=== PATIENT | female | born 1975 | race Caucasian/White ===

== ENCOUNTER 2016-10-27 15:08 | Emergency (ER) | payer MEDICARE, MEDICAID ==
[~2016-10-27 15:08] MED LIST: /AUGM875TA OR; /DULO30CA; /ESCI20TA OR; /LAMO10TA PO; ABIL2TAB OR; ACET65TA OR; ALLE25CA OR; AMBI10TA; AMBI10TA OR; AMBI10TA PO; AMBIEN PO; AMIT10TA PO; ATOM40CA PO; BACT800T PO; BUPRPOW2 OR; Cymbalta; DHEA PO; DOXE100C OR; DOXE100CA PO; DOXE150C OR; DOXE150C7 PO; EFFE150C PO; EFFE75CA75 PO; EFFEXOR XR PO; ESTR125TA; ESTR2TA PO; ESTR2TAB4 PO; FETZ1CAP2 PO; FETZ1CAP3 PO; GABA-283 PO; GABA300C3 PO; GABA600T PO; GABI4TAB OR; IBUP800T PO; LAMI1TAB7 PO; LAMI200T3 PO; LAMI25TA OR; LAMICTAL PO; LAMO10TA PO; LEVO25TABR; LEVO75TA2 OR; LEVO75TA34 PO; LYRI150C OR; MIRA3350 PO; NALT50TA4 PO; NEUR600T; NEUR600T OR; NEUR600T PO; NEUR800T OR; NEUR800T PO; NICO21DI4; NICO21PAT TD; NICO2LOZ8 MT; OMACOR PO; OMEP20CA3 PO; OMEP40CA2 PO; OXCA15HATB; PRAV10TA PO; PRAV40TA2 PO; PRESTIQUE OR; PRISTIQ PO; PROZ20CA OR; PROZ20CA11 PO; PROZ40CA OR; SENO8.6T5 OR; SERO200T; SERO200T OR; SERO400T; STRA80CA PO; SYNT50TA OR; SYNT75TA OR; SYNT75TA PO; TOPA100T PO; TOPA100T8 PO; TOPA200T6 PO; TOPI50TA; TOPI50TA OR; TRIL150T PO; TRIL1TAB PO; VENL225T PO; VENL25TA; VICO5TAB PO; VIST25CA PO; VITAMIN D50000 UNT OR; [UNRECOGNIZED DRUG - CODE] PO; [UNRECOGNIZED DRUG - OTHER] PO; cymbalta; effexor XR PO; eskalith cr
--- NOTE | 2016-10-27 17:26 | EDDOCDS ---
Physician Documentation [facility] Name: Caitlyn Christine Age: 41 yrs Sex: Female : 1975 Arrival Date: 10/27/2016 Time: 15:08 Bed [facility] Private MD: NO PRIMARY PHYSICIAN, . Disposition: 10/27 17:09 Critical Care: Critical care not applicable. pc Disposition: 10/27/16 17:10 Discharged to Home/Self Care. Impression: Major depressive disorder, recurrent. - Condition is Stable. - Discharge Instructions: Depression, Adult. - Prescriptions for Lamictal 100 mg Oral Tablet - take 2 tablet by ORAL route once daily; 14 tablet. Neurontin 300 mg Oral Capsule - take 2 capsule by ORAL route 3 times per day; 42 capsule. - Medication Reconciliation, Local Pharmacy Hours form. - Follow up: Referral list, As provided by PFS; When: Call to arrange an appointment; Reason: Continuance of care. - Problem is chronic. - Symptoms are unchanged. HPI: 16:19 This 41 yrs old Female presents to ER via Walkin/Carried/Asstd with pc complaints of Psych Problem. 16:19 She states she ran out of her meds, and has not set up her rehab as she was to have pc done after her last admission. She denies any SI or HI. She wants to talk to PFS re: meds. Historical: - Allergies: Compazine (jumpy); Reglan (jumpy); - Home Meds: 1. Ambien 10 mg Oral tab 1 tab nightly prn 2. Effexor 225mg Oral daily 3. gabapentin 600 mg Oral tab 3 times per day 4. Lamictal 200 mg Oral tab once daily 5. omeprazole 40 mg Oral cpDR 1 cap once daily 6. pravastatin 40 mg oral tab 1 tab once daily 7. Synthroid 75 mcg Oral tab 1 tab once daily 8. Topamax 100 mg Oral tab 2 times per day 9. Estradiol Unknown Oral once daily - PMHx: back pain; Depression; Hypothyroidism; MRSA; Seizures; Substance Abuse; - PSHx: Hysterectomy; - The history from nurses notes was reviewed: and I agree with what is documented. - Social history: Smoking status: Patient uses tobacco products, current every day smoker. No barriers to communication noted, The patient speaks fluent Slovak, Speaks appropriately for age. - Family history: Not pertinent. - : The pt / caregiver states he / she is not on anticoagulants. Home medication list is obtained from the patient. - Hospitalizations: : No recent hospitalization is reported. - Exposure Risk Screening:: None identified. - Immunization history:: All immunizations up-to-date. - Social history:: the patient smokes cigarettes the patient drinks alcohol, the patient uses illicit drugs, including marijuana, opiates. 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 The psychiatric and neurological components pc are also addressed in the HPI. Exam: 16:19 General Appearance: alert, no acute distress. pc 16:19 ENT: ear, nose and throat normal, pharynx normal. 16:19 Eyes: pupils equal, round and reactive to light, extraocular motions intact. 16:19 Neck: The exam reveals no acute abnormalities. ROM is normal and painless. No nuchal rigidity is noted.. 16:19 Respiratory: breathing is even and unlabored, breath sounds are normal. 16:19 Cardiovascular: regular pulse rate, regular heart rhythm, normal heart sounds, equal and full pulses bilaterally. 16:19 Abdomen: soft, non-tender, no organomegaly, normal bowel sounds. 16:19 Skin: skin color is normal, warm, dry. 16:19 Extremities: The extremities have a grossly normal appearance, are non-tender, without acute ROM abnormalities. 16:19 Neuro: alert, oriented to person, place and time, cranial nerves normal as tested, no motor deficits, no sensory deficits. 16:19 Psych: mood is normal. Vital Signs: 15:10 BP 134 / 77; Pulse 81; Resp 16; Temp 97.4(O); Pulse Ox 100% ; Weight 63.5 kg / 139.99 cmb lbs; Height 5 ft. 2 in. (157.48 cm); Pain 0/10; 17:22 BP 105 / 67; Pulse 71; Resp 20; Temp 97.7(T); Pulse Ox 97% on R/A; Pain 0/10; kcs 15:10 Body Mass Index 25.61 (63.50 kg, 157.48 cm) cmb MDM: 16:19 Differential diagnosis: depression, Substance Abuse. Plan: PFS eval. The patient has pc been medically cleared for psychiatric evaluation, admission and/or transfer. 17:09 [place] Safe [place] reporting: Reporting to the [place] Safe [place] was not completed because the pc patient did not display any suicidal or homicidal ideation and was not considered a risk to self or others. Data reviewed: old medical records, vital signs, nurses notes. Test interpretation: none. The patient has been re-examined and re-evaluated. The clinical presentation did not require any ED treatment or interventions. Other consultation: The ED welfare worker was notified and will evaluate the patient. 17:09 Disposition: The historical points, examination findings, and any diagnostic results pc supporting the provided diagnosis, were discussed with the patient or legal guardian. The need for outpatient follow up with the provider listed on their discharge instructions was discussed. They were encouraged to return to [facility], or the nearest ED, if symptoms worsen/persist, or for any other questions/concerns. Signatures: Mack Nieves MD MD pc Sleeman, Kacey, LIZ HILL [facility] Diana Taylor RN RN [facility] RODRIGO
--- NOTE | 2016-10-27 17:26 | EDDOCDS ---
Nurse's Notes [facility] Name: Caitlyn Christine Age: 41 yrs Sex: Female : 1975 Arrival Date: 10/27/2016 Time: 15:08 Bed [facility] Private MD: NO PRIMARY PHYSICIAN, . Diagnosis: Major depressive disorder, recurrent Presentation: 10/27 15:14 Presenting complaint: Patient states: was discharged a few weeks ago and was supposed srm to go to rehab. upon discharge from here went home instead of rehab and all of her paperwork was sent to there and not to PMD and she has run out of meds. im not suicidal and dont feel like i need admission but i will if i dont take my meds. ran out meds yesterday. Mental Health Triage Level: Level 1- Pt displays no suicidal or homicidal ideations and does not appear to be a danger to self or others. Mental Health Triage Level: Level 2: pt tearful in triage saying she needs to speak to psych doctor. Adult Sepsis Screening: The patient does not have new or worsening altered mentation. Patient's respiratory rate is less than 22. Systolic blood pressure is greater than 100. Patient has a qSOFA score of 0- Negative Sepsis Screen. Suicide/Homicide risk assessment- Patient denies SI and HI but presents with another emotional, behavioral or other mental health complaint. The patient reports that he/she has not been admitted to an inpatient mental health facility in the last 30 days. The patient reports that he/she has a recent or current history of substance abuse. 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 Transition of care: patient was not received from another setting of care. 15:14 Method Of Arrival: Walkin/Carried/Asstd srm 15:14 Acuity: EHSAN Level 3 srm Triage Assessment: 15:18 General: Appears in no apparent distress, distressed, Behavior is appropriate for age, srm cooperative, crying. Pain: Denies pain. HIV screening NA for this visit Offered previously. 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 Ambien 10 mg Oral tab 1 tab nightly prn 2. Effexor 225mg Oral daily 3. gabapentin 600 mg Oral tab 3 times per day 4. Lamictal 200 mg Oral tab once daily 5. omeprazole 40 mg Oral cpDR 1 cap once daily 6. pravastatin 40 mg oral tab 1 tab once daily 7. Synthroid 75 mcg Oral tab 1 tab once daily 8. Topamax 100 mg Oral tab 2 times per day 9. Estradiol Unknown Oral once daily - PMHx: back pain; Depression; Hypothyroidism; MRSA; Seizures; Substance Abuse; - PSHx: Hysterectomy; - The history from nurses notes was reviewed: and I agree with what is documented. - Social history: Smoking status: Patient uses tobacco products, current every day smoker. No barriers to communication noted, The patient speaks fluent Bahamian, Speaks appropriately for age. - Family history: Not pertinent. - : The pt / caregiver states he / she is not on anticoagulants. Home medication list is obtained from the patient. - Hospitalizations: : No recent hospitalization is reported. - Exposure Risk Screening:: None identified. - Immunization history:: All immunizations up-to-date. - Social history:: the patient smokes cigarettes the patient drinks alcohol, the patient uses illicit drugs, including marijuana, opiates. Screenin:10 Infection Control. cmb 16:16 Screening information is obtained from the patient. Fall risk: No risks identified. kcs Assistance ADL's: requires no assistance with activities of daily living. Abuse/DV Screen: The patient / caregiver reports he/she is: not in a situation that causes fear, pain or injury. Nutritional screening: No deficits noted. Advance Directives: Currently, there is no health care proxy. There is no living will. home support is adequate. Assessment: 16:16 General: Appears comfortable, well developed, well nourished, Behavior is cooperative, kcs pleasant. Neurological: Level of Consciousness is awake, alert. Respiratory: Airway is patent Respiratory effort is even, unlabored, Respiratory pattern is regular, symmetrical. Derm: Skin is intact, is healthy with good turgor, Skin is dry, Skin is normal. 16:16 General: Patient has been seen by MARIN Castro.. kcs 16:16 General: Patient given mo epi.. kcs 17:22 Reassessment: Ready for discharge. Has been resting.. General: Appears comfortable, kcs well developed, well nourished, well groomed, Behavior is cooperative, pleasant. Neurological: Level of Consciousness is awake, alert. Respiratory: Airway is patent Respiratory effort is even, unlabored, Respiratory pattern is regular, symmetrical. Derm: Skin is intact, is healthy with good turgor, Skin is dry, Skin is normal. 17:22 Pain: Denies pain. kcs Vital Signs: 15:10 BP 134 / 77; Pulse 81; Resp 16; Temp 97.4(O); Pulse Ox 100% ; Weight 63.5 kg; Height 5 cmb ft. 2 in. (157.48 cm); Pain 0/10; 17:22 BP 105 / 67; Pulse 71; Resp 20; Temp 97.7(T); Pulse Ox 97% on R/A; Pain 0/10; kcs 15:10 Body Mass Index 25.61 (63.50 kg, 157.48 cm) cmb Vitals: 15:10 Log In Time: October 27, 2016 at 15:08. cmb 15:12 RN notified that patient meets Red Flag criteria. cmb ED Course: 15:09 Patient visited by Laney Roland. cmb 15:09 Patient moved to [facility] cmb 15:10 NO PRIMARY PHYSICIAN, . is Private Physician. cmb 15:17 Triage Initiated srm 15:20 Patient moved to [facility] srm 15:23 Patient visited by Thomas Mccollum. dpm 15:39 Patient visited by Thomas Mccollum. dpm 15:56 Mack Nieves MD is Attending Physician. pc 15:56 Patient visited by Thomas Mccollum. dpm 16:12 Patient visited by Mack Nieves MD. pc 16:31 Patient visited by Thomas Mccollum. dpm 16:45 Patient visited by Thomas Mccollum. dpm 17:00 Patient visited by Thomas Mccollum. dpm 17:10 Referral list, As provided by PFS is Referral Physician. pc 17:22 The patient / caregiver is instructed regarding the plan of care and ED course. kcs 17:22 No IV's were initiated during this patient's visit. No procedures done that require kcs assistance. Order Results: There are currently no results for this order. Outcome: 17:10 Discharge ordered by Provider. pc 17:22 Discharge Assessment: Patient awake, alert and oriented x 3. No cognitive and/or kcs functional deficits noted. Patient verbalized understanding of disposition instructions. Patient awake and alert. patient administered narcotics - no. The following High Risk Discharge criteria are identified: Yes, patient has been evaluated by PSA and given cab pass upon disposition. Discharged to home ambulatory. Condition: stable. Discharge instructions given to patient, Instructed on discharge instructions, follow up and referral plans. medication usage, Demonstrated understanding of instructions, medications, Pt was receptive of discharge instructions/ teaching. No special radiology studies were completed. Property sent home with patient. 17:25 Patient left the ED. kcs Signatures: Mack Nieves MD MD pc Sleeman, Kacey RN RN Diana Brewer RN RN Thomas Carter dpm, [place] cmb Corrections: (The following items were deleted from the chart) 15:12 15:10 Resp 16bpm; Pain 0/10; cmb cmb MTDD
--- NOTE | 2016-10-29 18:25 | EDDOCDS ---
Physician Documentation [facility] Name: Caitlyn Christine Age: 41 yrs Sex: Female : 1975 Arrival Date: 10/27/2016 Time: 15:08 Bed [facility] Private MD: NO PRIMARY PHYSICIAN, . Disposition: 10/27 17:09 Critical Care: Critical care not applicable. pc Disposition: 10/27/16 17:10 Discharged to Home/Self Care. Impression: Major depressive disorder, recurrent. - Condition is Stable. - Discharge Instructions: Depression, Adult. - Prescriptions for Lamictal 100 mg Oral Tablet - take 2 tablet by ORAL route once daily; 14 tablet. Neurontin 300 mg Oral Capsule - take 2 capsule by ORAL route 3 times per day; 42 capsule. - Medication Reconciliation, Local Pharmacy Hours form. - Follow up: Referral list, As provided by PFS; When: Call to arrange an appointment; Reason: Continuance of care. - Problem is chronic. - Symptoms are unchanged. HPI: 16:19 This 41 yrs old Female presents to ER via Walkin/Carried/Asstd with pc complaints of Psych Problem. 16:19 She states she ran out of her meds, and has not set up her rehab as she was to have pc done after her last admission. She denies any SI or HI. She wants to talk to PFS re: meds. Historical: - Allergies: Compazine (jumpy); Reglan (jumpy); - Home Meds: 1. Ambien 10 mg Oral tab 1 tab nightly prn 2. Effexor 225mg Oral daily 3. gabapentin 600 mg Oral tab 3 times per day 4. Lamictal 200 mg Oral tab once daily 5. omeprazole 40 mg Oral cpDR 1 cap once daily 6. pravastatin 40 mg oral tab 1 tab once daily 7. Synthroid 75 mcg Oral tab 1 tab once daily 8. Topamax 100 mg Oral tab 2 times per day 9. Estradiol Unknown Oral once daily - PMHx: back pain; Depression; Hypothyroidism; MRSA; Seizures; Substance Abuse; - PSHx: Hysterectomy; - The history from nurses notes was reviewed: and I agree with what is documented. - Social history: Smoking status: Patient uses tobacco products, current every day smoker. No barriers to communication noted, The patient speaks fluent Kazakh, Speaks appropriately for age. - Family history: Not pertinent. - : The pt / caregiver states he / she is not on anticoagulants. Home medication list is obtained from the patient. - Hospitalizations: : No recent hospitalization is reported. - Exposure Risk Screening:: None identified. - Immunization history:: All immunizations up-to-date. - Social history:: the patient smokes cigarettes the patient drinks alcohol, the patient uses illicit drugs, including marijuana, opiates. 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 The psychiatric and neurological components pc are also addressed in the HPI. Exam: 16:19 General Appearance: alert, no acute distress. pc 16:19 ENT: ear, nose and throat normal, pharynx normal. 16:19 Eyes: pupils equal, round and reactive to light, extraocular motions intact. 16:19 Neck: The exam reveals no acute abnormalities. ROM is normal and painless. No nuchal rigidity is noted.. 16:19 Respiratory: breathing is even and unlabored, breath sounds are normal. 16:19 Cardiovascular: regular pulse rate, regular heart rhythm, normal heart sounds, equal and full pulses bilaterally. 16:19 Abdomen: soft, non-tender, no organomegaly, normal bowel sounds. 16:19 Skin: skin color is normal, warm, dry. 16:19 Extremities: The extremities have a grossly normal appearance, are non-tender, without acute ROM abnormalities. 16:19 Neuro: alert, oriented to person, place and time, cranial nerves normal as tested, no motor deficits, no sensory deficits. 16:19 Psych: mood is normal. Vital Signs: 15:10 BP 134 / 77; Pulse 81; Resp 16; Temp 97.4(O); Pulse Ox 100% ; Weight 63.5 kg / 139.99 cmb lbs; Height 5 ft. 2 in. (157.48 cm); Pain 0/10; 17:22 BP 105 / 67; Pulse 71; Resp 20; Temp 97.7(T); Pulse Ox 97% on R/A; Pain 0/10; kcs 15:10 Body Mass Index 25.61 (63.50 kg, 157.48 cm) cmb MDM: 16:19 Differential diagnosis: depression, Substance Abuse. Plan: PFS eval. The patient has pc been medically cleared for psychiatric evaluation, admission and/or transfer. 17:09 [place] Safe [place] reporting: Reporting to the [place] Safe [place] was not completed because the pc patient did not display any suicidal or homicidal ideation and was not considered a risk to self or others. Data reviewed: old medical records, vital signs, nurses notes. Test interpretation: none. The patient has been re-examined and re-evaluated. The clinical presentation did not require any ED treatment or interventions. Other consultation: The ED door worker was notified and will evaluate the patient. 17:09 Disposition: The historical points, examination findings, and any diagnostic results pc supporting the provided diagnosis, were discussed with the patient or legal guardian. The need for outpatient follow up with the provider listed on their discharge instructions was discussed. They were encouraged to return to [facility], or the nearest ED, if symptoms worsen/persist, or for any other questions/concerns. 20:25 [facility] [place] Agreement was scanned into [employer] and attached to record. [place] 20:25 Financial registration complete. gjb Signatures: Mack Nieves MD MD pc Sleeman, Kacey RN RN [facility] Diana Taylor RN RN Jia Oneil The chart was reviewed and I authenticate all verbal orders and agree with the evaluation and treatment provided.Attachments: 20:25 [facility] Payment Agreement gjb Chart Complete MTDD
--- NOTE | 2016-10-29 18:25 | EDDOCDS ---
Physician Documentation [facility] Name: Caitlyn Christine Age: 41 yrs Sex: Female : 1975 Arrival Date: 10/27/2016 Time: 15:08 Bed [facility] Private MD: NO PRIMARY PHYSICIAN, . Disposition: 10/27 17:09 Critical Care: Critical care not applicable. pc Disposition: 10/27/16 17:10 Discharged to Home/Self Care. Impression: Major depressive disorder, recurrent. - Condition is Stable. - Discharge Instructions: Depression, Adult. - Prescriptions for Lamictal 100 mg Oral Tablet - take 2 tablet by ORAL route once daily; 14 tablet. Neurontin 300 mg Oral Capsule - take 2 capsule by ORAL route 3 times per day; 42 capsule. - Medication Reconciliation, Local Pharmacy Hours form. - Follow up: Referral list, As provided by PFS; When: Call to arrange an appointment; Reason: Continuance of care. - Problem is chronic. - Symptoms are unchanged. HPI: 16:19 This 41 yrs old Female presents to ER via Walkin/Carried/Asstd with pc complaints of Psych Problem. 16:19 She states she ran out of her meds, and has not set up her rehab as she was to have pc done after her last admission. She denies any SI or HI. She wants to talk to PFS re: meds. Historical: - Allergies: Compazine (jumpy); Reglan (jumpy); - Home Meds: 1. Ambien 10 mg Oral tab 1 tab nightly prn 2. Effexor 225mg Oral daily 3. gabapentin 600 mg Oral tab 3 times per day 4. Lamictal 200 mg Oral tab once daily 5. omeprazole 40 mg Oral cpDR 1 cap once daily 6. pravastatin 40 mg oral tab 1 tab once daily 7. Synthroid 75 mcg Oral tab 1 tab once daily 8. Topamax 100 mg Oral tab 2 times per day 9. Estradiol Unknown Oral once daily - PMHx: back pain; Depression; Hypothyroidism; MRSA; Seizures; Substance Abuse; - PSHx: Hysterectomy; - The history from nurses notes was reviewed: and I agree with what is documented. - Social history: Smoking status: Patient uses tobacco products, current every day smoker. No barriers to communication noted, The patient speaks fluent Uzbek, Speaks appropriately for age. - Family history: Not pertinent. - : The pt / caregiver states he / she is not on anticoagulants. Home medication list is obtained from the patient. - Hospitalizations: : No recent hospitalization is reported. - Exposure Risk Screening:: None identified. - Immunization history:: All immunizations up-to-date. - Social history:: the patient smokes cigarettes the patient drinks alcohol, the patient uses illicit drugs, including marijuana, opiates. 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 The psychiatric and neurological components pc are also addressed in the HPI. Exam: 16:19 General Appearance: alert, no acute distress. pc 16:19 ENT: ear, nose and throat normal, pharynx normal. 16:19 Eyes: pupils equal, round and reactive to light, extraocular motions intact. 16:19 Neck: The exam reveals no acute abnormalities. ROM is normal and painless. No nuchal rigidity is noted.. 16:19 Respiratory: breathing is even and unlabored, breath sounds are normal. 16:19 Cardiovascular: regular pulse rate, regular heart rhythm, normal heart sounds, equal and full pulses bilaterally. 16:19 Abdomen: soft, non-tender, no organomegaly, normal bowel sounds. 16:19 Skin: skin color is normal, warm, dry. 16:19 Extremities: The extremities have a grossly normal appearance, are non-tender, without acute ROM abnormalities. 16:19 Neuro: alert, oriented to person, place and time, cranial nerves normal as tested, no motor deficits, no sensory deficits. 16:19 Psych: mood is normal. Vital Signs: 15:10 BP 134 / 77; Pulse 81; Resp 16; Temp 97.4(O); Pulse Ox 100% ; Weight 63.5 kg / 139.99 cmb lbs; Height 5 ft. 2 in. (157.48 cm); Pain 0/10; 17:22 BP 105 / 67; Pulse 71; Resp 20; Temp 97.7(T); Pulse Ox 97% on R/A; Pain 0/10; kcs 15:10 Body Mass Index 25.61 (63.50 kg, 157.48 cm) cmb MDM: 16:19 Differential diagnosis: depression, Substance Abuse. Plan: PFS eval. The patient has pc been medically cleared for psychiatric evaluation, admission and/or transfer. 17:09 [place] Safe [place] reporting: Reporting to the [place] Safe [place] was not completed because the pc patient did not display any suicidal or homicidal ideation and was not considered a risk to self or others. Data reviewed: old medical records, vital signs, nurses notes. Test interpretation: none. The patient has been re-examined and re-evaluated. The clinical presentation did not require any ED treatment or interventions. Other consultation: The ED chore worker was notified and will evaluate the patient. 17:09 Disposition: The historical points, examination findings, and any diagnostic results pc supporting the provided diagnosis, were discussed with the patient or legal guardian. The need for outpatient follow up with the provider listed on their discharge instructions was discussed. They were encouraged to return to [facility], or the nearest ED, if symptoms worsen/persist, or for any other questions/concerns. 20:25 [facility] [place] was scanned into [employer] and attached to record. [place] 20:25 Financial registration complete. gjb Signatures: Mack Nieves MD MD pc Sleeman, Kacey RN RN [facility] Diana Taylor RN RN Jia Oneil The chart was reviewed and I authenticate all verbal orders and agree with the evaluation and treatment provided.Attachments: 20:25 [facility] [place] gjb Chart Complete MTDD
--- NOTE | 2016-10-29 18:25 | EDDOCDS ---
Nurse's Notes [facility] Name: Caitlyn Christine Age: 41 yrs Sex: Female : 1975 Arrival Date: 10/27/2016 Time: 15:08 Bed [facility] Private MD: NO PRIMARY PHYSICIAN, . Diagnosis: Major depressive disorder, recurrent Presentation: 10/27 15:14 Presenting complaint: Patient states: was discharged a few weeks ago and was supposed srm to go to rehab. upon discharge from here went home instead of rehab and all of her paperwork was sent to there and not to PMD and she has run out of meds. im not suicidal and dont feel like i need admission but i will if i dont take my meds. ran out meds yesterday. Mental Health Triage Level: Level 1- Pt displays no suicidal or homicidal ideations and does not appear to be a danger to self or others. Mental Health Triage Level: Level 2: pt tearful in triage saying she needs to speak to psych doctor. Adult Sepsis Screening: The patient does not have new or worsening altered mentation. Patient's respiratory rate is less than 22. Systolic blood pressure is greater than 100. Patient has a qSOFA score of 0- Negative Sepsis Screen. Suicide/Homicide risk assessment- Patient denies SI and HI but presents with another emotional, behavioral or other mental health complaint. The patient reports that he/she has not been admitted to an inpatient mental health facility in the last 30 days. The patient reports that he/she has a recent or current history of substance abuse. Status: Patient is not a director of women's services or dependent. Transition of care: patient was not received from another setting of care. 15:14 Method Of Arrival: Walkin/Carried/Asstd srm 15:14 Acuity: EHSAN Level 3 srm Triage Assessment: 15:18 General: Appears in no apparent distress, distressed, Behavior is appropriate for age, srm cooperative, crying. Pain: Denies pain. HIV screening NA for this visit Offered previously. 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 Ambien 10 mg Oral tab 1 tab nightly prn 2. Effexor 225mg Oral daily 3. gabapentin 600 mg Oral tab 3 times per day 4. Lamictal 200 mg Oral tab once daily 5. omeprazole 40 mg Oral cpDR 1 cap once daily 6. pravastatin 40 mg oral tab 1 tab once daily 7. Synthroid 75 mcg Oral tab 1 tab once daily 8. Topamax 100 mg Oral tab 2 times per day 9. Estradiol Unknown Oral once daily - PMHx: back pain; Depression; Hypothyroidism; MRSA; Seizures; Substance Abuse; - PSHx: Hysterectomy; - The history from nurses notes was reviewed: and I agree with what is documented. - Social history: Smoking status: Patient uses tobacco products, current every day smoker. No barriers to communication noted, The patient speaks fluent Qatari, Speaks appropriately for age. - Family history: Not pertinent. - : The pt / caregiver states he / she is not on anticoagulants. Home medication list is obtained from the patient. - Hospitalizations: : No recent hospitalization is reported. - Exposure Risk Screening:: None identified. - Immunization history:: All immunizations up-to-date. - Social history:: the patient smokes cigarettes the patient drinks alcohol, the patient uses illicit drugs, including marijuana, opiates. Screenin:10 Infection Control. cmb 16:16 Screening information is obtained from the patient. Fall risk: No risks identified. kcs Assistance ADL's: requires no assistance with activities of daily living. Abuse/DV Screen: The patient / caregiver reports he/she is: not in a situation that causes fear, pain or injury. Nutritional screening: No deficits noted. Advance Directives: Currently, there is no health care proxy. There is no living will. home support is adequate. Assessment: 16:16 General: Appears comfortable, well developed, well nourished, Behavior is cooperative, kcs pleasant. Neurological: Level of Consciousness is awake, alert. Respiratory: Airway is patent Respiratory effort is even, unlabored, Respiratory pattern is regular, symmetrical. Derm: Skin is intact, is healthy with good turgor, Skin is dry, Skin is normal. 16:16 General: Patient has been seen by MARIN Castro.. kcs 16:16 General: Patient given mo epi.. kcs 17:22 Reassessment: Ready for discharge. Has been resting.. General: Appears comfortable, kcs well developed, well nourished, well groomed, Behavior is cooperative, pleasant. Neurological: Level of Consciousness is awake, alert. Respiratory: Airway is patent Respiratory effort is even, unlabored, Respiratory pattern is regular, symmetrical. Derm: Skin is intact, is healthy with good turgor, Skin is dry, Skin is normal. 17:22 Pain: Denies pain. kcs Vital Signs: 15:10 BP 134 / 77; Pulse 81; Resp 16; Temp 97.4(O); Pulse Ox 100% ; Weight 63.5 kg; Height 5 cmb ft. 2 in. (157.48 cm); Pain 0/10; 17:22 BP 105 / 67; Pulse 71; Resp 20; Temp 97.7(T); Pulse Ox 97% on R/A; Pain 0/10; kcs 15:10 Body Mass Index 25.61 (63.50 kg, 157.48 cm) cmb Vitals: 15:10 Log In Time: October 27, 2016 at 15:08. cmb 15:12 RN notified that patient meets Red Flag criteria. cmb ED Course: 15:09 Patient visited by Laney Roland. cmb 15:09 Patient moved to [facility] cmb 15:10 NO PRIMARY PHYSICIAN, . is Private Physician. cmb 15:17 Triage Initiated srm 15:20 Patient moved to [facility] srm 15:23 Patient visited by Thomas Mccollum. dpm 15:39 Patient visited by Thomas Mccollum. dpm 15:56 Mack Nieves MD is Attending Physician. pc 15:56 Patient visited by Thomas Mccollum. dpm 16:12 Patient visited by Mack Nieves MD. pc 16:31 Patient visited by Thomas Mccollum. dpm 16:45 Patient visited by Thomas Mccollum. dpm 17:00 Patient visited by Thomas Mccollum. dpm 17:10 Referral list, As provided by [facility] is Referral Physician. pc 17:22 The patient / caregiver is instructed regarding the plan of care and ED course. kcs 17:22 No IV's were initiated during this patient's visit. No procedures done that require kcs assistance. 20:25 [facility] Payment Agreement was scanned into [employer] and attached to record. gjb Order Results: There are currently no results for this order. Outcome: 17:10 Discharge ordered by Provider. pc 17:22 Discharge Assessment: Patient awake, alert and oriented x 3. No cognitive and/or kcs functional deficits noted. Patient verbalized understanding of disposition instructions. Patient awake and alert. patient administered narcotics - no. The following High Risk Discharge criteria are identified: Yes, patient has been evaluated by PSA and given cab pass upon disposition. Discharged to home ambulatory. Condition: stable. Discharge instructions given to patient, Instructed on discharge instructions, follow up and referral plans. medication usage, Demonstrated understanding of instructions, medications, Pt was receptive of discharge instructions/ teaching. No special radiology studies were completed. Property sent home with patient. 17:25 Patient left the ED. kcs Signatures: Mack Nieves MD MD pc Sleeman, Kacey, RN RN Diana Brewer RN RN srm Marolf, Dustin dpm Boshart, Chelsea cmb Beck, Gabriela gjb Corrections: (The following items were deleted from the chart) 15:12 15:10 Resp 16bpm; Pain 0/10; cmb cmb Chart Complete MTDD
== END 2016-10-27 17:25 | disposition home or self-care (01) ==
LOC: M ED 15:08
DX: F33.9 Major depressive disorder, recurrent, unspecified (principal); M54.9 Dorsalgia, unspecified; E03.9 Hypothyroidism, unspecified; A49.02 Methicillin resistant Staphylococcus aureus infection, unspecified site; R56.9 Unspecified convulsions; F19.10 Other psychoactive substance abuse, uncomplicated; F17.210 Nicotine dependence, cigarettes, uncomplicated; Z79.899 Other long term (current) drug therapy; Z88.8 Allergy status to other drugs, medicaments and biological substances

== ENCOUNTER 2016-11-02 04:36 | Inpatient (IN) | payer MEDICARE, MEDICAID ==
[~2016-11-02] VITALS: Ht 157.5 cm; Wt 61.2 kg
[2016-11-02 06:07] LABS: MEAN CORPUSCULAR HEMOGLOBIN 31.7 pg (27.0-33.0); MEAN CORPUSCULAR HGB CONC 34.2 g/dl (32.0-36.5); MEAN CORPUSCULAR VOLUME 92.8 fl (80.0-96.0); RED CELL DISTRIBUTION WIDTH 12.7 % (11.5-14.5); WHITE BLOOD COUNT 4.7 K/mm3 (4.0-10.0)
[2016-11-02] MEDS ORDERED: clonazePAM 0.5 MG TAB As Ordered ONE (06:24)
[2016-11-02 06:31] LABS: AMPHETAMINES LEVEL URINE POSITIVE (NEGATIVE); BENZODIAZEPINES URINE NEGATIVE (NEGATIVE); COCAINE METABOLITE URINE NEGATIVE (NEGATIVE); CONTROL LINE INT CTR LINE PRESENT; METHADONE URINE NEGATIVE (NEGATIVE); OPIATES URINE NEGATIVE (NEGATIVE); TRICYCLIC ANTIDEPRESS URINE NEGATIVE (NEGATIVE)
[2016-11-02 06:33] LABS: ALBUMIN 4.4 GM/DL (3.2-5.2); ALBUMIN/GLOBULIN RATIO 1.47 (1.00-1.93); ALKALINE PHOSPHATASE 69 U/L (45-117); ALT/SGPT 17 U/L (12-78); ANION GAP 10 MEQ/L (8-16); AST/SGOT 15 U/L (15-37); BILIRUBIN,DIRECT 0.2 MG/DL (0.0-0.2); BILIRUBIN,TOTAL 0.5 MG/DL (0.2-1.0); BLOOD UREA NITROGEN 12 MG/DL (7-18); CALCIUM LEVEL 9.2 MG/DL (8.5-10.1); CARBON DIOXIDE LEVEL 26 MEQ/L (21-32); CHLORIDE LEVEL 105 MEQ/L (98-107); CREATININE FOR GFR 0.92 MG/DL (0.55-1.02); GLOMERULAR FILTRATION RATE > 60.0 (>58); GLUCOSE, FASTING 63 MG/DL (70-105); POTASSIUM SERUM 3.6 MEQ/L (3.5-5.1); SODIUM LEVEL 141 MEQ/L (136-145); TOTAL PROTEIN 7.4 GM/DL (6.4-8.2)
[2016-11-02] MEDS: NICOTINE 21MG/24HR 1 EA TRANSDERMAL TD SCH (09:00)
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
--- NOTE | 2016-11-02 09:47 | EDDOCDS ---
Physician Documentation [facility] Name: Caitlyn Christine Age: 41 yrs Sex: Female : 1975 Arrival Date: 11/02/2016 Time: 04:36 Bed OBSERVATION Private MD: Disposition: 11/02/16 06:54 Hospitalization ordered by Demetris Rodriguez for Inpatient Admission. Preliminary diagnosis are Major depressive disorder, recurrent, Adverse effect of amphetamines - abuse of same. - Bed requested for Admit. - Status is Inpatient Admission. ead - Condition is Stable. - Problem is an ongoing problem. - Symptoms are unchanged. Historical: - Allergies: Compazine (jumpy); Reglan (jumpy); - Home Meds: 1. Ambien 10 mg Oral tab 1 tab nightly prn 2. Effexor 225mg Oral daily 3. Estradiol Oral once daily 4. gabapentin 600 mg Oral tab 3 times per day 5. Lamictal 200 mg Oral tab once daily 6. omeprazole 40 mg Oral cpDR 1 cap once daily 7. pravastatin 40 mg oral tab 1 tab once daily 8. Synthroid 75 mcg Oral tab 1 tab once daily 9. Topamax 100 mg Oral tab 2 times per day - PMHx: back pain; Depression; Hypothyroidism; MRSA; Seizures; Substance Abuse; - PSHx: Hysterectomy; Appendectomy; - Social history: Smoking status: Patient uses tobacco products, heavy tobacco smoker. No barriers to communication noted, The patient speaks fluent Lithuanian, Speaks appropriately for age. - Family history: Not pertinent. - : The pt / caregiver states he / she is not on anticoagulants. Home medication list is obtained from the patient. - Exposure Risk Screening:: None identified. Vital Signs: 11/02 04:52 BP 109 / 82; Pulse 105; Resp 18; Temp 96.0(O); Pulse Ox 96% on R/A; Weight 61.23 kg / rn1 134.99 lbs; Height 5 ft. 2 in. (157.48 cm); Pain 0/10; 09:43 BP 97 / 53; Pulse 67; Resp 16; Temp 96.1; Pulse Ox 98% on R/A; ead 04:52 Body Mass Index 24.69 (61.23 kg, 157.48 cm) rn1 MDM: 05:07 Financial registration complete. [facility] 05:13 [facility] Payment Agreement was scanned into Booster and attached to record. [facility] 05:22 Consult PFS/PSA/Supervisor Shuttle Veneering ordered. 11 05:22 Consult PFS/PSA/Supervisor Shuttle Veneering: Patient's case requires discussion with on-call [facility] Psychiatrist ordered. 05:22 PSA/PFS to call Nursing Signs Sales Representative, to enter patient data on [place] Safe [place] if patient cs11 involuntarily admitted or transferred for SI or HI ordered. 05:22 Confirm accurate psychiatric medication list and times of last dosage ordered. cs11 05:22 Detain Pt Until Medically/PFS Cleared ordered. cs11 05:23 Acetaminophen Level Ordered. EDMS 05:23 Basic Metabolic Profile Ordered. EDMS 05:23 Complete Blood Count Ordered. EDMS 05:23 Drug Eval Toxicology ED Only Ordered. EDMS 05:23 Ethyl Alcohol (ethanol) Ordered. EDMS 05:23 Liver Profile Ordered. EDMS 05:23 Salicylate Level Ordered. EDMS 05:23 Thyroid Stimulating Hormone Ordered. EDMS 06:12 REGULAR DIET PLASTIC NIETO+DIET ordered. EDMS 06:16 clonazePAM 0.5 mg PO once ordered. cs11 06:53 Acetaminophen Level Reviewed. cs11 06:53 Basic Metabolic Profile Reviewed. cs11 06:53 Drug Eval Toxicology ED Only Reviewed. cs11 06:53 Salicylate Level Reviewed. cs11 06:53 Thyroid Stimulating Hormone Reviewed. cs11 06:53 Complete Blood Count Reviewed. cs11 06:53 Ethyl Alcohol (ethanol) Reviewed. cs11 06:53 Liver Profile Reviewed. 11 06:54 Consult PFS/PSA/Supervisor Shuttle Veneering complete. 1 06:54 Consult PFS/PSA/Supervisor Shuttle Veneering: Patient's case requires discussion with on-call [facility] Psychiatrist complete. 06:54 PSA/PFS to call Nursing Signs Sales Representative, to enter patient data [place] if patient 1 involuntarily admitted or transferred for SI or HI complete. 06:55 BED REQUEST+ADM ordered. EDMS 08:22 Admit to [facility]: ordered. EDMS 09:03 [facility] Legal paperwork was scanned into Booster and attached to record. ca Administered Medications: 06:28 Drug: clonazePAM 0.5 mg [clonazepam 0.5 mg tablet (1 tabs)] Route: PO; mf4 Signatures: Dispatcher [employer] EDMS Gardenia Quiroz PSA PSA ca Daniela Del Toro, PSA PSA hm1 Iker Denis,PATIENT REGISTRATION CLERK PATIENT REGISTRATION CLERK mf4 Fan Meeks, DO cs11 Elizabeth Cody,RN RN Lisa Jones RN RN Radha Tate [facility] The chart was reviewed and I authenticate all verbal orders and agree with the evaluation and treatment provided.Attachments: 05:13 [facility] Payment Agreement [facility] MTDD
[2016-11-02 10:43] VITALS: BP 101/68
--- NOTE | 2016-11-02 12:21 | HPEPDOC ---
Medical History and Physical Date of Admission Nov 02, 2016 at 10:10 History and Physical PCP: None ATTENDING: Dr. Judd Arteaga HPI: 41yoF [facility] for unspecified depressive disorder, being medically examined today. She states she is unable to get out of bed for examination, she is too tired. She reports she has not slept for the past 3 days. She has no specific complaints or concerns. She just wants to sleep. She states she has not taken her medications for the past 2 days because she ran out of them. Denies any fevers, chills, weakness, fatigue, BECK, CP, SOB, cough, palpitations, abdominal pain, N/V/D or changes in bowel or bladder habits. PMHx: Depression/anxiety Self-mutilation History of suicide attempt Hypothyroidism Kidney stone Seizure, last 2012. Polysubstance use ADHD Chronic back pain History of MRSA GERD PSHX: Hysterectomy Appendectomy SOCHX: Resides in: [place] Marital Status: Kids: 3 Employment: Unemployed Tobacco use: One half pack per day ETOH: Denies Illicit Drugs: h/o Opiates, heroin, Suboxone. The patient states she was using methamphetamine IV for 2 days prior to admission and was injecting into her right arm. Was also using IV heroin. IV Drug Use: h/o Heroin/Meth. Tattoos done unprofessionally: Denies FAMHX: Mother: , suicide Father: Alive, diabetes Siblings: Alive, well Children: Alive, well Unexpected deaths due to medical reasons: Maternal aunt , overdose. ROS: As noted in HPI, otherwise 11pt ROS of systems reviewed and remarkable only for LMP-hysterectomy. PE: Physical examination is somewhat limited as the patient declines to get out of bed for exam. GEN: 41yoF, appears stated age. No acute distress. Alert and oriented x 3. Lethargic but awakens easily to voice. HEENT: Normocephalic, atraumatic. Moist mucous membranes. Trachea midline. CHEST: Regular rate and rhythm, +S1, +S2 LUNGS: Clear to auscultation bilaterally. No wheezes, rales, or rhonchi. Breathing appears symmetric and easy. No accessory muscle use. ABD: Round, soft, non-tender, non-distended. +Bowel sounds throughout. No rebound or guarding. No costovertebral angle tenderness. EXT: Pulses 2+ bilaterally dorsalis pedis and radial. No lower extremity edema appreciated. SKIN: [place], dry, warm. Capillary refill <2sec. No rashes. NEURO: Alert and oriented x 3. No focal deficits appreciated. EK09/29/16 sinus rhythm, nonspecific ST-T wave abnormality, 60 bpm. A&P: 41yoF admitted to [facility] for depressive disorder unspecified. 1. Psych. Plan per Psychiatry. EKG on file 2. Nicotine dependence. Patch available. 4. Follow up. No Primary Care Provider. Will attempt to establish PCP on discharge. 5. H/O Substance use, per psychiatry. 6. Hypothyroidism. Continue Synthroid 75 g daily. TSH is noted to be 3.760. Will recheck TSH and free T4 in a.m. Patient admits she has been out of her medication for at least the past 2 days. 7. Chronic Back pain. Continue Gabapentin 600mg TID. Tylenol if needed. 8. Seizure Disorder. Continue Topamax 100mg BID. Last seizure reportedly 2012. 9. Status post hysterectomy/menopausal symptoms. Remains on HRT, estradiol 2 mg by mouth daily. Arrange follow up with REAL ESTATE ADMINISTRATIVE ASSISTANT provider at discharge. Outpatient follow-up. 10. IVDU. Patient agrees to HIV/hepatitis screening. 11. Accompanied throughout exam by staff member, Brittany jo. Vital Signs Vital Signs Label Value Date Time Patient Temperature 97.2 degrees F 11/02/16 1043 Pulse 64 11/02/16 1043 Respiratory Rate 16 bpm 11/02/16 1043 Blood Pressure Assessment 101/68 (79) 11/02/16 1043 Laboratory Data Labs 24H Laboratory Tests 2 11/02/16 05:48: Acetaminophen Level < 2.0L, Aspartate Amino Transf (AST/SGOT) 15, Alanine Aminotransferase (ALT/SGPT) 17, Alkaline Phosphatase 69, Total Bilirubin 0.5, Direct Bilirubin 0.2, Albumin 4.4, Albumin/Globulin Ratio 1.47, Anion Gap 10, Calcium Level 9.2, Ethyl Alcohol Level < 0.003, Glomerular Filtration Rate > 60.0, Salicylates Level 3.1L, Thyroid Stimulating Hormone (TSH) 3.760H, Total Protein 7.4 11/02/16 05:51: Urine Amphetamine Level POSITIVEH, Urine Benzodiazepines Screen NEGATIVE, Urine Cannabinoids NEGATIVE, Urine Cocaine Metabolite NEGATIVE, Urine Opiates Screen NEGATIVE, Urine Barbiturates, Qualitative NEGATIVE, Urine Methadone Screen NEGATIVE, Urine Tricyclic Antidepressants NEGATIVE CBC/BMP Laboratory Tests 11/02/16 05:48 Red Blood Count 4.51, Mean Corpuscular Volume 92.8, Mean Corpuscular Hemoglobin 31.7, Mean Corpuscular Hemoglobin Concent 34.2, Red Cell Distribution Width 12.7 Home Medications Scheduled Estradiol (Estradiol) 2 Mg Tab 2 MG PO DAILY Gabapentin (Gabapentin) 300 Mg Cap 600 MG PO TID Lamotrigine (Lamictal) 200 Mg Tab 200 MG PO DAILY Levothyroxine Sodium (Levoxyl) 75 Mcg Tab 75 MCG PO DAILY Topiramate (Topamax) 100 Mg Tab 100 MG PO BID Venlafaxine Hydrochloride (Venlafaxine HCl ER) 225 Mg Tab 225 MG PO DAILY Scheduled PRN Hydroxyzine Pamoate (Vistaril) 25 Mg Cap 25 MG PO Q6H PRN PRN ANXIETY Allergies Coded Allergies: Molds & Smuts (Verified Allergy, Unknown, 01/11/13) Metoclopramide (Verified Adverse Reaction, Intermediate, AKATHISIA, 01/11/13 ) Prochlorperazine (Verified Adverse Reaction, Intermediate, AKATHISIA, ) AGITATION Morphine (Unverified Adverse Reaction, Unknown, h/a, 05/16/14) Quetiapine (Unverified Adverse Reaction, Unknown, 05/16/14) pt did not specify issue with medication Trazodone (Verified Adverse Reaction, Unknown, agitation, shakiness, ) Viky Robb Nov 02, 2016 12:21
[2016-11-02] MEDS ORDERED: MAALOX 30 ML SUSP *UDC PO PRN (13:00)
[2016-11-02] MEDS ORDERED: ACETAMINOPHEN TAB 650MG DOSE (2X325MG) PO PRN (13:00)
[2016-11-02] MEDS ORDERED: hydrOXYzine 25 MG TAB PO PRN (13:00)
[2016-11-02] MEDS ORDERED: MOM 30ML SUSPENSION UDC PO PRN (13:00)
[2016-11-02] MEDS: ESTRADIOL 1 MG TAB PO SCH (13:17)
[2016-11-02] MEDS: TOPIRAMATE (TopAMAX) 100 MG TAB PO SCH ×2 (13:17→21:57)
[2016-11-02] MEDS: lamoTRIgine 100MG TAB PO SCH (13:17)
[2016-11-02] MEDS: VENLAFAXINE **XR** 75MG CAPSULE PO SCH (13:17)
[2016-11-02] MEDS: LEVOTHYROXINE 0.075 MG TAB (75 MCG) PO SCH (13:17)
[2016-11-02] MEDS: GABAPENTIN 300 MG CAP PO SCH ×3 (16:00→21:57)
[2016-11-02 18:00] VITALS: BP 102/61
[2016-11-03] MEDS: LEVOTHYROXINE 0.075 MG TAB (75 MCG) PO SCH (06:14)
[2016-11-03 06:22] VITALS: BP 117/59
[2016-11-03 08:26] LABS: FREE T4 1.03 NG/DL (0.76-1.46)
[2016-11-03] MEDS ORDERED: lamoTRIgine 100MG TAB PO SCH (09:00)
[2016-11-03] MEDS: NICOTINE 21MG/24HR 1 EA TRANSDERMAL TD SCH (09:00)
[2016-11-03] MEDS: TOPIRAMATE (TopAMAX) 100 MG TAB PO SCH ×2 (10:01→22:00)
[2016-11-03] MEDS: GABAPENTIN 300 MG CAP PO SCH ×3 (10:01→22:00)
[2016-11-03] MEDS: ESTRADIOL 1 MG TAB PO SCH (10:01)
[2016-11-03] MEDS: lamoTRIgine 100MG TAB PO SCH (10:01)
[2016-11-03] MEDS: VENLAFAXINE **XR** 75MG CAPSULE PO SCH (10:01)
[2016-11-03 10:08] LABS: CONTROL LINE INT CTR LINE PRESENT; HIV SCRN NEGATIVE (NEGATIVE); HIV SCRN1 NEGATIVE (NEGATIVE)
[2016-11-03] MEDS ORDERED: traZODone 100 MG TAB PO PRN (11:30)
--- NOTE | 2016-11-03 12:34 | IPNPDOC ---
Assessment/Plan Date Seen The patient was seen on 11/03/16. Problems Problems: (1) Conjunctivitis Status: Acute Problem Text: * Polytrim eyedrops 6 times per day. * Handwashing reinforced * Reinforced with patient to avoid rubbing her eyes frequently. (2) Preseptal cellulitis of right eye Status: Acute Problem Text: * Doxycycline 100 mg by mouth twice a day * Monitor. (3) Hypothyroid Status: Chronic Problem Text: * Continue current supplement * Repeat TFTs are within normal limits. Plan / VTE VTE Prophylaxis Ordered?: No (ambulatory) Subjective Review of Systems CC/HPI The patient is a 41-year-old female admitted with a reason for visit of Unspecified Depressive Disorder. Events since last encounter Requested to evaluate the patient related to right eye pain and erythema. The patient states she began to notice right eye pain, erythema, irritation and itching. Has felt sore to touch. Feels warm and irritated. Constitutional: Denies: Chills, Fever, Malaise, Weakness Eyes: Reports: Conjunctivae inflammation (right side), Eyelid inflammation ( right eye), Pain (complaining of pain in the right eye.), Redness (right eye), Denies: Other, Vision change ENT: Denies: Dysphagia, Ear Pain, Head Aches Pulmonary: Denies: Cough, Dyspnea Cardiovascular: Denies: Chest Pain, Lt Headedness, Orthopnea, Palpitations, Paroxysmal Noc. Dyspnea Gastrointestinal: Denies: Abdominal Pain, Diarrhea, Nausea, Vomiting Objective Physical Examination General Exam: Positive: Alert Eye Exam: Positive: Conjunctiva & lids normal (there is right-sided conjunctival injection and erythema, crusting noted of the right eyelid and erythema noted of the right eyelid with erythema and edema noted. There is mild tenderness with palpation noted around the right eye. I do not see this extending below the lid. There is some extending up to the eyebrow. There is no pain with movement of the eye.), EOMI, PERRLA, Negative: Other Eye Symptoms, Ptosis, Sclera icteric ENT Exam: Positive: Atraumatic, Mucous membr. moist/pink, Pharynx Normal Neck Exam: Positive: Supple, Negative: JVD, thyromegaly Chest Exam: Positive: Clear to auscultation, Normal air movement Heart Exam: Positive: Normal S1, Normal S2, Rate Normal, Regular Rhythm, Negative: Murmurs, Rubs Skin Exam: Positive: Nl turgor and temperature Neuro Exam: Positive: Normal Gait Vital Signs/I&O Vital Signs Date Time Temp Pulse Resp B/P Pulse Ox O2 Delivery O2 Flow Rate FiO2 11/03/16 06:22 95.3 74 18 117/59 Laboratory Data Labs 24H Laboratory Tests 2 11/03/16 07:22: Free Thyroxine 1.03, HIV (1&2) Antibody NEGATIVE, HIV P24 Antigen NEGATIVE, Thyroid Stimulating Hormone (TSH) 0.662 Viky Robb Nov 03, 2016 12:34
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
[2016-11-03] MEDS: POLYTRIM OPTH DROPS 10ML OD SCH ×3 (14:11→22:01)
[2016-11-03] MEDS: DOXYCYCLINE HYCLATE 100 MG TAB PO SCH ×2 (14:11→22:00)
[2016-11-03 18:00] VITALS: BP 116/67
[2016-11-03] MEDS: traZODone 50 MG TAB PO SCH (21:00)
[2016-11-03] MEDS: diphenhydrAMINE 25 MG CAP PO PRN (22:01)
[2016-11-04] MEDS: LEVOTHYROXINE 0.075 MG TAB (75 MCG) PO SCH (05:55)
[2016-11-04] MEDS: POLYTRIM OPTH DROPS 10ML OD SCH ×6 (05:55→20:05)
[2016-11-04 06:27] VITALS: BP 88/50
[2016-11-04] MEDS: NICOTINE 21MG/24HR 1 EA TRANSDERMAL TD SCH (09:00)
[2016-11-04] MEDS: lamoTRIgine 100MG TAB PO SCH ×2 (09:31→20:05)
[2016-11-04] MEDS: DOXYCYCLINE HYCLATE 100 MG TAB PO SCH ×2 (09:32→20:04)
[2016-11-04] MEDS: GABAPENTIN 300 MG CAP PO SCH ×3 (09:32→20:05)
[2016-11-04] MEDS: ESTRADIOL 1 MG TAB PO SCH (09:32)
[2016-11-04] MEDS: VENLAFAXINE **XR** 75MG CAPSULE PO SCH (09:32)
[2016-11-04] MEDS: TOPIRAMATE (TopAMAX) 100 MG TAB PO SCH ×2 (09:32→20:05)
--- NOTE | 2016-11-04 10:46 | EDDOCDS ---
Physician Documentation [facility] Name: Caitlyn Christine Age: 41 yrs Sex: Female : 1975 Arrival Date: 11/02/2016 Time: 04:36 Bed OBSERVATION Private MD: Disposition: 11/02/16 06:54 Hospitalization ordered by Demetris Rodriguez for Inpatient Admission. Preliminary diagnosis are Major depressive disorder, recurrent, Adverse effect of amphetamines - abuse of same. - Bed requested for Admit. - Status is Inpatient Admission. ead - Condition is Stable. - Problem is an ongoing problem. - Symptoms are unchanged. Historical: - Allergies: Compazine (jumpy); Reglan (jumpy); - Home Meds: 1. Ambien 10 mg Oral tab 1 tab nightly prn 2. Effexor 225mg Oral daily 3. Estradiol Oral once daily 4. gabapentin 600 mg Oral tab 3 times per day 5. Lamictal 200 mg Oral tab once daily 6. omeprazole 40 mg Oral cpDR 1 cap once daily 7. pravastatin 40 mg oral tab 1 tab once daily 8. Synthroid 75 mcg Oral tab 1 tab once daily 9. Topamax 100 mg Oral tab 2 times per day - PMHx: back pain; Depression; Hypothyroidism; MRSA; Seizures; Substance Abuse; - PSHx: Hysterectomy; Appendectomy; - Social history: Smoking status: Patient uses tobacco products, heavy tobacco smoker. No barriers to communication noted, The patient speaks fluent Sinhala, Speaks appropriately for age. - Family history: Not pertinent. - : The pt / caregiver states he / she is not on anticoagulants. Home medication list is obtained from the patient. - Exposure Risk Screening:: None identified. Vital Signs: 11/02 04:52 BP 109 / 82; Pulse 105; Resp 18; Temp 96.0(O); Pulse Ox 96% on R/A; Weight 61.23 kg / rn1 134.99 lbs; Height 5 ft. 2 in. (157.48 cm); Pain 0/10; 09:43 BP 97 / 53; Pulse 67; Resp 16; Temp 96.1; Pulse Ox 98% on R/A; ead 04:52 Body Mass Index 24.69 (61.23 kg, 157.48 cm) rn1 MDM: 05:07 Financial registration complete. [facility] 05:13 [facility] Payment Agreement was scanned into [employer] and attached to record. [facility] 05:22 Consult PFS/PSA/Dialysis Equipment Technician ordered. cs11 05:22 Consult PFS/PSA/Dialysis Equipment Technician: Patient's case requires discussion with on-call [facility] Psychiatrist ordered. 05:22 PSA/PFS to call Nursing Oil Sprayer, to enter patient data on [place] Safe [place] if patient cs11 involuntarily admitted or transferred for SI or HI ordered. 05:22 Confirm accurate psychiatric medication list and times of last dosage ordered. cs11 05:22 Detain Pt Until Medically/PFS Cleared ordered. cs11 05:23 Acetaminophen Level Ordered. EDMS 05:23 Basic Metabolic Profile Ordered. EDMS 05:23 Complete Blood Count Ordered. EDMS 05:23 Drug Eval Toxicology ED Only Ordered. EDMS 05:23 Ethyl Alcohol (ethanol) Ordered. EDMS 05:23 Liver Profile Ordered. EDMS 05:23 Salicylate Level Ordered. EDMS 05:23 Thyroid Stimulating Hormone Ordered. EDMS 06:12 REGULAR DIET PLASTIC NIETO+DIET ordered. EDMS 06:16 clonazePAM 0.5 mg PO once ordered. cs11 06:53 Acetaminophen Level Reviewed. cs11 06:53 Basic Metabolic Profile Reviewed. cs11 06:53 Drug Eval Toxicology ED Only Reviewed. cs11 06:53 Salicylate Level Reviewed. cs11 06:53 Thyroid Stimulating Hormone Reviewed. cs11 06:53 Complete Blood Count Reviewed. cs11 06:53 Ethyl Alcohol (ethanol) Reviewed. cs11 06:53 Liver Profile Reviewed. cs11 06:54 Consult PFS/PSA/Dialysis Equipment Technician complete. 1 06:54 Consult PFS/PSA/Dialysis Equipment Technician: Patient's case requires discussion with on-call [facility] Psychiatrist complete. 06:54 PSA/PFS to call Nursing Oil Sprayer, to enter patient data [place] if patient 1 involuntarily admitted or transferred for SI or HI complete. 06:55 BED REQUEST+ADM ordered. EDMS 08:22 Admit to [facility]: ordered. EDMS 09:03 [facility] Legal paperwork was scanned into [employer] and attached to record. ca 14:22 T-Sheet-- Draft Copy was scanned into [employer] and attached to record. gb Administered Medications: 06:28 Drug: clonazePAM 0.5 mg [clonazepam 0.5 mg tablet (1 tabs)] Route: PO; mf4 Signatures: Dispatcher [employer] EDMS Gardenia Quiroz, PSA PSA ca John, Floridalma, Reg Reg gb Daniela Del Toro, PSA PSA hm1 Iker Denis,SCRIPT WRITER SCRIPT WRITER mf4 Fan Meeks, DO cs11 Elizabeth Cody,RN RN Lisa Jones RN RN Radha Tate [facility] The chart was reviewed and I authenticate all verbal orders and agree with the evaluation and treatment provided.Attachments: 05:13 [facility] Payment Agreement [facility] 14:22 T-Sheet-- Draft Copy gb Chart Complete MTDD
--- NOTE | 2016-11-04 10:47 | EDDOCDS ---
Physician Documentation Name: Caitlyn Christine Age: 41 yrs Sex: Female : 1975 Arrival Date: 11/02/2016 Time: 04:36 Bed OBSERVATION Private MD: Disposition: 11/02/16 06:54 Hospitalization ordered by Demetris Rodriguez for Inpatient Admission. Preliminary diagnosis are Major depressive disorder, recurrent, Adverse effect of amphetamines - abuse of same. - Bed requested for Admit. - Status is Inpatient Admission. ead - Condition is Stable. - Problem is an ongoing problem. - Symptoms are unchanged. Historical: - Allergies: Compazine (jumpy); Reglan (jumpy); - Home Meds: 1. Ambien 10 mg Oral tab 1 tab nightly prn 2. Effexor 225mg Oral daily 3. Estradiol Oral once daily 4. gabapentin 600 mg Oral tab 3 times per day 5. Lamictal 200 mg Oral tab once daily 6. omeprazole 40 mg Oral cpDR 1 cap once daily 7. pravastatin 40 mg oral tab 1 tab once daily 8. Synthroid 75 mcg Oral tab 1 tab once daily 9. Topamax 100 mg Oral tab 2 times per day - PMHx: back pain; Depression; Hypothyroidism; MRSA; Seizures; Substance Abuse; - PSHx: Hysterectomy; Appendectomy; - Social history: Smoking status: Patient uses tobacco products, heavy tobacco smoker. No barriers to communication noted, The patient speaks fluent French, Speaks appropriately for age. - Family history: Not pertinent. - : The pt / caregiver states he / she is not on anticoagulants. Home medication list is obtained from the patient. - Exposure Risk Screening:: None identified. Vital Signs: 11/02 04:52 BP 109 / 82; Pulse 105; Resp 18; Temp 96.0(O); Pulse Ox 96% on R/A; Weight 61.23 kg / rn1 134.99 lbs; Height 5 ft. 2 in. (157.48 cm); Pain 0/10; 09:43 BP 97 / 53; Pulse 67; Resp 16; Temp 96.1; Pulse Ox 98% on R/A; ead 04:52 Body Mass Index 24.69 (61.23 kg, 157.48 cm) rn1 MDM: 05:07 Financial registration complete. [facility] 05:13 [facility] Payment Agreement was scanned into [employer] and attached to record. [facility] 05:22 Consult PFS/PSA/Typing Bookkeeper ordered. cs11 05:22 Consult PFS/PSA/Typing Bookkeeper: Patient's case requires discussion with on-call [facility] Psychiatrist ordered. 05:22 PSA/PFS to call Nursing B2B Appointment Setter, to enter [place] data [place] if patient cs11 involuntarily admitted or transferred for SI or HI ordered. 05:22 Confirm accurate psychiatric medication list and times of last dosage ordered. cs11 05:22 Detain Pt Until Medically/PFS Cleared ordered. cs11 05:23 Acetaminophen Level Ordered. EDMS 05:23 Basic Metabolic Profile Ordered. EDMS 05:23 Complete Blood Count Ordered. EDMS 05:23 Drug Eval Toxicology ED Only Ordered. EDMS 05:23 Ethyl Alcohol (ethanol) Ordered. EDMS 05:23 Liver Profile Ordered. EDMS 05:23 Salicylate Level Ordered. EDMS 05:23 Thyroid Stimulating Hormone Ordered. EDMS 06:12 REGULAR DIET PLASTIC NIETO+DIET ordered. EDMS 06:16 clonazePAM 0.5 mg PO once ordered. cs11 06:53 Acetaminophen Level Reviewed. cs11 06:53 Basic Metabolic Profile Reviewed. cs11 06:53 Drug Eval Toxicology ED Only Reviewed. cs11 06:53 Salicylate Level Reviewed. cs11 06:53 Thyroid Stimulating Hormone Reviewed. cs11 06:53 Complete Blood Count Reviewed. cs11 06:53 Ethyl Alcohol (ethanol) Reviewed. cs11 06:53 Liver Profile Reviewed. cs11 06:54 Consult PFS/PSA/Typing Bookkeeper complete. 1 06:54 Consult PFS/PSA/Typing Bookkeeper: Patient's case requires discussion with on-call [facility] Psychiatrist complete. 06:54 PSA/PFS to call Nursing B2B Appointment Setter, to enter [place] data [place] if patient 1 involuntarily admitted or transferred for SI or HI complete. 06:55 BED REQUEST+ADM ordered. EDMS 08:22 Admit to [facility]: ordered. EDMS 09:03 [facility] Legal paperwork was scanned into [employer] and attached to record. ca 14:22 T-Sheet-- Draft Copy was scanned into [employer] and attached to record. gb Administered Medications: 06:28 Drug: clonazePAM 0.5 mg [clonazepam 0.5 mg tablet (1 tabs)] Route: PO; mf4 Signatures: Dispatcher [employer] EDMS Gardenia Quiroz, PSA PSA ca John, Floridalma, Reg Reg gb Daniela Del Toro, PSA PSA hm1 Iker Denis,AUDIO INSTALLER AUDIO INSTALLER mf4 Fan Meeks, DO cs11 Elizabeth Cody,RN RN Lisa Jones RN RN Radha Tate [facility] The chart was reviewed and I authenticate all verbal orders and agree with the evaluation and treatment provided.Attachments: 05:13 [facility] Payment Agreement [facility] 14:22 T-Sheet-- Draft Copy gb Chart Complete MTDD
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
--- NOTE | 2016-11-04 10:52 | IPNPDOC ---
Assessment/Plan Date Seen The patient was seen on 11/04/16. Problems Problems: (1) Conjunctivitis Status: Acute Problem Text: * Polytrim eyedrops 6 times per day. * Handwashing reinforced * Reinforced with patient to avoid rubbing her eyes frequently. * Continue same. (2) Preseptal cellulitis of right eye Status: Acute Problem Text: * Doxycycline 100 mg by mouth twice a day D2 * Symptoms improving -Monitor. (3) Hypothyroid Status: Chronic Problem Text: * Continue current supplement * Repeat TFTs are within normal limits. Plan / VTE VTE Prophylaxis Ordered?: No (ambulatory) Subjective Review of Systems CC/HPI The patient is a 41-year-old female admitted with a reason for visit of Unspecified Depressive Disorder. Events since last encounter Patient states irritation of the right eye is improved today. Decreased pain and decreased redness. Less drainage. Overall is feeling much better. No noted symptoms in the left eye. Objective Physical Examination General Exam: Positive: Alert Eye Exam: Positive: Conjunctiva & lids normal (there is less conjunctival injection noted today. Less erythema of the right lid, still some erythema noted. Less drainage noted. Tenderness with palpation has decreased.), EOMI, PERRLA, Negative: Other Eye Symptoms, Ptosis, Sclera icteric ENT Exam: Positive: Atraumatic, Mucous membr. moist/pink, Pharynx Normal Neck Exam: Positive: Supple, Negative: JVD, thyromegaly Chest Exam: Positive: Clear to auscultation, Normal air movement Heart Exam: Positive: Normal S1, Normal S2, Rate Normal, Regular Rhythm, Negative: Murmurs, Rubs Skin Exam: Positive: Nl turgor and temperature Neuro Exam: Positive: Normal Gait Vital Signs/I&O Vital Signs Date Time Temp Pulse Resp B/P Pulse Ox O2 Delivery O2 Flow Rate FiO2 11/04/16 06:27 95.2 61 16 88/50 Viky Robb Nov 04, 2016 10:52
[2016-11-04 18:11] VITALS: BP 90/52
[2016-11-04] MEDS: diphenhydrAMINE 25 MG CAP PO PRN (20:05)
[2016-11-04] MEDS: traZODone 50 MG TAB PO SCH (20:06)
[2016-11-05] MEDS: POLYTRIM OPTH DROPS 10ML OD SCH ×4 (06:00→14:07)
[2016-11-05 06:37] VITALS: BP 92/54
[2016-11-05] MEDS: LEVOTHYROXINE 0.075 MG TAB (75 MCG) PO SCH (06:54)
[2016-11-05] MEDS ORDERED: DOXY10CA PO (08:47)
[2016-11-05] MEDS ORDERED: NICO21PAT TD (08:47)
[2016-11-05] MEDS ORDERED: POLY2.5S OD (08:47)
[2016-11-05] MEDS: NICOTINE 21MG/24HR 1 EA TRANSDERMAL TD SCH (09:00)
[2016-11-05] MEDS ORDERED: TOPA100T8 PO (09:45)
[2016-11-05] MEDS ORDERED: LAMO10TA PO (09:45)
[2016-11-05] MEDS ORDERED: VENL75CA PO (09:45)
[2016-11-05] MEDS ORDERED: GABA300C3 PO (09:45)
[2016-11-05] MEDS: VENLAFAXINE **XR** 75MG CAPSULE PO SCH (10:01)
[2016-11-05] MEDS: TOPIRAMATE (TopAMAX) 100 MG TAB PO SCH (10:01)
[2016-11-05] MEDS: lamoTRIgine 100MG TAB PO SCH (10:01)
[2016-11-05] MEDS: GABAPENTIN 300 MG CAP PO SCH ×2 (10:01→15:32)
[2016-11-05] MEDS: DOXYCYCLINE HYCLATE 100 MG TAB PO SCH (10:02)
[2016-11-05] MEDS: ESTRADIOL 1 MG TAB PO SCH (10:02)
--- NOTE | 2016-11-05 16:10 | IPN ---
DATE: 11/04/2016 SUBJECTIVE: "I'm feeling a little better." OBJECTIVE: The patient continues depressed but her mood is improving. She is less anxious. She has low insight into how to treat her chemical dependency. She reports her suicidal ideation has significantly decreased. She does not want to go to an inpatient rehabilitation program and prefers to go to outpatient. Denies side effects from the medication. MENTAL STATUS EXAMINATION: The patient is dressed in [facility]. The patient is cooperative. Speech is slow and monotone. Mood is depressed and anxious but improved from admission. Affect is congruent with mood. No evidence of delusions or hallucinations. Memory is intact. The patient is fully oriented. Associates are intact. Thinking is logical. Thought content is appropriate. The patient reports suicidal ideation but not homicidal ideation. Insight and judgment is limited as far as her chemical dependency. ASSESSMENT: 1. Adjustment disorder with depressed mood. 2. Substance-induced mood disorder. 3. Polysubstance dependency. PLAN: 1. Continue with Effexor XR 150 mg by mouth every morning 2. Continue with Lamictal 100 mg by mouth twice a day. 3. Continue with Neurontin 600 mg by mouth three times a day. 4. Continue with Topamax 100 mg by mouth twice a day. 5. Continue medication management, individual and group therapy.
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
== END 2016-11-05 12:15 | disposition home or self-care (01) | DRG 882 ==
LOC: M ED 04:36 → M PSY 10:10
PROVIDERS: ADMIT Psychiatry & Neurology Psychiatry; ATTEND Psychiatry & Neurology Psychiatry
DX: F43.23 Adjustment disorder with mixed anxiety and depressed mood (principal); L03.213 Periorbital cellulitis; F19.94 Other psychoactive substance use, unspecified with psychoactive substance-induced mood disorder; F11.10 Opioid abuse, uncomplicated; E03.9 Hypothyroidism, unspecified; M54.5 Low back pain; F17.200 Nicotine dependence, unspecified, uncomplicated; Z79.899 Other long term (current) drug therapy; Z88.5 Allergy status to narcotic agent; Z88.8 Allergy status to other drugs, medicaments and biological substances; K21.9 Gastro-esophageal reflux disease without esophagitis; H10.9 Unspecified conjunctivitis

== ENCOUNTER 2016-11-08 04:49 | Emergency (ER) | payer MEDICARE, MEDICAID ==
[~2016-11-08 04:49] MED LIST changes: +DOXY10CA PO; +POLY2.5S OD; +VENL75CA PO
[2016-11-08] MEDS ORDERED: PROMETHAZINE INJ 25 MG/ML VIAL (J2550) As Ordered ONE (06:24)
[2016-11-08] MEDS ORDERED: diphenhydrAMINE INJ 50MG/ML VIAL (J1200) As Ordered ONE (06:24)
[2016-11-08 06:33] LABS: BASO # 0.1 K/mm3 (0.0-0.2); BASO % 1.6 % (0.0-1.0); EOS # 0.4 K/mm3 (0.0-0.50); EOS % 9.2 % (0.0-3.0); LARGE UNSTAINED CELL # 0.1 K/mm3 (0.0-0.4); LARGE UNSTAINED CELL % 1.6 % (0.0-4.0); LYMPH % 21.8 % (24.0-44.0); MEAN CORPUSCULAR HEMOGLOBIN 30.6 pg (27.0-33.0); MEAN CORPUSCULAR VOLUME 92.6 fl (80.0-96.0); MONO # 0.3 K/mm3 (0.0-0.8); MONO % 7.4 % (0.0-5.0); NEUTROPHILS # 2.6 K/mm3 (1.8-7.7); NEUTROPHILS % 58.5 % (36.0-66.0); PLATELET COUNT, AUTOMATED 305 k/mm3 (150-450); RED CELL DISTRIBUTION WIDTH 13.6 % (11.5-14.5); WHITE BLOOD COUNT 4.4 K/mm3 (4.0-10.0)
[2016-11-08 06:56] LABS: ANION GAP 8 MEQ/L (8-16); BLOOD UREA NITROGEN 12 MG/DL (7-18); CALCIUM LEVEL 9.7 MG/DL (8.5-10.1); CARBON DIOXIDE LEVEL 27 MEQ/L (21-32); CHLORIDE LEVEL 106 MEQ/L (98-107); CREATININE FOR GFR 0.86 MG/DL (0.55-1.02); GLOMERULAR FILTRATION RATE > 60.0 (>58); GLUCOSE, FASTING 98 MG/DL (70-105); POTASSIUM SERUM 4.2 MEQ/L (3.5-5.1); SODIUM LEVEL 141 MEQ/L (136-145)
--- NOTE | 2016-11-08 10:26 | EDDOCDS ---
Physician Documentation [facility] Name: Caitlyn Christine Age: 41 yrs Sex: Female : 1975 Arrival Date: 11/08/2016 Time: 04:49 Bed 14 Private MD: Disposition: 11/08/16 09:56 Discharged to Home/Self Care. Impression: Vomiting. - Condition is Stable. - Discharge Instructions: Nausea and Vomiting, [id number]. - Prescriptions for promethazine 25 mg Oral Tablet - take 1 tablet by ORAL route every 8 hours As needed; 5 tablet. - Medication Reconciliation, Local Pharmacy Hours form. - Follow up: [facility]; When: Call to arrange an appointment; Reason: Continuance of care. - Problem is new. - Symptoms have improved. Historical: - Allergies: Compazine (jumpy); Reglan (jumpy); - Home Meds: 1. Ambien 10 mg Oral tab 1 tab nightly prn (Last dose: 11/07/2016) 2. Effexor 225mg Oral daily (Last dose: 11/07/2016) 3. Estradiol Oral once daily (Last dose: 11/07/2016) 4. gabapentin 600 mg Oral tab 3 times per day 5. Lamictal 200 mg Oral tab once daily (Last dose: 11/07/2016) 6. omeprazole 40 mg Oral cpDR 1 cap once daily (Last dose: 11/07/2016) 7. pravastatin 40 mg oral tab 1 tab once daily (Last dose: 11/07/2016) 8. Synthroid 75 mcg Oral tab 1 tab once daily (Last dose: 11/07/2016) 9. Topamax 100 mg Oral tab 2 times per day (Last dose: 11/07/2016) 10. Zofran (as hydrochloride) 4 mg Oral tab 1 tabs every 8 hours (Last dose: 11/08/2016 04:19) - PMHx: back pain; Depression; Hypothyroidism; MRSA; Seizures; Substance Abuse; - PSHx: Hysterectomy; Appendectomy; - Social history: Smoking status: Patient uses tobacco products, light tobacco smoker. No barriers to communication noted, The patient speaks fluent Moldovan, Speaks appropriately for age. - Family history: Not pertinent. - : The pt / caregiver states he / she is not on anticoagulants. [facility] - Exposure Risk Screening:: None identified. MANAGER PE: 11/08 05:20 LMP N/A - Hysterectomy km Vital Signs: 05:20 BP 119 / 80 RA; Pulse 77; Resp 18; Temp 97.5(O); Pulse Ox 98% ; Weight 61.23 kg / kmg1 134.99 lbs (R); Height 5 ft. 2 in. (157.48 cm) (R); Pain 2/10; 10:14 BP 117 / 68; Pulse 84; Resp 18; Temp 97.3(O); Pulse Ox 98% on R/A; jml1 05:20 Body Mass Index 24.69 (61.23 kg, 157.48 cm) km MDM: 06:14 IV Saline Lock ordered. mm11 06:14 NS 0.9% 1000 ml IV at bolus once ordered. mm11 06:14 Promethazine 25 mg IVP once; dilute and administer 30-60 minutes ordered. mm11 06:14 diphenhydrAMINE 25 mg IVP once ordered. mm11 06:15 CBC with Diff Ordered. EDMS 06:15 BMP Ordered. EDMS 06:15 Lipase Ordered. EDMS 06:57 CBC with Diff Reviewed. mm11 06:57 Lipase Reviewed. mm11 06:57 BMP Reviewed. mm11 09:46 [facility] Payment Agreement was scanned into [employer] and attached to record. jp5 09:46 Financial registration complete. jp5 Administered Medications: 06:34 Drug: NS 0.9% 1000 ml [sodium chloride 0.9 % intravenous solution] Route: IV; Rate: tm5 bolus; Site: left antecubital; 08:04 Follow up: IV Status: Completed infusion; IV Intake: 1000ml jjr 06:34 Drug: Promethazine 25 mg [promethazine 25 mg/mL injection solution (1 mL)] {Note: given tm5 IVPB in 50cc NS over 30 minutes.} Route: IVP; Site: left antecubital; 06:34 Drug: diphenhydrAMINE 25 mg [diphenhydramine 50 mg/mL injection solution (0.5 mL)] tm5 Route: IVP; Site: left antecubital; Signatures: Dispatcher [employer] EDMS Cleo Orosco RN RN kmg1 Daniel Block DO DO mm11 Elizabeth Cody,RN RN Ross Higgins jp5 Mera Yan MD MD Paula Platt RN RN tm5 Laureen Oconnor RN The chart was reviewed and I authenticate all verbal orders and agree with the evaluation and treatment provided.Attachments: 09:46 [facility] Payment Agreement jp5 [employer]
--- NOTE | 2016-11-08 10:26 | EDDOCDS ---
Nurse's Notes [facility] Name: Caitlyn Christine Age: 41 yrs Sex: Female : 1975 Arrival Date: 11/08/2016 Time: 04:49 Bed 14 Private MD: Diagnosis: Vomiting Presentation: 11/08 05:16 Presenting complaint: Patient states: Vomiting since this time yesterday. Unable to kmg1 retain oral fluids or food. Suicide/Homicide risk assessment- the patient denies having any suicidal and/or homicidal ideations and does not present with any other emotional, behavioral or mental health complaints. Status: Patient is not a job service consultant or dependent. Transition of care: patient was not received from another setting of care. 05:16 Acuity: EHSAN Level 4 kmg1 05:16 Method Of Arrival: Walkin/Carried/Asstd kmg1 Triage Assessment: 05:20 General: Appears ill, Behavior is appropriate for age, cooperative, pleasant. Pain: kmg1 Location: right upper quadrant and left upper quadrant Pain currently is 2 out of 10 on a pain scale. Quality of pain is described as crampy. HIV screening NA for this visit Offered previously. GI: Reports cramping, nausea, vomiting. Derm: Skin is pale. RELIEF CAPTAIN: 05:20 LMP N/A - Hysterectomy kmg1 Historical: - Allergies: Compazine (jumpy); Reglan (jumpy); - Home Meds: 1. Ambien 10 mg Oral tab 1 tab nightly prn (Last dose: 11/07/2016) 2. Effexor 225mg Oral daily (Last dose: 11/07/2016) 3. Estradiol Oral once daily (Last dose: 11/07/2016) 4. gabapentin 600 mg Oral tab 3 times per day 5. Lamictal 200 mg Oral tab once daily (Last dose: 11/07/2016) 6. omeprazole 40 mg Oral cpDR 1 cap once daily (Last dose: 11/07/2016) 7. pravastatin 40 mg oral tab 1 tab once daily (Last dose: 11/07/2016) 8. Synthroid 75 mcg Oral tab 1 tab once daily (Last dose: 11/07/2016) 9. Topamax 100 mg Oral tab 2 times per day (Last dose: 11/07/2016) 10. Zofran (as hydrochloride) 4 mg Oral tab 1 tabs every 8 hours (Last dose: 11/08/2016 04:19) - PMHx: back pain; Depression; Hypothyroidism; MRSA; Seizures; Substance Abuse; - PSHx: Hysterectomy; Appendectomy; - Social history: Smoking status: Patient uses tobacco products, light tobacco smoker. No barriers to communication noted, The patient speaks fluent [place], Speaks appropriately for age. - Family history: Not pertinent. - : The pt / caregiver states he / she is not on anticoagulants. Home medication list is obtained from the patient, [employer] import data. - Exposure Risk Screening:: None identified. Screenin:34 Screening information is obtained from the patient. Fall risk: No risks identified. tm5 Assistance ADL's: requires no assistance with activities of daily living. Abuse/DV Screen: The patient / caregiver reports he/she is: not in a situation that causes fear, pain or injury. Nutritional screening: No deficits noted. Advance Directives: Currently, there is no health care proxy. home support is adequate. Assessment: 05:49 General: Appears in no apparent distress, Behavior is appropriate for age, cooperative. tm5 Pain: Location: right upper quadrant and left upper quadrant Pain currently is 2 out of 10 on a pain scale. Quality of pain is described as crampy. Neurological: Level of Consciousness is awake, alert, Oriented to person, place, time. GI: Abdomen is flat, non- distended Bowel sounds present X 4 quads. Abd is soft and non tender X 4 quads. Reports nausea, vomiting. : No deficits noted. Derm: Skin is pink, warm & dry. normal. 07:14 General: Appears in no apparent distress, Behavior is appropriate for age, drowsy. jjr Pain: Denies pain. Respiratory: No deficits noted. GI: Reports nausea improved from arrival. Derm: No deficits noted. 08:16 General: Appears to be sleeping. jjr 10:21 Adult Sepsis Screening: The patient does not have new or worsening altered mentation. ead Patient's respiratory rate is less than 22. Systolic blood pressure is greater than 100. Patient has a qSOFA score of 0- Negative Sepsis Screen. General: Appears in no apparent distress, comfortable, Behavior is appropriate for age, cooperative. Neurological: Level of Consciousness is awake, alert, obeys commands, Oriented to person, place, time. Respiratory: No deficits noted. GI: Denies nausea, vomiting, pain. Derm: Skin is pink, warm & dry. Vital Signs: 05:20 BP 119 / 80 RA; Pulse 77; Resp 18; Temp 97.5(O); Pulse Ox 98% ; Weight 61.23 kg (R); kmg1 Height 5 ft. 2 in. (157.48 cm) (R); Pain 2/10; 10:14 BP 117 / 68; Pulse 84; Resp 18; Temp 97.3(O); Pulse Ox 98% on R/A; jml1 05:20 Body Mass Index 24.69 (61.23 kg, 157.48 cm) [facility] [place]: 05:20 Log In Time: November 08, 2016 at 04:51. [facility] [place] Course: 04:50 Patient visited by Katelynn Álvarez Reg. hs2 04:50 Patient moved to Waiting hs2 05:17 [place] [facility] [place] Patient moved to 14 km 05:48 Patient visited by Paula Platt RN. tm5 05:49 Awaiting ED physician evaluation. tm5 05:49 The patient / caregiver is instructed regarding the plan of care and ED course. tm5 05:57 Daniel Block DO is Attending Physician. mm11 05:57 Patient visited by Daniel Block DO. mm11 06:13 Patient visited by Daniel Block DO. mm11 06:20 Inserted saline lock: 20 gauge in left antecubital area and blood collected. The tm5 patient tolerated the procedure well. Labs drawn. (by ED staff). 07:15 Patient visited by Laureen Oconnor RN. jjr 07:34 Attending Physician role handed off by Daniel Block DO fg 07:34 Mera Yan MD is Attending Physician. fg 08:16 Patient visited by Laureen Oconnor RN. jjr 09:03 Report received from Laureen Oconnor RN. ead 09:37 Elizabeth Cody,RN is Primary Nurse. ead 09:38 Patient visited by Elizabeth Cody,LIZ. ead 09:46 [facility] [place] was scanned into [employer] and attached to record. jp5 09:56 [facility] is Referral Physician. fg 10:15 Patient visited by Gene Kumar. jml1 10:21 Discontinued IV intact, bleeding controlled, pressure dressing applied, No ead redness/swelling at site. No procedures done that require assistance. Administered Medications: 06:34 Drug: NS 0.9% 1000 ml [sodium chloride 0.9 % intravenous solution] Route: IV; Rate: tm5 bolus; Site: left antecubital; 08:04 Follow up: IV Status: Completed infusion; IV Intake: 1000ml r 06:34 Drug: Promethazine 25 mg [promethazine 25 mg/mL injection solution (1 mL)] {Note: given tm5 IVPB in 50cc NS over 30 minutes.} Route: IVP; Site: left antecubital; 06:34 Drug: diphenhydrAMINE 25 mg [diphenhydramine 50 mg/mL injection solution (0.5 mL)] tm5 Route: IVP; Site: left antecubital; Intake: 08:04 IV: 1000.00ml; Total: 1000.00ml. jjr Order Results: Lab Order: CBC with Diff; SPEC'M 11/08/16 06:22 Test: WHITE BLOOD COUNT; Value: 4.4; Range: 4.0-10.0; Units: K/mm3; Status: F Test: RED BLOOD COUNT; Value: 4.90; Range: 4.00-5.40; Units: M/mm3; Status: F Test: HEMOGLOBIN; Value: 15.0; Range: 12.0-16.0; Units: g/dl; Status: F Test: HEMATOCRIT; Value: 45.4; Range: 36.0-47.0; Units: %; Status: F Test: MEAN CORPUSCULAR VOLUME; Value: 92.6; Range: 80.0-96.0; Units: fl; Status: F Test: MEAN CORPUSCULAR HEMOGLOBIN; Value: 30.6; Range: 27.0-33.0; Units: pg; Status: F Test: MEAN CORPUSCULAR HGB CONC; Value: 33.0; Range: 32.0-36.5; Units: g/dl; Status: F Test: RED CELL DISTRIBUTION WIDTH; Value: 13.6; Range: 11.5-14.5; Units: %; Status: F Test: PLATELET COUNT, AUTOMATED; Value: 305; Range: 150-450; Units: k/mm3; Status: F Test: NEUTROPHILS %; Value: 58.5; Range: 36.0-66.0; Units: %; Status: F Test: LYMPH %; Value: 21.8; Range: 24.0-44.0; Abnormal: Below low normal; Units: %; Status: F Test: MONO %; Value: 7.4; Range: 0.0-5.0; Abnormal: Above high normal; Units: %; Status: F Test: EOS %; Value: 9.2; Range: 0.0-3.0; Abnormal: Above high normal; Units: %; Status: F Test: BASO %; Value: 1.6; Range: 0.0-1.0; Abnormal: Above high normal; Units: %; Status: F Test: LARGE UNSTAINED CELL %; Value: 1.6; Range: 0.0-4.0; Units: %; Status: F Test: NEUTROPHILS #; Value: 2.6; Range: 1.8-7.7; Units: K/mm3; Status: F Test: LYMPH #; Value: 1.0; Range: 1.5-4.5; Abnormal: Below low normal; Units: K/mm3; Status: F Test: MONO #; Value: 0.3; Range: 0.0-0.8; Units: K/mm3; Status: F Test: EOS #; Value: 0.4; Range: 0.0-0.50; Units: K/mm3; Status: F Test: BASO #; Value: 0.1; Range: 0.0-0.2; Units: K/mm3; Status: F Test: LARGE UNSTAINED CELL #; Value: 0.1; Range: 0.0-0.4; Units: K/mm3; Status: F Lab Order: [facility]; SPEC'M 11/08/16 06:22 Test: GLUCOSE, FASTING; Value: 98; Range: 70-105; Units: MG/DL; Status: F Test: BLOOD UREA NITROGEN; Value: 12; Range: 7-18; Units: MG/DL; Status: F Test: CREATININE FOR GFR; Value: 0.86; Range: 0.55-1.02; Units: MG/DL; Status: F Test: GLOMERULAR FILTRATION RATE; Value: > 60.0; Range: >58; Status: F Test: SODIUM LEVEL; Value: 141; Range: 136-145; Units: MEQ/L; Status: F Test: POTASSIUM SERUM; Value: 4.2; Range: 3.5-5.1; Units: MEQ/L; Status: F Test: CHLORIDE LEVEL; Value: 106; Range: 98-107; Units: MEQ/L; Status: F Test: CARBON DIOXIDE LEVEL; Value: 27; Range: 21-32; Units: MEQ/L; Status: F Test: ANION GAP; Value: 8; Range: 8-16; Units: MEQ/L; Status: F Test: CALCIUM LEVEL; Value: 9.7; Range: 8.5-10.1; Units: MG/DL; Status: F Test Note: ; Units are mL/min/1.73 m2 Chronic Kidney Disease Staging per NKF: Stage I & II GFR >=60 Normal to Mildly Decreased Stage III GFR 30-59 Moderately Decreased Stage IV GFR 15-29 Severely Decreased Stage V GFR <15 Very Little GFR Left ESRD GFR <15 on INSOLE PRESSER Lab Order: Lipase; SPEC'M 11/08/16 06:22 Test: LIPASE; Value: 65; Range: 73-393; Abnormal: Below low normal; Units: U/L; Status: F Outcome: 09:56 Discharge ordered by Provider. fg 10:23 Discharge Assessment: Patient awake and alert. obeys commands, Oriented to person, ead place and time. patient administered narcotics - no. The following High Risk Discharge criteria are identified: None. Discharged to home ambulatory. Condition: improved. Discharge instructions given to patient, Instructed on discharge instructions, follow up and referral plans. medication usage, no driving heavy equipment, no drinking with medication, Demonstrated understanding of instructions, medications, Pt was receptive of discharge instructions/ teaching. Prescriptions given X 1. No special radiology studies were completed. Property sent home with patient. 10:25 Patient left the ED. ead Signatures: Cleo Orosco, RN RN kmg1 Daniel Block DO DO mm11 Laureen Oconnor RN RN jGene Young jml1 Elizabeth Cody RN RN Ross Higgins 5 Mera Yan MD MD fg Stanton, Hillary, Reg Reg hs2 Paula Platt,RN RN tm5 [employer]
--- NOTE | 2016-11-10 11:25 | EDDOCDS ---
Nurse's Notes [facility] Name: Caitlyn Christine Age: 41 yrs Sex: Female : 1975 Arrival Date: 11/08/2016 Time: 04:49 Bed 14 Private MD: Diagnosis: Vomiting Presentation: 11/08 05:16 Presenting complaint: Patient states: Vomiting since this time yesterday. Unable to kmg1 retain oral fluids or food. Suicide/Homicide risk assessment- the patient denies having any suicidal and/or homicidal ideations and does not present with any other emotional, behavioral or mental health complaints. 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 Transition of care: patient was not received from another setting of care. 05:16 Acuity: EHSAN Level 4 kmg1 05:16 Method Of Arrival: Walkin/Carried/Asstd kmg1 Triage Assessment: 05:20 General: Appears ill, Behavior is appropriate for age, cooperative, pleasant. Pain: kmg1 Location: right upper quadrant and left upper quadrant Pain currently is 2 out of 10 on a pain scale. Quality of pain is described as crampy. HIV screening NA for this visit Offered previously. GI: Reports cramping, nausea, vomiting. Derm: Skin is pale. 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 Ambien 10 mg Oral tab 1 tab nightly prn (Last dose: 11/07/2016) 2. Effexor 225mg Oral daily (Last dose: 11/07/2016) 3. Estradiol Oral once daily (Last dose: 11/07/2016) 4. gabapentin 600 mg Oral tab 3 times per day 5. Lamictal 200 mg Oral tab once daily (Last dose: 11/07/2016) 6. omeprazole 40 mg Oral cpDR 1 cap once daily (Last dose: 11/07/2016) 7. pravastatin 40 mg oral tab 1 tab once daily (Last dose: 11/07/2016) 8. Synthroid 75 mcg Oral tab 1 tab once daily (Last dose: 11/07/2016) 9. Topamax 100 mg Oral tab 2 times per day (Last dose: 11/07/2016) 10. Zofran (as hydrochloride) 4 mg Oral tab 1 tabs every 8 hours (Last dose: 11/08/2016 04:19) - PMHx: back pain; Depression; Hypothyroidism; MRSA; Seizures; Substance Abuse; - PSHx: Hysterectomy; Appendectomy; - Social history: Smoking status: Patient uses tobacco products, light tobacco smoker. No barriers to communication noted, The patient speaks fluent Slovenian, Speaks appropriately for age. - Family history: Not pertinent. - : The pt / caregiver states he / she is not on anticoagulants. Home medication list is obtained from the patient, [address] import data. - Exposure Risk Screening:: None identified. Screenin:34 Screening information is obtained from the patient. Fall risk: No risks identified. tm5 Assistance ADL's: requires no assistance with activities of daily living. Abuse/DV Screen: The patient / caregiver reports he/she is: not in a situation that causes fear, pain or injury. Nutritional screening: No deficits noted. Advance Directives: Currently, there is no health care proxy. home support is adequate. Assessment: 05:49 General: Appears in no apparent distress, Behavior is appropriate for age, cooperative. tm5 Pain: Location: right upper quadrant and left upper quadrant Pain currently is 2 out of 10 on a pain scale. Quality of pain is described as crampy. Neurological: Level of Consciousness is awake, alert, Oriented to person, place, time. GI: Abdomen is flat, non- distended Bowel sounds present X 4 quads. Abd is soft and non tender X 4 quads. Reports nausea, vomiting. : No deficits noted. Derm: Skin is pink, warm & dry. normal. 07:14 General: Appears in no apparent distress, Behavior is appropriate for age, drowsy. jjr Pain: Denies pain. Respiratory: No deficits noted. GI: Reports nausea improved from arrival. Derm: No deficits noted. 08:16 General: Appears to be sleeping. jjr 10:21 Adult Sepsis Screening: The patient does not have new or worsening altered mentation. ead Patient's respiratory rate is less than 22. Systolic blood pressure is greater than 100. Patient has a qSOFA score of 0- Negative Sepsis Screen. General: Appears in no apparent distress, comfortable, Behavior is appropriate for age, cooperative. Neurological: Level of Consciousness is awake, alert, obeys commands, Oriented to person, place, time. Respiratory: No deficits noted. GI: Denies nausea, vomiting, pain. Derm: Skin is pink, warm & dry. Vital Signs: 05:20 BP 119 / 80 RA; Pulse 77; Resp 18; Temp 97.5(O); Pulse Ox 98% ; Weight 61.23 kg (R); kmg1 Height 5 ft. 2 in. (157.48 cm) (R); Pain 2/10; 10:14 BP 117 / 68; Pulse 84; Resp 18; Temp 97.3(O); Pulse Ox 98% on R/A; jml1 05:20 Body Mass Index 24.69 (61.23 kg, 157.48 cm) [facility] [place] Vitals: 05:20 Log In Time: November 08, 2016 at 04:51. [facility] ED Course: 04:50 Patient visited by Katelynn Álvarez Reg. hs2 04:50 Patient moved to Waiting hs2 05:17 Triage Initiated [facility] 05:24 Patient moved to 14 km 05:48 Patient visited by Paula Platt RN. tm5 05:49 Awaiting ED physician evaluation. tm5 05:49 The patient / caregiver is instructed regarding the plan of care and ED course. tm5 05:57 Daniel Block DO is Attending Physician. mm11 05:57 Patient visited by Daniel Block DO. mm11 06:13 Patient visited by Daniel Block DO. mm11 06:20 Inserted saline lock: 20 gauge in left antecubital area and blood collected. The tm5 patient tolerated the procedure well. Labs drawn. (by ED staff). 07:15 Patient visited by Laureen Oconnor RN. jjr 07:34 Attending Physician role handed off by Daniel Block DO fg 07:34 Mera Yan MD is Attending Physician. fg 08:16 Patient visited by Laureen Oconnor RN. jjr 09:03 Report received from Laureen Oconnor RN. ead 09:37 Elizabeth Cody,RN is Primary Nurse. ead 09:38 Patient visited by Elizabeth Cody,LIZ. ead 09:46 [facility] Payment Agreement was scanned into [employer] and attached to record. jp5 09:56 [facility] is Referral Physician. fg 10:15 Patient visited by Gene Kumar. jml1 10:21 Discontinued IV intact, bleeding controlled, pressure dressing applied, No ead redness/swelling at site. No procedures done that require assistance. 21:30 T-Sheet-- Draft Copy was scanned into [employer] and attached to record. klr Administered Medications: 06:34 Drug: NS 0.9% 1000 ml [sodium chloride 0.9 % intravenous solution] Route: IV; Rate: tm5 bolus; Site: left antecubital; 08:04 Follow up: IV Status: Completed infusion; IV Intake: 1000ml jjr 06:34 Drug: Promethazine 25 mg [promethazine 25 mg/mL injection solution (1 mL)] {Note: given tm5 IVPB in 50cc NS over 30 minutes.} Route: IVP; Site: left antecubital; 06:34 Drug: diphenhydrAMINE 25 mg [diphenhydramine 50 mg/mL injection solution (0.5 mL)] tm5 Route: IVP; Site: left antecubital; Intake: 08:04 IV: 1000.00ml; Total: 1000.00ml. jjr Order Results: Lab Order: CBC with Diff; SPEC'M 11/08/16 06:22 Test: WHITE BLOOD COUNT; Value: 4.4; Range: 4.0-10.0; Units: K/mm3; Status: F Test: RED BLOOD COUNT; Value: 4.90; Range: 4.00-5.40; Units: M/mm3; Status: F Test: HEMOGLOBIN; Value: 15.0; Range: 12.0-16.0; Units: g/dl; Status: F Test: HEMATOCRIT; Value: 45.4; Range: 36.0-47.0; Units: %; Status: F Test: MEAN CORPUSCULAR VOLUME; Value: 92.6; Range: 80.0-96.0; Units: fl; Status: F Test: MEAN CORPUSCULAR HEMOGLOBIN; Value: 30.6; Range: 27.0-33.0; Units: pg; Status: F Test: MEAN CORPUSCULAR HGB CONC; Value: 33.0; Range: 32.0-36.5; Units: g/dl; Status: F Test: RED CELL DISTRIBUTION WIDTH; Value: 13.6; Range: 11.5-14.5; Units: %; Status: F Test: PLATELET COUNT, AUTOMATED; Value: 305; Range: 150-450; Units: k/mm3; Status: F Test: NEUTROPHILS %; Value: 58.5; Range: 36.0-66.0; Units: %; Status: F Test: LYMPH %; Value: 21.8; Range: 24.0-44.0; Abnormal: Below low normal; Units: %; Status: F Test: MONO %; Value: 7.4; Range: 0.0-5.0; Abnormal: Above high normal; Units: %; Status: F Test: EOS %; Value: 9.2; Range: 0.0-3.0; Abnormal: Above high normal; Units: %; Status: F Test: BASO %; Value: 1.6; Range: 0.0-1.0; Abnormal: Above high normal; Units: %; Status: F Test: LARGE UNSTAINED CELL %; Value: 1.6; Range: 0.0-4.0; Units: %; Status: F Test: NEUTROPHILS #; Value: 2.6; Range: 1.8-7.7; Units: K/mm3; Status: F Test: LYMPH #; Value: 1.0; Range: 1.5-4.5; Abnormal: Below low normal; Units: K/mm3; Status: F Test: MONO #; Value: 0.3; Range: 0.0-0.8; Units: K/mm3; Status: F Test: EOS #; Value: 0.4; Range: 0.0-0.50; Units: K/mm3; Status: F Test: BASO #; Value: 0.1; Range: 0.0-0.2; Units: K/mm3; Status: F Test: LARGE UNSTAINED CELL #; Value: 0.1; Range: 0.0-0.4; Units: K/mm3; Status: F Lab Order: [facility]; SPEC'M 11/08/16 06:22 Test: GLUCOSE, FASTING; Value: 98; Range: 70-105; Units: MG/DL; Status: F Test: BLOOD UREA NITROGEN; Value: 12; Range: 7-18; Units: MG/DL; Status: F Test: CREATININE FOR GFR; Value: 0.86; Range: 0.55-1.02; Units: MG/DL; Status: F Test: GLOMERULAR FILTRATION RATE; Value: > 60.0; Range: >58; Status: F Test: SODIUM LEVEL; Value: 141; Range: 136-145; Units: MEQ/L; Status: F Test: POTASSIUM SERUM; Value: 4.2; Range: 3.5-5.1; Units: MEQ/L; Status: F Test: CHLORIDE LEVEL; Value: 106; Range: 98-107; Units: MEQ/L; Status: F Test: CARBON DIOXIDE LEVEL; Value: 27; Range: 21-32; Units: MEQ/L; Status: F Test: ANION GAP; Value: 8; Range: 8-16; Units: MEQ/L; Status: F Test: CALCIUM LEVEL; Value: 9.7; Range: 8.5-10.1; Units: MG/DL; Status: F Test Note: ; Units are mL/min/1.73 m2 Chronic Kidney Disease Staging per NKF: Stage I & II GFR >=60 Normal to Mildly Decreased Stage III GFR 30-59 Moderately Decreased Stage IV GFR 15-29 Severely Decreased Stage V GFR <15 Very Little GFR Left ESRD GFR <15 on AIRCRAFT [employer]CH[employer] Lab Order: Lipase; SPEC'M 11/08/16 06:22 Test: LIPASE; Value: 65; Range: 73-393; Abnormal: Below low normal; Units: U/L; Status: F Outcome: 09:56 Discharge ordered by Provider. fg 10:23 Discharge Assessment: Patient awake and alert. obeys commands, Oriented to person, ead place and time. patient administered narcotics - no. The following High Risk Discharge criteria are identified: None. Discharged to home ambulatory. Condition: improved. Discharge instructions given to patient, Instructed on discharge instructions, follow up and referral plans. medication usage, no driving heavy equipment, no drinking with medication, Demonstrated understanding of instructions, medications, Pt was receptive of discharge instructions/ teaching. Prescriptions given X 1. No special radiology studies were completed. Property sent home with patient. 10:25 Patient left the ED. ead Signatures: Cleo Orosco RN RN kmg1 Daniel Block DO DO mm11 Laureen Oconnor RN RN jGene Young jml1 Elizabeth Cody RN RN vald Ross Andres jp5 Mera Yan MD MD Katelynn Álvarez, Reg Reg 2 Tammi, Paula Montez RN RN tm5 Chart Complete MTDD
--- NOTE | 2016-11-10 11:25 | EDDOCDS ---
Physician Documentation [facility] Name: Caitlyn Christine Age: 41 yrs Sex: Female : 1975 Arrival Date: 11/08/2016 Time: 04:49 Bed 14 Private MD: Disposition: 11/08/16 09:56 Discharged to Home/Self Care. Impression: Vomiting. - Condition is Stable. - Discharge Instructions: Nausea and Vomiting, [id number]. - Prescriptions for promethazine 25 mg Oral Tablet - take 1 tablet by ORAL route every 8 hours As needed; 5 tablet. - Medication Reconciliation, Local Pharmacy Hours form. - [facility]; When: Call to arrange an appointment; Reason: Continuance of care. - Problem is new. - Symptoms have improved. Historical: - Allergies: Compazine (jumpy); Reglan (jumpy); - Home Meds: 1. Ambien 10 mg Oral tab 1 tab nightly prn (Last dose: 11/07/2016) 2. Effexor 225mg Oral daily (Last dose: 11/07/2016) 3. Estradiol Oral once daily (Last dose: 11/07/2016) 4. gabapentin 600 mg Oral tab 3 times per day 5. Lamictal 200 mg Oral tab once daily (Last dose: 11/07/2016) 6. omeprazole 40 mg Oral cpDR 1 cap once daily (Last dose: 11/07/2016) 7. pravastatin 40 mg oral tab 1 tab once daily (Last dose: 11/07/2016) 8. Synthroid 75 mcg Oral tab 1 tab once daily (Last dose: 11/07/2016) 9. Topamax 100 mg Oral tab 2 times per day (Last dose: 11/07/2016) 10. Zofran (as hydrochloride) 4 mg Oral tab 1 tabs every 8 hours (Last dose: 11/08/2016 04:19) - PMHx: back pain; Depression; Hypothyroidism; MRSA; Seizures; Substance Abuse; - PSHx: Hysterectomy; Appendectomy; - Social history: Smoking status: Patient uses tobacco products, light tobacco smoker. No barriers to communication noted, The patient speaks fluent Panamanian, Speaks appropriately for age. - Family history: Not pertinent. - : The pt / caregiver states he / she is not on anticoagulants. Home medication list is obtained from the patient, [employer] import data. - Exposure Risk Screening:: None identified. 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 2 in. (157.48 cm) (R); Pain 2/10; 10:14 BP 117 / 68; Pulse 84; Resp 18; Temp 97.3(O); Pulse Ox 98% on R/A; jml1 05:20 Body Mass Index 24.69 (61.23 kg, 157.48 cm) kmg1 MDM: 06:14 IV Saline Lock ordered. mm11 06:14 NS 0.9% 1000 ml IV at bolus once ordered. mm11 06:14 Promethazine 25 mg IVP once; dilute and administer 30-60 minutes ordered. mm11 06:14 diphenhydrAMINE 25 mg IVP once ordered. mm11 06:15 CBC with Diff Ordered. EDMS 06:15 BMP Ordered. EDMS 06:15 Lipase Ordered. EDMS 06:57 CBC with Diff Reviewed. mm11 06:57 Lipase Reviewed. mm11 06:57 BMP Reviewed. mm11 09:46 [facility] Payment Agreement was scanned into [employer] and attached to record. jp5 09:46 Financial registration complete. 5 21:30 T-Sheet-- Draft Copy was scanned into [employer] and attached to record. klr Administered Medications: 06:34 Drug: NS 0.9% 1000 ml [sodium chloride 0.9 % intravenous solution] Route: IV; Rate: tm5 bolus; Site: left antecubital; 08:04 Follow up: IV Status: Completed infusion; IV Intake: 1000ml jjr 06:34 Drug: Promethazine 25 mg [promethazine 25 mg/mL injection solution (1 mL)] {Note: given tm5 IVPB in 50cc NS over 30 minutes.} Route: IVP; Site: left antecubital; 06:34 Drug: diphenhydrAMINE 25 mg [diphenhydramine 50 mg/mL injection solution (0.5 mL)] tm5 Route: IVP; Site: left antecubital; Signatures: Dispatcher [employer] Cleo Ashton, RN RN kmg1 Danile Block, DO mm11 Elizabeth Cody,RN RN Ross Higgins jp5 Mera Yan MD MD fg Redder, Kathie klr Matice, TonyaRN RN tm5 Laureen Oconnor RN jjr The chart was reviewed and I authenticate all verbal orders and agree with the evaluation and treatment provided.Attachments: 09:46 [facility] Payment Agreement jp5 21:30 T-Sheet-- Draft Copy klr Chart Complete MTDD
--- NOTE | 2016-11-10 11:25 | EDDOCDS ---
Physician Documentation [facility] Name: Caitlyn Christine Age: 41 yrs Sex: Female : 1975 Arrival Date: 11/08/2016 Time: 04:49 Bed 14 Private MD: Disposition: 11/08/16 09:56 Discharged to Home/Self Care. Impression: Vomiting. - Condition is Stable. - Discharge Instructions: Nausea and Vomiting, [id number]. - Prescriptions for promethazine 25 mg Oral Tablet - take 1 tablet by ORAL route every 8 hours As needed; 5 tablet. - Medication Reconciliation, Local Pharmacy Hours form. - Follow up: [facility]; When: Call to arrange an appointment; Reason: Continuance of care. - Problem is new. - Symptoms have improved. Historical: - Allergies: Compazine (jumpy); Reglan (jumpy); - Home Meds: 1. Ambien 10 mg Oral tab 1 tab nightly prn (Last dose: 11/07/2016) 2. Effexor 225mg Oral daily (Last dose: 11/07/2016) 3. Estradiol Oral once daily (Last dose: 11/07/2016) 4. gabapentin 600 mg Oral tab 3 times per day 5. Lamictal 200 mg Oral tab once daily (Last dose: 11/07/2016) 6. omeprazole 40 mg Oral cpDR 1 cap once daily (Last dose: 11/07/2016) 7. pravastatin 40 mg oral tab 1 tab once daily (Last dose: 11/07/2016) 8. Synthroid 75 mcg Oral tab 1 tab once daily (Last dose: 11/07/2016) 9. Topamax 100 mg Oral tab 2 times per day (Last dose: 11/07/2016) 10. Zofran (as hydrochloride) 4 mg Oral tab 1 tabs every 8 hours (Last dose: 11/08/2016 04:19) - PMHx: back pain; Depression; Hypothyroidism; MRSA; Seizures; Substance Abuse; - PSHx: Hysterectomy; Appendectomy; - Social history: Smoking status: Patient uses tobacco products, light tobacco smoker. No barriers to communication noted, The patient speaks fluent Surinamese, Speaks appropriately for age. - Family history: Not pertinent. - : The pt / caregiver states he / she is not on anticoagulants. Home medication list is obtained from the patient, [employer] import data. - Exposure Risk Screening:: None identified. 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 2 in. (157.48 cm) (R); Pain 2/10; 10:14 BP 117 / 68; Pulse 84; Resp 18; Temp 97.3(O); Pulse Ox 98% on R/A; jml1 05:20 Body Mass Index 24.69 (61.23 kg, 157.48 cm) kmg1 MDM: 06:14 IV Saline Lock ordered. mm11 06:14 NS 0.9% 1000 ml IV at bolus once ordered. mm11 06:14 Promethazine 25 mg IVP once; dilute and administer 30-60 minutes ordered. mm11 06:14 diphenhydrAMINE 25 mg IVP once ordered. mm11 06:15 CBC with Diff Ordered. EDMS 06:15 BMP Ordered. EDMS 06:15 Lipase Ordered. EDMS 06:57 CBC with Diff Reviewed. mm11 06:57 Lipase Reviewed. mm11 06:57 BMP Reviewed. mm11 09:46 [facility] Payment Agreement was scanned into [employer] and attached to record. jp5 09:46 Financial registration complete. 5 21:30 T-Sheet-- Draft Copy was scanned into [employer] and attached to record. klr Administered Medications: 06:34 Drug: NS 0.9% 1000 ml [sodium chloride 0.9 % intravenous solution] Route: IV; Rate: tm5 bolus; Site: left antecubital; 08:04 Follow up: IV Status: Completed infusion; IV Intake: 1000ml jjr 06:34 Drug: Promethazine 25 mg [promethazine 25 mg/mL injection solution (1 mL)] {Note: given tm5 IVPB in 50cc NS over 30 minutes.} Route: IVP; Site: left antecubital; 06:34 Drug: diphenhydrAMINE 25 mg [diphenhydramine 50 mg/mL injection solution (0.5 mL)] tm5 Route: IVP; Site: left antecubital; Signatures: Dispatcher [employer] Cleo Ashton, RN RN kmg1 Daniel Block, DO mm11 Elizabeth Cody,RN RN Ross Higgins jp5 Mera Yan MD MD fg Redder, Kathie klr Matice, TonyaRN RN tm5 Laureen Oconnor RN jjr The chart was reviewed and I authenticate all verbal orders and agree with the evaluation and treatment provided.Attachments: 09:46 [facility] Payment Agreement jp5 21:30 T-Sheet-- Draft Copy klr Chart Complete MTDD
== END 2016-11-08 10:25 | disposition home or self-care (01) ==
LOC: M ED 04:49
DX: R11.10 Vomiting, unspecified (principal); M54.9 Dorsalgia, unspecified; F32.9 Major depressive disorder, single episode, unspecified; E03.9 Hypothyroidism, unspecified; R56.9 Unspecified convulsions; Z86.14 Personal history of Methicillin resistant Staphylococcus aureus infection; Z79.899 Other long term (current) drug therapy; Z88.8 Allergy status to other drugs, medicaments and biological substances; F17.210 Nicotine dependence, cigarettes, uncomplicated
CPT/HCPCS: 36415; 80048; 83690; 85025; 96361; 96374; 96375; 99284; J1200

== ENCOUNTER 2016-12-23 14:30 | Emergency (ER) | payer MEDICARE, MEDICAID ==
[~2016-12-23] VITALS: Ht 160 cm; Wt 56.7 kg
[2016-12-23] MEDS: PROMETHAZINE INJ 25 MG/ML VIAL (J2550) IM ONE (15:00)
[2016-12-23] MEDS ORDERED: GABA600T PO (15:00)
[2016-12-23] MEDS ORDERED: PHEN1SUP6 PR (15:02)
[2016-12-23] MEDS: KETOROLAC 30 MG/ML VIAL (J1885) IM ONE (16:08)
[2016-12-23 16:17] VITALS: BP 98/57
[2016-12-23] MEDS: cloNIDine HCL 0.3 MG/24 HR PATCH TOP SCH (16:17)
[2016-12-23 17:01] VITALS: BP 103/64
[2016-12-23] MEDS ORDERED: KETO10TAB PO (17:06)
== END 2016-12-23 17:38 | disposition home or self-care (01) ==
LOC: M ED 16:01
DX: Z76.0 Encounter for issue of repeat prescription (principal)
CPT/HCPCS: 96372; 99282; J1885

== ENCOUNTER 2017-02-07 09:27 | Emergency (ER) | payer MEDICARE, MEDICAID ==
[~2017-02-07] VITALS: Ht 157.5 cm; Wt 59.0 kg
[~2017-02-07 09:27] MED LIST changes: +GABA-282 PO; -GABA300C3 PO; +KETO10TAB PO; +PHEN1SUP6 PR
[2017-02-07 09:28] VITALS: BP 107/61
[2017-02-07] MEDS ORDERED: cloNIDine 0.1 MG TAB PO ONE (10:30)
== END 2017-02-07 11:04 | disposition left against medical advice (07) ==
LOC: M ED 09:56
DX: F19.10 Other psychoactive substance abuse, uncomplicated (principal); F17.210 Nicotine dependence, cigarettes, uncomplicated; Z79.899 Other long term (current) drug therapy; Z88.8 Allergy status to other drugs, medicaments and biological substances; R56.9 Unspecified convulsions; E78.00 Pure hypercholesterolemia, unspecified; Z87.442 Personal history of urinary calculi; F41.9 Anxiety disorder, unspecified; F32.9 Major depressive disorder, single episode, unspecified

== ENCOUNTER → 2017-02-10 | Outpatient (CLI) | payer MEDICARE, MEDICAID ==
[2017-02-10 15:09] LABS: BASO # 0.1 K/mm3 (0.0-0.2); BASO % 2.2 % (0.0-1.0); EOS # 0.2 K/mm3 (0.0-0.50); EOS % 5.4 % (0.0-3.0); LARGE UNSTAINED CELL # 0.1 K/mm3 (0.0-0.4); LARGE UNSTAINED CELL % 2.3 % (0.0-4.0); LYMPH # 1.8 K/mm3 (1.5-4.5); LYMPH % 47.4 % (24.0-44.0); MEAN CORPUSCULAR HEMOGLOBIN 29.8 pg (27.0-33.0); MEAN CORPUSCULAR HGB CONC 32.2 g/dl (32.0-36.5); MEAN CORPUSCULAR VOLUME 92.4 fl (80.0-96.0); MONO # 0.2 K/mm3 (0.0-0.8); MONO % 5.6 % (0.0-5.0); NEUTROPHILS # 1.4 K/mm3 (1.8-7.7); NEUTROPHILS % 37.2 % (36.0-66.0); PLATELET COUNT, AUTOMATED 291 k/mm3 (150-450); RED CELL DISTRIBUTION WIDTH 13.2 % (11.5-14.5); WHITE BLOOD COUNT 3.7 K/mm3 (4.0-10.0)
[2017-02-10 15:09] LABS: CONTROL LINE UCG INT CTR LINE PRESENT
[2017-02-10 15:42] LABS: ALBUMIN 3.9 GM/DL (3.2-5.2); ALKALINE PHOSPHATASE 67 U/L (45-117); ALT/SGPT 19 U/L (12-78); ANION GAP 4 MEQ/L (8-16); AST/SGOT 12 U/L (15-37); BILIRUBIN,TOTAL 0.2 MG/DL (0.2-1.0); BLOOD UREA NITROGEN 14 MG/DL (7-18); CALCIUM LEVEL 9.1 MG/DL (8.5-10.1); CARBON DIOXIDE LEVEL 32 MEQ/L (21-32); CHLORIDE LEVEL 106 MEQ/L (98-107); CREATININE FOR GFR 0.98 MG/DL (0.55-1.02); GLOMERULAR FILTRATION RATE > 60.0 (>58); GLUCOSE, FASTING 80 MG/DL (70-105); POTASSIUM SERUM 3.8 MEQ/L (3.5-5.1); SODIUM LEVEL 142 MEQ/L (136-145); TOTAL PROTEIN 6.5 GM/DL (6.4-8.2)
--- NOTE | 2017-02-11 18:38 | ECGEPIP ---
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
== END ==
LOC: M LAB 14:29
PROVIDERS: ATTEND Family Medicine
DX: F11.20 Opioid dependence, uncomplicated (principal); Z79.899 Other long term (current) drug therapy

== ENCOUNTER 2018-05-09 11:55 | Inpatient (IN) | payer MEDICARE, MEDICAID ==
[2018-05-09] MEDS: NICOTINE 14 MG/24 HR TRANSDERMAL TD (09:00)
[2018-05-09 13:31] LABS: HEMATOCRIT 42.2 % (36.0-47.0); MEAN CORPUSCULAR HEMOGLOBIN 31.4 pg (27.0-33.0); MEAN CORPUSCULAR HGB CONC 33.2 g/dl (32.0-36.5); MEAN CORPUSCULAR VOLUME 94.6 fl (80.0-96.0); PLATELET COUNT, AUTOMATED 285 10^3/uL (150-450); RED BLOOD COUNT 4.46 10^6/uL (4.00-5.40); RED CELL DISTRIBUTION WIDTH 13.4 % (11.5-14.5); WHITE BLOOD COUNT 3.8 10^3/uL (4.0-10.0)
[2018-05-09 13:36] LABS: CONTROL LINE HCG INT CTR LINE PRESENT; HCG, SERUM QUALITATIVE NEGATIVE (NEGATIVE)
[2018-05-09 13:54] LABS: ALBUMIN 3.6 GM/DL (3.2-5.2); ALBUMIN/GLOBULIN RATIO 1.16 (1.00-1.93); ALKALINE PHOSPHATASE 92 U/L (45-117); ALT/SGPT 23 U/L (12-78); ANION GAP 6 MEQ/L (8-16); AST/SGOT 18 U/L (7-37); BILIRUBIN,DIRECT < 0.1 MG/DL (0.0-0.2); BILIRUBIN,TOTAL 0.2 MG/DL (0.2-1.0); BLOOD UREA NITROGEN 10 MG/DL (7-18); CALCIUM LEVEL 9.1 MG/DL (8.5-10.1); CARBON DIOXIDE LEVEL 29 MEQ/L (21-32); CHLORIDE LEVEL 107 MEQ/L (98-107); CREATININE FOR GFR 0.99 MG/DL (0.55-1.30); ETHYL ALCOHOL (ETHANOL) < 0.003 % (0.000-0.010); GLOMERULAR FILTRATION RATE > 60.0 (>58); GLUCOSE, FASTING 89 MG/DL (70-100); POTASSIUM SERUM 4.3 MEQ/L (3.5-5.1); SALICYLATE LEVEL 4.6 MG/DL (5.0-30.0); SODIUM LEVEL 142 MEQ/L (136-145); THYROID STIMULATING HORMONE 0.508 uIU/ML (0.358-3.740); TOTAL PROTEIN 6.7 GM/DL (6.4-8.2)
[2018-05-09 13:55] LABS: ACETAMINOPHEN LEVEL < 2.0 UG/ML (10.0-30.0)
[2018-05-09 14:11] LABS: AMPHETAMINES LEVEL URINE NEGATIVE (NEGATIVE); BARBITURATES URINE NEGATIVE (NEGATIVE); BENZODIAZEPINES URINE NEGATIVE (NEGATIVE); CANNABINOIDS URINE POSITIVE (NEGATIVE); COCAINE METABOLITE URINE NEGATIVE (NEGATIVE); METHADONE URINE NEGATIVE (NEGATIVE); OPIATES URINE NEGATIVE (NEGATIVE); PHENCYCLIDINE URINE NEGATIVE (NEGATIVE)
[2018-05-09] MEDS ORDERED: MOM 30ML SUSPENSION UDC PO (16:30)
[2018-05-09] MEDS ORDERED: MAALOX 30 ML SUSP *UDC PO (16:30)
[2018-05-09] MEDS: lamoTRIgine 100MG TAB PO (20:06)
[2018-05-09] MEDS: GABAPENTIN 400 MG CAP PO (20:06)
[2018-05-09] MEDS: BUPRENORPHINE/NALOXONE 8-2MG SUBLINGUAL TABLET(SUBOXONE) SL (20:07)
[2018-05-09] MEDS: TOPIRAMATE (TopAMAX) 100 MG TAB PO (20:07)
[2018-05-09] MEDS: VENLAFAXINE **XR** 75MG CAPSULE PO (20:08)
[2018-05-09] MEDS: ESTRADIOL 1 MG TAB PO (21:13)
[2018-05-10] MEDS: LEVOTHYROXINE 75MCG TABLET (0.075MG) PO (06:05)
[2018-05-10] MEDS: TOPIRAMATE (TopAMAX) 100 MG TAB PO (08:39)
[2018-05-10] MEDS: ESTRADIOL 1 MG TAB PO (08:39)
[2018-05-10] MEDS: GABAPENTIN 400 MG CAP PO ×3 (08:39→20:31)
[2018-05-10] MEDS: VENLAFAXINE **XR** 75MG CAPSULE PO (08:39)
[2018-05-10] MEDS: BUPRENORPHINE/NALOXONE 8-2MG SUBLINGUAL TABLET(SUBOXONE) SL ×2 (08:39→15:33)
[2018-05-10] MEDS: lamoTRIgine 100MG TAB PO (08:39)
[2018-05-10] MEDS: NICOTINE 14 MG/24 HR TRANSDERMAL TD ×2 (08:40→09:31)
[2018-05-10] MEDS: ACETAMINOPHEN TAB 650MG DOSE (2X325MG) PO ×2 (09:32→20:32)
[2018-05-10 10:23] LABS: CALCIUM OXALATE CRYSTALS RFX SMALL; KETONE, URINE AUTO RFX NEGATIVE (NEGATIVE); LEUKOCYTE ESTERASE UR AUTO RFX NEGATIVE (NEGATIVE); MUCUS, URINE RFX SMALL (NEGATIVE); NITRITE, URINE AUTO RFX NEGATIVE (NEGATIVE); RBC, URINE AUTO RFX 1 /HPF (0-3); SQUAM EPITHELIAL CELL UR AURFX 2 /HPF (0-6); WBC, URINE AUTO RFX 1 /HPF (0-3)
[2018-05-10 11:01] LABS: HEMATOCRIT 43.6 % (36.0-47.0); HEMOGLOBIN 14.1 g/dl (12.0-15.5); MEAN CORPUSCULAR HEMOGLOBIN 30.8 pg (27.0-33.0); MEAN CORPUSCULAR HGB CONC 32.3 g/dl (32.0-36.5); MEAN CORPUSCULAR VOLUME 95.2 fl (80.0-96.0); PLATELET COUNT, AUTOMATED 300 10^3/uL (150-450); RED BLOOD COUNT 4.58 10^6/uL (4.00-5.40); RED CELL DISTRIBUTION WIDTH 13.4 % (11.5-14.5); WHITE BLOOD COUNT 3.5 10^3/uL (4.0-10.0)
[2018-05-10 11:25] LABS: ALBUMIN 3.7 GM/DL (3.2-5.2); ALBUMIN/GLOBULIN RATIO 1.16 (1.00-1.93); ALKALINE PHOSPHATASE 97 U/L (45-117); ALT/SGPT 23 U/L (12-78); ANION GAP 7 MEQ/L (8-16); AST/SGOT 14 U/L (7-37); BILIRUBIN,TOTAL 0.3 MG/DL (0.2-1.0); BLOOD UREA NITROGEN 14 MG/DL (7-18); CARBON DIOXIDE LEVEL 28 MEQ/L (21-32); CHLORIDE LEVEL 108 MEQ/L (98-107); GLOMERULAR FILTRATION RATE > 60.0 (>58); GLUCOSE, FASTING 90 MG/DL (70-100); POTASSIUM SERUM 3.8 MEQ/L (3.5-5.1); SODIUM LEVEL 143 MEQ/L (136-145); TOTAL PROTEIN 6.9 GM/DL (6.4-8.2)
[2018-05-10] MEDS: NICOTINE POLACRILEX 2 MG GUM PO ×2 (17:36→20:31)
[2018-05-11] MEDS: LEVOTHYROXINE 75MCG TABLET (0.075MG) PO (06:05)
[2018-05-11] MEDS: TOPIRAMATE (TopAMAX) 25 MG TAB PO (08:06)
[2018-05-11] MEDS: IBUPROFEN 400 MG TAB PO ×3 (08:07→22:00)
[2018-05-11] MEDS: GABAPENTIN 400 MG CAP PO ×3 (08:07→20:13)
[2018-05-11] MEDS: BUPRENORPHINE/NALOXONE 8-2MG SUBLINGUAL TABLET(SUBOXONE) SL ×2 (08:08→15:12)
[2018-05-11] MEDS: ESTRADIOL 1 MG TAB PO (08:08)
[2018-05-11] MEDS: lamoTRIgine 100MG TAB PO (08:08)
[2018-05-11] MEDS: VENLAFAXINE **XR** 75MG CAPSULE PO (08:08)
[2018-05-11 09:52] LABS: HEPATITIS B SURFACE ANTIGEN NEGATIVE (NEGATIVE)
[2018-05-11 10:19] LABS: HEPATITIS B CORE ANTIBODY IGM NEGATIVE (NEGATIVE)
[2018-05-11 10:20] LABS: HIV 1&2 SCREEN CENTAUR NEGATIVE (NEGATIVE)
[2018-05-11 10:21] LABS: HEPATITIS A ANTIBODY IGM NEGATIVE (NEGATIVE)
[2018-05-11 10:44] LABS: HEPATITIS C VIRUS ABY INDEX > 11.0 INDEX (<0.8)
[2018-05-11] MEDS: NICOTINE POLACRILEX 2 MG GUM PO ×3 (11:33→20:13)
[2018-05-11 12:09] LABS: CHLAMYDIA DNA AMPLIFICATION NEGATIVE (NEGATIVE); GC DNA AMPLIFICATION NEGATIVE (NEGATIVE)
[2018-05-11] MEDS: lamoTRIgine 25 MG TAB PO (20:13)
[2018-05-11] MEDS: ACETAMINOPHEN TAB 650MG DOSE (2X325MG) PO (20:13)
[2018-05-12] MEDS: LEVOTHYROXINE 75MCG TABLET (0.075MG) PO (06:15)
[2018-05-12] MEDS: IBUPROFEN 400 MG TAB PO ×3 (06:16→22:00)
[2018-05-12] MEDS: GABAPENTIN 400 MG CAP PO ×3 (08:17→20:12)
[2018-05-12] MEDS: TOPIRAMATE (TopAMAX) 25 MG TAB PO (08:17)
[2018-05-12] MEDS: VENLAFAXINE **XR** 75MG CAPSULE PO (08:17)
[2018-05-12] MEDS: lamoTRIgine 100MG TAB PO (08:18)
[2018-05-12] MEDS: ESTRADIOL 1 MG TAB PO (08:19)
[2018-05-12] MEDS: BUPRENORPHINE/NALOXONE 8-2MG SUBLINGUAL TABLET(SUBOXONE) SL ×2 (08:20→15:09)
[2018-05-12] MEDS: NICOTINE POLACRILEX 2 MG GUM PO ×2 (15:29→18:35)
[2018-05-12] MEDS: PROPRANOLOL 10 MG TAB PO (20:11)
[2018-05-12] MEDS: lamoTRIgine 25 MG TAB PO (20:12)
[2018-05-13] MEDS: IBUPROFEN 400 MG TAB PO (06:04)
[2018-05-13] MEDS: LEVOTHYROXINE 75MCG TABLET (0.075MG) PO (06:04)
[2018-05-13] MEDS: BUPRENORPHINE/NALOXONE 8-2MG SUBLINGUAL TABLET(SUBOXONE) SL (08:09)
[2018-05-13] MEDS: VENLAFAXINE **XR** 75MG CAPSULE PO (08:09)
[2018-05-13] MEDS: TOPIRAMATE (TopAMAX) 25 MG TAB PO (08:10)
[2018-05-13] MEDS: GABAPENTIN 400 MG CAP PO (08:10)
[2018-05-13] MEDS: lamoTRIgine 100MG TAB PO (08:10)
[2018-05-13] MEDS: ESTRADIOL 1 MG TAB PO (08:10)
[2018-05-13] MEDS: NICOTINE POLACRILEX 2 MG GUM PO (09:57)
[2018-05-16 14:12] LABS: HCV RNA NAA QUALITATIVE Positive (Negative)
== END 2018-05-13 11:50 | disposition home or self-care (01) | DRG 885 ==
LOC: M PSY 05-11 12:34 → M ED 11:55 → M ED INP 16:20 → M PSY 17:45
DX: F33.1 Major depressive disorder, recurrent, moderate (principal); F60.3 Borderline personality disorder; F50.81 Binge eating disorder; K21.9 Gastro-esophageal reflux disease without esophagitis; M54.9 Dorsalgia, unspecified; G40.909 Epilepsy, unspecified, not intractable, without status epilepticus; F17.210 Nicotine dependence, cigarettes, uncomplicated; E03.9 Hypothyroidism, unspecified; J30.89 Other allergic rhinitis; Z79.899 Other long term (current) drug therapy; Z88.8 Allergy status to other drugs, medicaments and biological substances; Z91.5 Personal history of self-harm; Z87.442 Personal history of urinary calculi; Z90.710 Acquired absence of both cervix and uterus; Z86.14 Personal history of Methicillin resistant Staphylococcus aureus infection

== ENCOUNTER 2018-06-06 21:45 | Emergency (ER) | payer MEDICARE | END 2018-06-06 23:45 | disposition home or self-care (01) | LOC: M ED 21:45 | DX: Z60.9 Problem related to social environment, unspecified (principal); F19.10 Other psychoactive substance abuse, uncomplicated; F32.9 Major depressive disorder, single episode, unspecified; F41.9 Anxiety disorder, unspecified; Z72.0 Tobacco use; Z79.899 Other long term (current) drug therapy; Z88.5 Allergy status to narcotic agent; Z88.8 Allergy status to other drugs, medicaments and biological substances; J30.89 Other allergic rhinitis | CPT/HCPCS: 99284 ==

== ENCOUNTER 2018-06-22 13:33 | Inpatient (IN) | payer MEDICARE ==
[2018-06-22 14:30] LABS: HEMATOCRIT 43.2 % (36.0-47.0); HEMOGLOBIN 14.2 g/dl (12.0-15.5); MEAN CORPUSCULAR HEMOGLOBIN 30.8 pg (27.0-33.0); MEAN CORPUSCULAR HGB CONC 32.9 g/dl (32.0-36.5); MEAN CORPUSCULAR VOLUME 93.7 fl (80.0-96.0); PLATELET COUNT, AUTOMATED 279 10^3/uL (150-450); RED BLOOD COUNT 4.61 10^6/uL (4.00-5.40); RED CELL DISTRIBUTION WIDTH 12.6 % (11.5-14.5); WHITE BLOOD COUNT 3.5 10^3/uL (4.0-10.0)
[2018-06-22 14:50] LABS: CONTROL LINE HCG INT CTR LINE PRESENT; HCG, SERUM QUALITATIVE NEGATIVE (NEGATIVE)
[2018-06-22 14:57] LABS: AMPHETAMINES LEVEL URINE NEGATIVE (NEGATIVE); BARBITURATES URINE NEGATIVE (NEGATIVE); BENZODIAZEPINES URINE NEGATIVE (NEGATIVE); CANNABINOIDS URINE NEGATIVE (NEGATIVE); COCAINE METABOLITE URINE NEGATIVE (NEGATIVE); METHADONE URINE NEGATIVE (NEGATIVE); OPIATES URINE NEGATIVE (NEGATIVE); PHENCYCLIDINE URINE NEGATIVE (NEGATIVE)
[2018-06-22 15:40] LABS: ACETAMINOPHEN LEVEL < 2.0 UG/ML (10.0-30.0); ALBUMIN/GLOBULIN RATIO 1.25 (1.00-1.93); ALKALINE PHOSPHATASE 95 U/L (45-117); ALT/SGPT 20 U/L (12-78); ANION GAP 6 MEQ/L (8-16); AST/SGOT 15 U/L (7-37); BILIRUBIN,DIRECT < 0.1 MG/DL (0.0-0.2); BILIRUBIN,TOTAL 0.2 MG/DL (0.2-1.0); BLOOD UREA NITROGEN 10 MG/DL (7-18); CALCIUM LEVEL 9.3 MG/DL (8.5-10.1); CARBON DIOXIDE LEVEL 26 MEQ/L (21-32); CHLORIDE LEVEL 109 MEQ/L (98-107); CREATININE FOR GFR 0.84 MG/DL (0.55-1.30); GLOMERULAR FILTRATION RATE > 60.0 (>58); GLUCOSE, FASTING 90 MG/DL (70-100); POTASSIUM SERUM 4.1 MEQ/L (3.5-5.1); SALICYLATE LEVEL 3.8 MG/DL (5.0-30.0); SODIUM LEVEL 141 MEQ/L (136-145); THYROID STIMULATING HORMONE 0.679 uIU/ML (0.358-3.740); TOTAL PROTEIN 7.2 GM/DL (6.4-8.2)
[2018-06-22] MEDS ORDERED: MOM 30ML SUSPENSION UDC PO (17:30)
[2018-06-22] MEDS ORDERED: MAALOX 30 ML SUSP *UDC PO (17:30)
[2018-06-22] MEDS ORDERED: traZODone 50 MG TAB PO (17:30)
[2018-06-22] MEDS: GABAPENTIN 400 MG CAP PO (21:58)
[2018-06-23] MEDS: LEVOTHYROXINE 75MCG TABLET (0.075MG) PO (06:13)
[2018-06-23] MEDS: TOPIRAMATE (TopAMAX) 100 MG TAB PO (08:49)
[2018-06-23] MEDS: lamoTRIgine 100MG TAB PO (08:49)
[2018-06-23] MEDS: GABAPENTIN 400 MG CAP PO ×3 (08:49→20:06)
[2018-06-23] MEDS: ESTRADIOL 1 MG TAB PO (08:49)
[2018-06-23] MEDS: VENLAFAXINE **XR** 75MG CAPSULE PO (08:50)
[2018-06-23] MEDS: NICOTINE POLACRILEX 2 MG GUM PO (08:50)
[2018-06-23] MEDS: BUPRENORPHINE/NALOXONE 8-2MG SUBLINGUAL TABLET(SUBOXONE) SL ×2 (08:50→14:47)
[2018-06-23] MEDS: NICOTINE 21MG/24HR 1 EA TRANSDERMAL TD (08:52)
[2018-06-23] MEDS: ACETAMINOPHEN TAB 650MG DOSE (2X325MG) PO (09:58)
[2018-06-23] MEDS: INFLUENZA QUADRIVALENT PF VACCINE 0.5ML SYRINGE (90686) IM (14:53)
[2018-06-23] MEDS: lamoTRIgine 25 MG TAB PO (20:06)
[2018-06-23] MEDS: oxyBUTYnin *DITROPAN XL* 5 MG TABCR PO (20:06)
[2018-06-24] MEDS: LEVOTHYROXINE 75MCG TABLET (0.075MG) PO (06:06)
[2018-06-24] MEDS: ACETAMINOPHEN TAB 650MG DOSE (2X325MG) PO (07:26)
[2018-06-24] MEDS: TOPIRAMATE (TopAMAX) 100 MG TAB PO (08:01)
[2018-06-24] MEDS: BUPRENORPHINE/NALOXONE 8-2MG SUBLINGUAL TABLET(SUBOXONE) SL ×2 (08:02→14:16)
[2018-06-24] MEDS: GABAPENTIN 400 MG CAP PO ×4 (08:03→20:25)
[2018-06-24] MEDS: VENLAFAXINE **XR** 75MG CAPSULE PO (08:03)
[2018-06-24] MEDS: NICOTINE POLACRILEX 2 MG GUM PO ×2 (08:03→10:28)
[2018-06-24] MEDS: ESTRADIOL 1 MG TAB PO (08:03)
[2018-06-24] MEDS: lamoTRIgine 100MG TAB PO (08:03)
[2018-06-24] MEDS: NICOTINE 21MG/24HR 1 EA TRANSDERMAL TD (08:05)
[2018-06-24 13:17] LABS: HEPATITIS C VIRUS ABY INDEX > 11.0 INDEX (<0.8)
[2018-06-24 13:17] LABS: HEPATITIS B CORE ANTIBODY IGM NEGATIVE (NEGATIVE); HEPATITIS B SURFACE ANTIGEN NEGATIVE (NEGATIVE)
[2018-06-24] MEDS: lamoTRIgine 25 MG TAB PO (20:25)
[2018-06-24] MEDS: oxyBUTYnin *DITROPAN XL* 5 MG TABCR PO (20:25)
[2018-06-25] MEDS: LEVOTHYROXINE 75MCG TABLET (0.075MG) PO (06:17)
[2018-06-25] MEDS: GABAPENTIN 400 MG CAP PO ×4 (08:03→20:03)
[2018-06-25] MEDS: ESTRADIOL 1 MG TAB PO (08:03)
[2018-06-25] MEDS: BUPRENORPHINE/NALOXONE 8-2MG SUBLINGUAL TABLET(SUBOXONE) SL ×2 (08:03→14:12)
[2018-06-25] MEDS: VENLAFAXINE **XR** 75MG CAPSULE PO (08:03)
[2018-06-25] MEDS: TOPIRAMATE (TopAMAX) 100 MG TAB PO (08:03)
[2018-06-25] MEDS: lamoTRIgine 100MG TAB PO (08:03)
[2018-06-25] MEDS: NICOTINE 21MG/24HR 1 EA TRANSDERMAL TD (08:03)
[2018-06-25] MEDS: NICOTINE POLACRILEX 2 MG GUM PO ×2 (10:14→20:03)
[2018-06-25] MEDS: lamoTRIgine 25 MG TAB PO (20:03)
[2018-06-25] MEDS: oxyBUTYnin *DITROPAN XL* 5 MG TABCR PO (20:03)
[2018-06-25] MEDS: PROPRANOLOL 10 MG TAB PO (20:20)
[2018-06-26] MEDS: LEVOTHYROXINE 75MCG TABLET (0.075MG) PO (06:03)
[2018-06-26] MEDS: BUPRENORPHINE/NALOXONE 8-2MG SUBLINGUAL TABLET(SUBOXONE) SL ×2 (08:13→14:24)
[2018-06-26] MEDS: ESTRADIOL 1 MG TAB PO (08:13)
[2018-06-26] MEDS: VENLAFAXINE **XR** 75MG CAPSULE PO (08:13)
[2018-06-26] MEDS: TOPIRAMATE (TopAMAX) 100 MG TAB PO (08:13)
[2018-06-26] MEDS: lamoTRIgine 100MG TAB PO (08:13)
[2018-06-26] MEDS: GABAPENTIN 400 MG CAP PO ×4 (08:13→20:26)
[2018-06-26] MEDS: NICOTINE 21MG/24HR 1 EA TRANSDERMAL TD (08:14)
[2018-06-26] MEDS: NICOTINE POLACRILEX 2 MG GUM PO (12:22)
[2018-06-26] MEDS: ACETAMINOPHEN TAB 650MG DOSE (2X325MG) PO (14:24)
[2018-06-26] MEDS: oxyBUTYnin *DITROPAN XL* 5 MG TABCR PO (20:26)
[2018-06-26] MEDS: lamoTRIgine 25 MG TAB PO (20:26)
[2018-06-27] MEDS: LEVOTHYROXINE 75MCG TABLET (0.075MG) PO (06:04)
[2018-06-27] MEDS: VENLAFAXINE **XR** 75MG CAPSULE PO (08:13)
[2018-06-27] MEDS: ESTRADIOL 1 MG TAB PO (08:14)
[2018-06-27] MEDS: GABAPENTIN 400 MG CAP PO ×4 (08:14→21:24)
[2018-06-27] MEDS: TOPIRAMATE (TopAMAX) 100 MG TAB PO (08:14)
[2018-06-27] MEDS: NICOTINE POLACRILEX 2 MG GUM PO (08:15)
[2018-06-27] MEDS: BUPRENORPHINE/NALOXONE 8-2MG SUBLINGUAL TABLET(SUBOXONE) SL ×2 (08:15→15:42)
[2018-06-27] MEDS: lamoTRIgine 100MG TAB PO (08:15)
[2018-06-27] MEDS: NICOTINE 21MG/24HR 1 EA TRANSDERMAL TD (08:20)
[2018-06-27] MEDS ORDERED: oxyBUTYnin *DITROPAN XL* 5 MG TABCR PO (10:30)
[2018-06-27] MEDS: lamoTRIgine 25 MG TAB PO (21:24)
[2018-06-27] MEDS: PROPRANOLOL 10 MG TAB PO (21:25)
[2018-06-28] MEDS: LEVOTHYROXINE 75MCG TABLET (0.075MG) PO (06:04)
[2018-06-28] MEDS: NICOTINE 21MG/24HR 1 EA TRANSDERMAL TD (08:04)
[2018-06-28 08:06] LABS: HCV RNA NAA QUALITATIVE Positive (Negative)
[2018-06-28] MEDS: TOPIRAMATE (TopAMAX) 100 MG TAB PO (08:06)
[2018-06-28] MEDS: ESTRADIOL 1 MG TAB PO (08:06)
[2018-06-28] MEDS: lamoTRIgine 100MG TAB PO (08:06)
[2018-06-28] MEDS: GABAPENTIN 400 MG CAP PO (08:06)
[2018-06-28] MEDS: BUPRENORPHINE/NALOXONE 8-2MG SUBLINGUAL TABLET(SUBOXONE) SL (08:07)
[2018-06-28] MEDS: VENLAFAXINE **XR** 75MG CAPSULE PO (08:07)
[2018-06-28 14:15] LABS: ETHYL ALCOHOL (ETHANOL) < 0.003 % (0.000-0.010)
[2018-06-29 00:06] LABS: ALPHA 2-MACROGLOBULIN 241 mg/dL (110-276); ALT 17 IU/L (0-40); APOLIPOPROTEIN A-1 205 mg/dL (116-209); FIBROSIS SCORE 0.11 (0.00-0.21); GGT 26 IU/L (0-60); HAPTOGLOBIN 61 mg/dL (34-200); HEPATITIS B CORE ANTIBODY IGG Negative (Negative); HEPATITIS B SURF AB QUANT <3.1 mIU/mL (Immunity>9.9); HEPATITIS C QUANTITATION 1690 IU/mL (.); HEPATITIS C VIRUS GENOTYPE 3 (.); NECROINFLAM SCORE 0.05 (0.00-0.17); NECROINFLAMM GRADE A0-No activity (.); TOTAL BILIRUBIN 0.3 mg/dL (0.0-1.2)
== END 2018-06-28 10:15 | disposition home or self-care (01) | DRG 885 ==
LOC: M ED 13:33 → M ED INP 17:17 → M PSY 18:50
DX: F33.9 Major depressive disorder, recurrent, unspecified (principal); F11.10 Opioid abuse, uncomplicated; E03.9 Hypothyroidism, unspecified; K21.9 Gastro-esophageal reflux disease without esophagitis; M54.9 Dorsalgia, unspecified; F17.210 Nicotine dependence, cigarettes, uncomplicated; G40.909 Epilepsy, unspecified, not intractable, without status epilepticus; B19.20 Unspecified viral hepatitis C without hepatic coma; Z79.899 Other long term (current) drug therapy; Z88.8 Allergy status to other drugs, medicaments and biological substances; Z90.710 Acquired absence of both cervix and uterus; Z86.14 Personal history of Methicillin resistant Staphylococcus aureus infection; Z91.5 Personal history of self-harm

== ENCOUNTER 2018-08-01 13:28 | Inpatient (IN) | payer MEDICARE, MEDICAID ==
[2018-08-01 14:35] LABS: HEMATOCRIT 42.4 % (36.0-47.0); MEAN CORPUSCULAR HEMOGLOBIN 30.3 pg (27.0-33.0); MEAN CORPUSCULAR VOLUME 91.8 fl (80.0-96.0); PLATELET COUNT, AUTOMATED 331 10^3/uL (150-450); RED BLOOD COUNT 4.62 10^6/uL (4.00-5.40); RED CELL DISTRIBUTION WIDTH 13.1 % (11.5-14.5); WHITE BLOOD COUNT 3.7 10^3/uL (4.0-10.0)
[2018-08-01 14:51] LABS: AMPHETAMINES LEVEL URINE NEGATIVE (NEGATIVE); BARBITURATES URINE NEGATIVE (NEGATIVE); BENZODIAZEPINES URINE NEGATIVE (NEGATIVE); CANNABINOIDS URINE NEGATIVE (NEGATIVE); COCAINE METABOLITE URINE NEGATIVE (NEGATIVE); METHADONE URINE NEGATIVE (NEGATIVE); OPIATES URINE NEGATIVE (NEGATIVE); PHENCYCLIDINE URINE NEGATIVE (NEGATIVE)
[2018-08-01 15:03] LABS: CONTROL LINE HCG INT CTR LINE PRESENT; HCG, SERUM QUALITATIVE NEGATIVE (NEGATIVE)
[2018-08-01 15:04] LABS: ALBUMIN 3.9 GM/DL (3.2-5.2); ALBUMIN/GLOBULIN RATIO 1.18 (1.00-1.93); ALKALINE PHOSPHATASE 111 U/L (45-117); ALT/SGPT 20 U/L (12-78); ANION GAP 6 MEQ/L (8-16); AST/SGOT 16 U/L (7-37); BILIRUBIN,DIRECT < 0.1 MG/DL (0.0-0.2); BILIRUBIN,TOTAL 0.2 MG/DL (0.2-1.0); BLOOD UREA NITROGEN 9 MG/DL (7-18); CALCIUM LEVEL 9.2 MG/DL (8.5-10.1); CARBON DIOXIDE LEVEL 27 MEQ/L (21-32); CHLORIDE LEVEL 111 MEQ/L (98-107); CREATININE FOR GFR 0.92 MG/DL (0.55-1.30); GLOMERULAR FILTRATION RATE > 60.0 (>58); GLUCOSE, FASTING 63 MG/DL (70-100); POTASSIUM SERUM 4.1 MEQ/L (3.5-5.1); SODIUM LEVEL 144 MEQ/L (136-145); TOTAL PROTEIN 7.2 GM/DL (6.4-8.2)
[2018-08-01 15:14] LABS: ACETAMINOPHEN LEVEL < 2.0 UG/ML (10.0-30.0); SALICYLATE LEVEL 3.6 MG/DL (5.0-30.0); THYROID STIMULATING HORMONE 0.318 uIU/ML (0.358-3.740)
[2018-08-01 15:14] LABS: ETHYL ALCOHOL (ETHANOL) < 0.003 % (0.000-0.010)
[2018-08-01] MEDS: GABAPENTIN 400 MG CAP PO ×2 (19:35→23:03)
[2018-08-01] MEDS ORDERED: MOM 30ML SUSPENSION UDC PO (19:45)
[2018-08-01] MEDS ORDERED: MAALOX 30 ML SUSP *UDC PO (19:45)
[2018-08-01] MEDS ORDERED: traZODone 50 MG TAB PO (19:45)
[2018-08-01] MEDS ORDERED: oxyBUTYnin 5 MG TAB PO (20:00)
[2018-08-01] MEDS ORDERED: OMEPRAZOLE 20 MG CAP PO (20:00)
[2018-08-01] MEDS: BUPRENORPHINE/NALOXONE 8-2MG SUBLINGUAL TABLET(SUBOXONE) SL (23:21)
[2018-08-02] MEDS: LEVOTHYROXINE 75MCG TABLET (0.075MG) PO (06:19)
[2018-08-02] MEDS: ESTRADIOL 1 MG TAB PO (08:54)
[2018-08-02] MEDS: TOPIRAMATE (TopAMAX) 100 MG TAB PO (08:54)
[2018-08-02] MEDS: GABAPENTIN 400 MG CAP PO ×4 (08:55→20:01)
[2018-08-02] MEDS: VENLAFAXINE **XR** 75MG CAPSULE PO (08:55)
[2018-08-02] MEDS: BUPRENORPHINE/NALOXONE 8-2MG SUBLINGUAL TABLET(SUBOXONE) SL ×2 (08:55→14:48)
[2018-08-02] MEDS ORDERED: lamoTRIgine 25 MG TAB PO (09:00)
[2018-08-02] MEDS ORDERED: lamoTRIgine 100MG TAB PO (09:00)
[2018-08-02 11:08] LABS: AMORPHOUS SEDIMENT RFX SMALL (NEGATIVE); KETONE, URINE AUTO RFX NEGATIVE (NEGATIVE); LEUKOCYTE ESTERASE UR AUTO RFX NEGATIVE (NEGATIVE); MUCUS, URINE RFX SMALL (NEGATIVE); NITRITE, URINE AUTO RFX NEGATIVE (NEGATIVE); RBC, URINE AUTO RFX 0 /HPF (0-3); SPECIFIC GRAVITY UR AUTO RFX 1.021 (1.002-1.035); SQUAM EPITHELIAL CELL UR AURFX 1 /HPF (0-6); WBC, URINE AUTO RFX 0 /HPF (0-3)
[2018-08-02] MEDS: lamoTRIgine 100MG TAB PO (12:14)
[2018-08-02] MEDS: lamoTRIgine 25 MG TAB PO (12:15)
[2018-08-02] MEDS: guaiFENesin SYRUP 200 MG/10 ML UDC PO (14:48)
[2018-08-02] MEDS: RAMELTEON 8 MG TAB (ROZEREM) PO (20:01)
[2018-08-02] MEDS: ACETAMINOPHEN TAB 650MG DOSE (2X325MG) PO (20:02)
[2018-08-02] MEDS ORDERED: zolPIDEM TARTRATE 10MG TAB PO (21:00)
[2018-08-03] MEDS: LEVOTHYROXINE 75MCG TABLET (0.075MG) PO (06:08)
[2018-08-03 07:08] LABS: HEMATOCRIT 43.8 % (36.0-47.0); MEAN CORPUSCULAR HEMOGLOBIN 29.9 pg (27.0-33.0); MEAN CORPUSCULAR VOLUME 93.6 fl (80.0-96.0); PLATELET COUNT, AUTOMATED 317 10^3/uL (150-450); RED BLOOD COUNT 4.68 10^6/uL (4.00-5.40); WHITE BLOOD COUNT 3.7 10^3/uL (4.0-10.0)
[2018-08-03 07:36] LABS: FREE THYROXINE INDEX 2.9 % (1.3-4.8); T UPTAKE 27 % (30-39); THYROID STIMULATING HORMONE 0.511 uIU/ML (0.358-3.740); THYROXINE (T4) 10.9 UG/DL (4.5-12.0)
[2018-08-03] MEDS: lamoTRIgine 25 MG TAB PO (08:02)
[2018-08-03] MEDS: TOPIRAMATE (TopAMAX) 100 MG TAB PO (08:04)
[2018-08-03] MEDS: ACETAMINOPHEN TAB 650MG DOSE (2X325MG) PO ×2 (08:04→20:10)
[2018-08-03] MEDS: GABAPENTIN 400 MG CAP PO ×4 (08:04→20:09)
[2018-08-03] MEDS: VENLAFAXINE **XR** 75MG CAPSULE PO (08:04)
[2018-08-03] MEDS: ESTRADIOL 1 MG TAB PO (08:04)
[2018-08-03] MEDS: lamoTRIgine 100MG TAB PO (08:04)
[2018-08-03] MEDS: BUPRENORPHINE/NALOXONE 8-2MG SUBLINGUAL TABLET(SUBOXONE) SL ×2 (08:04→15:00)
[2018-08-03] MEDS: zolPIDEM TARTRATE 10MG TAB PO (20:09)
[2018-08-03] MEDS: guaiFENesin SYRUP 200 MG/10 ML UDC PO (20:09)
[2018-08-03] MEDS: PROPRANOLOL 10 MG TAB PO (20:10)
[2018-08-04] MEDS: LEVOTHYROXINE 75MCG TABLET (0.075MG) PO (06:10)
[2018-08-04] MEDS: TOPIRAMATE (TopAMAX) 100 MG TAB PO (09:03)
[2018-08-04] MEDS: lamoTRIgine 100MG TAB PO (09:03)
[2018-08-04] MEDS: BUPRENORPHINE/NALOXONE 8-2MG SUBLINGUAL TABLET(SUBOXONE) SL ×2 (09:03→15:05)
[2018-08-04] MEDS: VENLAFAXINE **XR** 75MG CAPSULE PO (09:03)
[2018-08-04] MEDS: ESTRADIOL 1 MG TAB PO (09:03)
[2018-08-04] MEDS: lamoTRIgine 25 MG TAB PO (09:03)
[2018-08-04] MEDS: GABAPENTIN 400 MG CAP PO ×4 (09:03→20:07)
[2018-08-04] MEDS: ACETAMINOPHEN TAB 650MG DOSE (2X325MG) PO ×2 (13:40→20:07)
[2018-08-04] MEDS: guaiFENesin SYRUP 200 MG/10 ML UDC PO (20:06)
[2018-08-04] MEDS: RAMELTEON 8 MG TAB (ROZEREM) PO (20:09)
[2018-08-04] MEDS: PROPRANOLOL 10 MG TAB PO (20:09)
[2018-08-04] MEDS: diphenhydrAMINE 50 MG CAP PO (20:47)
[2018-08-05] MEDS: LEVOTHYROXINE 75MCG TABLET (0.075MG) PO (06:18)
[2018-08-05] MEDS: VENLAFAXINE **XR** 75MG CAPSULE PO (08:49)
[2018-08-05] MEDS: BUPRENORPHINE/NALOXONE 8-2MG SUBLINGUAL TABLET(SUBOXONE) SL ×2 (08:49→15:41)
[2018-08-05] MEDS: GABAPENTIN 400 MG CAP PO ×4 (08:49→20:09)
[2018-08-05] MEDS: TOPIRAMATE (TopAMAX) 100 MG TAB PO (08:49)
[2018-08-05] MEDS: lamoTRIgine 100MG TAB PO (08:49)
[2018-08-05] MEDS: lamoTRIgine 25 MG TAB PO (08:49)
[2018-08-05] MEDS: ESTRADIOL 1 MG TAB PO (08:50)
[2018-08-05] MEDS: guaiFENesin SYRUP 200 MG/10 ML UDC PO (15:15)
[2018-08-05] MEDS: zolPIDEM TARTRATE 5 MG TAB PO (20:08)
[2018-08-05] MEDS: RAMELTEON 8 MG TAB (ROZEREM) PO (20:09)
[2018-08-06] MEDS: LEVOTHYROXINE 75MCG TABLET (0.075MG) PO (06:17)
[2018-08-06] MEDS: VENLAFAXINE **XR** 75MG CAPSULE PO (08:24)
[2018-08-06] MEDS: lamoTRIgine 25 MG TAB PO (08:24)
[2018-08-06] MEDS: guaiFENesin SYRUP 200 MG/10 ML UDC PO (08:24)
[2018-08-06] MEDS: ESTRADIOL 1 MG TAB PO (08:24)
[2018-08-06] MEDS: GABAPENTIN 400 MG CAP PO ×4 (08:24→20:37)
[2018-08-06] MEDS: TOPIRAMATE (TopAMAX) 100 MG TAB PO (08:24)
[2018-08-06] MEDS: lamoTRIgine 100MG TAB PO (08:24)
[2018-08-06] MEDS: BUPRENORPHINE/NALOXONE 8-2MG SUBLINGUAL TABLET(SUBOXONE) SL ×2 (08:24→14:50)
[2018-08-06] MEDS: RAMELTEON 8 MG TAB (ROZEREM) PO (20:37)
[2018-08-07] MEDS: LEVOTHYROXINE 75MCG TABLET (0.075MG) PO (06:03)
[2018-08-07] MEDS: lamoTRIgine 25 MG TAB PO (08:46)
[2018-08-07] MEDS: ESTRADIOL 1 MG TAB PO (08:47)
[2018-08-07] MEDS: VENLAFAXINE **XR** 75MG CAPSULE PO (08:47)
[2018-08-07] MEDS: BUPRENORPHINE/NALOXONE 8-2MG SUBLINGUAL TABLET(SUBOXONE) SL ×2 (08:47→15:24)
[2018-08-07] MEDS: lamoTRIgine 100MG TAB PO (08:47)
[2018-08-07] MEDS: GABAPENTIN 400 MG CAP PO ×4 (08:47→20:53)
[2018-08-07] MEDS: TOPIRAMATE (TopAMAX) 100 MG TAB PO (08:47)
[2018-08-07] MEDS: RAMELTEON 8 MG TAB (ROZEREM) PO (20:52)
[2018-08-07] MEDS: guaiFENesin SYRUP 200 MG/10 ML UDC PO (20:53)
[2018-08-08] MEDS: LEVOTHYROXINE 75MCG TABLET (0.075MG) PO (06:03)
[2018-08-08] MEDS: lamoTRIgine 25 MG TAB PO (08:08)
[2018-08-08] MEDS: GABAPENTIN 400 MG CAP PO (08:08)
[2018-08-08] MEDS: ESTRADIOL 1 MG TAB PO (08:09)
[2018-08-08] MEDS: VENLAFAXINE **XR** 75MG CAPSULE PO (08:09)
[2018-08-08] MEDS: TOPIRAMATE (TopAMAX) 100 MG TAB PO (08:09)
[2018-08-08] MEDS: lamoTRIgine 100MG TAB PO (08:09)
[2018-08-08] MEDS: BUPRENORPHINE/NALOXONE 8-2MG SUBLINGUAL TABLET(SUBOXONE) SL (08:26)
== END 2018-08-08 10:19 | disposition home or self-care (01) | DRG 881 ==
LOC: M PSY 08-03 14:13 → M ED 13:28 → M ED INP 19:43 → M PSY 21:19
DX: F32.9 Major depressive disorder, single episode, unspecified (principal); R45.851 Suicidal ideations; F60.3 Borderline personality disorder; F11.11 Opioid abuse, in remission; F15.11 Other stimulant abuse, in remission; Z88.8 Allergy status to other drugs, medicaments and biological substances; Z91.5 Personal history of self-harm; E03.9 Hypothyroidism, unspecified; Z87.442 Personal history of urinary calculi; M54.9 Dorsalgia, unspecified; K21.9 Gastro-esophageal reflux disease without esophagitis; Z90.710 Acquired absence of both cervix and uterus; F17.210 Nicotine dependence, cigarettes, uncomplicated; Z86.14 Personal history of Methicillin resistant Staphylococcus aureus infection; G40.909 Epilepsy, unspecified, not intractable, without status epilepticus; B19.20 Unspecified viral hepatitis C without hepatic coma; Z79.891 Long term (current) use of opiate analgesic; Z79.899 Other long term (current) drug therapy

== ENCOUNTER 2018-08-24 12:29 | Emergency (ER) | payer MEDICARE, MEDICAID ==
[2018-08-24 14:26] LABS: HEMATOCRIT 40.7 % (36.0-47.0); HEMOGLOBIN 13.3 g/dl (12.0-15.5); MEAN CORPUSCULAR HEMOGLOBIN 30.3 pg (27.0-33.0); MEAN CORPUSCULAR HGB CONC 32.7 g/dl (32.0-36.5); MEAN CORPUSCULAR VOLUME 92.7 fl (80.0-96.0); PLATELET COUNT, AUTOMATED 300 10^3/uL (150-450); RED BLOOD COUNT 4.39 10^6/uL (4.00-5.40); RED CELL DISTRIBUTION WIDTH 13.1 % (11.5-14.5); WHITE BLOOD COUNT 4.4 10^3/uL (4.0-10.0)
[2018-08-24 14:36] LABS: AMPHETAMINES LEVEL URINE NEGATIVE (NEGATIVE); BARBITURATES URINE NEGATIVE (NEGATIVE); BENZODIAZEPINES URINE NEGATIVE (NEGATIVE); CANNABINOIDS URINE NEGATIVE (NEGATIVE); COCAINE METABOLITE URINE NEGATIVE (NEGATIVE); METHADONE URINE NEGATIVE (NEGATIVE); OPIATES URINE NEGATIVE (NEGATIVE); PHENCYCLIDINE URINE NEGATIVE (NEGATIVE)
[2018-08-24 14:46] LABS: ACETAMINOPHEN LEVEL < 2.0 UG/ML (10.0-30.0); ALBUMIN 3.8 GM/DL (3.2-5.2); ALBUMIN/GLOBULIN RATIO 1.36 (1.00-1.93); ALKALINE PHOSPHATASE 105 U/L (45-117); ALT/SGPT 33 U/L (12-78); ANION GAP 5 MEQ/L (8-16); AST/SGOT 24 U/L (7-37); BILIRUBIN,DIRECT < 0.1 MG/DL (0.0-0.2); BILIRUBIN,TOTAL 0.2 MG/DL (0.2-1.0); BLOOD UREA NITROGEN 11 MG/DL (7-18); CALCIUM LEVEL 9.3 MG/DL (8.5-10.1); CARBON DIOXIDE LEVEL 30 MEQ/L (21-32); CHLORIDE LEVEL 107 MEQ/L (98-107); CREATININE FOR GFR 1.07 MG/DL (0.55-1.30); ETHYL ALCOHOL (ETHANOL) 0.003 % (0.000-0.010); GLOMERULAR FILTRATION RATE 59.9 (>58); GLUCOSE, FASTING 101 MG/DL (70-100); POTASSIUM SERUM 4.3 MEQ/L (3.5-5.1); SALICYLATE LEVEL 2.6 MG/DL (5.0-30.0); SODIUM LEVEL 142 MEQ/L (136-145); TOTAL PROTEIN 6.6 GM/DL (6.4-8.2)
[2018-08-24 15:00] LABS: CONTROL LINE HCG INT CTR LINE PRESENT; HCG, SERUM QUALITATIVE NEGATIVE (NEGATIVE)
[2018-08-24] MEDS ORDERED: BUPRENORPHINE/NALOXONE 8-2MG SUBLINGUAL TABLET(SUBOXONE) SL (22:30)
[2018-08-24] MEDS: GABAPENTIN 400 MG CAP PO ×2 (22:30→23:30)
[2018-08-24] MEDS: BUPRENORPHINE/NALOXONE 8-2MG SUBLINGUAL TABLET(SUBOXONE) SL (22:36)
[2018-08-25] MEDS: LEVOTHYROXINE 75MCG TABLET (0.075MG) PO (06:00)
[2018-08-25] MEDS: VENLAFAXINE **XR** 75MG CAPSULE PO (09:00)
[2018-08-25] MEDS: OMEPRAZOLE 20 MG CAP PO (09:00)
[2018-08-25] MEDS: lamoTRIgine 100MG TAB PO (09:00)
[2018-08-25] MEDS ORDERED: lamoTRIgine 100MG TAB PO (09:00)
[2018-08-25] MEDS: GABAPENTIN 400 MG CAP PO ×3 (09:00→17:00)
[2018-08-25] MEDS: TOPIRAMATE (TopAMAX) 100 MG TAB PO (09:00)
[2018-08-25] MEDS: BUPRENORPHINE/NALOXONE 8-2MG SUBLINGUAL TABLET(SUBOXONE) SL ×2 (10:30→16:00)
[2018-08-25] MEDS: ESTRADIOL 1 MG TAB PO (10:57)
[2018-08-25] MEDS: oxyBUTYnin *DITROPAN XL* 5 MG TABCR PO (10:57)
[2018-08-25] MEDS ORDERED: ACETAMINOPHEN 325 MG TAB As Ordered (12:11)
[2018-08-25] MEDS: ACETAMINOPHEN 325 MG TAB PO (12:20)
[2018-08-26] MEDS ORDERED: LEVOTHYROXINE 75MCG TABLET (0.075MG) PO (06:00)
== END 2018-08-25 18:05 ==
LOC: M ED 08-25 18:05
DX: R45.851 Suicidal ideations (principal); Z91.5 Personal history of self-harm; Z86.59 Personal history of other mental and behavioral disorders; Z91.048 Other nonmedicinal substance allergy status; Z88.8 Allergy status to other drugs, medicaments and biological substances; Z79.890 Hormone replacement therapy; Z79.899 Other long term (current) drug therapy
CPT/HCPCS: 93005

== ENCOUNTER 2018-10-29 14:50 | Emergency (ER) | payer MEDICARE, MEDICAID ==
[~2018-10-29] VITALS: Ht 157.5 cm; Wt 77.3 kg
[~2018-10-29 14:50] MED LIST changes: +ABIL1TAB11 PO; +DITR5TAB PO; +DOXE150C PO; -DOXE150C7 PO; +DOXY100T2 PO; -DOXY10CA PO; -EFFE150C PO; +EFFE150C2 PO; +EFFE75CA2 PO; -EFFE75CA75 PO; +ESTR1TAB PO; -ESTR2TA PO; +ESTR2TAB2 PO; -GABA-282 PO; -GABA-283 PO; +GABA-843 PO; +GABA-845 PO; -GABA600T PO; +GABA600T4 PO; +GABA800T4 PO; +GUAI100S27 PO; +GUAISYP9 PO; +IBUP80TA PO; +LAMI1TAB9 PO; -LAMI200T3 PO; +LAMI25TA PO; +LAMO100T PO; +LAMO200T2 PO; +LAMO25TA4 PO; +LIDO5TD TD; +OXYB5TAB PO; -PRAV10TA PO; +PRAV10TA4 PO; +PROP10TA56 PO; +PROP10TAB PO; +ROZE8TAB16 PO; +SUBO8MIS SL; +TOPA100T12 PO; -TOPA100T8 PO; +TOPA1TAB PO; -TOPA200T6 PO; +TOPA200T7 PO; +TOPI100T9 PO; +VENL100T PO; +VENL25TA2 PO; -VENL75CA PO; +VENL75CA2 PO; +VENL75CA47 PO
[2018-10-29] MEDS ORDERED: MULTIVITAMIN -ADULT INJECTION 10 ML, THIAMINE INJection 100 MG, FOLIC ACID 1 MG in NS 1... IV ONE (15:15)
[2018-10-29] MEDS ORDERED: LORazepam 2 MG TAB PO PRN (15:15)
[2018-10-29] MEDS ORDERED: LAMO10TA PO (15:21)
[2018-10-29 15:33] LABS: HEMATOCRIT 42.6 % (36.0-47.0); MEAN CORPUSCULAR HEMOGLOBIN 30.9 pg (27.0-33.0); MEAN CORPUSCULAR HGB CONC 32.9 g/dl (32.0-36.5); PLATELET COUNT, AUTOMATED 310 10^3/uL (150-450); RED BLOOD COUNT 4.53 10^6/uL (4.00-5.40); WHITE BLOOD COUNT 4.2 10^3/uL (4.0-10.0)
[2018-10-29 15:45] LABS: HCG, SERUM QUALITATIVE NEGATIVE (NEGATIVE)
[2018-10-29 15:51] LABS: AMPHETAMINES LEVEL URINE NEGATIVE (NEGATIVE); BARBITURATES URINE NEGATIVE (NEGATIVE); BENZODIAZEPINES URINE NEGATIVE (NEGATIVE); CANNABINOIDS URINE NEGATIVE (NEGATIVE); COCAINE METABOLITE URINE NEGATIVE (NEGATIVE); METHADONE URINE NEGATIVE (NEGATIVE); OPIATES URINE NEGATIVE (NEGATIVE); PHENCYCLIDINE URINE NEGATIVE (NEGATIVE)
[2018-10-29] MEDS ORDERED: GABA-845 PO (15:58)
[2018-10-29] MEDS ORDERED: ZOLP10TA2 PO (15:58)
[2018-10-29] MEDS ORDERED: ABIL1TAB11 PO (15:58)
[2018-10-29] MEDS ORDERED: VENL75CA47 PO (15:58)
[2018-10-29] MEDS ORDERED: IBUP1TAB7 PO (16:01)
[2018-10-29 16:04] LABS: ALT/SGPT 29 U/L (12-78); BILIRUBIN,TOTAL 0.2 MG/DL (0.2-1.0); BLOOD UREA NITROGEN 9 MG/DL (7-18); CALCIUM LEVEL 8.9 MG/DL (8.5-10.1); CARBON DIOXIDE LEVEL 26 MEQ/L (21-32); CHLORIDE LEVEL 105 MEQ/L (98-107); CREATININE FOR GFR 1.16 MG/DL (0.55-1.30); GLOMERULAR FILTRATION RATE 54.5 (>58); GLUCOSE, FASTING 125 MG/DL (70-100); POTASSIUM SERUM 4.1 MEQ/L (3.5-5.1); SODIUM LEVEL 139 MEQ/L (136-145)
[2018-10-29 16:05] LABS: ACETAMINOPHEN LEVEL < 2.0 UG/ML (10.0-30.0); ALBUMIN 3.9 GM/DL (3.2-5.2); BILIRUBIN,DIRECT < 0.1 MG/DL (0.0-0.2); ETHYL ALCOHOL (ETHANOL) < 0.003 % (0.000-0.010); SALICYLATE LEVEL < 1.7 MG/DL (5.0-30.0); TOTAL PROTEIN 7.1 GM/DL (6.4-8.2)
[2018-10-29] MEDS ORDERED: LAMO200T2 PO (16:16)
[2018-10-29] MEDS ORDERED: PILL CRUSHER/CUTTER 1 EACH XX PRN (18:45)
[2018-10-29] MEDS ORDERED: BUPRENORPHINE/NALOXONE 8-2MG SUBLINGUAL TABLET(SUBOXONE) SL ONE (18:45)
[2018-10-29] MEDS ORDERED: GABAPENTIN 400 MG CAP PO ONE (20:00)
[2018-10-29] MEDS ORDERED: zolPIDEM TARTRATE 5 MG TAB PO ONE (22:00)
[2018-10-30] MEDS ORDERED: LEVOTHYROXINE 75MCG TABLET (0.075MG) PO ONE (06:00)
[2018-10-30] MEDS ORDERED: GABAPENTIN 400 MG CAP PO ONE ×4 (08:45→20:15)
[2018-10-30] MEDS ORDERED: lamoTRIgine 100MG TAB PO ONE (08:45)
[2018-10-30] MEDS ORDERED: IBUPROFEN 800 MG TAB PO ONE (08:45)
[2018-10-30] MEDS ORDERED: VENLAFAXINE **XR** 75MG CAPSULE PO ONE (08:45)
[2018-10-30] MEDS ORDERED: BUPRENORPHINE/NALOXONE 8-2MG SUBLINGUAL TABLET(SUBOXONE) SL ONE ×2 (09:00→16:00)
[2018-10-30] MEDS ORDERED: ESTRADIOL 1 MG TAB PO ONE (09:00)
[2018-10-30] MEDS ORDERED: ARIPiprazole 2 MG TAB PO ONE (20:15)
[2018-10-30] MEDS ORDERED: zolPIDEM TARTRATE 5 MG TAB PO ONE (20:15)
[2018-10-30 20:21] VITALS: BP 127/73
== END 2018-10-30 20:27 ==
LOC: M ED 14:50
DX: R45.851 Suicidal ideations (principal); F32.9 Major depressive disorder, single episode, unspecified; Z63.9 Problem related to primary support group, unspecified; R56.9 Unspecified convulsions; E78.00 Pure hypercholesterolemia, unspecified; K21.9 Gastro-esophageal reflux disease without esophagitis; Z87.442 Personal history of urinary calculi; F17.200 Nicotine dependence, unspecified, uncomplicated; Z81.8 Family history of other mental and behavioral disorders; Z88.8 Allergy status to other drugs, medicaments and biological substances; Z79.899 Other long term (current) drug therapy; Z79.890 Hormone replacement therapy
CPT/HCPCS: 36415; 80048; 80076; 80307; 84443; 84703; 85027; 99285; G0480

== ENCOUNTER 2018-11-19 14:07 | Emergency (ER) | payer MEDICARE, MEDICAID ==
[~2018-11-19] VITALS: Ht 157.5 cm; Wt 81.8 kg
[~2018-11-19 14:07] MED LIST changes: +IBUP1TAB7 PO; +ZOLP10TA2 PO
[2018-11-19 15:40] LABS: BASO % 0.5 % (0.0-1.0); EOS # 0.3 10^3/uL (0.0-0.50); EOS % 6.3 % (0.0-3.0); HEMATOCRIT 39.8 % (36.0-47.0); HEMOGLOBIN 12.7 g/dl (12.0-15.5); LYMPH # 1.3 10^3/uL (1.5-4.5); LYMPH % 30.7 % (24.0-44.0); MEAN CORPUSCULAR HEMOGLOBIN 29.7 pg (27.0-33.0); MEAN CORPUSCULAR HGB CONC 31.9 g/dl (32.0-36.5); MONO # 0.3 10^3/uL (0.0-0.8); NEUTROPHILS # 2.4 10^3/uL (1.8-7.7); NEUTROPHILS % 55.3 % (36.0-66.0); PLATELET COUNT, AUTOMATED 284 10^3/uL (150-450); RED BLOOD COUNT 4.28 10^6/uL (4.00-5.40); WHITE BLOOD COUNT 4.3 10^3/uL (4.0-10.0)
[2018-11-19 16:04] LABS: HCG, SERUM QUALITATIVE NEGATIVE (NEGATIVE)
[2018-11-19 16:07] LABS: AMPHETAMINES LEVEL URINE POSITIVE (NEGATIVE); BARBITURATES URINE NEGATIVE (NEGATIVE); BENZODIAZEPINES URINE NEGATIVE (NEGATIVE); CANNABINOIDS URINE NEGATIVE (NEGATIVE); COCAINE METABOLITE URINE POSITIVE (NEGATIVE); METHADONE URINE NEGATIVE (NEGATIVE); OPIATES URINE NEGATIVE (NEGATIVE); PHENCYCLIDINE URINE NEGATIVE (NEGATIVE)
[2018-11-19 16:13] LABS: ACETAMINOPHEN LEVEL < 2.0 UG/ML (10.0-30.0); ALBUMIN 3.9 GM/DL (3.2-5.2); ALT/SGPT 26 U/L (12-78); BILIRUBIN,DIRECT < 0.1 MG/DL (0.0-0.2); BILIRUBIN,TOTAL 0.2 MG/DL (0.2-1.0); BLOOD UREA NITROGEN 14 MG/DL (7-18); CALCIUM LEVEL 8.5 MG/DL (8.5-10.1); CARBON DIOXIDE LEVEL 29 MEQ/L (21-32); CHLORIDE LEVEL 106 MEQ/L (98-107); CREATININE FOR GFR 0.87 MG/DL (0.55-1.30); ETHYL ALCOHOL (ETHANOL) < 0.003 % (0.000-0.010); GLOMERULAR FILTRATION RATE > 60.0 (>58); GLUCOSE, FASTING 113 MG/DL (70-100); POTASSIUM SERUM 4.2 MEQ/L (3.5-5.1); SALICYLATE LEVEL < 1.7 MG/DL (5.0-30.0); SODIUM LEVEL 141 MEQ/L (136-145); THYROID STIMULATING HORMONE 0.839 uIU/ML (0.358-3.740); TOTAL PROTEIN 6.6 GM/DL (6.4-8.2)
[2018-11-19] MEDS ORDERED: NS 1,000 ML IV ONE (16:15)
--- NOTE | 2018-11-19 19:38 | ECGEPIP ---
Stationary ECG Study [facility] Test Date: 2018-11-19 Pat Name: SALLY STEPHENS Department: Room: - Gender: F Editor Sound: dami : 1975 Requested By: Gwen Osullivan Order Number: [id number] Reading MD: Gwen Osullivan Measurements Intervals [place] Rate: 66 P: 39 TN: 157 QRS: 67 QRSD: 99 T: 29 QT: 411 QTc: 432 Interpretive Statements SINUS RHYTHM NONSPECIFIC ST T WAVE CHANGES CW 09/14/[address] T WAVE CHANGES Electronically Signed On 11-19-2018 19:37:53 EST by Gwen Osullivan
[2018-11-20 06:32] LABS: CK-MB VALUE MASS < 1.0 NG/ML (<3.6); CPK CREATINE PHOSPHOKINASE 134 U/L (26-192); MB/CK RELATIVE INDEX 0.75 (< OR =4); TROPONIN I < 0.02 NG/ML (< 0.10)
[2018-11-20] MEDS ORDERED: BUPRENORPHINE/NALOXONE 8-2MG SUBLINGUAL TABLET(SUBOXONE) SL ONE (09:15)
[2018-11-20] MEDS ORDERED: LEVOTHYROXINE 75MCG TABLET (0.075MG) PO ONE (09:15)
[2018-11-20] MEDS ORDERED: GABAPENTIN 400 MG CAP PO ONE ×3 (09:15→15:45)
[2018-11-20] MEDS ORDERED: lamoTRIgine 100MG TAB PO ONE (09:15)
[2018-11-20 16:52] VITALS: BP 133/74
[2018-11-21] MEDS ORDERED: BUPRENORPHINE/NALOXONE 8-2MG SUBLINGUAL TABLET(SUBOXONE) SL SCH (09:00)
== END 2018-11-20 16:55 | disposition short-term general hospital (02) ==
LOC: M ED 14:07
DX: T43.212A Poisoning by selective serotonin and norepinephrine reuptake inhibitors, intentional self-harm, initial encounter (principal); T43.592A Poisoning by other antipsychotics and neuroleptics, intentional self-harm, initial encounter; T39.1X2A Poisoning by 4-Aminophenol derivatives, intentional self-harm, initial encounter; F32.9 Major depressive disorder, single episode, unspecified; R11.2 Nausea with vomiting, unspecified; B19.20 Unspecified viral hepatitis C without hepatic coma; F99 Mental disorder, not otherwise specified; Z88.8 Allergy status to other drugs, medicaments and biological substances; Z77.098 Contact with and (suspected) exposure to other hazardous, chiefly nonmedicinal, chemicals; Z79.899 Other long term (current) drug therapy; Z79.890 Hormone replacement therapy
CPT/HCPCS: 80048; 80076; 80307; 82550; 82553; 84443; 84484; 84703; 85025; 93005; 93041; 99285; G0480

== ENCOUNTER 2018-12-17 11:41 | Inpatient (IN) | payer MEDICARE, OTHER ==
[~2018-12-17] VITALS: Ht 157.5 cm; Wt 85.3 kg
[~2018-12-17 11:41] MED LIST changes: +NICOTINE 21MG/24HR 1 EA TRANSDERMAL TD SCH
[2018-12-17] MEDS ORDERED: LAMO100T PO (11:53)
[2018-12-17] MEDS ORDERED: D-AMPHETAMINE (11:53)
[2018-12-17 12:26] LABS: HEMATOCRIT 41.9 % (36.0-47.0); HEMOGLOBIN 13.6 g/dl (12.0-15.5); MEAN CORPUSCULAR HEMOGLOBIN 29.9 pg (27.0-33.0); MEAN CORPUSCULAR HGB CONC 32.5 g/dl (32.0-36.5); MEAN CORPUSCULAR VOLUME 92.1 fl (80.0-96.0); PLATELET COUNT, AUTOMATED 312 10^3/uL (150-450); RED BLOOD COUNT 4.55 10^6/uL (4.00-5.40); WHITE BLOOD COUNT 4.2 10^3/uL (4.0-10.0)
[2018-12-17 12:47] LABS: AMPHETAMINES LEVEL URINE NEGATIVE (NEGATIVE); BARBITURATES URINE NEGATIVE (NEGATIVE); BENZODIAZEPINES URINE NEGATIVE (NEGATIVE); CANNABINOIDS URINE POSITIVE (NEGATIVE); COCAINE METABOLITE URINE POSITIVE (NEGATIVE); METHADONE URINE NEGATIVE (NEGATIVE); OPIATES URINE NEGATIVE (NEGATIVE); PHENCYCLIDINE URINE NEGATIVE (NEGATIVE)
[2018-12-17] MEDS ORDERED: hydrOXYzine 25 MG TAB PO ONE (13:45)
[2018-12-17 13:48] LABS: ACETAMINOPHEN LEVEL < 2.0 UG/ML (10.0-30.0); ALBUMIN 3.8 GM/DL (3.2-5.2); ALT/SGPT 41 U/L (12-78); BILIRUBIN,DIRECT < 0.1 MG/DL (0.0-0.2); BILIRUBIN,TOTAL 0.2 MG/DL (0.2-1.0); BLOOD UREA NITROGEN 10 MG/DL (7-18); CALCIUM LEVEL 8.7 MG/DL (8.5-10.1); CARBON DIOXIDE LEVEL 29 MEQ/L (21-32); CHLORIDE LEVEL 105 MEQ/L (98-107); ETHYL ALCOHOL (ETHANOL) < 0.003 % (0.000-0.010); GLOMERULAR FILTRATION RATE > 60.0 (>58); GLUCOSE, FASTING 89 MG/DL (70-100); POTASSIUM SERUM 4.3 MEQ/L (3.5-5.1); SALICYLATE LEVEL < 1.7 MG/DL (5.0-30.0); SODIUM LEVEL 141 MEQ/L (136-145); TOTAL PROTEIN 7.1 GM/DL (6.4-8.2)
[2018-12-17 13:49] LABS: HCG, SERUM QUALITATIVE NEGATIVE (NEGATIVE)
[2018-12-17] MEDS ORDERED: AMPH1TAB2 PO (14:41)
[2018-12-17] MEDS ORDERED: LEVO75TA4 PO (14:41)
[2018-12-17] MEDS ORDERED: NEUR300C PO (14:41)
[2018-12-17] MEDS ORDERED: ESTR1TAB PO (14:41)
[2018-12-17] MEDS ORDERED: MAALOX 30 ML SUSP *UDC PO PRN (15:00)
[2018-12-17] MEDS ORDERED: zolPIDEM TARTRATE 10MG TAB PO PRN (15:00)
[2018-12-17] MEDS ORDERED: MOM 30ML SUSPENSION UDC PO PRN (15:00)
[2018-12-17] MEDS: BUPRENORPHINE/NALOXONE 8-2MG SUBLINGUAL TABLET(SUBOXONE) SL SCH (16:07)
[2018-12-17 17:15] VITALS: BP 111/71
[2018-12-17] MEDS: GABAPENTIN 300 MG CAP PO SCH ×2 (18:00→21:50)
[2018-12-17] MEDS: IBUPROFEN 800 MG TAB PO PRN (21:51)
[2018-12-17] MEDS: zolPIDEM TARTRATE 5 MG TAB PO PRN (21:51)
[2018-12-18 06:11] VITALS: BP 100/52
[2018-12-18] MEDS: LEVOTHYROXINE 75MCG TABLET (0.075MG) PO SCH (06:12)
[2018-12-18] MEDS: BUPRENORPHINE/NALOXONE 8-2MG SUBLINGUAL TABLET(SUBOXONE) SL SCH ×2 (06:12→14:43)
[2018-12-18] MEDS: VENLAFAXINE **XR** 75MG CAPSULE PO SCH (09:09)
[2018-12-18] MEDS: GABAPENTIN 300 MG CAP PO SCH ×4 (09:09→20:36)
[2018-12-18] MEDS: lamoTRIgine 100MG TAB PO SCH (09:10)
[2018-12-18] MEDS: ESTRADIOL 1 MG TAB PO SCH (09:10)
[2018-12-18 11:16] VITALS: BP_SYST 113; BP_SYST 136; BP_DIAS 67
[2018-12-18] MEDS: IBUPROFEN 800 MG TAB PO PRN (15:31)
[2018-12-18 18:00] VITALS: BP 124/64
[2018-12-18] MEDS: zolPIDEM TARTRATE 5 MG TAB PO PRN (20:36)
[2018-12-18 21:00] VITALS: BP 122/68
[2018-12-18] MEDS ORDERED: diphenhydrAMINE 50 MG CAP PO PRN (21:30)
[2018-12-18] MEDS: CEPHALEXIN 500 MG CAP PO SCH (21:32)
[2018-12-19] MEDS: BUPRENORPHINE/NALOXONE 8-2MG SUBLINGUAL TABLET(SUBOXONE) SL SCH ×2 (06:00→15:05)
[2018-12-19] MEDS: LEVOTHYROXINE 75MCG TABLET (0.075MG) PO SCH (06:00)
[2018-12-19 06:22] VITALS: BP 96/50
--- NOTE | 2018-12-19 08:46 | HPE ---
DATE OF ADMISSION: 12/17/2018 HISTORY OF PRESENT ILLNESS (HPI): Please refer to the psychiatric history and evaluation for further details on this admission. This examination and history is intended for medical issues, which may need treatment, followup or consultation on this 43-year-old female. ALLERGIES: REGLAN, PROCHLORPERAZINE, SEROQUEL, TRAZODONE. ENVIRONMENTAL ALLERGIES: Molds and smut. PRIMARY CARE PROVIDER: She sees Dr. Woods for Suboxone. SOCIAL HISTORY: She is . She quit smoking 2 months ago. She is using vape. Ethyl alcohol (EtOH): None. Recreational drug use: She has a history of intravenous (IV), opiates, heroin, meth, amphetamine. Recently using occasional cocaine and marijuana. PAST MEDICAL HISTORY: 1. Depression. 2. Anxiety. 3. Self-harm. 4. Borderline personality disorder. 5. History of suicide attempt. 6. Overdose (OD). 7. Hypothyroidism. 8. Kidney stones. 9. History of seizures, last one 2012. 10. History of polysubstance abuse, currently Suboxone as per Dr. Woods. 11. ADHD. 12. Chronic back pain. 13. History of methicillin-resistant Staphylococcus aureus (MRSA). 14. History of gastroesophageal reflux disease (GERD). 15. History of bulimia and anorexia. LABORATORY STUDIES: CBC was normal. Electrolytes were normal. BUN was 10. Creatinine was 0.80. Urine was positive for cocaine, positive for cannabinoids. HOME MEDICATIONS: - Adderall 50 mg by mouth twice a day - Abilify 5 mg by mouth twice a day - Suboxone 8-2 mg <<5:10>> strips sublingual twice a day - estradiol 1 mg by mouth daily - gabapentin 600 mg by mouth four times a day - ibuprofen 800 every 6 hours as needed for pain - Lamictal 100 mg by mouth daily - levothyroxine 75 mcg by mouth daily - venlafaxine 75 mg by mouth daily 10 systems review was done. It was unremarkable other than chronic back pain and a rash pustular on her jawline on the right. She said she had something similar several months ago, but this is worse, it itches and is tender. PHYSICAL EXAMINATION: 43-year-old, obese female, in no acute distress. Height 62 inches. Weight of (bad audio) kg. Body mass index (BMI) . Blood pressure 124/64. Pulse 83. Respirations 16. Temperature 98.2. Patient is alert and oriented times three. Pupils equal and react to light. Extraocular movements (EOMS) intact. Cornea and sclerae clear. Conjunctiva was normal. No facial asymmetry. Pharynx, tongue and gums pink and moist. Tongue is midline. Three small pustular type sores on right lower chin, two on left upper cheek. No drainage. Neck is supple, without lymphadenopathy. No thyromegaly. No goiter. Carotids 2+ without bruit. Chest: Clear to auscultation, without wheeze or retraction. Heart is regular. Abdomen: Benign. Bowel sounds positive. Genitourinary ()/rectal not done. Extremities: Show equal strength, full range of motion. No cyanosis, clubbing or edema. Peripheral pulse equal and palpable bilaterally. Skin is warm and dry except for on face where she has three pustular type rash or lesions and two on her left cheek area. IMPRESSION/PLAN: Psychiatric: Plan per psychiatry. EKG on file; sinus rhythm. Nicotine patch available. Follow with primary care provider at discharge. History of substance abuse: Management per psychiatry. Patient remains on Suboxone. Hypothyroidism: Continue levothyroxine. Chronic back pain. ADDENDUM: Pustular type rash or sores, right lower chin, left upper chin. Benadryl 50 mg by mouth every 8 hours as needed for itch. Keflex 500 mg one by mouth three times a day for 10 days. Followup in one week or sooner if needed.
[2018-12-19] MEDS: lamoTRIgine 100MG TAB PO SCH (08:50)
[2018-12-19] MEDS: VENLAFAXINE **XR** 75MG CAPSULE PO SCH (08:50)
[2018-12-19] MEDS: ESTRADIOL 1 MG TAB PO SCH (08:50)
[2018-12-19] MEDS: CEPHALEXIN 500 MG CAP PO SCH ×3 (08:50→20:01)
[2018-12-19] MEDS: GABAPENTIN 300 MG CAP PO SCH ×4 (08:50→20:01)
[2018-12-19] MEDS: IBUPROFEN 800 MG TAB PO PRN (09:41)
[2018-12-19] MEDS: NICOTINE POLACRILEX 2 MG GUM PO PRN (09:41)
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
[2018-12-19 18:00] VITALS: BP 126/72
[2018-12-19] MEDS: zolPIDEM TARTRATE 5 MG TAB PO PRN (20:01)
[2018-12-20] MEDS: BUPRENORPHINE/NALOXONE 8-2MG SUBLINGUAL TABLET(SUBOXONE) SL SCH ×2 (06:18→15:10)
[2018-12-20] MEDS: LEVOTHYROXINE 75MCG TABLET (0.075MG) PO SCH (06:18)
[2018-12-20 06:45] VITALS: BP 105/56
[2018-12-20] MEDS: VENLAFAXINE **XR** 75MG CAPSULE PO SCH (08:34)
[2018-12-20] MEDS: CEPHALEXIN 500 MG CAP PO SCH ×3 (08:34→19:59)
[2018-12-20] MEDS: GABAPENTIN 300 MG CAP PO SCH ×2 (08:34→12:52)
[2018-12-20] MEDS: lamoTRIgine 100MG TAB PO SCH (08:34)
[2018-12-20] MEDS: ESTRADIOL 1 MG TAB PO SCH (08:34)
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
[2018-12-20] MEDS: GABAPENTIN 400 MG CAP PO SCH ×2 (17:55→20:00)
[2018-12-20 18:00] VITALS: BP 119/81
[2018-12-20] MEDS: NICOTINE POLACRILEX 2 MG GUM PO PRN (18:46)
[2018-12-20] MEDS: IBUPROFEN 800 MG TAB PO PRN (19:58)
[2018-12-20] MEDS: zolPIDEM TARTRATE 5 MG TAB PO PRN (20:00)
[2018-12-21] MEDS: BUPRENORPHINE/NALOXONE 8-2MG SUBLINGUAL TABLET(SUBOXONE) SL SCH (06:10)
[2018-12-21] MEDS: LEVOTHYROXINE 75MCG TABLET (0.075MG) PO SCH (06:10)
[2018-12-21 06:39] VITALS: BP 112/58
[2018-12-21] MEDS: lamoTRIgine 100MG TAB PO SCH (08:14)
[2018-12-21] MEDS: GABAPENTIN 400 MG CAP PO SCH (08:14)
[2018-12-21] MEDS: CEPHALEXIN 500 MG CAP PO SCH (08:14)
[2018-12-21] MEDS: VENLAFAXINE **XR** 75MG CAPSULE PO SCH (08:14)
[2018-12-21] MEDS: ESTRADIOL 1 MG TAB PO SCH (08:14)
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
[2018-12-21] MEDS ORDERED: ARIP5TA PO (08:47)
[2018-12-21] MEDS ORDERED: VENL75CA47 PO (08:47)
[2018-12-21] MEDS ORDERED: LAMO10TA PO (08:47)
[2018-12-21] MEDS ORDERED: GABA800T4 PO (12:06)
== END 2018-12-21 11:00 | disposition home or self-care (01) | DRG 885 ==
LOC: M ED 11:41 → M ED INP 15:00 → M PSY 17:05
PROVIDERS: ADMIT Psychiatry & Neurology Psychiatry; ATTEND Psychiatry & Neurology Psychiatry
DX: F33.2 Major depressive disorder, recurrent severe without psychotic features (principal); R45.851 Suicidal ideations; F12.90 Cannabis use, unspecified, uncomplicated; F14.90 Cocaine use, unspecified, uncomplicated; F60.3 Borderline personality disorder; Z79.899 Other long term (current) drug therapy; Z88.8 Allergy status to other drugs, medicaments and biological substances; E03.9 Hypothyroidism, unspecified; M54.5 Low back pain; F41.9 Anxiety disorder, unspecified; K21.9 Gastro-esophageal reflux disease without esophagitis; Z87.891 Personal history of nicotine dependence

== ENCOUNTER 2019-01-31 11:27 | Inpatient (IN) | payer MEDICARE, OTHER ==
[~2019-01-31] VITALS: Ht 157.5 cm; Wt 81.4 kg
[2019-01-31] MEDS: NICOTINE 21MG/24HR 1 EA TRANSDERMAL TD SCH (09:00)
[~2019-01-31 11:27] MED LIST changes: -/DULO30CA; -/ESCI20TA OR; -/LAMO10TA PO; +AMPH1TAB2 PO; +ARIP1TAB6 PO; +CYMB1CAP5; +D-AMPHETAMINE; +GUAI100L6 PO; -GUAI100S27 PO; +LAMO100T80 PO; -LAMO10TA PO; +LEVO75TA4 PO; +LEXA1TAB2 OR; +NEUR300C PO; -NICOTINE 21MG/24HR 1 EA TRANSDERMAL TD SCH; -OXCA15HATB; +OXCA1TAB; +PROP10TA55 PO; -PROP10TAB PO; +VENL1TAB35; -VENL225T PO; +VENL225T5 PO; -VENL25TA
[2019-01-31 12:22] LABS: HEMATOCRIT 43.3 % (36.0-47.0); MEAN CORPUSCULAR HEMOGLOBIN 29.2 pg (27.0-33.0); MEAN CORPUSCULAR HGB CONC 32.3 g/dl (32.0-36.5); MEAN CORPUSCULAR VOLUME 90.2 fl (80.0-96.0); PLATELET COUNT, AUTOMATED 266 10^3/uL (150-450); WHITE BLOOD COUNT 2.9 10^3/uL (4.0-10.0)
[2019-01-31 12:37] LABS: AMPHETAMINES LEVEL URINE POSITIVE (NEGATIVE); BARBITURATES URINE NEGATIVE (NEGATIVE); BENZODIAZEPINES URINE NEGATIVE (NEGATIVE); CANNABINOIDS URINE POSITIVE (NEGATIVE); COCAINE METABOLITE URINE POSITIVE (NEGATIVE); METHADONE URINE NEGATIVE (NEGATIVE); OPIATES URINE NEGATIVE (NEGATIVE); PHENCYCLIDINE URINE NEGATIVE (NEGATIVE)
[2019-01-31 12:56] LABS: ALBUMIN 3.8 GM/DL (3.2-5.2); ALT/SGPT 59 U/L (12-78); BILIRUBIN,DIRECT < 0.1 MG/DL (0.0-0.2); BILIRUBIN,TOTAL 0.4 MG/DL (0.2-1.0); BLOOD UREA NITROGEN 8 MG/DL (7-18); CALCIUM LEVEL 9.3 MG/DL (8.5-10.1); CARBON DIOXIDE LEVEL 28 MEQ/L (21-32); CHLORIDE LEVEL 106 MEQ/L (98-107); CREATININE FOR GFR 0.95 MG/DL (0.55-1.30); ETHYL ALCOHOL (ETHANOL) 0.003 % (0.000-0.010); GLOMERULAR FILTRATION RATE > 60.0 (>58); GLUCOSE, FASTING 92 MG/DL (70-100); POTASSIUM SERUM 4.3 MEQ/L (3.5-5.1); SALICYLATE LEVEL 2.1 MG/DL (5.0-30.0); SODIUM LEVEL 141 MEQ/L (136-145); THYROID STIMULATING HORMONE 0.382 uIU/ML (0.358-3.740); TOTAL PROTEIN 7.3 GM/DL (6.4-8.2)
[2019-01-31 12:57] LABS: ACETAMINOPHEN LEVEL < 2.0 UG/ML (10.0-30.0)
[2019-01-31] MEDS ORDERED: ARIP1TAB10 PO (13:13)
[2019-01-31] MEDS ORDERED: GABA600T4 PO (13:13)
[2019-01-31] MEDS ORDERED: VENL75CA2 PO (13:13)
[2019-01-31] MEDS ORDERED: VITA1TAB61 PO (13:14)
[2019-01-31] MEDS ORDERED: CVS1CAP2 PO (13:14)
[2019-01-31] MEDS ORDERED: MOM 30ML SUSPENSION UDC PO PRN (15:30)
[2019-01-31] MEDS ORDERED: MAALOX 30 ML SUSP *UDC PO PRN (15:30)
[2019-01-31] MEDS ORDERED: VENLAFAXINE **XR** 75MG CAPSULE PO ONE (15:30)
[2019-01-31 18:29] VITALS: BP 101/46
[2019-01-31] MEDS: BUPRENORPHINE/NALOXONE 8-2MG SUBLINGUAL TABLET(SUBOXONE) SL SCH (18:51)
[2019-01-31] MEDS: GABAPENTIN 300 MG CAP PO SCH ×2 (18:51→20:07)
[2019-01-31] MEDS: ESTRADIOL 1 MG TAB PO SCH (18:51)
[2019-01-31] MEDS: zolPIDEM TARTRATE 5 MG TAB PO PRN (20:08)
[2019-02-01] MEDS: BUPRENORPHINE/NALOXONE 8-2MG SUBLINGUAL TABLET(SUBOXONE) SL SCH ×2 (05:58→15:19)
[2019-02-01] MEDS: GABAPENTIN 300 MG CAP PO SCH ×4 (05:58→20:41)
[2019-02-01] MEDS: LEVOTHYROXINE 75MCG TABLET (0.075MG) PO SCH (05:58)
[2019-02-01 06:38] VITALS: BP 90/52
[2019-02-01] MEDS: NICOTINE 21MG/24HR 1 EA TRANSDERMAL TD SCH (09:00)
[2019-02-01] MEDS: VENLAFAXINE **XR** 75MG CAPSULE PO SCH (09:58)
[2019-02-01] MEDS: ESTRADIOL 1 MG TAB PO SCH (09:58)
--- NOTE | 2019-02-01 11:13 | MHHPEPDOC ---
General Date Of Admission: Jan 31, 2019 Legal Status: 9.39 Chief Complaint "I'm feeling suicidal." History of Present Illness HISTORY OF THE PRESENT ILLNESS: Patient is a 43 -year-old , female, with a history of depression, substance abuse, borderline personality d/o, frequent admissions [facility] in past with last 12/21/18 who presented to ED endorsing passive SI stating "I want to go to sleep and not wake up" due to feeling overwhelmed and stress secondary current living situation of living with her father who she has a difficult relationship with (known by myself as very supportive of pt always helping her when she's in need). Pt stated in ED she relapsed on IV meth and smoked cocaine and cannabis dur to feeling stressed and depressed 2 days age. Per ED, has been noncompliant with outpatient [facility] appts and missed most recent psychiatrist and therapist appts there. Pt was admitted in December due to similar complain and reason. She denied intent or plan for suicide in ED. Denied HI, hallucinations, delusions. Psychiatric Review of Systems Depression (2 or more weeks): depressed mood, feelings of excess/guilt (guilt), feelings of worthlesness, difficulty concentrating, suicidal thoughts Harini (4 or more days of): denies Psychosis: denies Anxiety: situational anxiety, stressor related anxiety Anxiety/ 6 months or more of: restlessness, keyed up, easily fatigued, irritability, personality cluster A,BC (b) Past Psychiatric History Past Diagnoses: Major depressive disorder, paranoid personality disorder, opiate use disorder, stimulant use disorder, borderline personality disorder and bipolar disorder Hospitalizations: Numerous, most recent admission in was December SA/SIB: Reports one intentional overdose at age 16, and an episode of cutting in 2013 ( she was ot trying to kill herself but because it brought her some relief) Outpatient Tx: Sees Dr. Woods for suboxone. She sees Toan Scott at [facility] for other psychiatric medications but she doesn't know who is going to be her therapist. Current Psychiatric Meds: Suboxone 8/2 mg twice a day. Gabapentin 800 mg by mouth 4 times a day Lamotrigine 250 mg by mouth daily Propranolol 10 mg by mouth 3 times a day when necessary anxiety. Topiramate 100 mg by mouth daily. Effexor XR 225 mg by mouth daily Past Medical History Medical Problems Hypothyroidism Hep C. Head Injury: No Seizures: Yes (history of, desn't require medication, none for years) Hospitalizations: Yes Surgeries: Yes (hysterectomy) Family Medical/Psychiatric HX Psychiatric Disorders: Yes (Mother with bipolar disorder and completed suicide, maternal aunt with depression and completed suicide. ) Addiction: No Suicide Attemps/Completions: Yes (mother, aunt) Addiction History nicotine, cocaine (utox positive), amphetamines (utox positive), opioids (history of abuse on suboxone now), methamphetamines (utox positive, used IV meth), heroin (history of IV abuse on suboxone now), other (utox positve cannabis. Patient reports being too numerous inpatient and outpatient substance use treatment programs.) Social History Early Relations/development:. She grew up in [place], raised by biological parents, denies history of abuse. Education: GED, had completed 3 semesters of college, but she dropped out after her mother committed suicide. Occupational: Currently unemployed with disability. Legal:. Denies upcoming legal appointments. Marital: , adult daughter and son in [place] Sexual Orientation: Heterosexual Uatsdin/Spirituality: None Supports: Her sisters Housing: lives with her father who is supportive to her Abuse/trauma: Denied Mental Status Examination General Appearance: unkempt, disheveled, appears stated age, hospital scubs/clothing Build: overweight Demeanor: withdrawn Eye Contact: fair Activity: slowed Behavior: cooperative, withdrawn Speech: clear, reg/rate,rhythm,volume Mood: depressed, anxious Mood overwhelmed Affect: constricted, flat, congruent, anxious Thought Process: logical/linear, depressed, slow Thought Content (Delusions): none reported, denies SI, HI, AVH Thought Content (Other): none reported, appropriate Thought Content (Aggressive): none reported Perception (Hallucinations): none reported Perception (Other): none reported Cognition (Impairment of): none reported Cognition(Intelligence Est.): average Oriented: Awake, Alert, Oriented times three Insight: fair Judgment: Fair Psychosis: Denies Diagnoses Major depressive disorder. Borderline personality disorder. Stimulant/cannabis use disorder Opioid use disorder, in sustained remission. A-FIB/CHADSVASC A-FIB History Current/History of A-Fib/PAF?: No Current Oral Anticoagulant The: No Treatment Treatment ordered: NONE Reason Anticoagulant not given: Not indicated/[id number] Assessment Pt seen and states she here b/c she relapsed on meth, cocaine, and cannabis due to feeling overwhelmed after seeing her ex-boyfriend and "hanging around the wrong people." States it's also stressful for her living with her father and wanting to move to [place] where her kids are but is scared of making the change. States she thinks she needs to get into either inpatient or outpatient substance abuse treatment as is having difficulty maintaining sobriety (admitted last month after relapse). States otherwise her meds are helpful and agreeable to restarting. Endorse guilt and depression mostly regarding relapse. Denies SI/HI, hallucinations, delusions. Initial Treatment Plan 1. Patient was admitted on a 9.39 status. 2. Complete history was obtained. 3. With patients permission, family will be contacted and database will be expanded. 4. Patients medication regimen will be reviewed and changed accordingly. 5. Patient will be provided with protected environment. 6. Patient will be treated with individual, group, and milieu therapies. 7. Patient will receive supportive psych-education. 8. Discharge planning will commence immediately. 9. Outpatient follow-up treatment will be strongly recommended. 10. The initial treatment plan will focus initially on: * Depression. * Risk for suicide. * Substance abuse. 11. restart outpatient meds ESTIMATED LENGTH OF STAY: 5-7 DAYS. TIME SPENT COUNSELING AND COORDINATING INITIAL CARE: minutes. Vital Signs Vital Signs Date Time Temp Pulse Resp B/P (MAP) Pulse Ox O2 Delivery O2 Flow Rate FiO2 02/01/19 06:38 97.2 53 16 90/52 (65) 01/31/19 18:29 95 01/31/19 17:02 Room Air Laboratory Data 24H Labs Laboratory Tests 2 01/31/19 12:05: Nucleated Red Blood Cells % (auto) 0.0, Anion Gap 7L, Glomerular Filtration Rate > 60.0, Calcium Level 9.3, Aspartate Amino Transf (AST/SGOT) 44H, Alanine Aminotransferase (ALT/SGPT) 59, Alkaline Phosphatase 92, Total Bilirubin 0.4, Direct Bilirubin < 0.1, Total Protein 7.3, Albumin 3.8, Albumin/Globulin Ratio 1.09, Thyroid Stimulating Hormone (TSH) 0.382, Salicylates Level 2.1L, Urine Amphetamines Screen POSITIVEH, Urine Benzodiazepines Screen NEGATIVE, Urine Opiates Screen NEGATIVE, Urine Methadone Screen NEGATIVE, Acetaminophen Level < 2.0L, Urine Barbiturates Screen NEGATIVE, Urine Phencyclidine Screen NEGATIVE, Urine Cocaine Metabolite Screen POSITIVEH, Urine Cannabinoids Screen POSITIVEH, Ethyl Alcohol Level 0.003 CBC/BMP Laboratory Tests 01/31/19 12:05 Red Blood Count 4.80, Mean Corpuscular Volume 90.2, Mean Corpuscular Hemoglobin 29.2, Mean Corpuscular Hemoglobin Concent 32.3, Red Cell Distribution Width 13.0 Medications Scheduled Aripiprazole (Aripiprazole) 15 Mg Tablet, 7.5 MG PO BID, (Reported) Buprenorphine HCl/Naloxone HCl (Suboxone 8 mg-2 mg Sl Film) 1 Mis Mis, 1 STRIP SL BID, (Reported) TAKES AT 0600/1500 Dextroamphetamine/Amphetamine (Dextroamp-Amphetamin 15 mg Tab) 1 Tab Tab, 15 MG PO BID, (Reported) TAKES AT 0600/1200 Estradiol (Estradiol) 1 Mg Tab, 1 MG PO DAILY, (Reported) Gabapentin (Gabapentin) 600 Mg Tablet, 600 MG PO QID, (Reported) TAKES AT 0600/1200/1700/2100 Lactobacillus Combo No.10 (Probiotic) 1 Each Capsule, 1 CAP PO DAILY, (Reported) Levothyroxine Sodium (Levothyroxine Sodium) 75 Mcg Tab, 75 MCG PO DAILY, (Reported) Venlafaxine HCl (Venlafaxine HCl ER) 75 Mg Cap.er.24h, 225 MG PO DAILY, (Repor gino) Vitamin C/Biotin (Hair, Skin and Nails Gummies) 1 Each Tab.chew, 1 EACH PO DAILY, (Reported) Scheduled PRN Ibuprofen (Ibuprofen) 800 Mg Tab, 800 MG PO Q6H PRN for PAIN, (Reported) Zolpidem Tartrate (Zolpidem Tartrate) 10 Mg Tab, 10 MG PO QHS PRN for INSOMNIA, (Reported) Allergies Coded Allergies: mold (Verified Allergy, Unknown, 01/31/19) metoclopramide (Verified Adverse Reaction, Unknown, AKATHISIA, 01/31/19) prochlorperazine (Verified Adverse Reaction, Unknown, AKATHISIA, 01/31/19) quetiapine (Verified Adverse Reaction, Unknown, 01/31/19) trazodone (Verified Adverse Reaction, Unknown, AGITATION, SHAKINESS, 01/31/19) SHASHI GUPTA DO Feb 01, 2019 11:13 am
[2019-02-01] MEDS ORDERED: ACETAMINOPHEN TAB 650MG DOSE (2X325MG) PO PRN (12:30)
[2019-02-01] MEDS ORDERED: PANTOPRAZOLE 20 MG TAB PO PRN (12:30)
--- NOTE | 2019-02-01 14:36 | HPE ---
DATE OF ADMISSION: 01/31/2019 DATE OF EVALUATION: 02/01/2019 HISTORY OF PRESENT ILLNESS: This patient is a 43-year-old female with a medical history significant for polysubstance abuse with overdose, history of hypothyroidism, kidney stone, heroin withdrawal seizure, chronic back pain, methicillin-resistant Staphylococcus aureus (MRSA) infection, who was admitted in the inpatient mental health unit ([facility]) for suicidal thoughts. The patient is seen and examined in the [facility] for a medical evaluation. At the moment, the patient complains about intermittent back pain flare. At the moment of encounter, the patient does not have any complaint of the pain. Denied any other significant medical complaints. ALLERGIES: REGLAN, PROCHLORPERAZINE, SEROQUEL, TRAZODONE. PAST MEDICAL HISTORY: 1. Anxiety/depression. 2. Borderline personality disorder. 3. History of suicide attempt and self-harming behavior. 4. Polysubstance abuse. 5. Attention deficit hyperactivity disorder (ADHD). 6. Hypothyroidism. 7. History of kidney stone. 8. History of heroin withdrawal seizure. The last one in 2012. 9. Chronic back pain. 10. MRSA infection of the finger. 11. Gastroesophageal reflux disease. 12. History of bulimia and anorexia. PAST SURGICAL HISTORY: 1. Hysterectomy. 2. Appendectomy. SOCIAL HISTORY: The patient smokes 1/2 pack daily for more than 10 years. Now she is using a vape machine. The patient denied alcohol use. The patient has a history of using intravenous (IV) medication, opiate, heroin, methamphetamine, cocaine, and marijuana. REVIEW OF SYSTEMS: General: Denied any fever or chills. HEENT: Denied any vision changes or auditory changes. CARDIOVASCULAR: Denied any chest pain or palpitations. RESPIRATORY: Denied any shortness of breath, cough, or sputum production. GASTROINTESTINAL (GI): No nausea. No vomiting. No abdominal pain. MUSCULOSKELETAL: Intermittent lower back pain. No active discomfort at this moment. NEUROLOGICAL: Denied any numbness or tingling. OBJECTIVE: VITAL SIGNS: Temperature 98.7, pulse 77, respiration 12, blood pressure is . GENERAL: No acute distress. The patient alert and awake. CARDIOVASCULAR: Positive S1, S2. Regular rate. LUNGS: Clear to auscultation bilaterally. ABDOMEN: Soft. Nontender. Nondistended. Bowel sounds present. EXTREMITIES: Multiple self-cutting scars, mainly on the left upper extremity, all healed. No redness or swelling. No lower extremity edema. LABORATORY DATA: WBC is 2.9, hemoglobin is 14, hematocrit 43.3, platelet count is 266. Sodium 141, potassium 4.3, chloride is 106, carbon dioxide 28, BUN 8, creatinine 0.95, GFR greater than 60, fasting glucose 92, calcium 9.3, total bilirubin 0.4, direct bilirubin less than 0.1, AST 44, ALT 59, alkaline phosphatase 92, total protein 7.3, albumin 3.8, TSH is 0.382. Urine toxicology shows positive for amphetamine, cocaine, and marijuana. ASSESSMENT AND PLAN: 1. Psychiatric condition. The patient has a history of anxiety, depression, history of suicide attempt and self-harming behavior. The patient has a borderline disorder and ADHD. The patient is admitted to [facility]. Referred the psychiatric condition per psychiatrist. 2. History of polysubstance abuse. Urine toxicology is positive for methamphetamine, cocaine, and marijuana. 3. Hypothyroidism. The patient is on Synthroid. Thyroid-stimulating hormone (TSH) within normal range. Continue current dosage. 4. History of heroin withdrawal seizure. The last occurred in 2012. Continue to monitor. 5. History of a kidney stone. No active complaint at this moment. 6. Chronic back pain. The patient is on gabapentin and as needed Tylenol. 7. History of methicillin-resistant Staphylococcus aureus infection of finger. Previously, the patient had a wound from trauma. On examination, the patient does not have an obvious sign of soft tissue infection. Continue to monitor. 8. Gastroesophageal reflux disease. Continue to monitor. The patient will be on as needed Protonix. At home, the patient is not taking any medication for the gastroesophageal reflux disease (GERD). 9. Deep venous thrombosis (DVT) prophylaxis. Encouraged ambulation.
[2019-02-01 18:00] VITALS: BP 113/71
[2019-02-01] MEDS: zolPIDEM TARTRATE 5 MG TAB PO PRN (20:42)
[2019-02-01] MEDS: IBUPROFEN 600 MG TAB PO PRN (20:42)
[2019-02-02] MEDS: GABAPENTIN 300 MG CAP PO SCH ×4 (06:16→20:04)
[2019-02-02] MEDS: LEVOTHYROXINE 75MCG TABLET (0.075MG) PO SCH (06:16)
[2019-02-02] MEDS: BUPRENORPHINE/NALOXONE 8-2MG SUBLINGUAL TABLET(SUBOXONE) SL SCH ×2 (06:16→14:46)
[2019-02-02 07:11] VITALS: BP 104/58
[2019-02-02] MEDS: NICOTINE 21MG/24HR 1 EA TRANSDERMAL TD SCH (09:00)
[2019-02-02] MEDS: VENLAFAXINE **XR** 75MG CAPSULE PO SCH (09:30)
[2019-02-02] MEDS: ESTRADIOL 1 MG TAB PO SCH (09:31)
--- NOTE | 2019-02-02 10:48 | MHIPNPDOC ---
[facility] [place] Progress Note Progress Note DATE OF SERVICE: 02/02/19 HISTORY: Pt seen and states she here b/c she relapsed on meth, cocaine, and cannabis due to feeling overwhelmed after seeing her ex-boyfriend and "hanging around the wrong people." States it's also stressful for her living with her father and wanting to move to [place] where her kids are but is scared of making the change. States she thinks she needs to get into either inpatient or outpatient substance abuse treatment as is having difficulty maintaining sobriety (admitted last month after relapse). States otherwise her meds are helpful and agreeable to restarting. Endorse guilt and depression mostly regarding relapse. Denies SI/HI, hallucinations, delusions. VITAL SIGNS: See below. NEW TEST RESULTS:See below. CURRENT MEDICATIONS: See below. MENTAL STATUS EXAMINATION: General Appearance: unkempt, disheveled, appears stated age, hospital scrubs/clothing Build: overweight Demeanor: withdrawn Eye Contact: fair Activity: slowed Behavior: cooperative, withdrawn Speech: clear, reg/rate,rhythm,volume Mood: depressed, anxious Mood overwhelmed Affect: constricted, flat, congruent, anxious Thought Process: logical/linear, depressed, slow Thought Content (Delusions): none reported, denies SI, HI, AVH Thought Content (Other): none reported, appropriate Thought Content (Aggressive): none reported Perception (Hallucinations): none reported Perception (Other): none reported Cognition (Impairment of): none reported Cognition(Intelligence Est.): average Oriented: Awake, Alert, Oriented times three Insight: fair Judgment: Fair Psychosis: Denies DIAGNOSES: Major depressive disorder. Borderline personality disorder. Stimulant/cannabis use disorder Opioid use disorder, in sustained remission. ASSESSMENT:Pt seen and states she feels "down" not wanting to be around anyone and doesn't really know why. Brought up fact she recently used cocaine and may have depleted dopamine so there for cells must remake it which takes time so co uld be causing depression (studies have shown this s/p cocaine up). States she has a lot of decisions she needs to make but doesn't want to make them and is indecisive about them that also makes her mood depressed and anxious. States otherwise her meds are helpful and she's tolerating them well. Denies SI/HI, hallucinations, delusions. MANAGEMENT PLAN: continue current meds. Suboxone 8/2 mg twice a day. Gabapentin 800 mg by mouth 4 times a day Lamotrigine 250 mg by mouth daily Propranolol 10 mg by mouth 3 times a day prn anxiety. Topiramate 100 mg by mouth daily. Effexor XR 225 mg by mouth daily TIME SPENT: minutes. Vital Signs Vital Signs Date Time Temp Pulse Resp B/P (MAP) Pulse Ox O2 Delivery O2 Flow Rate FiO2 02/02/19 07:11 97.3 57 14 104/58 (73) 01/31/19 18:29 95 01/31/19 17:02 Room Air Current Medications Current Medications Acetaminophen (Tylenol Tab) 650 mg Q6HP PRN PO PAIN / FEVER Last administered on 02/01/19 15:19; Start 02/01/19 at 12:30; Stop 02/01/19 at 15:23; Status DC Al Hydrox/Mg Hydrox/Simethicone (Mylanta) 30 ml Q4HP PRN PO HEARTBURN/INDIGESTION; Start 01/31/19 at 15:30 Aripiprazole (AbiLIFY) 7.5 mg BID PO Last administered on 02/02/19 09:30; Start 01/31/19 at 21:00 Buprenorphine/ Naloxone (Suboxone 8/2mg) 1 tab BID@0600,1500 SL Last administered on 02/02/19at 06:16; Start 01/31/19 at 15:00 Estradiol (Estrace) 1 mg DAILY PO Last administered on 02/02/19 09:31; Start 01/31/19 at 09:00 Gabapentin (Neurontin) 600 mg 0600,1200,1700,2100 PO Last administered on 02/02/19at 06:16; Start 01/31/19 at 17:00 Home Med (Med Rec Complete!) ASDIRECTED XX ; Start 01/31/19 at 13:15; Stop 01/31/19 at 13:40; Status DC Ibuprofen (Advil) 600 mg Q8HP PRN PO PAIN Last administered on 02/01/19at 20:42; Start 02/01/19 at 15:30 Levothyroxine Sodium (Synthroid) 75 mcg DAILY@06 PO Last administered on 02/02/19 06:16; Start 02/01/19 at 06:00 Magnesium Hydroxide (Milk Of Magnesia) 30 ml DAILYPRN PRN PO CONSTIPATION; Start 01/31/19 at 15:30 Nicotine (Nicoderm Cq 21mg) 1 patch DAILY TD ; Start 01/31/19 at 09:00 Pantoprazole Sodium (Protonix) 20 mg DAILY PRN PO HEARTBURN/INDIGESTION; Start 02/01/19 at 12:30 Venlafaxine HCl (Effexor Xr) 225 mg DAILY PO Last administered on 02/02/19at 09:30; Start 02/01/19 at 09:00 Zolpidem Tartrate (Ambien) 10 mg QHSP PRN PO INSOMNIA Last administered on 02/01/19at 20:42; Start 01/31/19 at 15:30 Allergies Coded Allergies: mold (Verified Allergy, Unknown, 01/31/19) metoclopramide (Verified Adverse Reaction, Unknown, AKATHISIA, 01/31/19) prochlorperazine (Verified Adverse Reaction, Unknown, AKATHISIA, 01/31/19) quetiapine (Verified Adverse Reaction, Unknown, 01/31/19) trazodone (Verified Adverse Reaction, Unknown, AGITATION, SHAKINESS, 01/31/19) A-FIB/CHADSVASC A-FIB History Current/History of A-Fib/PAF?: No Current Oral Anticoagulant The: No Treatment Treatment ordered: NONE Reason Anticoagulant not given: Not indicated/[id number] SHASHI GUPTA DO Feb 02, 2019 10:48
[2019-02-02 18:04] VITALS: BP 115/70
[2019-02-02] MEDS: zolPIDEM TARTRATE 5 MG TAB PO PRN (20:04)
[2019-02-03] MEDS: LEVOTHYROXINE 75MCG TABLET (0.075MG) PO SCH (06:12)
[2019-02-03] MEDS: BUPRENORPHINE/NALOXONE 8-2MG SUBLINGUAL TABLET(SUBOXONE) SL SCH ×2 (06:12→15:07)
[2019-02-03] MEDS: GABAPENTIN 300 MG CAP PO SCH ×4 (06:15→20:02)
[2019-02-03 06:22] VITALS: BP 105/58
[2019-02-03] MEDS: NICOTINE 21MG/24HR 1 EA TRANSDERMAL TD SCH (08:46)
[2019-02-03] MEDS: ESTRADIOL 1 MG TAB PO SCH (08:49)
[2019-02-03] MEDS: VENLAFAXINE **XR** 75MG CAPSULE PO SCH (08:49)
[2019-02-03] MEDS: IBUPROFEN 600 MG TAB PO PRN (08:49)
--- NOTE | 2019-02-03 10:25 | MHIPNPDOC ---
[facility] Progress Note Progress Note DATE OF SERVICE: 02/03/19 HISTORY: Pt seen and states she here b/c she relapsed on meth, cocaine, and cannabis due to feeling overwhelmed after seeing her ex-boyfriend and "hanging around the wrong people." States it's also stressful for her living with her father and wanting to move to [place] where her kids are but is scared of making the change. States she thinks she needs to get into either inpatient or outpatient substance abuse treatment as is having difficulty maintaining sobriety (admitted last month after relapse). States otherwise her meds are helpful and agreeable to restarting. Endorse guilt and depression mostly regarding relapse. Denies SI/HI, hallucinations, delusions. VITAL SIGNS: See below. NEW TEST RESULTS:See below. CURRENT MEDICATIONS: See below. MENTAL STATUS EXAMINATION: General Appearance: unkempt, disheveled, appears stated age, own clothing Build: overweight Demeanor: withdrawn Eye Contact: fair Activity: slowed Behavior: cooperative, withdrawn Speech: clear, reg/rate,rhythm,volume Mood: depressed, anxious Mood "dark" Affect: constricted, flat, congruent, anxious Thought Process: logical/linear, depressed, slow Thought Content (Delusions): none reported, denies SI, HI, AVH Thought Content (Other): none reported, appropriate Thought Content (Aggressive): none reported Perception (Hallucinations): none reported Perception (Other): none reported Cognition (Impairment of): none reported Cognition(Intelligence Est.): average Oriented: Awake, Alert, Oriented times three Insight: fair Judgment: Fair Psychosis: Denies DIAGNOSES: Major depressive disorder. Borderline personality disorder. Stimulant/cannabis use disorder Opioid use disorder, in sustained remission. ASSESSMENT:Pt seen and states she feels still feels "dark" but is trying not to isolate by going to groups and being present in the milieu. Encouraged to do so over the weekend too. Per d/c digital media planner, her court date was rescheduled which she is pleased about. Still considering inpatient or outpatient rehab and if inpatient states she'll only agree to go to [facility] rehab. States otherwise her meds are helpful and she's tolerating them well. Denies SI/HI, hallucinations, delusions. MANAGEMENT PLAN: continue current meds. Suboxone 8/2 mg twice a day. Gabapentin 800 mg by mouth 4 times a day Lamotrigine 250 mg by mouth daily Propranolol 10 mg by mouth 3 times a day prn anxiety. Topiramate 100 mg by mouth daily. Effexor XR 225 mg by mouth daily TIME SPENT: minutes. Vital Signs Vital Signs Date Time Temp Pulse Resp B/P (MAP) Pulse Ox O2 Delivery O2 Flow Rate FiO2 02/03/19 06:22 97.8 62 16 105/58 (74) 01/31/19 18:29 95 01/31/19 17:02 Room Air Laboratory Data 24H Labs Laboratory Tests 2 02/02/19 20:20: Urine Color YELLOW, Urine Appearance CLEAR, Urine pH 5.0, Urine Specific Gleason 1.024, Urine Protein NEGATIVE, Urine Glucose (UA) NEGATIVE, Urine Ketones NEGATIVE, Urine Blood NEGATIVE, Urine Nitrite NEGATIVE, Urine Bilirubin NEGATIVE, Urine Urobilinogen 2.0H, Urine Leukocyte Esterase NEGATIVE, Urine WBC (Auto) 2, Urine RBC (Auto) 1, Urine Hyaline Casts (Auto) 0, Urine Bacteria (Auto) NEGATIVE, Urine Squamous Epithelial Cells 1, Urine Calcium Oxalate Cryst (Auto) SMALL, Urine Sperm (Auto) Current Medications Current Medications Acetaminophen (Tylenol Tab) 650 mg Q6HP PRN PO PAIN / FEVER Last administered on 02/01/19at 15:19; Start 02/01/19 at 12:30; Stop 02/01/19 at 15:23; Status DC Al Hydrox/Mg Hydrox/Simethicone (Mylanta) 30 ml Q4HP PRN PO HEARTBURN/INDIGESTION; Start 01/31/19 at 15:30 Aripiprazole (AbiLIFY) 7.5 mg BID PO Last administered on 02/03/19at 08:49; Start 01/31/19 at 21:00 Buprenorphine/ Naloxone (Suboxone 8/2mg) 1 tab BID@0600,1500 SL Last administered on 02/03/19at 06:12; Start 01/31/19 at 15:00 Estradiol (Estrace) 1 mg DAILY PO Last administered on 02/03/19at 08:49; Start 01/31/19 at 09:00 Gabapentin (Neurontin) 600 mg 0600,1200,1700,2100 PO Last administered on 02/03/19at 06:15; Start 01/31/19 at 17:00 Home Med (Med Rec Complete!) ASDIRECTED XX ; Start 01/31/19 at 13:15; Stop 01/31/19 at 13:40; Status DC Ibuprofen (Advil) 600 mg Q8HP PRN PO PAIN Last administered on 02/03/19at 08:49; Start 02/01/19 at 15:30 Levothyroxine Sodium (Synthroid) 75 mcg DAILY@06 PO Last administered on 02/03/19at 06:12; Start 02/01/19 at 06:00 Magnesium Hydroxide (Milk Of Magnesia) 30 ml DAILYPRN PRN PO CONSTIPATION; Start 01/31/19 at 15:30 Nicotine (Nicoderm Cq 21mg) 1 patch DAILY TD ; Start 01/31/19 at 09:00 Pantoprazole Sodium (Protonix) 20 mg DAILY PRN PO HEARTBURN/INDIGESTION; Start 02/01/19 at 12:30 Venlafaxine HCl (Effexor Xr) 225 mg DAILY PO Last administered on 02/03/19at 08:49; Start 02/01/19 at 09:00 Zolpidem Tartrate (Ambien) 10 mg QHSP PRN PO INSOMNIA Last administered on 02/02/19at 20:04; Start 01/31/19 at 15:30 Allergies Coded Allergies: mold (Verified Allergy, Unknown, 01/31/19) metoclopramide (Verified Adverse Reaction, Unknown, AKATHISIA, 01/31/19) prochlorperazine (Verified Adverse Reaction, Unknown, AKATHISIA, 01/31/19) quetiapine (Verified Adverse Reaction, Unknown, 01/31/19) trazodone (Verified Adverse Reaction, Unknown, AGITATION, SHAKINESS, 01/31/19) A-FIB/CHADSVASC A-FIB History Current/History of A-Fib/PAF?: No Treatment Treatment ordered: NONE Reason Anticoagulant not given: Not indicated/[id number] SHASHI GUPTA DO Feb 03, 2019 10:25
[2019-02-03 18:10] VITALS: BP 117/66
[2019-02-03] MEDS: zolPIDEM TARTRATE 5 MG TAB PO PRN (20:04)
[2019-02-04] MEDS: LEVOTHYROXINE 75MCG TABLET (0.075MG) PO SCH (06:03)
[2019-02-04] MEDS: BUPRENORPHINE/NALOXONE 8-2MG SUBLINGUAL TABLET(SUBOXONE) SL SCH ×2 (06:03→15:09)
[2019-02-04] MEDS: GABAPENTIN 300 MG CAP PO SCH ×4 (06:03→20:05)
[2019-02-04 06:31] VITALS: BP 100/56
[2019-02-04] MEDS: NICOTINE 21MG/24HR 1 EA TRANSDERMAL TD SCH (08:47)
[2019-02-04] MEDS: VENLAFAXINE **XR** 75MG CAPSULE PO SCH (08:50)
[2019-02-04] MEDS: ESTRADIOL 1 MG TAB PO SCH (08:50)
[2019-02-04] MEDS: IBUPROFEN 600 MG TAB PO PRN ×2 (08:50→20:08)
[2019-02-04] MEDS: PILL CRUSHER/CUTTER 1 EACH XX PRN (08:52)
[2019-02-04 18:12] VITALS: BP 104/66
[2019-02-04] MEDS: zolPIDEM TARTRATE 5 MG TAB PO PRN (20:05)
[2019-02-05] MEDS: GABAPENTIN 300 MG CAP PO SCH ×4 (06:07→20:11)
[2019-02-05] MEDS: LEVOTHYROXINE 75MCG TABLET (0.075MG) PO SCH (06:07)
[2019-02-05] MEDS: BUPRENORPHINE/NALOXONE 8-2MG SUBLINGUAL TABLET(SUBOXONE) SL SCH ×2 (06:07→15:44)
[2019-02-05 06:53] VITALS: BP 90/54
[2019-02-05] MEDS: VENLAFAXINE **XR** 75MG CAPSULE PO SCH (08:39)
[2019-02-05] MEDS: IBUPROFEN 600 MG TAB PO PRN (08:39)
[2019-02-05] MEDS: ESTRADIOL 1 MG TAB PO SCH (08:39)
[2019-02-05] MEDS: PILL CRUSHER/CUTTER 1 EACH XX PRN ×2 (08:40→20:12)
[2019-02-05] MEDS: NICOTINE 21MG/24HR 1 EA TRANSDERMAL TD SCH (08:40)
[2019-02-05 18:29] VITALS: BP 106/61
[2019-02-05] MEDS: zolPIDEM TARTRATE 5 MG TAB PO PRN (20:11)
[2019-02-06] MEDS: GABAPENTIN 300 MG CAP PO SCH ×4 (06:16→20:17)
[2019-02-06] MEDS: LEVOTHYROXINE 75MCG TABLET (0.075MG) PO SCH (06:16)
[2019-02-06] MEDS: BUPRENORPHINE/NALOXONE 8-2MG SUBLINGUAL TABLET(SUBOXONE) SL SCH ×2 (06:16→15:01)
[2019-02-06 06:45] VITALS: BP 111/64
[2019-02-06] MEDS: NICOTINE 21MG/24HR 1 EA TRANSDERMAL TD SCH (09:00)
[2019-02-06] MEDS: PILL CRUSHER/CUTTER 1 EACH XX PRN (09:30)
[2019-02-06] MEDS: VENLAFAXINE **XR** 75MG CAPSULE PO SCH (09:31)
[2019-02-06] MEDS: ESTRADIOL 1 MG TAB PO SCH (09:31)
--- NOTE | 2019-02-06 09:38 | MHIPNPDOC ---
[facility] Progress Note Progress Note DATE OF SERVICE: 02/06/19 HISTORY: Pt seen and states she here b/c she relapsed on meth, cocaine, and cannabis due to feeling overwhelmed after seeing her ex-boyfriend and "hanging around the wrong people." States it's also stressful for her living with her father and wanting to move to [place] where her kids are but is scared of making the change. States she thinks she needs to get into either inpatient or outpatient substance abuse treatment as is having difficulty maintaining sobriety (admitted last month after relapse). States otherwise her meds are helpful and agreeable to restarting. Endorse guilt and depression mostly regarding relapse. Denies SI/HI, hallucinations, delusions. VITAL SIGNS: See below. NEW TEST RESULTS:See below. CURRENT MEDICATIONS: See below. MENTAL STATUS EXAMINATION: General Appearance: unkempt, disheveled, appears stated age, own clothing Build: overweight Demeanor: withdrawn Eye Contact: fair Activity: slowed Behavior: cooperative, withdrawn Speech: clear, reg/rate,rhythm,volume Mood: depressed, anxious Mood "alright" Affect: constricted, flat, congruent, anxious Thought Process: logical/linear, depressed, slow Thought Content (Delusions): none reported, denies SI, HI, AVH Thought Content (Other): none reported, appropriate Thought Content (Aggressive): none reported Perception (Hallucinations): none reported Perception (Other): none reported Cognition (Impairment of): none reported Cognition(Intelligence Est.): average Oriented: Awake, Alert, Oriented times three Insight: fair Judgment: Fair Psychosis: Denies DIAGNOSES: Major depressive disorder. Borderline personality disorder. Stimulant/cannabis use disorder Opioid use disorder, in sustained remission. ASSESSMENT:Pt seen and states she feels still feels "alright" today and is going to groups and being present in the milieu. Per d/c sandra, has rehab bed at [facility] if accepted on 02/09/19. States she'll only go though if she can remain on suboxone. States she's going to need somethings from home that her father can bring her but doesn't really want him to as he'd have to go thru her things for her clothing and would find needles in them. Recommended to be open and honest with her father as he's very supportive of her and to tell him needles are in belongings so he doesn't accidently prick himself. States she'll think about it once she's accepted. States otherwise her meds are helpful and she's tolerating them well. Denies SI/HI, hallucinations, delusions. Feels safe here. MANAGEMENT PLAN: continue current meds. Suboxone 8/2 mg twice a day. Gabapentin 800 mg by mouth 4 times a day Lamotrigine 250 mg by mouth daily Propranolol 10 mg by mouth 3 times a day prn anxiety. Topiramate 100 mg by mouth daily. Effexor XR 225 mg by mouth daily TIME SPENT: 30 minutes. Vital Signs Vital Signs Date Time Temp Pulse Resp B/P (MAP) Pulse Ox O2 Delivery O2 Flow Rate FiO2 02/06/19 06:45 97.6 64 16 111/64 (80) 01/31/19 18:29 95 01/31/19 17:02 Room Air Current Medications Current Medications Acetaminophen (Tylenol Tab) 650 mg Q6HP PRN PO PAIN / FEVER Last administered on 02/01/19at 15:19; Start 02/01/19 at 12:30; Stop 02/01/19 at 15:23; Status DC Al Hydrox/Mg Hydrox/Simethicone (Mylanta) 30 ml Q4HP PRN PO HEARTBURN/INDIGESTION; Start 01/31/19 at 15:30 Aripiprazole (AbiLIFY) 7.5 mg BID PO Last administered on 02/05/19at 20:11; Start 01/31/19 at 21:00 Buprenorphine/ Naloxone (Suboxone 8/2mg) 1 tab BID@0600,1500 SL Last administered on 02/06/19at 06:16; Start 01/31/19 at 15:00 Estradiol (Estrace) 1 mg DAILY PO Last administered on 02/05/19at 08:39; Start 01/31/19 at 09:00 Gabapentin (Neurontin) 600 mg 0600,1200,1700,2100 PO Last administered on 02/06/19at 06:16; Start 01/31/19 at 17:00 Home Med (Med Rec Complete!) ASDIRECTED XX ; Start 01/31/19 at 13:15; Stop 01/31/19 at 13:40; Status DC Ibuprofen (Advil) 600 mg Q6HP PRN PO PAIN Last administered on 02/05/19 08:39; Start 02/04/19 at 15:30 Ibuprofen (Advil) 600 mg Q8HP PRN PO PAIN Last administered on 02/04/19 08:50; Start 02/01/19 at 15:30; Stop 02/04/19 at 15:23; Status DC Levothyroxine Sodium (Synthroid) 75 mcg DAILY@06 PO Last administered on 02/06/19at 06:16; Start 02/01/19 at 06:00 Magnesium Hydroxide (Milk Of Magnesia) 30 ml DAILYPRN PRN PO CONSTIPATION; Start 01/31/19 at 15:30 Nicotine (Nicoderm Cq 21mg) 1 patch DAILY TD ; Start 01/31/19 at 09:00 Pantoprazole Sodium (Protonix) 20 mg DAILY PRN PO HEARTBURN/INDIGESTION; Start 02/01/19 at 12:30 Venlafaxine HCl (Effexor Xr) 225 mg DAILY PO Last administered on 02/05/19 08:39; Start 02/01/19 at 09:00 Zolpidem Tartrate (Ambien) 10 mg QHSP PRN PO INSOMNIA Last administered on 02/05/19at 20:11; Start 01/31/19 at 15:30 Allergies Coded Allergies: mold (Verified Allergy, Unknown, 01/31/19) metoclopramide (Verified Adverse Reaction, Unknown, AKATHISIA, 01/31/19) prochlorperazine (Verified Adverse Reaction, Unknown, AKATHISIA, 01/31/19) quetiapine (Verified Adverse Reaction, Unknown, 01/31/19) trazodone (Verified Adverse Reaction, Unknown, AGITATION, SHAKINESS, 01/31/19) A-FIB/CHADSVASC A-FIB History Current/History of A-Fib/PAF?: No Current Oral Anticoagulant The: No Treatment Treatment ordered: NONE Reason Anticoagulant not given: Not indicated/[id number] SHASHI GUPTA DO Feb 06, 2019 09:38
[2019-02-06] MEDS: IBUPROFEN 600 MG TAB PO PRN (11:27)
[2019-02-06 18:00] VITALS: BP 116/67
[2019-02-06] MEDS: zolPIDEM TARTRATE 5 MG TAB PO PRN (20:17)
[2019-02-07] MEDS: BUPRENORPHINE/NALOXONE 8-2MG SUBLINGUAL TABLET(SUBOXONE) SL SCH ×2 (06:17→15:18)
[2019-02-07] MEDS: GABAPENTIN 300 MG CAP PO SCH (06:17)
[2019-02-07] MEDS: LEVOTHYROXINE 75MCG TABLET (0.075MG) PO SCH (06:17)
[2019-02-07 07:04] VITALS: BP 102/54
[2019-02-07] MEDS: ESTRADIOL 1 MG TAB PO SCH (09:32)
[2019-02-07] MEDS: NICOTINE 21MG/24HR 1 EA TRANSDERMAL TD SCH (09:33)
[2019-02-07] MEDS: VENLAFAXINE **XR** 75MG CAPSULE PO SCH (09:33)
--- NOTE | 2019-02-07 10:54 | MHIPNPDOC ---
[facility] Progress Note Progress Note DATE OF SERVICE: 02/07/19 HISTORY: Pt seen and states she here b/c she relapsed on meth, cocaine, and cannabis due to feeling overwhelmed after seeing her ex-boyfriend and "hanging around the wrong people." States it's also stressful for her living with her father and wanting to move to [place] where her kids are but is scared of making the change. States she thinks she needs to get into either inpatient or outpatient substance abuse treatment as is having difficulty maintaining sobriety (admitted last month after relapse). States otherwise her meds are helpful and agreeable to restarting. Endorse guilt and depression mostly regarding relapse. Denies SI/HI, hallucinations, delusions. VITAL SIGNS: See below. NEW TEST RESULTS:See below. CURRENT MEDICATIONS: See below. MENTAL STATUS EXAMINATION: General Appearance: unkempt, disheveled, appears stated age, own clothing Build: overweight Demeanor: withdrawn Eye Contact: fair Activity: slowed Behavior: cooperative, withdrawn Speech: clear, reg/rate,rhythm,volume Mood: less depressed, anxious Mood "alright" Affect: less constricted, congruent, anxious Thought Process: logical/linear, less depressed, hopeful for the future and looking forward to going to rehab Thought Content (Delusions): none reported, denies SI, HI, AVH Thought Content (Other): none reported, appropriate Thought Content (Aggressive): none reported Perception (Hallucinations): none reported Perception (Other): none reported Cognition (Impairment of): none reported Cognition(Intelligence Est.): average Oriented: Awake, Alert, Oriented times three Insight: fair Judgment: Fair Psychosis: Denies DIAGNOSES: Major depressive disorder. Borderline personality disorder. Stimulant/cannabis use disorder Opioid use disorder, in sustained remission. ASSESSMENT:Pt seen with d/c special events planner to discuss rehab bed possible dates and states she hopes to have bed 02/08 or 02/09 and can have father bring her things in for transfer to rehab. States her mood is alright. Is going to groups and being present in the milieu. States her meds are helpful and she's tolerating them well. Denies SI/HI, hallucinations, delusions. Feels safe here. MANAGEMENT PLAN: continue current meds. Hopeful to have rehab bed at [facility] 5/1 or 5/2 Suboxone 8/2 mg twice a day. Gabapentin 800 mg by mouth 4 times a day Lamotrigine 250 mg by mouth daily Propranolol 10 mg by mouth 3 times a day prn anxiety. Topiramate 100 mg by mouth daily. Effexor XR 225 mg by mouth daily TIME SPENT: 30 minutes. Vital Signs Vital Signs Date Time Temp Pulse Resp B/P (MAP) Pulse Ox O2 Delivery O2 Flow Rate FiO2 02/07/19 07:04 97.5 56 14 102/54 (70) Current Medications Current Medications Acetaminophen (Tylenol Tab) 650 mg Q6HP PRN PO PAIN / FEVER Last administered on 02/01/19at 15:19; Start 02/01/19 at 12:30; Stop 02/01/19 at 15:23; Status DC Al Hydrox/Mg Hydrox/Simethicone (Mylanta) 30 ml Q4HP PRN PO HEARTBURN/INDIGESTION; Start 01/31/19 at 15:30 Aripiprazole (AbiLIFY) 7.5 mg BID PO Last administered on 02/06/19at 20:16; Start 01/31/19 at 21:00 Buprenorphine/ Naloxone (Suboxone 8/2mg) 1 tab BID@0600,1500 SL Last administered on 02/07/19at 06:17; Start 01/31/19 at 15:00 Estradiol (Estrace) 1 mg DAILY PO Last administered on 02/07/19at 09:32; Start 01/31/19 at 09:00 Gabapentin (Neurontin) 600 mg 0600,1200,1700,2100 PO Last administered on 02/07/19at 06:17; Start 01/31/19 at 17:00; Stop 02/07/19 at 10:22; Status DC Gabapentin (Neurontin) 800 mg 0600,1200,1700,2100 PO ; Start 02/07/19 at 12:00 Home Med (Med Rec Complete!) ASDIRECTED XX ; Start 01/31/19 at 13:15; Stop 01/31/19 at 13:40; Status DC Ibuprofen (Advil) 600 mg Q6HP PRN PO PAIN Last administered on 02/06/19at 11:27; Start 02/04/19 at 15:30 Ibuprofen (Advil) 600 mg Q8HP PRN PO PAIN Last administered on 02/04/19at 08:50; Start 02/01/19 at 15:30; Stop 02/04/19 at 15:23; Status DC Levothyroxine Sodium (Synthroid) 75 mcg DAILY@06 PO Last administered on 02/07/19at 06:17; Start 02/01/19 at 06:00 Magnesium Hydroxide (Milk Of Magnesia) 30 ml DAILYPRN PRN PO CONSTIPATION; Start 01/31/19 at 15:30 Miscellaneous (Unresolved Clarification Entry) SEE LABEL COMMENTS DAILY XX ; Start 02/06/19 at 09:00; Stop 02/07/19 at 10:23; Status DC Nicotine (Nicoderm Cq 21mg) 1 patch DAILY TD Last administered on 02/07/19 09:33; Start 01/31/19 at 09:00 Pantoprazole Sodium (Protonix) 20 mg DAILY PRN PO HEARTBURN/INDIGESTION; Start 02/01/19 at 12:30 Venlafaxine HCl (Effexor Xr) 225 mg DAILY PO Last administered on 02/07/19at 09:33; Start 02/01/19 at 09:00 Zolpidem Tartrate (Ambien) 10 mg QHSP PRN PO INSOMNIA Last administered on 02/06/19 20:17; Start 01/31/19 at 15:30 Allergies Coded Allergies: mold (Verified Allergy, Unknown, 01/31/19) metoclopramide (Verified Adverse Reaction, Unknown, AKATHISIA, 01/31/19) prochlorperazine (Verified Adverse Reaction, Unknown, AKATHISIA, 01/31/19) quetiapine (Verified Adverse Reaction, Unknown, 01/31/19) trazodone (Verified Adverse Reaction, Unknown, AGITATION, SHAKINESS, 01/31/19) A-FIB/CHADSVASC A-FIB History Current/History of A-Fib/PAF?: No Current Oral Anticoagulant The: No Treatment Treatment ordered: NONE Reason Anticoagulant not given: Not indicated/[id number] SHASHI GUPTA DO Feb 07, 2019 10:54
--- NOTE | 2019-02-07 11:02 | MHIPN ---
DATE: 02/04/2019 The patient states "I'm feeling a little bit of hope." She is still depressed. Her mood is 7/10, with the closer to 10 as the most depressed. She did not sleep well. She said there was a lot of door slamming last night. She is denying suicidal ideations, however. MENTAL STATUS EXAMINATION: She is alert and oriented times three, pleasant and cooperative, verbally spontaneous. Psychomotor activity is decreased. There is no formal thought disorder noted. Mood is depressed. Affect full range and appropriate. She is not psychotic. She is denying suicidal or homicidal ideations. Concentration is fair. Memory intact. Insight and judgment is fair. DIAGNOSES: 1. Major depressive disorder. 2. Borderline personality disorder. 3. Stimulant/cannabis use disorder. 4. Opioid use disorder, in sustained remission. TREATMENT PLAN: At this point, we will continue the patient on her current treatment. We will continue to monitor the patient for further elevation and stabilization of her mood and continued resolution of suicidal ideation.
[2019-02-07] MEDS: GABAPENTIN 400 MG CAP PO SCH ×3 (11:54→20:39)
[2019-02-07] MEDS: PILL CRUSHER/CUTTER 1 EACH XX PRN ×2 (11:54→20:37)
[2019-02-07 18:00] VITALS: BP 115/74
[2019-02-07] MEDS: zolPIDEM TARTRATE 5 MG TAB PO PRN (20:39)
[2019-02-08] MEDS: LEVOTHYROXINE 75MCG TABLET (0.075MG) PO SCH (06:30)
[2019-02-08] MEDS: GABAPENTIN 400 MG CAP PO SCH ×4 (06:30→20:00)
[2019-02-08] MEDS: BUPRENORPHINE/NALOXONE 8-2MG SUBLINGUAL TABLET(SUBOXONE) SL SCH ×2 (06:30→15:42)
[2019-02-08 06:31] VITALS: BP 95/51
[2019-02-08] MEDS: ESTRADIOL 1 MG TAB PO SCH (08:54)
[2019-02-08] MEDS: VENLAFAXINE **XR** 75MG CAPSULE PO SCH (08:54)
[2019-02-08] MEDS: PILL CRUSHER/CUTTER 1 EACH XX PRN (08:54)
[2019-02-08] MEDS: NICOTINE 21MG/24HR 1 EA TRANSDERMAL TD SCH (08:55)
--- NOTE | 2019-02-08 11:13 | MHIPNPDOC ---
[facility] Progress Note Progress Note DATE OF SERVICE: 02/08/19 HISTORY: Pt seen and states she here b/c she relapsed on meth, cocaine, and cannabis due to feeling overwhelmed after seeing her ex-boyfriend and "hanging around the wrong people." States it's also stressful for her living with her father and wanting to move to [place] where her kids are but is scared of making the change. States she thinks she needs to get into either inpatient or outpatient substance abuse treatment as is having difficulty maintaining sobriety (admitted last month after relapse). States otherwise her meds are helpful and agreeable to restarting. Endorse guilt and depression mostly regarding relapse. Denies SI/HI, hallucinations, delusions. VITAL SIGNS: See below. NEW TEST RESULTS:See below. CURRENT MEDICATIONS: See below. MENTAL STATUS EXAMINATION: General Appearance: clean, appears stated age, own clothing Build: overweight Demeanor: pleasant and cooperative Eye Contact: fair Activity: average Behavior: cooperative Speech: clear, reg/rate,rhythm,volume Mood: less depressed, anxious Mood "ok" Affect: less constricted, congruent, anxious Thought Process: logical/linear, less depressed, hopeful for the future and looking forward to going to rehab Thought Content (Delusions): none reported, denies SI, HI, AVH Thought Content (Other): none reported, appropriate Thought Content (Aggressive): none reported Perception (Hallucinations): none reported Perception (Other): none reported Cognition (Impairment of): none reported Cognition(Intelligence Est.): average Oriented: Awake, Alert, Oriented times three Insight: fair Judgment: Fair Psychosis: Denies DIAGNOSES: Major depressive disorder. Borderline personality disorder. Stimulant/cannabis use disorder Opioid use disorder, in sustained remission. ASSESSMENT:Pt seen hopeful to have rehab bed 02/09. States she had her sister bring her belongings to the hospital as preparation for rehab. States she is looking forward to going and wants to go. States her mood is "ok". Is going to groups and being present in the milieu. States her meds are helpful and she's tolerating them well. Discussed DBT and grounding with pt for borderline PD and gave her info on how it works which she appreciated and plans to use. States she found learning grounding was very helpful (demonstrated how it works for the pt in office). Denies SI/HI, hallucinations, delusions. Feels safe here. MANAGEMENT PLAN: continue current meds. Hopeful to have rehab bed at [facility] 5/ Suboxone 8/2 mg twice a day. Gabapentin 800 mg by mouth 4 times a day Lamotrigine 250 mg by mouth daily Propranolol 10 mg by mouth 3 times a day prn anxiety. Topiramate 100 mg by mouth daily. Effexor XR 225 mg by mouth daily TIME SPENT: 30 minutes. Vital Signs Vital Signs Date Time Temp Pulse Resp B/P (MAP) Pulse Ox O2 Delivery O2 Flow Rate FiO2 02/08/19 06:31 97.5 61 14 95/51 (66) Current Medications Current Medications Acetaminophen (Tylenol Tab) 650 mg Q6HP PRN PO PAIN / FEVER Last administered on 02/01/19at 15:19; Start 02/01/19 at 12:30; Stop 02/01/19 at 15:23; Status DC Al Hydrox/Mg Hydrox/Simethicone (Mylanta) 30 ml Q4HP PRN PO HEARTBURN/INDIGESTION; Start 01/31/19 at 15:30 Aripiprazole (AbiLIFY) 7.5 mg BID PO Last administered on 02/08/19at 08:54; Start 01/31/19 at 21:00 Buprenorphine/ Naloxone (Suboxone 8/2mg) 1 tab BID@0600,1500 SL Last administered on 02/08/19at 06:30; Start 01/31/19 at 15:00 Estradiol (Estrace) 1 mg DAILY PO Last administered on 02/08/19at 08:54; Start 01/31/19 at 09:00 Gabapentin (Neurontin) 600 mg 0600,1200,1700,2100 PO Last administered on 02/07/19at 06:17; Start 01/31/19 at 17:00; Stop 02/07/19 at 10:22; Status DC Gabapentin (Neurontin) 800 mg 0600,1200,1700,2100 PO Last administered on 02/08/19at 06:30; Start 02/07/19 at 12:00 Home Med (Med Rec Complete!) ASDIRECTED XX ; Start 01/31/19 at 13:15; Stop 01/31/19 at 13:40; Status DC Ibuprofen (Advil) 600 mg Q6HP PRN PO PAIN Last administered on 02/06/19at 11:27; Start 02/04/19 at 15:30 Ibuprofen (Advil) 600 mg Q8HP PRN PO PAIN Last administered on 02/04/19at 08:50; Start 02/01/19 at 15:30; Stop 02/04/19 at 15:23; Status DC Levothyroxine Sodium (Synthroid) 75 mcg DAILY@06 PO Last administered on 02/08/19at 06:30; Start 02/01/19 at 06:00 Magnesium Hydroxide (Milk Of Magnesia) 30 ml DAILYPRN PRN PO CONSTIPATION; Start 01/31/19 at 15:30 Miscellaneous (Unresolved Clarification Entry) SEE LABEL COMMENTS DAILY XX ; Start 02/06/19 at 09:00; Stop 02/07/19 at 10:23; Status DC Nicotine (Nicoderm Cq 21mg) 1 patch DAILY TD Last administered on 02/08/19at 08:55; Start 01/31/19 at 09:00 Pantoprazole Sodium (Protonix) 20 mg DAILY PRN PO HEARTBURN/INDIGESTION; Start 02/01/19 at 12:30 Venlafaxine HCl (Effexor Xr) 225 mg DAILY PO Last administered on 02/08/19 08:54; Start 02/01/19 at 09:00 Zolpidem Tartrate (Ambien) 10 mg QHSP PRN PO INSOMNIA Last administered on 02/07/19at 20:39; Start 01/31/19 at 15:30 Allergies Coded Allergies: mold (Verified Allergy, Unknown, 01/31/19) metoclopramide (Verified Adverse Reaction, Unknown, AKATHISIA, 01/31/19) prochlorperazine (Verified Adverse Reaction, Unknown, AKATHISIA, 01/31/19) quetiapine (Verified Adverse Reaction, Unknown, 01/31/19) trazodone (Verified Adverse Reaction, Unknown, AGITATION, SHAKINESS, 01/31/19) A-FIB/CHADSVASC A-FIB History Current/History of A-Fib/PAF?: No Current Oral Anticoagulant The: No Treatment Treatment ordered: NONE Reason Anticoagulant not given: Not indicated/[id number] SHASHI GUPTA DO February 08, 2019 11:13 am
[2019-02-08 18:00] VITALS: BP 110/70
[2019-02-08] MEDS: zolPIDEM TARTRATE 5 MG TAB PO PRN (20:00)
[2019-02-09] MEDS: GABAPENTIN 400 MG CAP PO SCH ×2 (06:34→11:56)
[2019-02-09] MEDS: BUPRENORPHINE/NALOXONE 8-2MG SUBLINGUAL TABLET(SUBOXONE) SL SCH (06:34)
[2019-02-09] MEDS: LEVOTHYROXINE 75MCG TABLET (0.075MG) PO SCH (06:34)
[2019-02-09 07:15] VITALS: BP 95/54
[2019-02-09] MEDS: VENLAFAXINE **XR** 75MG CAPSULE PO SCH (09:46)
[2019-02-09] MEDS: NICOTINE 21MG/24HR 1 EA TRANSDERMAL TD SCH (09:46)
[2019-02-09] MEDS: ESTRADIOL 1 MG TAB PO SCH (09:46)
[2019-02-09] MEDS ORDERED: VENL75CA2 PO (10:52)
[2019-02-09] MEDS ORDERED: ARIP1TAB10 PO (10:52)
[2019-02-09] MEDS ORDERED: GABA800T4 PO (10:52)
--- NOTE | 2019-02-09 10:56 | MHDSPDOC ---
[facility] Discharge Summary Discharge Summary DATE OF ADMISSION: Jan 31, 2019 at 3:24 pm DATE OF DISCHARGE: February 09, 2019 DISCHARGE DIAGNOSES: Major depressive disorder. Borderline personality disorder. Stimulant/cannabis use disorder Opioid use disorder, in sustained remission. REASON FOR ADMISSION: Patient is a 43 -year-old , female, with a history of depression, substance abuse, borderline personality d/o, frequent admissions [facility] in past with last 12/21/18 who presented to ED endorsing passive SI stating "I want to go to sleep and not wake up" due to feeling overwhelmed and stress secondary current living situation of living with her father who she has a difficult relationship with (known by myself as very supportive of pt always helping her when she's in need). Pt stated in ED she relapsed on IV meth and smoked cocaine and cannabis dur to feeling stressed and depressed 2 days age. Per ED, has been noncompliant with outpatient [facility] appts and missed most recent psychiatrist and therapist appts there. Pt was admitted in December due to similar complain and reason. She denied intent or plan for suicide in ED. Denied HI, hallucinations, delusions. CONSULTANTS INVOLVED: none TREATMENT AND PROGRESS ON THE UNIT : Pt was admitted to [facility], seen for psychiatric assessment and restarted on outpatient abilify 7.5mg bid, Suboxone 8-2mg bid, her Effexor xr 225mg daily, and Gabapentin 800 mg QID. She was provided ambien 10mg qhs prn insomnia. Pt found her medications beneficial and tolerated them well. She attended groups daily during her stay. Her symptoms improved with treatment. On day of discharge she denied depression, anxiety, insomnia, SI/HI, hallucinations, delusions. She was discharged home after family with her father meeting with follow-up at Dr Woods as she awaits rehab at [facility] next week. She felt safe for discharge. DISCHARGE ASSESSMENT: Pt seen today and states she feels good and is looking forward to going home today and then going to [facility] rehab Wednesday when bed available. States she wants to go. Is going to groups and being present in the milieu. States her meds are helpful and she's tolerating them well. Denies depression, anxiety, insomnia, SI/HI, hallucinations, delusions. Feels safe to be discharged home with her father MENTAL STATUS EXAMINATION ON DISCHARGE: General Appearance: clean, appears stated age, own clothing Build: overweight Demeanor: pleasant and cooperative Eye Contact: good Activity: average Behavior: cooperative Speech: clear, reg/rate,rhythm,volume Mood: full, euthymic Mood "good" Affect: full, euthymic Thought Process: logical/linear, hopeful for the future and looking forward to going to rehab Thought Content (Delusions): none reported, denies SI, HI, AVH Thought Content (Other): none reported, appropriate Thought Content (Aggressive): none reported Perception (Hallucinations): none reported Perception (Other): none reported Cognition (Impairment of): none reported Cognition(Intelligence Est.): average Oriented: Awake, Alert, Oriented times three Insight: good Judgment: good Psychosis: Denies MEDICATIONS ON DISCHARGE: abilify 7.5mg bid Suboxone 8/2 mg twice a day. rx from Dr. Woods Gabapentin 800 mg by mouth 4 times a day Effexor XR 225 mg by mouth daily ambien 10mg qhs prn insomnia. rx from Dr. Woods Adderall 15mg bid. rx from Dr. Woods PLAN/FOLLOWUP ARRANGEMENTS: D/c home with her father with follow-up at Dr. Woods as she awaits rehab at [facility] bed available Wednesday02/13/19. The amount of time spent in the coordination of care for this patient was approximately 30 minutes. Vital Signs/I&Os Vital Signs Date Time Temp Pulse Resp B/P (MAP) Pulse Ox O2 Delivery O2 Flow Rate FiO2 02/09/19 07:15 97.6 61 14 95/54 (68) Medications Scheduled Aripiprazole (Aripiprazole) 15 Mg Tablet, 7.5 MG PO BID, (Reported) Buprenorphine HCl/Naloxone HCl (Suboxone 8 mg-2 mg Sl Film) 1 Mis Mis, 1 STRIP SL BID, (Reported) TAKES AT 0600/1500 Dextroamphetamine/Amphetamine (Dextroamp-Amphetamin 15 mg Tab) 1 Tab Tab, 15 MG PO BID, (Reported) TAKES AT 0600/1200 Estradiol (Estradiol) 1 Mg Tab, 1 MG PO DAILY, (Reported) Gabapentin (Gabapentin) 600 Mg Tablet, 600 MG PO QID, (Reported) TAKES AT 0600/1200/1700/2100 Lactobacillus Combo No.10 (Probiotic) 1 Each Capsule, 1 CAP PO DAILY, (Reported) Levothyroxine Sodium (Levothyroxine Sodium) 75 Mcg Tab, 75 MCG PO DAILY, (Reported) Venlafaxine HCl (Venlafaxine HCl ER) 75 Mg Cap.er.24h, 225 MG PO DAILY, (Reported) Vitamin C/Biotin (Hair, Skin and Nails Gummies) 1 Each Tab.chew, 1 EACH PO DAILY, (Reported) Scheduled PRN Ibuprofen (Ibuprofen) 800 Mg Tab, 800 MG PO Q6H PRN for PAIN, (Reported) Zolpidem Tartrate (Zolpidem Tartrate) 10 Mg Tab, 10 MG PO QHS PRN for INSOMNIA, (Reported) Allergies Coded Allergies: mold (Verified Allergy, Unknown, 01/31/19) metoclopramide (Verified Adverse Reaction, Unknown, AKATHISIA, 01/31/19) prochlorperazine (Verified Adverse Reaction, Unknown, AKATHISIA, 01/31/19) quetiapine (Verified Adverse Reaction, Unknown, 01/31/19) trazodone (Verified Adverse Reaction, Unknown, AGITATION, SHAKINESS, 01/31/19) SHASHI GUPTA DO February 09, 2019 9:15 am
== END 2019-02-09 12:10 | disposition home or self-care (01) | DRG 754 ==
LOC: M ED 11:27 → M ED INP 15:24 → M PSY 17:51
PROVIDERS: ADMIT Psychiatry & Neurology Psychiatry; ATTEND Psychiatry & Neurology Psychiatry
DX: F32.9 Major depressive disorder, single episode, unspecified (principal); Z91.19 Patient's noncompliance with other medical treatment and regimen; R45.851 Suicidal ideations; F12.90 Cannabis use, unspecified, uncomplicated; F15.90 Other stimulant use, unspecified, uncomplicated; F60.3 Borderline personality disorder; Z79.899 Other long term (current) drug therapy; Z88.8 Allergy status to other drugs, medicaments and biological substances; E03.9 Hypothyroidism, unspecified; B18.2 Chronic viral hepatitis C

== ENCOUNTER 2019-03-05 20:54 | Inpatient (IN) | payer MEDICARE, MEDICAID ==
[~2019-03-05] VITALS: Ht 157.5 cm; Wt 77.8 kg
[~2019-03-05 20:54] MED LIST changes: +ARIP1TAB10 PO; +CVS1CAP2 PO; +VITA1TAB61 PO
[2019-03-05] MEDS ORDERED: lamoTRIgine 100MG TAB PO SCH (21:00)
[2019-03-05 21:15] LABS: BASO % 0.3 % (0.0-1.0); EOS # 0.2 10^3/uL (0.0-0.50); EOS % 2.6 % (0.0-3.0); HEMATOCRIT 45.1 % (36.0-47.0); HEMOGLOBIN 14.8 g/dl (12.0-15.5); LYMPH # 1.3 10^3/uL (1.5-4.5); LYMPH % 21.3 % (24.0-44.0); MEAN CORPUSCULAR HEMOGLOBIN 30.5 pg (27.0-33.0); MEAN CORPUSCULAR HGB CONC 32.8 g/dl (32.0-36.5); MEAN CORPUSCULAR VOLUME 92.8 fl (80.0-96.0); MONO # 0.4 10^3/uL (0.0-0.8); MONO % 6.9 % (0.0-5.0); NEUTROPHILS # 4.2 10^3/uL (1.8-7.7); NEUTROPHILS % 68.7 % (36.0-66.0); PLATELET COUNT, AUTOMATED 338 10^3/uL (150-450); RED BLOOD COUNT 4.86 10^6/uL (4.00-5.40); WHITE BLOOD COUNT 6.1 10^3/uL (4.0-10.0)
[2019-03-05 21:48] LABS: ACETAMINOPHEN LEVEL < 2.0 UG/ML (10.0-30.0); ALBUMIN 4.2 GM/DL (3.2-5.2); ALT/SGPT 37 U/L (12-78); BILIRUBIN,DIRECT 0.1 MG/DL (0.0-0.2); BILIRUBIN,TOTAL 0.3 MG/DL (0.2-1.0); BLOOD UREA NITROGEN 7 MG/DL (7-18); CALCIUM LEVEL 9.4 MG/DL (8.5-10.1); CARBON DIOXIDE LEVEL 24 MEQ/L (21-32); CHLORIDE LEVEL 104 MEQ/L (98-107); CPK CREATINE PHOSPHOKINASE 163 U/L (26-192); CREATININE FOR GFR 1.24 MG/DL (0.55-1.30); ETHYL ALCOHOL (ETHANOL) < 0.003 % (0.000-0.010); GLOMERULAR FILTRATION RATE 50.3 (>58); GLUCOSE, FASTING 155 MG/DL (70-100); POTASSIUM SERUM 3.4 MEQ/L (3.5-5.1); SODIUM LEVEL 140 MEQ/L (136-145); TOTAL PROTEIN 7.7 GM/DL (6.4-8.2)
[2019-03-05] MEDS ORDERED: LORazepam 2 MG/ML VIAL (J2060) As Ordered ONE (21:52)
[2019-03-05] MEDS ORDERED: LORazepam 2 MG/ML VIAL (J2060) IV STA (22:00)
[2019-03-05 22:26] LABS: ABG HCO3 17.5 MEQ/L (22.0-26.0); ABG O2 SATURATION 98.5 % (95.0-99.0); ABG PARTIAL PRESSURE CO2 35.9 mmHg (35.0-45.0); ABG PARTIAL PRESSURE O2 129.3 mmHg (75.0-100.0); ABG STANDARD HCO3 18.1 MEQ/L (22.0-26.0); ABG TOTAL CO2 18.6 MEQ/L (22.0-29.0); ABG pH (ARTERIAL) 7.305 UNITS (7.350-7.450)
[2019-03-05] MEDS ORDERED: NS 1,000 ML IV ONE (22:30)
[2019-03-05] MEDS ORDERED: PROP10TA56 PO (22:56)
[2019-03-05] MEDS ORDERED: LAMO200T2 PO (22:56)
[2019-03-05] MEDS ORDERED: GABA800T4 PO (22:56)
[2019-03-05] MEDS ORDERED: VENL75CA47 PO (22:56)
[2019-03-05] MEDS ORDERED: ARIP1TAB10 PO (22:56)
[2019-03-05] MEDS ORDERED: LAMO100T80 PO (23:01)
[2019-03-05 23:22] LABS: MAGNESIUM LEVEL 2.2 MG/DL (1.8-2.4)
[2019-03-05 23:48] LABS: AMPHETAMINES LEVEL URINE POSITIVE (NEGATIVE); BARBITURATES URINE NEGATIVE (NEGATIVE); BENZODIAZEPINES URINE NEGATIVE (NEGATIVE); CANNABINOIDS URINE POSITIVE (NEGATIVE); COCAINE METABOLITE URINE POSITIVE (NEGATIVE); METHADONE URINE NEGATIVE (NEGATIVE); OPIATES URINE NEGATIVE (NEGATIVE); PHENCYCLIDINE URINE NEGATIVE (NEGATIVE)
[2019-03-06] VITALS (7 sets, daily range): BP systolic 102–112; BP diastolic 57–64
[2019-03-06] MEDS ORDERED: LORazepam 2 MG/ML VIAL (J2060) IV PRN (00:30)
--- NOTE | 2019-03-06 01:12 | REPVR ---
EXAM: CT Head Without Contrast EXAM DATE/TIME: 03/06/2019 12:38 AM CLINICAL HISTORY: 44 years old, female; Signs and symptoms; Other: Seizure TECHNIQUE: Imaging protocol: Axial computed tomography images of the head without contrast. Radiation optimization: All CT scans at this facility use at least one of these dose optimization techniques: automated exposure control; mA and/or kV adjustment per patient size (includes targeted exams where dose is matched to clinical indication); or iterative reconstruction. COMPARISON: CT Head without contrast 01/07/2014 12:48 AM FINDINGS: Brain: No CT evidence of acute intracranial hemorrhage or acute territorial infarction. No significant mass effect or midline shift. Basal cisterns patent. Ventricles: Normal in size and configuration. Bones/joints: Nondisplaced fracture of the right occipital calvarium. Sinuses: Near complete opacification of the right frontal sinus. Partial opacification of the left frontal sinus. Mild right anterior ethmoid mucosal thickening. Mastoid air cells: Grossly unremarkable. Soft tissues: Right posterior parieto-occipital scalp hematoma. IMPRESSION: 1. Nondisplaced fracture of the right occipital calvarium. No acute intracranial hemorrhage. 2. Additional findings, as above. Electronically signed by: Maurice Del Rosario On 03/06/2019 01:11:30 AM
[2019-03-06] MEDS ORDERED: KCL 40MEQ in NS 1000ML 1,000 ML IV SCH (01:15)
[2019-03-06] MEDS ORDERED: SODIUM CHLORIDE 0.9% 1000ML IV ONE (01:15)
--- NOTE | 2019-03-06 03:19 | HPEPDOC ---
General Date of Admission March 06, 2019 at 00:18 Date of Service: March 06, 2019 Chief Complaint The patient is a 44-year-old female admitted with a reason for visit of Drug Overdose,Seizure. Source: RN/MD, RN notes reviewed Exam Limitations: Clinical conditions Severity: Moderate History of Present Illness 44 year old female with PMH of seizure disorder, extensive psychiatric history, suicidal attempt in the past, ADHD, polysubstance abuse, on Suboxone presented to the ED for being found nonresponsive at home and felt to have drug overdose. While in the ED she had a witnessed generalized tonic clonic seizure. Following the Seizure she was awake but confused. On my she knew her name and place but was confused about the date. She complained of some headache on the right side. Her headache is mild and constant , dull aching in character without any radiation. She does not have any associated nausea or vomiting or photophobia. She could not remember anything from today. She does not remember if she overdosed on any meds. She thinks she may have had a seizure at home. She believes she was at home with her father. After some prompting she remembered that was coming and inferred that it must be Wednesday. She said she did cocaine and marihuana on Wednesday. However her history is not reliable as she has lots of gaps in her memory and it still confused. I tried calling her father Mr Abisai Watson on the number in EMR a et a message for him to get more history. CT head shwed right parietooccipital hematoma with nondisplaced fracture of the right occipital calvarium without intracranial hemorrhage. As we do not have neurosurgery here I am trying to transfer her to a [facility] with neurosurgical services. Home Medications Scheduled Buprenorphine HCl/Naloxone HCl (Suboxone 8 mg-2 mg Sl Film) 1 Mis Mis, 1 STRIP SL BID, (Reported) TAKES AT 0600/1500 Gabapentin (Gabapentin) 800 Mg Tablet, 800 MG PO QID, (Reported) Lamotrigine (Lamotrigine) 100 Mg Tablet, 100 MG PO DAILY, (Reported) Levothyroxine Sodium (Levothyroxine Sodium) 75 Mcg Tab, 75 MCG PO DAILY, (Reported) Allergies Coded Allergies: mold (Verified Allergy, Unknown, 01/31/19) metoclopramide (Verified Adverse Reaction, Unknown, AKATHISIA, 01/31/19) prochlorperazine (Verified Adverse Reaction, Unknown, AKATHISIA, 01/31/19) quetiapine (Verified Adverse Reaction, Unknown, 01/31/19) trazodone (Verified Adverse Reaction, Unknown, AGITATION, SHAKINESS, 01/31/19) Past Medical History Medical History 1. Anxiety/depression. 2. Borderline personality disorder. 3. History of suicide attempt and self-harming behavior. 4. Polysubstance abuse. 5. Attention deficit hyperactivity disorder (ADHD). 6. Hypothyroidism. 7. History of kidney stone. 8. History of heroin withdrawal seizure. The last one in 2012. 9. Chronic back pain. 10. MRSA infection of the finger. 11. Gastroesophageal reflux disease. 12. History of bulimia and anorexia. Surgical History Hysterectomy , Appendectomy Family History Mother: , suicide Father: Alive, diabetes Siblings: Alive, well Children: Alive, well Unexpected deaths due to medical reasons: Maternal aunt , overdose. Social History * Smoker: other (vape) Alcohol: Denies Drugs: cocaine, marijuana, other (History of IV opiates/heroin/methamphetamine. Suboxone as per Dr. Woods. ) A-FIB/CHADSVASC A-FIB History Current/History of A-Fib/PAF?: No Review of Systems Constitutional: Denies: Chills, Fever, Night Sweats Eyes: Denies: Pain, Vision change ENT: Reports: Head Aches Skin: Denies: Rash, Lesions, Breakdown Pulmonary: Denies: Dyspnea, Cough Cardiovascular: Denies: Chest Pain, Palpitations, Orthopnea, Paroxysmal Noc. Dyspnea, Lt Headedness Gastrointestinal: Denies: Nausea, Vomiting, Abdominal Pain, Diarrhea Hematologic: Denies: Bruising, Bleeding Excessively Neurological: Reports: Confusion, Seizures Psych: Reports: Anxiety, Depression Physical Examination General Exam: Positive: Alert, Cooperative, No Acute Distress, Other (There is a right parietal scalp hematoma.) Eye Exam: Positive: PERRLA (3 mm reacting to light , bilateral equal), Conjunctiva & lids normal ENT Exam: Positive: Mucous membr. moist/pink, Tongue Midline, Nares Patent Neck Exam: Positive: Supple; Negative: JVD, thyromegaly Chest Exam: Positive: Clear to auscultation, Normal air movement Heart Exam: Positive: Rate Normal, Regular Rhythm, Normal S1, Normal S2; Negative: Murmurs, Rubs Telemetry: Positive: No significant arrhythmia Abdomen Exam: Positive: Normal bowel sounds, Soft; Negative: Tenderness, Hepatospenomegaly Extremity Exam: Positive: Normal pulses; Negative: Clubbing, Cyanosis, Edema Skin Exam: Positive: Nl turgor and temperature; Negative: Breakdown, Lesion Neuro Exam: Positive: Normal Speech, Strength at 5/5 X4 ext, Normal Tone, Reflexes 2+ Psych Exam: Positive: Anxiety, Other (oriented x 2) Vital Signs Vital Signs Date Time Temp Pulse Resp B/P (MAP) Pulse Ox O2 Delivery O2 Flow Rate FiO2 03/06/19 01:17 98.6 78 12 112/64 (80) 97 03/05/19 21:07 Room Air Laboratory Data Labs 24H Laboratory Tests 2 03/05/19 21:09: Immature Granulocyte % (Auto) 0.2, White Blood Count 6.1, Red Blood Count 4.86, Hemoglobin 14.8, Hematocrit 45.1, Mean Corpuscular Volume 92.8, Mean Corpuscular Hemoglobin 30.5, Mean Corpuscular Hemoglobin Concent 32.8, Red Cell Distribution Width 13.8, Platelet Count 338, Neutrophils (%) (Auto) 68.7H, Lymphocytes (%) (Auto) 21.3L, Monocytes (%) (Auto) 6.9H, Eosinophils (%) (Auto) 2.6, Basophils (%) (Auto) 0.3, Neutrophils # (Auto) 4.2, Lymphocytes # (Auto) 1.3L, Monocytes # (Auto) 0.4, Eosinophils # (Auto) 0.2, Basophils # (Auto) 0.0, Nucleated Red Blood Cells % (auto) 0.0, Anion Gap 12, Glomerular Filtration Rate 50.3L, Lactic Acid Level 5.2*H, Calcium Level 9.4, Magnesium Level 2.2, Aspartate Amino Transf (AST/SGOT) 21, Alanine Aminotransferase (ALT/SGPT) 37, Alkaline Phosphatase 96, Total Bilirubin 0.3, Direct Bilirubin 0.1, Total Creatine Kinase 163, Total Protein 7.7, Albumin 4.2, Albumin/Globulin Ratio 1.20, Thyroid Stimulating Hormone (TSH) 3.600, Salicylates Level 2.0L, Acetaminophen Level < 2.0L, Ethyl Alcohol Level < 0.003 5/26/19 22:17: Blood Gas Bicarbonate Standard 18.1L, Arterial Blood pH 7.305L, Arterial Blood Partial Pressure CO2 35.9, Arterial Blood Partial Pressure O2 129.3H, Arterial Blood Total CO2 18.6L, Arterial Blood HCO3 17.5L, Arterial Blood Base Excess - 8.0L, Arterial Blood Oxygen Saturation 98.5 03/05/19 22:58: Urine Amphetamines Screen POSITIVEH, Urine Benzodiazepines Screen NEGATIVE, Urine Opiates Screen NEGATIVE, Urine Methadone Screen NEGATIVE, Urine Barbiturates Screen NEGATIVE, Urine Phencyclidine Screen NEGATIVE, Urine Cocaine Metabolite Screen POSITIVEH, Urine Cannabinoids Screen POSITIVEH 03/05/19 23:43: 03/06/19 01:50: Lactic Acid Level 1.0 CBC/BMP Laboratory Tests 03/05/19 21:09 Red Blood Count 4.86, Mean Corpuscular Volume 92.8, Mean Corpuscular Hemoglobin 30.5, Mean Corpuscular Hemoglobin Concent 32.8, Red Cell Distribution Width 13.8, Neutrophils (%) (Auto) 68.7 H, Lymphocytes (%) (Auto) 21.3 L, Monocytes (%) (Auto) 6.9 H, Eosinophils (%) (Auto) 2.6, Basophils (%) (Auto) 0.3, Neutrophils # (Auto) 4.2, Lymphocytes # (Auto) 1.3 L, Monocytes # (Auto) 0.4, Eosinophils # (Auto) 0.2, Basophils # (Auto) 0.0 Assessment/Plan 44 year old female with PMH of seizure disorder, extensive psychiatric history, suicidal attempt in the past, ADHD, polysubstance abuse, on Suboxone presented to the ED for being found nonresponsive at home and felt to have drug overdose. While in the ED she had a witnessed generalized tonic clonic seizure. Following the Seizure she was awake but confused. On my she knew her name and place but was confused about the date. She complained of some headache on the right side. Her headache is mild and constant , dull aching in character without any radiation. She does not have any associated nausea or vomiting or photophobia. She could not remember anything from today. She does not remember if she overdosed on any meds. She thinks she may have had a seizure at home. She believes she was at home with her father. After some prompting she remembered that was coming and inferred that it must be Wednesday. She said she did cocaine and marihuana on Wednesday. However her history is not reliable as she has lots of gaps in her memory and it still confused. I tried calling her father Mr Abisai Watson on the number in EMR a et a message for him to get more history. CT head shwed right parietooccipital hematoma with nondisplaced fracture of the right occipital calvarium without intracranial hemorrhage. As we do not have neurosurgery here I am trying to transfer her to a [facility] with neurosurgical services. Toxic metabolic encephalopathy possibly a combination of drugs and post ictal state. continue sitter, frequent reorientation Seizure she may have had a seizure at home also as her presentation lactate was elevated. spoke with neurology, will continue her home lamictal and give ativan prn, continue gabapentin. seizure precautions Lacticacidosis probably from seizure no fever or elevated WBC no signs of infection continue IVF Hypokalemia replaced. Possible drug overdose recreational drugs vs prescription drugs her utox is positive for cocaine and marijuana and amphetamine, She takes Adderall. 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 She did get narcan by EMS with no response. has history of suicidal attempts in the past with several Mental health admissions Head trauma it is possible she had a seizure fell and had trauma or she may have overdosed and fell and had the trauma followed by seizure. The asha is not clear and patient is confused and unable to hive much history. Right occipital bone nondisplaced fracture with overlying scalp hematoma patient has been accepted by [facility] neurosurgeon Dr Cavanaugh and will be transfer red. H/o IV heroin use will continue suboxane Hypothyroid continue synthroid Psychiatric issues/ ADHD will hold venlafaxine , Adderall, inderal and aripiprazole Plan / VTE VTE Prophylaxis Ordered?: Yes ТАТЬЯНА NUNES MD March 06, 2019 03:08
[2019-03-06] MEDS ORDERED: KETOROLAC 30 MG/ML VIAL (J1885) IV ONE (04:15)
--- NOTE | 2019-03-06 04:56 | IPNPDOC ---
Text Note Date of Service The patient was seen on 03/06/19. NOTE CT scan done just after admission showed right parieto- occipital scalp hematoma and right occipital bone nondisplaced fracture. As this is a head trauma patient and we do not have neurosurgery service here so the pateint was transferred to [facility] under neurosurgeon dr Lombardi. [facility] did not have any bed. VS,Fishbone, I+O VS, Fishbone, I+O Laboratory Tests 03/05/19 21:09 Red Blood Count 4.86, Mean Corpuscular Volume 92.8, Mean Corpuscular Hemoglobin 30.5, Mean Corpuscular Hemoglobin Concent 32.8, Red Cell Distribution Width 13.8, Neutrophils (%) (Auto) 68.7 H, Lymphocytes (%) (Auto) 21.3 L, Monocytes (%) (Auto) 6.9 H, Eosinophils (%) (Auto) 2.6, Basophils (%) (Auto) 0.3, Neutrophils # (Auto) 4.2, Lymphocytes # (Auto) 1.3 L, Monocytes # (Auto) 0.4, Eosinophils # (Auto) 0.2, Basophils # (Auto) 0.0 Vital Signs Date Time Temp Pulse Resp B/P (MAP) Pulse Ox O2 Delivery O2 Flow Rate FiO2 03/06/19 04:00 97.6 71 12 106/61 (76) 95 03/05/19 21:07 Room Air I&O- Last 24 Hours up to 6 AM 03/06/19 06:00 Intake Total 1250 ml Balance 1250 ml ТАТЬЯНА NUNES MD March 06, 2019 04:56
[2019-03-06] MEDS ORDERED: BUPRENORPHINE/NALOXONE 8-2MG SUBLINGUAL TABLET(SUBOXONE) SL SCH (06:00)
[2019-03-06] MEDS ORDERED: LEVOTHYROXINE 75MCG TABLET (0.075MG) PO SCH (09:00)
[2019-03-06] MEDS ORDERED: ENOXAPARIN 40 MG/0.4 ML SYRINGE (J1650) SC SCH (09:00)
[2019-03-06] MEDS ORDERED: GABAPENTIN 400 MG CAP PO SCH (09:00)
--- NOTE | 2019-03-06 20:54 | ECGEPIP ---
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
--- NOTE | 2019-03-06 20:56 | ECGEPIP ---
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
[2019-03-10 00:07] LABS: LAMOTRIGINE (LAMICTAL) None Detected ug/mL (2.0-20.0); LEVETIRACETAM (KEPPRA) None Detected ug/mL (10.0-40.0)
--- NOTE | 2019-03-16 13:18 | DS.PDOC ---
Discharge Summary General Date of Admission March 06, 2019 at 00:18 Date of Discharge 03/06/19 Discharge Summary PROCEDURES PERFORMED DURING STAY: [None]. DISCHARGE DIAGNOSES: Head trauma and nondisplaced skull fracture Toxic metabolic encephalopathy Seizure Lacticacidosis Possible drug overdose recreational vs prescription drug. Unsure if intentional or accidental Suboxone dependence with h/o IV heroin abuse Hypothyroid ADHD Depression and h/o suicidal attempt in the past Polysubstance abuse anorexia and bulimia GERD Borderline personality disorder. COMPLICATIONS/CHIEF COMPLAINT: Drug Overdose,Seizure. HISTORY OF PRESENT ILLNESS: See History and physical HOSPITAL COURSE: 44 year old female with PMH of seizure disorder, extensive psychiatric history, suicidal attempt in the past, ADHD, polysubstance abuse, on Suboxone presented to the ED for being found nonresponsive at home and felt to have drug overdose. While in the ED she had a witnessed generalized tonic clonic seizure. Following the Seizure she was awake but confused. On my she knew her name and place but was confused about the date. She complained of some headache on the right side. Her headache is mild and constant , dull aching in character without any radiation. She does not have any associated nausea or vomiting or photophobia. She could not remember anything from today. She does not remember if she overdosed on any meds. She thinks she may have had a seizure at home. She believes she was at home with her father. After some prompting she remembered that was coming and inferred that it must be Wednesday. She said she did cocaine and marihuana on Wednesday. However her history is not reliable as she has lots of gaps in her memory and it still confused. I tried calling her father Mr Abisai Watson on the number in EMR and left a message for him to get more history. CT head showed right parietooccipital hematoma with nondisplaced fracture of the right occipital calvarium without intracranial hemorrhage. As we do not have neurosurgery patient is being transferred to [facility] for neurosurgical services. Head trauma it is possible she had a seizure fell and had trauma or she may have overdosed and fell and had the trauma followed by seizure. The story is not clear and patient is confused and unable to give much history. Right occipital bone nondisplaced fracture with overlying scalp hematoma patient has been accepted by [facility] neurosurgeon Dr Cavanaugh and will be transferred. Toxic metabolic encephalopathy possibly a combination of drugs and post ictal state. continue sitter, frequent reorientation Seizure she may have had a seizure at home also as her presentation lactate was elevated. spoke with neurology, will continue her home lamictal and give ativan prn, continue gabapentin. seizure precautions Lacticacidosis probably from seizure no fever or elevated WBC no signs of infection continue IVF Hypokalemia replaced. Possible drug overdose recreational drugs vs prescription drugs her utox is positive for cocaine and marijuana and amphetamine, She takes Adderall. 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 She did get narcan by EMS with no response. has history of suicidal attempts in the past with several Mental health admissions H/o IV heroin use will continue Suboxone Hypothyroid continue synthroid Psychiatric issues/ ADHD will hold venlafaxine , Adderall, inderal and aripiprazole DISCHARGE MEDICATIONS: Please see below. ALLERGIES: Please see below. PHYSICAL EXAMINATION ON DISCHARGE: VITAL SIGNS: Please see below. General Exam: Positive: Alert, Cooperative, No Acute Distress, Other (There is a right parietal scalp hematoma.) Eye Exam: Positive: PERRLA (3 mm reacting to light , bilateral equal), Conjunctiva & lids normal ENT Exam: Positive: Mucous membr. moist/pink, Tongue Midline, Nares Patent Neck Exam: Positive: Supple; Negative: JVD, thyromegaly Chest Exam: Positive: Clear to auscultation, Normal air movement Heart Exam: Positive: Rate Normal, Regular Rhythm, Normal S1, Normal S2; Negative: Murmurs, Rubs Telemetry: Positive: No significant arrhythmia Abdomen Exam: Positive: Normal bowel sounds, Soft; Negative: Tenderness, Hepatospenomegaly Extremity Exam: Positive: Normal pulses; Negative: Clubbing, Cyanosis, Edema Skin Exam: Positive: Nl turgor and temperature; Negative: Breakdown, Lesion Neuro Exam: Positive: Normal Speech, Strength at 5/5 X4 ext, Normal Tone, Reflexes 2+ Psych Exam: Positive: Anxiety, Other (oriented x 2) LABORATORY DATA: Please see below. ACTIVITY: [As tolerated]. DIET: NPO DISPOSITION: 02 Xfer To Acute Hosp. DISCHARGE CONDITION: [Stable]. TIME SPENT ON DISCHARGE: 45 minutes. Discharge Medications Scheduled Buprenorphine HCl/Naloxone HCl (Suboxone 8 mg-2 mg Sl Film) 1 Mis Mis, 1 STRIP SL BID, (Reported) TAKES AT 0600/1500 Gabapentin (Gabapentin) 800 Mg Tablet, 800 MG PO QID, (Reported) Lamotrigine (Lamotrigine) 100 Mg Tablet, 100 MG PO DAILY, (Reported) Levothyroxine Sodium (Levothyroxine Sodium) 75 Mcg Tab, 75 MCG PO DAILY, (Reported) Allergies Coded Allergies: mold (Verified Allergy, Unknown, 01/31/19) metoclopramide (Verified Adverse Reaction, Unknown, AKATHISIA, 01/31/19) prochlorperazine (Verified Adverse Reaction, Unknown, AKATHISIA, 01/31/19) quetiapine (Verified Adverse Reaction, Unknown, 01/31/19) trazodone (Verified Adverse Reaction, Unknown, AGITATION, SHAKINESS, 01/31/19) ТАТЬЯНА NUNES MD Mar 16, 2019 13:18
== END 2019-03-06 06:25 | disposition short-term general hospital (02) | DRG 917 ==
LOC: M ED 20:54 → M ED INP 03-06 00:18 → M ICU 03-06 01:10
PROVIDERS: ADMIT Internal Medicine Nephrology; ATTEND Internal Medicine Nephrology
DX: T50.904A Poisoning by unspecified drugs, medicaments and biological substances, undetermined, initial encounter (principal); G92 Toxic encephalopathy; E87.2 Acidosis; S02.119A Unspecified fracture of occiput, initial encounter for closed fracture; F50.02 Anorexia nervosa, binge eating/purging type; G40.409 Other generalized epilepsy and epileptic syndromes, not intractable, without status epilepticus; E03.9 Hypothyroidism, unspecified; F60.3 Borderline personality disorder; F90.9 Attention-deficit hyperactivity disorder, unspecified type; K21.9 Gastro-esophageal reflux disease without esophagitis; Z79.899 Other long term (current) drug therapy; Z88.8 Allergy status to other drugs, medicaments and biological substances; M54.5 Low back pain

== ENCOUNTER 2019-03-19 11:40 | Inpatient (IN) | payer OTHER, MEDICAID ==
[~2019-03-19] VITALS: Ht 157.5 cm; Wt 81.1 kg
[2019-03-19] MEDS ORDERED: ESTR1TAB PO (12:45)
[2019-03-19] MEDS ORDERED: AMPH1TAB2 PO (12:45)
[2019-03-19] MEDS ORDERED: ABIL1TAB12 PO (12:45)
[2019-03-19] MEDS ORDERED: VENL-115 PO (12:45)
[2019-03-19 13:12] LABS: HEMOGLOBIN 15.3 g/dl (12.0-15.5); MEAN CORPUSCULAR HEMOGLOBIN 30.2 pg (27.0-33.0); MEAN CORPUSCULAR HGB CONC 32.6 g/dl (32.0-36.5); MEAN CORPUSCULAR VOLUME 92.9 fl (80.0-96.0); PLATELET COUNT, AUTOMATED 287 10^3/uL (150-450); RED BLOOD COUNT 5.06 10^6/uL (4.00-5.40)
[2019-03-19 13:39] LABS: AMPHETAMINES LEVEL URINE NEGATIVE (NEGATIVE); BARBITURATES URINE NEGATIVE (NEGATIVE); BENZODIAZEPINES URINE NEGATIVE (NEGATIVE); CANNABINOIDS URINE NEGATIVE (NEGATIVE); COCAINE METABOLITE URINE POSITIVE (NEGATIVE); METHADONE URINE NEGATIVE (NEGATIVE); OPIATES URINE NEGATIVE (NEGATIVE); PHENCYCLIDINE URINE NEGATIVE (NEGATIVE)
[2019-03-19 13:50] LABS: ACETAMINOPHEN LEVEL < 2.0 UG/ML (10.0-30.0); ALBUMIN 3.8 GM/DL (3.2-5.2); ALT/SGPT 62 U/L (12-78); BILIRUBIN,DIRECT 0.2 MG/DL (0.0-0.2); BILIRUBIN,TOTAL 0.4 MG/DL (0.2-1.0); BLOOD UREA NITROGEN 11 MG/DL (7-18); CALCIUM LEVEL 9.1 MG/DL (8.5-10.1); CARBON DIOXIDE LEVEL 32 MEQ/L (21-32); CHLORIDE LEVEL 104 MEQ/L (98-107); CREATININE FOR GFR 0.82 MG/DL (0.55-1.30); ETHYL ALCOHOL (ETHANOL) < 0.003 % (0.000-0.010); GLOMERULAR FILTRATION RATE > 60.0 (>58); GLUCOSE, FASTING 89 MG/DL (70-100); HCG, SERUM QUANTITATIVE 3 MIU/ML; POTASSIUM SERUM 4.2 MEQ/L (3.5-5.1); SALICYLATE LEVEL 1.8 MG/DL (5.0-30.0); SODIUM LEVEL 143 MEQ/L (136-145); TOTAL PROTEIN 7.7 GM/DL (6.4-8.2)
[2019-03-19] MEDS ORDERED: PANT20TA2 PO (15:14)
[2019-03-19] MEDS ORDERED: ARIP1TAB10 PO (15:15)
[2019-03-19] MEDS ORDERED: MAALOX 30 ML SUSP *UDC PO PRN (16:15)
[2019-03-19] MEDS ORDERED: MOM 30ML SUSPENSION UDC PO PRN (16:15)
[2019-03-19] MEDS ORDERED: traZODone 50 MG TAB PO PRN (16:15)
[2019-03-19] MEDS: BUPRENORPHINE/NALOXONE 8-2MG SUBLINGUAL TABLET(SUBOXONE) SL SCH (16:49)
[2019-03-19] MEDS ORDERED: OLANZapine ORAL DISINTEGRATING TAB 5MG PO ONE (17:00)
[2019-03-19] MEDS: GABAPENTIN 400 MG CAP PO SCH ×2 (17:13→21:53)
[2019-03-19 17:24] VITALS: BP 138/83
[2019-03-20 06:38] VITALS: BP 95/50
[2019-03-20] MEDS: LEVOTHYROXINE 75MCG TABLET (0.075MG) PO SCH (06:40)
[2019-03-20] MEDS: BUPRENORPHINE/NALOXONE 8-2MG SUBLINGUAL TABLET(SUBOXONE) SL SCH ×2 (06:40→14:38)
[2019-03-20] MEDS ORDERED: ADDERALL 5 MG TAB PO SCH (08:00)
[2019-03-20] MEDS: PANTOPRAZOLE 20 MG TAB PO SCH (09:36)
[2019-03-20] MEDS: GABAPENTIN 400 MG CAP PO SCH ×4 (09:36→20:00)
[2019-03-20] MEDS: ESTRADIOL 1 MG TAB PO SCH (09:36)
--- NOTE | 2019-03-20 12:07 | MHHPEPDOC ---
General Date Of Admission: Mar 19, 2019 Legal Status: 9.39 Chief Complaint "I don't want to be here anymore" History of Present Illness HISTORY OF THE PRESENT ILLNESS: Patient is a 43 -year-old , female, with a history of depression, substance abuse, borderline personality d/o, frequ ent admissions [facility] in past with last 01/31/19 who presented to ED endorsing passive SI stating "not wanting to be here any more" stating she and others feel she needs to be in the hospital per the ED. Pt also endorsed daily crack cocaine use, as much as she could afford, utox positiive. Stated she was "kind of suicidal" in ED endorsing vague SI with no plan/intent. Per hospital records pt had a tonic clonic seizure witnessed with hematoma after and brought to ED then sent to [facility] for neurologic services. Pt was d/c to rehab when last here but only stayed a week due to insurance not paying for longer. Per ED, pt seen by Dr. Higgins that felt she did not need to be admitted due to complaint yet pt intent on being admitted, becoming agitated and crying stating "I just want to be upstairs ([facility]). Pt was admitted in January due to similar complain and reason. She denied intent or plan for suicide in ED. Denied HI, hallucinations, delusions. Psychiatric Review of Systems Depression (2 or more weeks): depressed mood, feelings of worthlesness, suicidal thoughts Harini (4 or more days of): denies Psychosis: denies PTSD: history of trauma, intrusive memories, avoidance of triggers, mood fluctuations Anxiety: situational anxiety, stressor related anxiety Anxiety/ 6 months or more of: restlessness, keyed up, difficulty concentrating, irritability, personality cluster A,BC (b) Past Psychiatric History Past Diagnoses: Major depressive disorder, paranoid personality disorder, opiate use disorder, stimulant use disorder, borderline personality disorder and bipolar disorder Hospitalizations: Numerous, most recent admission in was December SA/SIB: Reports one intentional overdose at age 16, and an episode of cutting in 2013 ( she was ot trying to kill herself but because it brought her some relief) Outpatient Tx: Sees Dr. Woods for suboxone. She sees Toan Scott at [facility] for other psychiatric medications but she doesn't know who is going to be her therapist. Suboxone 8/2 mg twice a day. Gabapentin 800 mg by mouth 4 times a day Lamotrigine 250 mg by mouth daily Propranolol 10 mg by mouth 3 times a day when necessary anxiety. Topiramate 100 mg by mouth daily. Effexor XR 225 mg by mouth daily Past Medical History Medical Problems Hypothyroidism Hep C. Head Injury: Yes (hematoma s/p seizure 03/06) Seizures: Yes (Yes (03/06/19, tonic clonic seizure witness, cause unknown, possibly cocaine use)) Hospitalizations: Yes Surgeries: Yes (hysterectomy) Family Medical/Psychiatric HX Medical Problems noncontributory Psychiatric Disorders: Yes (Mother with bipolar disorder and completed suicide, maternal aunt with depression and completed suicide.) Addiction: No Suicide Attemps/Completions: Yes (mother, aunt) Addiction History nicotine, alcohol, cocaine (utox positive), opioids (history of abuse on suboxone now), methamphetamines (hisitory of IV use), heroin (history of IV use), other (history cannabis. Patient reports being too numerous inpatient and outpatient substance use treatment programs.) Social History Early Relations/development:. She grew up in [place], raised by biological parents, denies history of abuse. Education: GED, had completed 3 semesters of college, but she dropped out after her mother committed suicide. Occupational: Currently unemployed with disability. Legal:. Denies upcoming legal appointments. Marital: , adult daughter and son in [place] Sexual Orientation: Heterosexual Gnosticism/Spirituality: None Supports: Her sisters Housing: lives with her father who is supportive to her Abuse/trauma: Denied Mental Status Examination General Appearance: unkempt, disheveled, appears stated age, hospital scubs/clothing Build: overweight Demeanor: withdrawn Eye Contact: fair Activity: slowed Behavior: cooperative, withdrawn Speech: clear, spontaneous, reg/rate,rhythm,volume Mood: depressed Mood "I feel like a piece of shit" Affect: constricted, flat, congruent Thought Process: logical/linear, depressed, slow Thought Content (Delusions): none reported, denies SI, HI, AVH Thought Content (Other): none reported, appropriate Thought Content (Aggressive): none reported Perception (Hallucinations): none reported Perception (Other): none reported Cognition (Impairment of): none reported Cognition(Intelligence Est.): average Oriented: Awake, Alert, Oriented times three Insight: poor Judgment: Poor Psychosis: Denies Diagnoses Major depressive disorder. Borderline personality disorder. Stimulant use disorder Opioid use disorder, in sustained remission. A-FIB/CHADSVASC A-FIB History Current/History of A-Fib/PAF?: No Current PO Anticoag Therapy: No Treatment Treatment ordered: NONE Reason Anticoagulant not given: Not indicated/[id number] Assessment Pt seen and states she's really depressed and never wanted to as much as she does now. States she confused about her life and doesn't know what to do. States she's "a peace of shit." Has been using cocaine prior admission. Endorses SI by locking her car in the garage to kill self by Ani like her mother did. States meds are beneficial and uncertain if changes need to be made. Amrit es anxiety. Upset with Dr. Higgins who thought she may not need to be admitted when she states "of course I need to here." Denies SI/HI here and feels safe here. Initial Treatment Plan 1. Patient was admitted on a status. 2. Complete history was obtained. 3. With patients permission, family will be contacted and database will be expanded. 4. Patients medication regimen will be reviewed and changed accordingly. 5. Patient will be provided with protected environment. 6. Patient will be treated with individual, group, and milieu therapies. 7. Patient will receive supportive psych-education. 8. Discharge planning will commence immediately. 9. Outpatient follow-up treatment will be strongly recommended. 10. The initial treatment plan will focus initially on: * Depression. * Risk for suicide. * Substance abuse. 11. restart outpatient meds. No adderall ESTIMATED LENGTH OF STAY: 3-5 DAYS. TIME SPENT COUNSELING AND COORDINATING INITIAL CARE: 60 minutes. Vital Signs Vital Signs Date Time Temp Pulse Resp B/P (MAP) Pulse Ox O2 Delivery O2 Flow Rate FiO2 03/20/19 06:38 98.4 59 14 95/50 (65) 03/19/19 16:50 97 03/19/19 11:41 Room Air Laboratory Data 24H Labs Laboratory Tests 2 03/19/19 12:47: Nucleated Red Blood Cells % (auto) 0.0, Anion Gap 7L, Glomerular Filtration Rate > 60.0, Calcium Level 9.1, Aspartate Amino Transf (AST/SGOT) 29, Alanine Aminotransferase (ALT/SGPT) 62, Alkaline Phosphatase 99, Total Bilirubin 0.4, Direct Bilirubin 0.2, Total Protein 7.7, Albumin 3.8, Albumin/Globulin Ratio 0.97L, Thyroid Stimulating Hormone (TSH) 1.690, Human Chorionic Gonadotropin, Quant 3, Salicylates Level 1.8L, Urine Amphetamines Screen NEGATIVE, Urine Benzodiazepines Screen NEGATIVE, Urine Opiates Screen NEGATIVE, Urine Methadone Screen NEGATIVE, Acetaminophen Level < 2.0L, Urine Barbiturates Screen NEGATIVE, Urine Phencyclidine Screen NEGATIVE, Urine Cocaine Metabolite Screen POSITIVEH, Urine Cannabinoids Screen NEGATIVE, Ethyl Alcohol Level < 0.003 CBC/BMP Laboratory Tests 03/19/19 12:47 Red Blood Count 5.06, Mean Corpuscular Volume 92.9, Mean Corpuscular Hemoglobin 30.2, Mean Corpuscular Hemoglobin Concent 32.6, Red Cell Distribution Width 13.6 Medications Scheduled Aripiprazole (Aripiprazole) Unknown Strength Tablet, 1 DOSE PO DAILY, (Reported) Buprenorphine HCl/Naloxone HCl (Suboxone 8 mg-2 mg Sl Film) 1 Mis Mis, 1 STRIP SL BID, (Reported) TAKES AT 0600/1500 Dextroamphetamine/Amphetamine (Dextroamp-Amphetamin 15 mg Tab) 15 Mg Tablet, 15 MG PO BID, (Reported) Estradiol (Estradiol) 1 Mg Tablet, 1 MG PO DAILY, (Reported) Gabapentin (Gabapentin) 800 Mg Tablet, 800 MG PO QID, (Reported) Levothyroxine Sodium (Levothyroxine Sodium) 75 Mcg Tab, 75 MCG PO DAILY, (Reported) Pantoprazole Sodium (Pantoprazole Sodium) 20 Mg Tablet.dr, 20 MG PO DAILY, (Reported) Venlafaxine HCl (Venlafaxine HCl ER) 75 Mg Tab.er.24, 225 MG PO DAILY, (Reported) Allergies Coded Allergies: mold (Verified Allergy, Unknown, 01/31/19) metoclopramide (Verified Adverse Reaction, Unknown, AKATHISIA, 01/31/19) prochlorperazine (Verified Adverse Reaction, Unknown, AKATHISIA, 01/31/19) quetiapine (Verified Adverse Reaction, Unknown, AGITATED, 03/19/19) trazodone (Verified Adverse Reaction, Unknown, AGITATION, SHAKINESS, 01/31/19) SHASHI GUPTA 10, 2019 09:40
[2019-03-20] MEDS ORDERED: VENLAFAXINE **XR** 75MG CAPSULE PO ONE (13:00)
[2019-03-20] MEDS ORDERED: ARIPiprazole 10 MG TAB PO ONE (13:00)
--- NOTE | 2019-03-20 16:33 | HPEPDOC ---
General Date of Admission Mar 19, 2019 at 16:07 Date of Service: Mar 20, 2019 Chief Complaint The patient is a 44-year-old female admitted with a reason for visit of Mood Disorder. Source: Patient, Old records Exam Limitations: No limitations Associated Symptoms: Headaches, Dizziness History of Present Illness 44 year old female with long history of psychiatric issues, polysubstance abuse cocaine, marijuana, recent Head trauma and non displaced skull fracture on 03/05/19 was transferred to [facility] for this on 03/07/19, generalized tonic clonic Seizure, ? drug overdose recreational vs prescription drug, Suboxone dependence with h/o IV heroin abuse, Hypothyroid, ADHD, Depression and h/o suicidal attempt in the past, anorexia and bulimia, GERD, Borderline personality disorder came to the ED saying having problems , feeling very depressed and saying that she needs to be in the hospital. She was admitted to [facility] for depression. I am seeing the patient for Medical history and physical. Today she is complaining of persistent dizziness with change of posture, and from turning from side to side in bed. She has has a persistent headache throbbing kind at the site of the head injury on the right parieto temporal region, Denies any nausea or vomiting. Denied any visual disturbance. She was at [facility] for 3 days and says no procedure was done. Home Medications Scheduled Aripiprazole (Aripiprazole) Unknown Strength Tablet, 1 DOSE PO DAILY, (Reported) Buprenorphine HCl/Naloxone HCl (Suboxone 8 mg-2 mg Sl Film) 1 Mis Mis, 1 STRIP SL BID, (Reported) TAKES AT 0600/1500 Dextroamphetamine/Amphetamine (Dextroamp-Amphetamin 15 mg Tab) 15 Mg Tablet, 15 MG PO BID, (Reported) Estradiol (Estradiol) 1 Mg Tablet, 1 MG PO DAILY, (Reported) Gabapentin (Gabapentin) 800 Mg Tablet, 800 MG PO QID, (Reported) Levothyroxine Sodium (Levothyroxine Sodium) 75 Mcg Tab, 75 MCG PO DAILY, (Reported) Pantoprazole Sodium (Pantoprazole Sodium) 20 Mg Tablet.dr, 20 MG PO DAILY, (Reported) Venlafaxine HCl (Venlafaxine HCl ER) 75 Mg Tab.er.24, 225 MG PO DAILY, (Repo rted) Allergies Coded Allergies: mold (Verified Allergy, Unknown, 01/31/19) metoclopramide (Verified Adverse Reaction, Unknown, AKATHISIA, 01/31/19) prochlorperazine (Verified Adverse Reaction, Unknown, AKATHISIA, 01/31/19) quetiapine (Verified Adverse Reaction, Unknown, AGITATED, 03/19/19) trazodone (Verified Adverse Reaction, Unknown, AGITATION, SHAKINESS, 01/31/19) Past Medical History Medical History Head trauma and nondisplaced skull fracture on 03/05/19 Seizure Recent drug overdose recreational vs prescription drug. Unsure if intentional or accidental Suboxone dependence with h/o IV heroin abuse Hypothyroid ADHD Depression and h/o suicidal attempt in the past Polysubstance abuse anorexia and bulimia GERD Borderline personality disorder. Surgical History Hysterectomy , Appendectomy Family History Mother: , suicide Father: Alive, diabetes Siblings: Alive, well Children: Alive, well Unexpected deaths due to medical reasons: Maternal aunt , overdose. Social History * Smoker: current smoker Alcohol: other (vape) Drugs: cocaine, marijuana, other ((History of IV opiates/heroin/methamphetamine. Suboxone as per Dr. Woods. )) Psychosocial History: Att. deficit disorder, Poli SI and HI, Depression, Mood disorder NOS, Personality disorder NOS A-FIB/CHADSVASC A-FIB History Current/History of A-Fib/PAF?: No Review of Systems Constitutional: Reports: Fatigue; Denies: Chills, Fever, Night Sweats Eyes: Denies: Pain, Vision change ENT: Reports: Head Aches Skin: Denies: Rash, Lesions, Breakdown Pulmonary: Denies: Dyspnea, Cough Cardiovascular: Reports: Lt Headedness; Denies: Chest Pain, Palpitations, Orthopnea, Paroxysmal Noc. Dyspnea Gastrointestinal: Denies: Nausea, Vomiting, Abdominal Pain, Diarrhea Genitourinary: Denies: Dysuria, Frequency, Incontinence, Retention Hematologic: Denies: Bruising, Bleeding Excessively Psych: Reports: Depression Physical Examination General Exam: Positive: Alert, Cooperative, No Acute Distress Eye Exam: Positive: PERRLA, Conjunctiva & lids normal, EOMI; Negative: Sclera icteric ENT Exam: Positive: Atraumatic, Mucous membr. moist/pink, Pharynx Normal Neck Exam: Positive: Supple; Negative: JVD, thyromegaly Chest Exam: Positive: Clear to auscultation, Normal air movement Heart Exam: Positive: Rate Normal, Regular Rhythm, Normal S1, Normal S2; Negative: Murmurs, Rubs Abdomen Exam: Positive: Normal bowel sounds, Soft; Negative: Tenderness, Hepatospenomegaly Extremity Exam: Positive: Normal pulses; Negative: Clubbing, Cyanosis, Edema Skin Exam: Positive: Nl turgor and temperature; Negative: Breakdown, Lesion Neuro Exam: Positive: Normal Speech, Strength at 5/5 X4 ext, Normal Tone Vital Signs Vital Signs Date Time Temp Pulse Resp B/P (MAP) Pulse Ox O2 Delivery O2 Flow Rate FiO2 03/20/19 06:38 98.4 59 14 95/50 (65) 03/19/19 16:50 97 03/19/19 11:41 Room Air Laboratory Data Labs 24H Laboratory Tests 2 03/19/19 12:47: Nucleated Red Blood Cells % (auto) 0.0, Anion Gap 7L, Glomerular Filtration Rate > 60.0, Calcium Level 9.1, Aspartate Amino Transf (AST/SGOT) 29, Alanine Aminotransferase (ALT/SGPT) 62, Alkaline Phosphatase 99, Total Bilirubin 0.4, Direct Bilirubin 0.2, Total Protein 7.7, Albumin 3.8, Albumin/Globulin Ratio 0.97L, Thyroid Stimulating Hormone (TSH) 1.690, Human Chorionic Gonadotropin, Quant 3, Salicylates Level 1.8L, Urine Amphetamines Screen NEGATIVE, Urine Benzodiazepines Screen NEGATIVE, Urine Opiates Screen NEGATIVE, Urine Methadone Screen NEGATIVE, Acetaminophen Level < 2.0L, Urine Barbiturates Screen NEGATIVE, Urine Phencyclidine Screen NEGATIVE, Urine Cocaine Metabolite Screen POSITIVEH, Urine Cannabinoids Screen NEGATIVE, Ethyl Alcohol Level < 0.003 CBC/BMP Laboratory Tests 03/19/19 12:47 Red Blood Count 5.06, Mean Corpuscular Volume 92.9, Mean Corpuscular Hemoglobin 30.2, Mean Corpuscular Hemoglobin Concent 32.6, Red Cell Distribution Width 13.6 Assessment/Plan 44 year old female with long history of psychiatric issues, polysubstance abuse cocaine, marijuana, recent Head trauma and non displaced skull fracture on 03/05/19 was transferred to [facility] for this on 03/07/19, generalized tonic clonic Seizure, ? drug overdose recreational vs prescription drug, Suboxone dependence with h/o IV heroin abuse, Hypothyroid, ADHD, Depression and h/o suicidal attempt in the past, anorexia and bulimia, GERD, Borderline personality disorder came to the ED saying having problems , feeling very depressed and saying that she needs to be in the hospital. She was admitted to [facility] for depression. I am seeing the patient for Medical history and physical. Today she is complaining of persistent dizziness with change of posture, and from turning from side to side in bed. She has has a persistent headache throbbing kind at the site of the head injury on the right parieto temporal region, Denies any nausea or vomiting. Denied any visual disturbance. She was at [facility] for 3 days and says no procedure was done. Psychiatric issues/ ADHD as per psychiatrist Post concussion syndrome Headache and dizziness Head trauma on 03/06/19 it is possible she had a seizure fell and had trauma or she may have overdosed and fell and had the trauma followed by seizure. The story is not clear patient does not remember that day and does not want to ask her father about what happened that day. Right occipital bone non displaced fracture was transferred to [facility] urosurgery from here and was managed and discharged from there in 3 days. tylenol prn for headache OK to continue Subaxone if becomes too sleepy or confused will need to be reduced or dced Seizure most recent episode on 03/06/19 witnessed in our ED. continue gabapentin Polysubstance abuse disorder Cocaine, marijuana H/o IV heroin use in the past will continue suboxane Hypothyroid continue synthroid Plan / VTE VTE Prophylaxis Ordered?: No VTE Exclusion Mechanical Proph: Low Risk for VTE ТАТЬЯНА NUNES MD Mar 20, 2019 10:33
[2019-03-20 18:00] VITALS: BP 98/50
[2019-03-20] MEDS: zolPIDEM TARTRATE 5 MG TAB PO SCH (20:00)
[2019-03-21] MEDS: LEVOTHYROXINE 75MCG TABLET (0.075MG) PO SCH (06:13)
[2019-03-21] MEDS: BUPRENORPHINE/NALOXONE 8-2MG SUBLINGUAL TABLET(SUBOXONE) SL SCH ×2 (06:13→14:39)
[2019-03-21 06:40] VITALS: BP 107/65
[2019-03-21] MEDS: ACETAMINOPHEN TAB 650MG DOSE (2X325MG) PO PRN (06:43)
[2019-03-21] MEDS: GABAPENTIN 400 MG CAP PO SCH ×4 (09:08→20:05)
[2019-03-21] MEDS: VENLAFAXINE **XR** 75MG CAPSULE PO SCH (09:08)
[2019-03-21] MEDS: ESTRADIOL 1 MG TAB PO SCH (09:08)
[2019-03-21] MEDS: PANTOPRAZOLE 20 MG TAB PO SCH (09:08)
[2019-03-21] MEDS: ARIPiprazole 10 MG TAB PO SCH (09:08)
--- NOTE | 2019-03-21 09:19 | MHIPNPDOC ---
[facility] Progress Note Progress Note DATE OF SERVICE: 03/21/19 HISTORY: Patient is a 43 -year-old , female, with a history of depression, substance abuse, borderline personality d/o, frequent admissions [facility] in past with last 01/31/19 who presented to ED endorsing passive SI stating "not wanting to be here any more" stating she and others feel she needs to be in the hospital per the ED. Pt also endorsed daily crack cocaine use, as much as she could afford, utox positiive. Stated she was "kind of suicidal" in ED endorsing vague SI with no plan/intent. Per hospital records pt had a tonic clonic seizure witnessed with hematoma after and brought to ED then sent to [facility] for neurologic services. Pt was d/c to rehab when last here but only stayed a week due to insurance not paying for longer. Per ED, pt seen by Dr. Higgins that felt she did not need to be admitted due to complaint yet pt intent on being admitted, becoming agitated and crying stating "I just want to be upstairs ([facility]). Pt was admitted in January due to similar complain and reason. She denied intent or plan for suicide in ED. Denied HI, hallucinations, delusions. VITAL SIGNS: See below. NEW TEST RESULTS: See below. CURRENT MEDICATIONS: See below. MENTAL STATUS EXAMINATION: General Appearance: unkempt, disheveled, appears stated age, hospital scrubs/clothing Build: overweight Demeanor: withdrawn Eye Contact: fair Activity: slowed Behavior: cooperative, withdrawn Speech: clear, spontaneous, reg/rate,rhythm,volume Mood: depressed Mood "the same" Affect: constricted, flat, congruent Thought Process: logical/linear, depressed, slow Thought Content (Delusions): none reported, denies SI, HI, AVH Thought Content (Other): none reported, appropriate Thought Content (Aggressive): none reported Perception (Hallucinations): none reported Perception (Other): none reported Cognition (Impairment of): none reported Cognition(Intelligence Est.): average Oriented: Awake, Alert, Oriented times three Insight: poor Judgment: Poor Psychosis: Denies DIAGNOSES: Major depressive disorder. Borderline personality disorder. Stimulant use disorder Opioid use disorder, in sustained remission. ASSESSMENT:Pt seen and states she's still feels depressed with anhedonia. States she feels her meds are beneficial and she's tolerating them well. Last time pt here she was on abilify bid so may change sound mood not improve with daily dosing in the future. Isolating in her room and not attending groups. Looks disheveled and un-showered still. Highly encourage to go to group, take a shower, not isolate to improve her depression. Denies anxiety, SI/HI, hallucinations, delusions. Feels safe here. MANAGEMENT PLAN: Medications abilify 10mg bid Suboxone 8/2 mg SL daily Gabapentin 800 mg by mouth 4 times a day Effexor XR 225 mg by mouth daily ambien 10mg qhs prn insomnia. TIME SPENT: 30 minutes. Vital Signs Vital Signs Date Time Temp Pulse Resp B/P (MAP) Pulse Ox O2 Delivery O2 Flow Rate FiO2 03/21/19 06:40 97.1 59 12 107/65 (79) 03/19/19 16:50 97 03/19/19 11:41 Room Air Current Medications Current Medications Acetaminophen (Tylenol Tab) 650 mg Q6HP PRN PO HEADACHE or DISCOMFORT Last administered on 03/21/19at 06:43; Start 03/19/19 at 16:15 Al Hydrox/Mg Hydrox/Simethicone (Mylanta) 30 ml Q4HP PRN PO HEARTBURN/INDIGESTION; Start 03/19/19 at 16:15 Amphetamine/ Dextroamphetamine (Adderall) 15 mg BID@0800,1500 PO ; Start 03/20/19 at 08:00; Stop 03/20/19 at 12:06; Status DC Aripiprazole (AbiLIFY) 10 mg DAILY PO ; Start 03/21/19 at 09:00 Buprenorphine/ Naloxone (Suboxone 8/2mg) 1 tab BID@0600,1500 SL Last administered on 03/21/19at 06:13; Start 03/19/19 at 15:00 Estradiol (Estrace) 1 mg DAILY PO Last administered on 03/20/19at 09:36; Start 03/20/19 at 09:00 Gabapentin (Neurontin) 800 mg QID PO Last administered on 03/20/19at 20:00; Start 03/19/19 at 17:00 Home Med (Med Rec Complete!) ASDIRECTED XX ; Start 03/19/19 at 15:30; Stop 03/19/19 at 15:30; Status DC Levothyroxine Sodium (Synthroid) 75 mcg DAILY@0600 PO Last administered on 03/21/19at 06:13; Start 03/20/19 at 06:00 Magnesium Hydroxide (Milk Of Magnesia) 30 ml DAILYPRN PRN PO CONSTIPATION; Start 03/19/19 at 16:15 Pantoprazole Sodium (Protonix) 20 mg DAILY PO Last administered on 03/20/19at 09:36; Start 03/20/19 at 09:00 Trazodone HCl (Desyrel) 50 mg QHSP PRN PO INSOMNIA; Start 03/19/19 at 16:15; Status UNV Venlafaxine HCl (Effexor Xr) 225 mg DAILY PO ; Start 03/21/19 at 09:00 Zolpidem Tartrate (Ambien) 10 mg QHS PO Last administered on 03/20/19at 20:00; Start 03/20/19 at 21:00 Allergies Coded Allergies: mold (Verified Allergy, Unknown, 01/31/19) metoclopramide (Verified Adverse Reaction, Unknown, AKATHISIA, 01/31/19) prochlorperazine (Verified Adverse Reaction, Unknown, AKATHISIA, 01/31/19) quetiapine (Verified Adverse Reaction, Unknown, AGITATED, 03/19/19) trazodone (Verified Adverse Reaction, Unknown, AGITATION, SHAKINESS, 01/31/19) SHASHI GUPTA DO Mar 21, 2019 9:18 am
[2019-03-21] MEDS ORDERED: MECLIZINE 25 MG TABLET PO ONE (14:00)
--- NOTE | 2019-03-21 14:05 | IPNPDOC ---
Date Seen The patient was seen on 03/21/19. Progress Note Subjective: Pt c/p right occipital headache 5/10 pain scale without blurred vision, or double vision. better with pain meds. also c/o vertigo "the room is spinning around, " but walks unassisted without difficulty. no c/o rhinorrhea, cough, congestion, and denies any recent falls. Objective: Physical Examination Vitals: pls see below General Exam: Positive: Alert, Cooperative, No Acute Distress Eye Exam: Positive: PERRLA, Conjunctiva & lids normal, EOMI; Negative: Sclera icteric. mild horizontal nystagmus. ENT Exam: Positive: Atraumatic, Mucous membr. moist/pink, Pharynx Normal Neck Exam: Positive: Supple; Negative: JVD, thyromegaly Chest Exam: Positive: Clear to auscultation, Normal air movement Heart Exam: Positive: Rate Normal, Regular Rhythm, Normal S1, Normal S2; Negative: Murmurs, Rubs Abdomen Exam: Positive: Normal bowel sounds, Soft; Negative: Tenderness, Hepatospenomegaly Extremity Exam: Positive: Normal pulses; Negative: Clubbing, Cyanosis, Edema Skin Exam: Positive: Nl turgor and temperature; Negative: Breakdown, Lesion Neuro Exam: Positive: Normal Speech, Strength at 5/5 X4 ext, Normal Tone Laboratory Data, Imaging Studies, Microbiology: pls see below Assessment/Plan 44 year old female with PMH of seizure disorder, extensive psychiatric history, suicidal attempt in the past, ADHD, polysubstance abuse, on Suboxone presented to the ED for being found nonresponsive at home and felt to have drug overdose. While in the ED she had a witnessed generalized tonic clonic seizure. Following the Seizure she was awake but confused. On my she knew her name and place but was confused about the date. She complained of some headache on the right side. Her headache is mild and constant , dull aching in character without any radiation. She does not have any associated nausea or vomiting or photophobia. She could not remember anything from today. She does not remember if she overdosed on any meds. She thinks she may have had a seizure at home. She believes she was at home with her father. After some prompting she remembered that was coming and inferred that it must be Wednesday. She said she did cocaine and marihuana on Wednesday. However her history is not reliable as she has lots of gaps in her memory and it still confused. I tried calling her father Mr Abisai Watson on the number in EMR a et a message for him to get more history. CT head shwed right parietooccipital hematoma with nondisplaced fracture of the right occipital calvarium without intracranial hemorrhage. As we do not have neurosurgery here I am trying to transfer her to a [facility] with neurosurgical services. She was admitted to [facility] for depression. I am seeing the patient for Medical history and physical. Today she is complaining of persistent dizziness with change of posture, and from turning from side to side in bed. She has has a persistent headache throbbing kind at the site of the head injury on the right parieto temporal region, Denies any nausea or vomiting. Denied any visual disturbance. She was at [place] for 3 days and says no procedure was done. Vertigo OT eval and treat PRN meclizine check orthostatics Psychiatric issues/ ADHD as per psychiatrist Post concussion syndrome Headache and dizziness Head trauma on 03/06/19 it is possible she had a seizure fell and had trauma or she may have overdosed and fell and had the trauma followed by seizure. The story is not clear patient does not remember that day and does not want to ask her father about what happened that day. Right occipital bone non displaced fracture was transferred to [place] neurosurgery from here and was managed and discharged from there in 3 days. tylenol prn for headache OK to continue Subaxone if becomes too sleepy or confused will need to be reduced or dced Seizure most recent episode on 03/06/19 witnessed in our ED. continue gabapentin Polysubstance abuse disorder Cocaine, marijuana H/o IV heroin use in the past will continue suboxane Hypothyroid continue synthroid Plan / VTE VTE Prophylaxis Ordered?: No VTE Exclusion Mechanical Proph: Low Risk for VTE VS, I&O, 24H, Fishbone Vital Signs/I&O Vital Signs Date Time Temp Pulse Resp B/P (MAP) Pulse Ox O2 Delivery O2 Flow Rate FiO2 03/21/19 06:40 97.1 59 12 107/65 (79) 03/19/19 16:50 97 03/19/19 11:41 Room Air IRMA ANN MD Mar 21, 2019 13:46
[2019-03-21 14:37] VITALS: BP 118/68
[2019-03-21 14:40] VITALS: BP 112/62
[2019-03-21 14:44] VITALS: BP 100/58
[2019-03-21 18:00] VITALS: BP 107/58
[2019-03-21] MEDS: zolPIDEM TARTRATE 5 MG TAB PO SCH (20:05)
[2019-03-22] MEDS: LEVOTHYROXINE 75MCG TABLET (0.075MG) PO SCH (05:50)
[2019-03-22] MEDS: BUPRENORPHINE/NALOXONE 8-2MG SUBLINGUAL TABLET(SUBOXONE) SL SCH ×2 (05:50→15:01)
[2019-03-22 06:47] VITALS: BP 126/78
[2019-03-22 06:48] VITALS: BP_SYST 124; BP_SYST 126; BP_SYST 129; BP_DIAS 70; BP_DIAS 78; BP_DIAS 81
[2019-03-22] MEDS: VENLAFAXINE **XR** 75MG CAPSULE PO SCH (08:39)
[2019-03-22] MEDS: GABAPENTIN 400 MG CAP PO SCH ×4 (08:39→20:03)
[2019-03-22] MEDS: ARIPiprazole 10 MG TAB PO SCH (08:39)
[2019-03-22] MEDS: PANTOPRAZOLE 20 MG TAB PO SCH (08:39)
[2019-03-22] MEDS: ESTRADIOL 1 MG TAB PO SCH (08:39)
[2019-03-22] MEDS: MECLIZINE 25 MG TABLET PO PRN (09:28)
--- NOTE | 2019-03-22 09:29 | MHIPNPDOC ---
[facility] Progress Note Progress Note DATE OF SERVICE: 03/22/19 HISTORY: Patient is a 43 -year-old , female, with a history of depression, substance abuse, borderline personality d/o, frequent admissions [facility] in past with last 01/31/19 who presented to ED endorsing passive SI stating "not wanting to be here any more" stating she and others feel she needs to be in the hospital per the ED. Pt also endorsed daily crack cocaine use, as much as she could afford, utox positiive. Stated she was "kind of suicidal" in ED endorsing vague SI with no plan/intent. Per hospital records pt had a tonic clonic seizure witnessed with hematoma after and brought to ED then sent to [facility] for neurologic services. Pt was d/c to rehab when last here but only stayed a week due to insurance not paying for longer. Per ED, pt seen by Dr. Higgins that felt she did not need to be admitted due to complaint yet pt intent on being admitted, becoming agitated and crying stating "I just want to be upstairs ([facility]). Pt was admitted in January due to similar complain and reason. She denied intent or plan for suicide in ED. Denied HI, hallucinations, delusions. VITAL SIGNS: See below. NEW TEST RESULTS: See below. CURRENT MEDICATIONS: See below. MENTAL STATUS EXAMINATION: General Appearance: unkempt, disheveled, appears stated age, hospital scrubs/clothing Build: overweight Demeanor: withdrawn Eye Contact: fair Activity: slowed Behavior: cooperative, withdrawn Speech: clear, spontaneous, reg/rate,rhythm,volume Mood: depressed Mood "the same" Affect: constricted, flat, congruent Thought Process: logical/linear, depressed, slow Thought Content (Delusions): none reported, denies SI, HI, AVH Thought Content (Other): none reported, appropriate Thought Content (Aggressive): none reported Perception (Hallucinations): none reported Perception (Other): none reported Cognition (Impairment of): none reported Cognition(Intelligence Est.): average Oriented: Awake, Alert, Oriented times three Insight: poor Judgment: Poor Psychosis: Denies DIAGNOSES: Major depressive disorder. Borderline personality disorder. Stimulant use disorder Opioid use disorder, in sustained remission. ASSESSMENT:Pt seen and states she's still feels depressed with anhedonia although did get out of bed to read the paper in the day room this am. Is awaiting taking a shower for the first time since admitted and states she plans to attended groups today. States she feels her meds are beneficial and she's tolerating them well. Agreeable to adding abilify 5mg qhs for mood augmentation (last time was here was on 15mg total daily that was beneficial). Isolating in her room and not attending groups per staff. Looks disheveled and un-showered still. Highly encourage to go to group, take a shower, not isolate to improve her depression. Denies anxiety, SI/HI, hallucinations, delusions. Feels safe here. Per staff pt having dizziness upon standing possibly related to recent head injury. Will get bid orthostatics and decrease suboxone to 4/1mg bid to aid. MANAGEMENT PLAN: Medications abilify 10mg qam and 5mg qhs Suboxone 4/1 mg SL daily Gabapentin 800 mg by mouth 4 times a day Effexor XR 225 mg by mouth daily ambien 10mg qhs prn insomnia. TIME SPENT: 30 minutes. Vital Signs Vital Signs Date Time Temp Pulse Resp B/P (MAP) Pulse Ox O2 Delivery O2 Flow Rate FiO2 03/22/19 06:48 64 126/78 (94) 65 124/70 (88) 77 129/81 (97) 03/22/19 06:47 98.5 14 03/19/19 16:50 97 03/19/19 11:41 Room Air Current Medications Current Medications Acetaminophen (Tylenol Tab) 650 mg Q6HP PRN PO HEADACHE or DISCOMFORT Last administered on 03/21/19at 06:43; Start 03/19/19 at 16:15 Al Hydrox/Mg Hydrox/Simethicone (Mylanta) 30 ml Q4HP PRN PO HEARTBURN/INDIGESTION; Start 03/19/19 at 16:15 Amphetamine/ Dextroamphetamine (Adderall) 15 mg BID@0800,1500 PO ; Start 03/20/19 at 08:00; Stop 03/20/19 at 12:06; Status DC Aripiprazole (AbiLIFY) 10 mg DAILY PO Last administered on 03/22/19at 08:39; Start 03/21/19 at 09:00 Buprenorphine/ Naloxone (Suboxone 8/2mg) 1 tab BID@0600,1500 SL Last administered on 03/22/19 05:50; Start 03/19/19 at 15:00 Estradiol (Estrace) 1 mg DAILY PO Last administered on 03/22/19 08:39; Start 03/20/19 at 09:00 Gabapentin (Neurontin) 800 mg QID PO Last administered on 03/22/19 08:39; Start 03/19/19 at 17:00 Home Med (Med Rec Complete!) ASDIRECTED XX ; Start 03/19/19 at 15:30; Stop 03/19/19 at 15:30; Status DC Levothyroxine Sodium (Synthroid) 75 mcg DAILY@0600 PO Last administered on 03/22/19 05:50; Start 03/20/19 at 06:00 Magnesium Hydroxide (Milk Of Magnesia) 30 ml DAILYPRN PRN PO CONSTIPATION; Start 03/19/19 at 16:15 Meclizine HCl (Antivert) 25 mg Q4HP PRN PO DIZZINESS; Start 03/21/19 at 14:00 Pantoprazole Sodium (Protonix) 20 mg DAILY PO Last administered on 03/22/19at 08:39; Start 03/20/19 at 09:00 Trazodone HCl (Desyrel) 50 mg QHSP PRN PO INSOMNIA; Start 03/19/19 at 16:15; S tatus UNV Venlafaxine HCl (Effexor Xr) 225 mg DAILY PO Last administered on 03/22/19at 08:39; Start 03/21/19 at 09:00 Zolpidem Tartrate (Ambien) 10 mg QHS PO Last administered on 03/21/19at 20:05; Start 03/20/19 at 21:00 Allergies Coded Allergies: mold (Verified Allergy, Unknown, 01/31/19) metoclopramide (Verified Adverse Reaction, Unknown, AKATHISIA, 01/31/19) prochlorperazine (Verified Adverse Reaction, Unknown, AKATHISIA, 01/31/19) quetiapine (Verified Adverse Reaction, Unknown, AGITATED, 03/19/19) trazodone (Verified Adverse Reaction, Unknown, AGITATION, SHAKINESS, 01/31/19) SHASHI GUPTA DO Mar 22, 2019 9:29 am
--- NOTE | 2019-03-22 11:12 | IPNPDOC ---
Date Seen The patient was seen on 03/22/19. Progress Note Subjective: No c/o headache, but still having dizziness described as "room spinning" when she turns her head. No c/o blurred vision, diplopia, gait ataxia, upper or lower extremity paresthesias or weakness. Pt was found to be orthostatic yesterday and encouraged to take 2liters or more of liquids which RN has documented. PT consulted for vertigo. Pt concerned about her suboxone dose being reduced. Pt is much more awake and alert, and should be on her home dose of suboxone. Pt also concerned about not taking keppra from recent tonic clonic seizure. It would be prudent to resume. Objective: Physical Examination Vitals: pls see below General Exam: Positive: Alert, Cooperative, No Acute Distress Eye Exam: Positive: PERRLA, Conjunctiva & lids normal, EOMI; Negative: Sclera icteric. mild horizontal nystagmus. ENT Exam: Positive: Atraumatic, Mucous membr. moist/pink, Pharynx Normal Neck Exam: Positive: Supple; Negative: JVD, thyromegaly Chest Exam: Positive: Clear to auscultation, Normal air movement Heart Exam: Positive: Rate Normal, Regular Rhythm, Normal S1, Normal S2; Negative: Murmurs, Rubs Abdomen Exam: Positive: Normal bowel sounds, Soft; Negative: Tenderness, Hepatospenomegaly Extremity Exam: Positive: Normal pulses; Negative: Clubbing, Cyanosis, Edema Skin Exam: Positive: Nl turgor and temperature; Negative: Breakdown, Lesion Neuro Exam: Positive: Normal Speech, Strength at 5/5 X4 ext, Normal Tone Laboratory Data, Imaging Studies, Microbiology: pls see below Assessment/Plan 44 year old female with PMH of seizure disorder, extensive psychiatric history, suicidal attempt in the past, ADHD, polysubstance abuse, on Suboxone presented to the ED for being found nonresponsive at home and felt to have drug overdose. While in the ED she had a witnessed generalized tonic clonic seizure. Following the Seizure she was awake but confused. On my she knew her name and place but was confused about the date. She complained of some headache on the right side. Her headache is mild and constant , dull aching in character without any radiation. She does not have any associated nausea or vomiting or photophobia. She could not remember anything from today. She does not remember if she overdosed on any meds. She thinks she may have had a seizure at home. She believes she was at home with her father. After some prompting she remembered that was coming and inferred that it must be Wednesday. She said she did cocaine and marihuana on Wednesday. However her history is not reliable as she has lots of gaps in her memory and it still confused. I tried calling her father Mr Abisai Watson on the number in EMR a et a message for him to get more history. CT head shwed right parietooccipital hematoma with nondisplaced fracture of the right occipital calvarium without intracranial hemorrhage. As we do not have neurosurgery here I am trying to transfer her to a [facility] with neurosurgical services. She was admitted to [facility] for depression. I am seeing the patient for Medical history and physical. Today she is complaining of persistent dizziness with change of posture, and from turning from side to side in bed. She has has a persistent headache throbbing kind at the site of the head injury on the right parieto temporal region, Denies any nausea or vomiting. Denied any visual disturbance. She was at [place] for 3 days and says no procedure was done. Vertigo PT eval and treat scheduled meclizine orthostatics-encourage 2liter fluid intake daily Psychiatric issues/ ADHD as per psychiatrist Post concussion syndrome Headache and dizziness Head trauma on 03/06/19 it is possible she had a seizure fell and had trauma or she may have overdosed and fell and had the trauma followed by seizure. The story is not clear patient does not remember that day and does not want to ask her father about what happened that day. Right occipital bone non displaced fracture was transferred to [place] neurosurgery from here and was managed and discharged from there in 3 days. tylenol prn for headache since mentation is back to baseline, ok to resume home dose of suboxone. resume home dose of keppra Seizure most recent episode on 03/06/19 witnessed in our ED. continue gabapentin resume keppra as previously prescribed. Polysubstance abuse disorder Cocaine, marijuana H/o IV heroin use in the past will continue suboxane Hypothyroid continue synthroid Plan / VTE VTE Prophylaxis Ordered?: No VTE Exclusion Mechanical Proph: Low Risk for VTE VS, I&O, 24H, Fishbone Vital Signs/I&O Vital Signs Date Time Temp Pulse Resp B/P (MAP) Pulse Ox O2 Delivery O2 Flow Rate FiO2 03/22/19 06:48 64 126/78 (94) 65 124/70 (88) 77 129/81 (97) 03/22/19 06:47 98.5 14 03/19/19 16:50 97 03/19/19 11:41 Room Air I&O- Last 24 Hours up to 6 AM 03/22/19 06:00 Intake Total 940 ml Balance 940 ml IRMA ANN MD Mar 22, 2019 11:12
[2019-03-22] MEDS: levETIRAcetam 250MG TABLET (KEPPRA) PO SCH ×2 (11:56→20:02)
[2019-03-22 16:00] VITALS: BP_SYST 110; BP_SYST 112; BP_SYST 117; BP_DIAS 65; BP_DIAS 66; BP_DIAS 74
[2019-03-22] MEDS: zolPIDEM TARTRATE 5 MG TAB PO SCH (20:02)
[2019-03-22] MEDS ORDERED: BUPRENORPHINE/NALOXONE 8-2MG SUBLINGUAL TABLET(SUBOXONE) SL SCH ×2 (21:00)
[2019-03-23] MEDS: BUPRENORPHINE/NALOXONE 8-2MG SUBLINGUAL TABLET(SUBOXONE) SL SCH ×2 (06:21→15:10)
[2019-03-23] MEDS: LEVOTHYROXINE 75MCG TABLET (0.075MG) PO SCH (06:21)
[2019-03-23 06:48] VITALS: BP_SYST 116; BP_SYST 119; BP_SYST 126; BP_DIAS 62; BP_DIAS 63; BP_DIAS 66
[2019-03-23 06:49] VITALS: BP 119/66
[2019-03-23] MEDS: VENLAFAXINE **XR** 75MG CAPSULE PO SCH (08:56)
[2019-03-23] MEDS: ARIPiprazole 10 MG TAB PO SCH (08:56)
[2019-03-23] MEDS: GABAPENTIN 400 MG CAP PO SCH ×4 (08:57→20:00)
[2019-03-23] MEDS: PANTOPRAZOLE 20 MG TAB PO SCH (08:57)
[2019-03-23] MEDS: ESTRADIOL 1 MG TAB PO SCH (08:57)
[2019-03-23] MEDS: levETIRAcetam 250MG TABLET (KEPPRA) PO SCH ×2 (08:57→20:00)
--- NOTE | 2019-03-23 09:25 | MHIPNPDOC ---
[facility] Progress Note Progress Note DATE OF SERVICE: 03/23/19 HISTORY: Patient is a 43 -year-old , female, with a history of depression, substance abuse, borderline personality d/o, frequent admissions [facility] in past with last 01/31/19 who presented to ED endorsing passive SI stating "not wanting to be here any more" stating she and others feel she needs to be in the hospital per the ED. Pt also endorsed daily crack cocaine use, as much as she could afford, utox positiive. Stated she was "kind of suicidal" in ED endorsing vague SI with no plan/intent. Per hospital records pt had a tonic clonic seizure witnessed with hematoma after and brought to ED then sent to [facility] for neurologic services. Pt was d/c to rehab when last here but only stayed a week due to insurance not paying for longer. Per ED, pt seen by Dr. Higgins that felt she did not need to be admitted due to complaint yet pt intent on being admitted, becoming agitated and crying stating "I just want to be upstairs ([facility]). Pt was admitted in January due to similar complain and reason. She denied intent or plan for suicide in ED. Denied HI, hallucinations, delusions. VITAL SIGNS: See below. NEW TEST RESULTS: See below. CURRENT MEDICATIONS: See below. MENTAL STATUS EXAMINATION: General Appearance: unkempt, disheveled, appears stated age, hospital scrubs/clothing Build: overweight Demeanor: agitated about suboxone Eye Contact: fair Activity: slowed Behavior: cooperative, agitated about suboxone Speech: clear, spontaneous, reg/rate,rhythm,volume Mood: agitated Mood "you have no right to change my suboxone" Affect: agitated Thought Process: logical/linear, reactive Thought Content (Delusions): none reported, denies SI, HI, AVH Thought Content (Other): none reported, appropriate Thought Content (Aggressive): none reported Perception (Hallucinations): none reported Perception (Other): none reported Cognition (Impairment of): none reported Cognition(Intelligence Est.): average Oriented: Awake, Alert, Oriented times three Insight: poor Judgment: Poor Psychosis: Denies DIAGNOSES: Major depressive disorder. Borderline personality disorder. Stimulant use disorder Opioid use disorder, in sustained remission. ASSESSMENT:Pt seen and states she's still feels a bit better at first since going to groups and showing. Became angry, agitated, calling me names "a snooty bitch" b/c I changed her suboxone to 1/2 bid. Demanding it be changed back which was done by Dr. Chew yesterday. Feels better that it's back to it's original dose. Denies anxiety, SI/HI, hallucinations, delusions. Feels safe here. MANAGEMENT PLAN: Medications abilify 10mg qam and 5mg qhs Suboxone 8/2 mg SL bid - changed back by Dr. Chew Gabapentin 800 mg by mouth 4 times a day Effexor XR 225 mg by mouth daily ambien 10mg qhs prn insomnia. Keppra 250mg bid - by Dr. Chew TIME SPENT: 30 minutes. Vital Signs Vital Signs Date Time Temp Pulse Resp B/P (MAP) Pulse Ox O2 Delivery O2 Flow Rate FiO2 03/23/19 06:49 97.8 67 14 119/66 (83) 03/19/19 16:50 97 03/19/19 11:41 Room Air Current Medications Current Medications Acetaminophen (Tylenol Tab) 650 mg Q6HP PRN PO HEADACHE or DISCOMFORT Last administered on 03/21/19at 06:43; Start 03/19/19 at 16:15 Al Hydrox/Mg Hydrox/Simethicone (Mylanta) 30 ml Q4HP PRN PO HEARTBURN/INDIGESTION; Start 03/19/19 at 16:15 Amphetamine/ Dextroamphetamine (Adderall) 15 mg BID@0800,1500 PO ; Start 03/20/19 at 08:00; Stop 03/20/19 at 12:06; Status DC Aripiprazole (AbiLIFY) 5 mg QHS PO Last administered on 03/22/19at 20:02; Start 03/22/19 at 21:00 Aripiprazole (AbiLIFY) 10 mg DAILY PO Last administered on 03/23/19at 08:56; Start 03/21/19 at 09:00 Buprenorphine/ Naloxone (Suboxone 8/2mg) 0.5 tab BID SL ; Start 03/22/19 at 21:00; Stop 03/22/19 at 21:00; Status DC Buprenorphine/ Naloxone (Suboxone 8/2mg) 1 tab BID SL ; Start 03/22/19 at 21:00; Stop 03/22/19 at 21:00; Status DC Buprenorphine/ Naloxone (Suboxone 8/2mg) 1 tab BID@0600,1500 SL Last administered on 03/23/19 06:21; Start 03/22/19 at 15:00 Buprenorphine/ Naloxone (Suboxone 8/2mg) 1 tab BID@0600,1500 SL Last administered on 03/22/19 05:50; Start 03/19/19 at 15:00; Stop 03/22/19 at 10:36; Status DC Estradiol (Estrace) 1 mg DAILY PO Last administered on 03/23/19 08:57; Start 03/20/19 at 09:00 Gabapentin (Neurontin) 800 mg QID PO Last administered on 03/23/19 08:57; Start 03/19/19 at 17:00 Home Med (Med Rec Complete!) ASDIRECTED XX ; Start 03/19/19 at 15:30; Stop 03/19/19 at 15:30; Status DC Levetiracetam (Keppra) 250 mg BID PO Last administered on 03/23/19 08:57; Start 03/22/19 at 09:00 Levothyroxine Sodium (Synthroid) 75 mcg DAILY@0600 PO Last administered on 03/23/19 06:21; Start 03/20/19 at 06:00 Magnesium Hydroxide (Milk Of Magnesia) 30 ml DAILYPRN PRN PO CONSTIPATION; Start 03/19/19 at 16:15 Meclizine HCl (Antivert) 25 mg Q4HP PRN PO DIZZINESS Last administered on 03/22/19 09:28; Start 03/21/19 at 14:00 Pantoprazole Sodium (Protonix) 20 mg DAILY PO Last administered on 03/23/19 08:57; Start 03/20/19 at 09:00 Trazodone HCl (Desyrel) 50 mg QHSP PRN PO INSOMNIA; Start 03/19/19 at 16:15; Status UNV Venlafaxine HCl (Effexor Xr) 225 mg DAILY PO Last administered on 03/23/19 08:56; Start 03/21/19 at 09:00 Zolpidem Tartrate (Ambien) 10 mg QHS PO Last administered on 6/12/19at 20:02; Start 03/20/19 at 21:00 Allergies Coded Allergies: mold (Verified Allergy, Unknown, 01/31/19) metoclopramide (Verified Adverse Reaction, Unknown, AKATHISIA, 01/31/19) prochlorperazine (Verified Adverse Reaction, Unknown, AKATHISIA, 01/31/19) quetiapine (Verified Adverse Reaction, Unknown, AGITATED, 03/19/19) trazodone (Verified Adverse Reaction, Unknown, AGITATION, SHAKINESS, 01/31/19) SHASHI GUPTA DO Mar 23, 2019 9:24 am
--- NOTE | 2019-03-23 11:12 | IPNPDOC ---
Subjective Date Seen The patient was seen on 03/23/19. Subjective Chief Complaint/HPI 44 year old female, past medical history significant for generalized tonic- clonic seizures and other mental health issues including recent suicidal ideation, depression, polysubstance abuse. Events since last encounter Followed for management assessment of seizure disorder.. Today. Reports headache is completely resolved and dizziness is also resolved. Has not had any seizure activity. Objective Physical Examination General Exam: Positive: Alert, Cooperative, No Acute Distress Eye Exam: Positive: PERRLA, Conjunctiva & lids normal, EOMI ENT Exam: Positive: Atraumatic, Mucous membr. moist/pink, Pharynx Normal Neck Exam: Positive: Supple Chest Exam: Positive: Clear to auscultation, Normal air movement Heart Exam: Positive: Rate Normal, Regular Rhythm, Normal S1, Normal S2 Abdomen Exam: Positive: Normal bowel sounds, Soft Extremity Exam: Positive: Normal pulses Skin Exam: Positive: Nl turgor and temperature Neuro Exam: Positive: Normal Speech, Strength at 5/5 X4 ext, Normal Tone Assessment /Plan Assessment Vertigo -Resolved Seizure -Keppra resumed and continued on gabapentin. -Seizure precautions Hypothyroid continue synthroid Polysubstance abuse disorder -Management by primary team Psychiatric issues/ ADHD -Management by primary team Plan/VTE VTE Prophylaxis Ordered?: No VTE Exclusion Mechanical Proph: Low Risk for VTE VS, I&O, 24H, Fishbone Vital Signs/I&O Vital Signs Date Time Temp Pulse Resp B/P (MAP) Pulse Ox O2 Delivery O2 Flow Rate FiO2 03/23/19 06:49 97.8 67 14 119/66 (83) 03/19/19 16:50 97 03/19/19 11:41 Room Air I&O- Last 24 Hours up to 6 AM 03/23/19 06:00 Intake Total 720 ml Output Total 900 ml Balance -180 ml YAZMIN BARAHONAP Mar 23, 2019 11:12
[2019-03-23 18:00] VITALS: BP_SYST 105; BP_SYST 108; BP_SYST 96; BP_DIAS 60; BP_DIAS 63; BP_DIAS 66
[2019-03-23] MEDS: zolPIDEM TARTRATE 5 MG TAB PO SCH (20:00)
[2019-03-24] MEDS: BUPRENORPHINE/NALOXONE 8-2MG SUBLINGUAL TABLET(SUBOXONE) SL SCH ×2 (06:10→14:54)
[2019-03-24] MEDS: LEVOTHYROXINE 75MCG TABLET (0.075MG) PO SCH (06:10)
[2019-03-24 07:00] VITALS: BP 121/63
[2019-03-24] MEDS ORDERED: SENOKOT S TAB PO PRN (09:00)
--- NOTE | 2019-03-24 09:00 | MHIPNPDOC ---
[facility] Progress Note Progress Note DATE OF SERVICE: 03/24/19 HISTORY: Patient is a 43 -year-old , female, with a history of depression, substance abuse, borderline personality d/o, frequent admissions [facility] in past with last 01/31/19 who presented to ED endorsing passive SI stating "not wanting to be here any more" stating she and others feel she needs to be in the hospital per the ED. Pt also endorsed daily crack cocaine use, as much as she could afford, utox positiive. Stated she was "kind of suicidal" in ED endorsing vague SI with no plan/intent. Per hospital records pt had a tonic clonic seizure witnessed with hematoma after and brought to ED then sent to [facility] for neurologic services. Pt was d/c to rehab when last here but only stayed a week due to insurance not paying for longer. Per ED, pt seen by Dr. Higgins that felt she did not need to be admitted due to complaint yet pt intent on being admitted, becoming agitated and crying stating "I just want to be upstairs ([facility] Pt was admitted in January due to similar complain and reason. She denied intent or plan for suicide in ED. Denied HI, hallucinations, delusions. VITAL SIGNS: See below. NEW TEST RESULTS: See below. CURRENT MEDICATIONS: See below. MENTAL STATUS EXAMINATION: General Appearance: unkempt, disheveled, appears stated age, hospital scrubs/clothing Build: overweight Demeanor: flat Eye Contact: fair Activity: slowed Behavior: cooperative Speech: clear, spontaneous, reg/rate,rhythm,volume Mood: constricted, flat, depressed Mood "cracky" Affect: constricted, flat, depressed Thought Process: logical/linear Thought Content (Delusions): none reported, denies SI, HI, AVH Thought Content (Other): none reported, appropriate Thought Content (Aggressive): none reported Perception (Hallucinations): none reported Perception (Other): none reported Cognition (Impairment of): none reported Cognition(Intelligence Est.): average Oriented: Awake, Alert, Oriented times three Insight: poor Judgment: Poor Psychosis: Denies DIAGNOSES: Major depressive disorder. Borderline personality disorder. Stimulant use disorder Opioid use disorder, in sustained remission. ASSESSMENT:Pt seen and states she's still feels "cracky" today as her stomach feels bloated and she has seen some blood in her urine. Admits she has a history of kidney stones. States she has not had a bowel movement since admission and stomach bloat may be from constipation, agreeable to doculax times one to relieve. Much more cooperative and pleasant today when seen. Denies anxiety, SI/HI, hallucinations, delusions. Feels safe here. MANAGEMENT PLAN: pelvic xray to r/o kidney stones, doculax x1 for constipation Medications abilify 10mg qam and 5mg qhs Suboxone 8/2 mg SL bid - changed back by Dr. Chew Gabapentin 800 mg by mouth 4 times a day Effexor XR 225 mg by mouth daily ambien 10mg qhs prn insomnia. Keppra 250mg bid - by Dr. Chew TIME SPENT: 30 minutes. Vital Signs Vital Signs Date Time Temp Pulse Resp B/P (MAP) Pulse Ox O2 Delivery O2 Flow Rate FiO2 03/24/19 07:00 98.2 75 16 121/63 (82) 03/19/19 16:50 97 03/19/19 11:41 Room Air Current Medications Current Medications Acetaminophen (Tylenol Tab) 650 mg Q6HP PRN PO HEADACHE or DISCOMFORT Last administered on 03/21/19at 06:43; Start 03/19/19 at 16:15 Al Hydrox/Mg Hydrox/Simethicone (Mylanta) 30 ml Q4HP PRN PO HEARTBURN/INDIGESTION; Start 03/19/19 at 16:15 Amphetamine/ Dextroamphetamine (Adderall) 15 mg BID@0800,1500 PO ; Start 03/20/19 at 08:00; Stop 03/20/19 at 12:06; Status DC Aripiprazole (AbiLIFY) 5 mg QHS PO Last administered on 03/23/19at 20:00; Start 03/22/19 at 21:00 Aripiprazole (AbiLIFY) 10 mg DAILY PO Last administered on 03/23/19at 08:56; Start 03/21/19 at 09:00 Buprenorphine/ Naloxone (Suboxone 8/2mg) 0.5 tab BID SL ; Start 03/22/19 at 21:00; Stop 03/22/19 at 21:00; Status DC Buprenorphine/ Naloxone (Suboxone 8/2mg) 1 tab BID SL ; Start 03/22/19 at 21:00; Stop 03/22/19 at 21:00; Status DC Buprenorphine/ Naloxone (Suboxone 8/2mg) 1 tab BID@0600,1500 SL Last administered on 03/24/19 06:10; Start 03/22/19 at 15:00 Buprenorphine/ Naloxone (Suboxone 8/2mg) 1 tab BID@0600,1500 SL Last administered on 03/22/19 05:50; Start 03/19/19 at 15:00; Stop 03/22/19 at 10:36; Status DC Estradiol (Estrace) 1 mg DAILY PO Last administered on 03/23/19 08:57; Start 03/20/19 at 09:00 Gabapentin (Neurontin) 800 mg QID PO Last administered on 03/23/19 20:00; Start 03/19/19 at 17:00 Home Med (Med Rec Complete!) ASDIRECTED XX ; Start 03/19/19 at 15:30; Stop 03/19/19 at 15:30; Status DC Levetiracetam (Keppra) 250 mg BID PO Last administered on 03/23/19 20:00; Start 03/22/19 at 09:00 Levothyroxine Sodium (Synthroid) 75 mcg DAILY@0600 PO Last administered on 03/24/19 06:10; Start 03/20/19 at 06:00 Magnesium Hydroxide (Milk Of Magnesia) 30 ml DAILYPRN PRN PO CONSTIPATION; Start 03/19/19 at 16:15 Meclizine HCl (Antivert) 25 mg Q4HP PRN PO DIZZINESS Last administered on 03/22/19 09:28; Start 03/21/19 at 14:00 Pantoprazole Sodium (Protonix) 20 mg DAILY PO Last administered on 03/23/19 08:57; Start 03/20/19 at 09:00 Trazodone HCl (Desyrel) 50 mg QHSP PRN PO INSOMNIA; Start 03/19/19 at 16:15; Status UNV Venlafaxine HCl (Effexor Xr) 225 mg DAILY PO Last administered on 03/23/19 08:56; Start 03/21/19 at 09:00 Zolpidem Tartrate (Ambien) 10 mg QHS PO Last administered on 6/13/19at 20:00; Start 03/20/19 at 21:00 Allergies Coded Allergies: mold (Verified Allergy, Unknown, 01/31/19) metoclopramide (Verified Adverse Reaction, Unknown, AKATHISIA, 01/31/19) prochlorperazine (Verified Adverse Reaction, Unknown, AKATHISIA, 01/31/19) quetiapine (Verified Adverse Reaction, Unknown, AGITATED, 03/19/19) trazodone (Verified Adverse Reaction, Unknown, AGITATION, SHAKINESS, 01/31) SHASHI GUPTA DO Mar 24, 2019 9:00 am
[2019-03-24] MEDS: VENLAFAXINE **XR** 75MG CAPSULE PO SCH (09:16)
[2019-03-24] MEDS: ARIPiprazole 10 MG TAB PO SCH (09:16)
[2019-03-24] MEDS: PANTOPRAZOLE 20 MG TAB PO SCH (09:16)
[2019-03-24] MEDS: GABAPENTIN 400 MG CAP PO SCH ×4 (09:16→20:00)
[2019-03-24] MEDS: levETIRAcetam 250MG TABLET (KEPPRA) PO SCH ×2 (09:16→20:00)
[2019-03-24] MEDS: ESTRADIOL 1 MG TAB PO SCH (09:16)
[2019-03-24] MEDS ORDERED: SENOKOT S TAB PO ONE (10:00)
--- NOTE | 2019-03-24 10:20 | REP ---
CT ABDOMEN AND PELVIS WITHOUT CONTRAST: CT abdomen and pelvis performed without oral or IV contrast. Sagittal and coronal reconstruction images are performed. The visualized lung bases demonstrate no evidence of infiltrate. The liver, gallbladder, spleen, adrenals, pancreas and right kidney are grossly unremarkable. Left kidney demonstrates two cystic structures, one superiorly and posteriorly measuring 1 cm in diameter and the other more inferiorly and medially 2 cm in diameter. No renal, ureteral, or bladder calculus is seen. There is no hydroureteronephrosis. There is no abdominal aortic aneurysm. There is no adenopathy. There is no free air or free fluid. No bowel wall thickening is seen. No pelvic mass is seen. IMPRESSION: No renal, ureteral, or bladder calculus. No hydroureteronephrosis. Two left renal cysts are noted. Electronically Signed by Gilmer Toussaint MD 03/24/2019 07:27 P
[2019-03-24 15:32] VITALS: BP_SYST 104; BP_SYST 112; BP_SYST 118; BP_DIAS 60; BP_DIAS 62; BP_DIAS 68
[2019-03-24] MEDS: ACETAMINOPHEN TAB 650MG DOSE (2X325MG) PO PRN (19:50)
[2019-03-24] MEDS: zolPIDEM TARTRATE 5 MG TAB PO SCH (20:00)
[2019-03-25] MEDS: LEVOTHYROXINE 75MCG TABLET (0.075MG) PO SCH (06:34)
[2019-03-25] MEDS: BUPRENORPHINE/NALOXONE 8-2MG SUBLINGUAL TABLET(SUBOXONE) SL SCH ×2 (06:34→15:18)
[2019-03-25 07:05] VITALS: BP 106/21
[2019-03-25 07:07] VITALS: BP_SYST 100; BP_SYST 106; BP_SYST 114; BP_DIAS 55; BP_DIAS 61; BP_DIAS 65
[2019-03-25] MEDS: GABAPENTIN 400 MG CAP PO SCH ×4 (08:21→20:00)
[2019-03-25] MEDS: VENLAFAXINE **XR** 75MG CAPSULE PO SCH (08:21)
[2019-03-25] MEDS: levETIRAcetam 250MG TABLET (KEPPRA) PO SCH ×2 (08:21→20:00)
[2019-03-25] MEDS: ESTRADIOL 1 MG TAB PO SCH (08:21)
[2019-03-25] MEDS: ARIPiprazole 10 MG TAB PO SCH (08:21)
[2019-03-25] MEDS: PANTOPRAZOLE 20 MG TAB PO SCH (08:21)
[2019-03-25 16:19] VITALS: BP_SYST 108; BP_SYST 112; BP_SYST 118; BP_DIAS 57; BP_DIAS 58
[2019-03-25] MEDS: zolPIDEM TARTRATE 5 MG TAB PO SCH (20:00)
[2019-03-26] MEDS: LEVOTHYROXINE 75MCG TABLET (0.075MG) PO SCH (06:09)
[2019-03-26] MEDS: BUPRENORPHINE/NALOXONE 8-2MG SUBLINGUAL TABLET(SUBOXONE) SL SCH ×2 (06:09→14:59)
[2019-03-26 06:47] VITALS: BP 115/72
--- NOTE | 2019-03-26 06:49 | MHIPNPDOC ---
[facility] Progress Note Progress Note DATE OF SERVICE: 03/25/19 HISTORY: 44-year-old female with numerous admissions and extensive cocaine use. VITAL SIGNS: See below. NEW TEST RESULTS: CURRENT MEDICATIONS: See below. MENTAL STATUS EXAMINATION: Patient is a 44-year old female, who is admitted for's suicidal ideation associated with extensive drug use. Speech: Is. Normal. Language skills are. No gross abnormality. Thought processes including: Denies hallucinations, delusions, obsessions, compulsions, phobias. Thought content:, As above. Abstract reasoning, and computation:, Able to abstract. Description of associations: No loose associations. Description of abnormal or psychotic thoughts:. No psychotic thought noted. Judgment: Poor. Insight:, Limited. Orientation: 3 intact. Recent and remote memory:. No disturbance of memory. Attention span and concentration: Intact. Language:, As above. Fund of knowledge:, Full. Mood:, Euthymic. Affect:, Congruent. DIAGNOSES: 1., Depression. 2., Substance abuse. . ASSESSMENT: Need to reestablish substance abuse treatment MANAGEMENT PLAN: As above. TIME SPENT:. 35 minutes. Vital Signs Vital Signs Date Time Temp Pulse Resp B/P (MAP) Pulse Ox O2 Delivery O2 Flow Rate FiO2 03/25/19 16:19 69 118/58 (78) 74 108/57 (74) 97 112/58 (76) 03/25/19 07:05 96.1 14 Current Medications Current Medications Acetaminophen (Tylenol Tab) 650 mg Q6HP PRN PO HEADACHE or DISCOMFORT Last administered on 03/24/19at 19:50; Start 03/19/19 at 16:15 Al Hydrox/Mg Hydrox/Simethicone (Mylanta) 30 ml Q4HP PRN PO HEARTBURN/INDIGESTION; Start 03/19/19 at 16:15 Amphetamine/ Dextroamphetamine (Adderall) 15 mg BID@0800,1500 PO ; Start 03/20/19 at 08:00; Stop 03/20/19 at 12:06; Status DC Aripiprazole (AbiLIFY) 5 mg QHS PO Last administered on 03/25/19at 20:00; Start 03/22/19 at 21:00 Aripiprazole (AbiLIFY) 10 mg DAILY PO Last administered on 03/25/19at 08:21; S tart 03/21/19 at 09:00 Buprenorphine/ Naloxone (Suboxone 8/2mg) 0.5 tab BID SL ; Start 03/22/19 at 21:00; Stop 03/22/19 at 21:00; Status DC Buprenorphine/ Naloxone (Suboxone 8/2mg) 1 tab BID SL ; Start 03/22/19 at 21:00; Stop 03/22/19 at 21:00; Status DC Buprenorphine/ Naloxone (Suboxone 8/2mg) 1 tab BID@0600,1500 SL Last administered on 03/26/19at 06:09; Start 03/22/19 at 15:00 Buprenorphine/ Naloxone (Suboxone 8/2mg) 1 tab BID@0600,1500 SL Last administered on 03/22/19at 05:50; Start 03/19/19 at 15:00; Stop 03/22/19 at 10:36; Status DC Estradiol (Estrace) 1 mg DAILY PO Last administered on 03/25/19at 08:21; Start 03/20/19 at 09:00 Gabapentin (Neurontin) 800 mg QID PO Last administered on 03/25/19at 20:00; Start 03/19/19 at 17:00 Home Med (Med Rec Complete!) ASDIRECTED XX ; Start 03/19/19 at 15:30; Stop 03/19/19 at 15:30; Status DC Levetiracetam (Keppra) 250 mg BID PO Last administered on 03/25/19at 20:00; Start 03/22/19 at 09:00 Levothyroxine Sodium (Synthroid) 75 mcg DAILY@0600 PO Last administered on 03/11 03/29at 06:09; Start 03/20/19 at 06:00 Magnesium Hydroxide (Milk Of Magnesia) 30 ml DAILYPRN PRN PO CONSTIPATION; Start 03/19/19 at 16:15 Meclizine HCl (Antivert) 25 mg Q4HP PRN PO DIZZINESS Last administered on 03/22/19at 09:28; Start 03/21/19 at 14:00 Pantoprazole Sodium (Protonix) 20 mg DAILY PO Last administered on 03/25/19at 08:21; Start 03/20/19 at 09:00 Senna/Docusate Sodium (Senokot S) 1 tab QHSP PRN PO CONSTIPATION; Start 03/24/19 at 09:00 Trazodone HCl (Desyrel) 50 mg QHSP PRN PO INSOMNIA; Start 03/19/19 at 16:15; Status UNV Venlafaxine HCl (Effexor Xr) 225 mg DAILY PO Last administered on 03/25/19at 08:21; Start 03/21/19 at 09:00 Zolpidem Tartrate (Ambien) 10 mg QHS PO Last administered on 03/25/19at 20:00; Start 03/20/19 at 21:00 Allergies Coded Allergies: mold (Verified Allergy, Unknown, 01/31/19) metoclopramide (Verified Adverse Reaction, Unknown, AKATHISIA, 01/31/19) prochlorperazine (Verified Adverse Reaction, Unknown, AKATHISIA, 01/31/19) quetiapine (Verified Adverse Reaction, Unknown, AGITATED, 03/19/19) trazodone (Verified Adverse Reaction, Unknown, AGITATION, SHAKINESS, 01/31/19) CHAY AGUERO MD Mar 26, 2019 06:49
--- NOTE | 2019-03-26 07:05 | MHIPNPDOC ---
[facility] Progress Note Progress Note DATE OF SERVICE: 03/26/19 HISTORY: Patient admitted with depression and repeated drug use. She complains of dizziness this morning and states that her sister's boyfriend deals cocaine. VITAL SIGNS: See below. NEW TEST RESULTS: None. CURRENT MEDICATIONS: See below. MENTAL STATUS EXAMINATION: Patient is a 44-year old female, who is readmitted for cocaine use and depression. Speech: Is. No gross abnormalities. Language skills are, intact. Thought processes including:. No hallucinations, delusions, obsessions, compulsions or phobias. Thought content: No gross abnormalities. Abstract reasoning, and computation:. able to abstract. Description of associations: No loose associations. Description of abnormal or psychotic thoughts:. No abnormal or psychotic thoughts. Judgment:. Poor. Insight: Poor. Orientation:, Intact 3. Recent and remote memory:. No disturbance of memory. Attention span and concentration:. Attention span intact. Able to concentrate. Language: As above. Fund of knowledge:, Full. Mood: Euthymic. Affect:, Congruent. DIAGNOSES: 1.. Adjustment disorder with depressed mood. 2.. Cocaine abuse. . ASSESSMENT: A different plan for drug rehabilitation will have to be formulated MANAGEMENT PLAN: As above. TIME SPENT:, 35 minutes. Vital Signs Vital Signs Date Time Temp Pulse Resp B/P (MAP) Pulse Ox O2 Delivery O2 Flow Rate FiO2 03/26/19 06:47 97.8 51 18 115/72 (86) Current Medications Current Medications Acetaminophen (Tylenol Tab) 650 mg Q6HP PRN PO HEADACHE or DISCOMFORT Last administered on 03/24/19at 19:50; Start 03/19/19 at 16:15 Al Hydrox/Mg Hydrox/Simethicone (Mylanta) 30 ml Q4HP PRN PO HEARTBURN/INDIGESTION; Start 03/19/19 at 16:15 Amphetamine/ Dextroamphetamine (Adderall) 15 mg BID@0800,1500 PO ; Start 9 at 08:00; Stop 03/20/19 at 12:06; Status DC Aripiprazole (AbiLIFY) 5 mg QHS PO Last administered on 03/25/19at 20:00; Start 03/22/19 at 21:00 Aripiprazole (AbiLIFY) 10 mg DAILY PO Last administered on 03/25/19at 08:21; Start 03/21/19 at 09:00 Buprenorphine/ Naloxone (Suboxone 8/2mg) 0.5 tab BID SL ; Start 03/22/19 at 21:00; Stop 03/22/19 at 21:00; Status DC Buprenorphine/ Naloxone (Suboxone 8/2mg) 1 tab BID SL ; Start 03/22/19 at 21:00; Stop 03/22/19 at 21:00; Status DC Buprenorphine/ Naloxone (Suboxone 8/2mg) 1 tab BID@0600,1500 SL Last administered on 03/26/19at 06:09; Start 03/22/19 at 15:00 Buprenorphine/ Naloxone (Suboxone 8/2mg) 1 tab BID@0600,1500 SL Last administered on 03/22/19at 05:50; Start 03/19/19 at 15:00; Stop 03/22/19 at 10:36; Status DC Estradiol (Estrace) 1 mg DAILY PO Last administered on 03/25/19at 08:21; Start 03/20/19 at 09:00 Gabapentin (Neurontin) 800 mg QID PO Last administered on 03/25/19at 20:00; Start 03/19/19 at 17:00 Home Med (Med Rec Complete!) ASDIRECTED XX ; Start 03/19/19 at 15:30; Stop 03/19/19 at 15:30; Status DC Levetiracetam (Keppra) 250 mg BID PO Last administered on 03/25/19at 20:00; Start 03/22/19 at 09:00 Levothyroxine Sodium (Synthroid) 75 mcg DAILY@0600 PO Last administered on 03/26/19at 06:09; Start 03/20/19 at 06:00 Magnesium Hydroxide (Milk Of Magnesia) 30 ml DAILYPRN PRN PO CONSTIPATION; Start 03/19/19 at 16:15 Meclizine HCl (Antivert) 25 mg Q4HP PRN PO DIZZINESS Last administered on 03/22/19at 09:28; Start 03/21/19 at 14:00 Pantoprazole Sodium (Protonix) 20 mg DAILY PO Last administered on 03/25/19at 08:21; Start 03/20/19 at 09:00 Senna/Docusate Sodium (Senokot S) 1 tab QHSP PRN PO CONSTIPATION; Start 03/24/19 at 09:00 Trazodone HCl (Desyrel) 50 mg QHSP PRN PO INSOMNIA; Start 03/19/19 at 16:15; Status UNV Venlafaxine HCl (Effexor Xr) 225 mg DAILY PO Last administered on 03/25/19at 08:21; Start 03/21/19 at 09:00 Zolpidem Tartrate (Ambien) 10 mg QHS PO Last administered on 03/25/19at 20:00; Start 03/20/19 at 21:00 Allergies Coded Allergies: mold (Verified Allergy, Unknown, 01/31/19) metoclopramide (Verified Adverse Reaction, Unknown, AKATHISIA, 01/31/19) prochlorperazine (Verified Adverse Reaction, Unknown, AKATHISIA, 01/31/19) quetiapine (Verified Adverse Reaction, Unknown, AGITATED, 03/19/19) trazodone (Verified Adverse Reaction, Unknown, AGITATION, SHAKINESS, 01/31/19) CHAY AGUERO MD Mar 26, 2019 07:05
[2019-03-26] MEDS: VENLAFAXINE **XR** 75MG CAPSULE PO SCH (08:41)
[2019-03-26] MEDS: levETIRAcetam 250MG TABLET (KEPPRA) PO SCH ×2 (08:41→20:24)
[2019-03-26] MEDS: ESTRADIOL 1 MG TAB PO SCH (08:41)
[2019-03-26] MEDS: GABAPENTIN 400 MG CAP PO SCH ×4 (08:41→20:24)
[2019-03-26] MEDS: ARIPiprazole 10 MG TAB PO SCH (08:41)
[2019-03-26] MEDS: PANTOPRAZOLE 20 MG TAB PO SCH (08:41)
[2019-03-26] MEDS: MECLIZINE 25 MG TABLET PO PRN (08:41)
[2019-03-26 10:28] VITALS: BP_SYST 100; BP_SYST 104; BP_DIAS 62; BP_DIAS 68
[2019-03-26] MEDS: zolPIDEM TARTRATE 5 MG TAB PO SCH (20:24)
[2019-03-27] MEDS: BUPRENORPHINE/NALOXONE 8-2MG SUBLINGUAL TABLET(SUBOXONE) SL SCH ×2 (06:06→14:32)
[2019-03-27] MEDS: LEVOTHYROXINE 75MCG TABLET (0.075MG) PO SCH (06:06)
[2019-03-27 06:10] VITALS: BP 120/86
--- NOTE | 2019-03-27 09:04 | MHIPNPDOC ---
[facility] Progress Note Progress Note DATE OF SERVICE: 03/27/19 HISTORY: Patient is a 43 -year-old , female, with a history of depression, substance abuse, borderline personality d/o, frequent admissions [facility] in past with last 01/31/19 who presented to ED endorsing passive SI stating "not wanting to be here any more" stating she and others feel she needs to be in the hospital per the ED. Pt also endorsed daily crack cocaine use, as much as she could afford, utox positiive. Stated she was "kind of suicidal" in ED endorsing vague SI with no plan/intent. Per hospital records pt had a tonic clonic seizure witnessed with hematoma after and brought to ED then sent to [facility] for neurologic services. Pt was d/c to rehab when last here but only stayed a week due to insurance not paying for longer. Per ED, pt seen by Dr. Higgins that felt she did not need to be admitted due to complaint yet pt intent on being admitted, becoming agitated and crying stating "I just want to be upstairs ([facility]). Pt was admitted in January due to similar complain and reason. She denied intent or plan for suicide in ED. Denied HI, hallucinations, delusions. VITAL SIGNS: See below. NEW TEST RESULTS: See below. CURRENT MEDICATIONS: See below. MENTAL STATUS EXAMINATION: General Appearance: unkempt, disheveled, appears stated age, hospital scrubs/clothing Build: overweight Demeanor: average Eye Contact: fair Activity: average Behavior: cooperative Speech: clear, spontaneous, reg/rate,rhythm,volume Mood: less constricted, less depressed Mood "better" Affect: less constricted, less depressed Thought Process: logical/linear Thought Content (Delusions): none reported, denies SI, HI, AVH Thought Content (Other): none reported, appropriate Thought Content (Aggressive): none reported Perception (Hallucinations): none reported Perception (Other): none reported Cognition (Impairment of): none reported Cognition(Intelligence Est.): average Oriented: Awake, Alert, Oriented times three Insight: fair Judgment: fair Psychosis: Denies DIAGNOSES: Major depressive disorder. Borderline personality disorder. Stimulant use disorder Opioid use disorder, in sustained remission. ASSESSMENT:Pt seen and states she's still feels "better" today as she had a good weekend and attended groups that she found beneficial. Pt up in the mornings reading the paper which usually means she she doing well. States she feels more like herself. States she would like to follow-up in outpatient substance abuse treatment as her insurance only pays for a few days of inpatient.. She is tolerating her medications and finding them beneficial for mood and anxiety. Much more cooperative and pleasant today when seen. Denies SI/HI, hallucinations, delusions. Feels safe here. MANAGEMENT PLAN: [employer] Medications abilify 10mg qam and 5mg qhs Suboxone 8/2 mg SL bid - changed back by Dr. Chew Gabapentin 800 mg by mouth 4 times a day Effexor XR 225 mg by mouth daily ambien 10mg qhs prn insomnia. Keppra 250mg bid - by Dr. Chew TIME SPENT: 30 minutes. Vital Signs Vital Signs Date Time Temp Pulse Resp B/P (MAP) Pulse Ox O2 Delivery O2 Flow Rate FiO2 03/27/19 06:10 98.5 97 16 120/86 (97) Current Medications Current Medications Acetaminophen (Tylenol Tab) 650 mg Q6HP PRN PO HEADACHE or DISCOMFORT Last administered on 03/24/19at 19:50; Start 03/19/19 at 16:15 Al Hydrox/Mg Hydrox/Simethicone (Mylanta) 30 ml Q4HP PRN PO HEARTBURN/INDIGESTION; Start 03/19/19 at 16:15 Amphetamine/ Dextroamphetamine (Adderall) 15 mg BID@0800,1500 PO ; Start 03/20/19 at 08:00; Stop 03/20/19 at 12:06; Status DC Aripiprazole (AbiLIFY) 5 mg QHS PO Last administered on 03/26/19at 20:24; Start 03/22/19 at 21:00 Aripiprazole (AbiLIFY) 10 mg DAILY PO Last administered on 03/26/19at 08:41; Start 03/21/19 at 09:00 Buprenorphine/ Naloxone (Suboxone 8/2mg) 0.5 tab BID SL ; Start 03/22/19 at 21:00; Stop 03/22/19 at 21:00; Status DC Buprenorphine/ Naloxone (Suboxone 8/2mg) 1 tab BID SL ; Start 03/22/19 at 21:00; Stop 03/22/19 at 21:00; Status DC Buprenorphine/ Naloxone (Suboxone 8/2mg) 1 tab BID@0600,1500 SL Last administered on 03/27/19at 06:06; Start 03/22/19 at 15:00 Buprenorphine/ Naloxone (Suboxone 8/2mg) 1 tab BID@0600,1500 SL Last administered on 03/22/19at 05:50; Start 03/19/19 at 15:00; Stop 03/22/19 at 10:36; Status DC Estradiol (Estrace) 1 mg DAILY PO Last administered on 03/26/19at 08:41; Start 03/20/19 at 09:00 Gabapentin (Neurontin) 800 mg QID PO Last administered on 03/26/19at 20:24; Start 03/19/19 at 17:00 Home Med (Med Rec Complete!) ASDIRECTED XX ; Start 03/19/19 at 15:30; Stop 03/19/19 at 15:30; Status DC Levetiracetam (Keppra) 250 mg BID PO Last administered on 03/26/19at 20:24; Start 03/22/19 at 09:00 Levothyroxine Sodium (Synthroid) 75 mcg DAILY@0600 PO Last administered on 03/27/19at 06:06; Start 03/20/19 at 06:00 Magnesium Hydroxide (Milk Of Magnesia) 30 ml DAILYPRN PRN PO CONSTIPATION; Start 03/19/19 at 16:15 Meclizine HCl (Antivert) 25 mg Q4HP PRN PO DIZZINESS Last administered on 03/26/19at 08:41; Start 03/21/19 at 14:00 Miscellaneous (Unresolved Clarification Entry) SEE LABEL COMMENTS DAILY XX ; Start 03/27/19 at 09:00 Pantoprazole Sodium (Protonix) 20 mg DAILY PO Last administered on 03/26/19at 08:41; Start 03/20/19 at 09:00 Senna/Docusate Sodium (Senokot S) 1 tab QHSP PRN PO CONSTIPATION; Start 03/24/19 at 09:00 Trazodone HCl (Desyrel) 50 mg QHSP PRN PO INSOMNIA; Start 03/19/19 at 16:15; Status UNV Venlafaxine HCl (Effexor Xr) 225 mg DAILY PO Last administered on 03/26/19at 08:41; Start 03/21/19 at 09:00 Zolpidem Tartrate (Ambien) 10 mg QHS PO Last administered on 03/26/19at 20:24; Start 03/20/19 at 21:00 Allergies Coded Allergies: mold (Verified Allergy, Unknown, 01/31/19) metoclopramide (Verified Adverse Reaction, Unknown, AKATHISIA, 01/31/19) prochlorperazine (Verified Adverse Reaction, Unknown, AKATHISIA, 01/31/19) quetiapine (Verified Adverse Reaction, Unknown, AGITATED, 03/19/19) trazodone (Verified Adverse Reaction, Unknown, AGITATION, SHAKINESS, 01/31/19) SHASHI GUPTA DO Mar 27, 2019 9:04 am
[2019-03-27] MEDS: levETIRAcetam 250MG TABLET (KEPPRA) PO SCH ×2 (09:39→20:00)
[2019-03-27] MEDS: GABAPENTIN 400 MG CAP PO SCH ×4 (09:39→20:00)
[2019-03-27] MEDS: ESTRADIOL 1 MG TAB PO SCH (09:39)
[2019-03-27] MEDS: PANTOPRAZOLE 20 MG TAB PO SCH (09:39)
[2019-03-27] MEDS: ARIPiprazole 10 MG TAB PO SCH (09:39)
[2019-03-27] MEDS: VENLAFAXINE **XR** 75MG CAPSULE PO SCH (09:39)
[2019-03-27] MEDS: ACETAMINOPHEN TAB 650MG DOSE (2X325MG) PO PRN (10:49)
[2019-03-27 18:22] VITALS: BP_SYST 101; BP_SYST 113; BP_DIAS 56; BP_DIAS 58; BP_DIAS 63
[2019-03-27] MEDS: zolPIDEM TARTRATE 5 MG TAB PO SCH (20:00)
[2019-03-28] MEDS: BUPRENORPHINE/NALOXONE 8-2MG SUBLINGUAL TABLET(SUBOXONE) SL SCH (05:49)
[2019-03-28] MEDS: LEVOTHYROXINE 75MCG TABLET (0.075MG) PO SCH (05:49)
[2019-03-28 06:37] VITALS: BP 113/64
[2019-03-28 06:38] VITALS: BP_SYST 100; BP_SYST 110; BP_SYST 113; BP_DIAS 62; BP_DIAS 64
[2019-03-28] MEDS: PANTOPRAZOLE 20 MG TAB PO SCH (08:38)
[2019-03-28] MEDS: VENLAFAXINE **XR** 75MG CAPSULE PO SCH (08:38)
[2019-03-28] MEDS: ARIPiprazole 10 MG TAB PO SCH (08:38)
[2019-03-28] MEDS: levETIRAcetam 250MG TABLET (KEPPRA) PO SCH (08:38)
[2019-03-28] MEDS: GABAPENTIN 400 MG CAP PO SCH (08:38)
[2019-03-28] MEDS: ESTRADIOL 1 MG TAB PO SCH (08:39)
--- NOTE | 2019-03-28 09:03 | MHDSPDOC ---
[facility] Discharge Summary Discharge Summary DATE OF ADMISSION: Mar 19, 2019 at 16:07 DATE OF DISCHARGE: Mar 28, 2019 DISCHARGE DIAGNOSES: Major depressive disorder. Borderline personality disorder. Stimulant/cannabis use disorder Opioid use disorder, in sustained remission. REASON FOR ADMISSION:Patient is a 43 -year-old , female, with a history of depression, substance abuse, borderline personality d/o, frequent admissions [facility] in past with last 01/31/19 who presented to ED endorsing passive SI stating "not wanting to be here any more" stating she and others feel she needs to be in the hospital per the ED. Pt also endorsed daily crack cocaine use, as much as she could afford, utox positiive. Stated she was "kind of suicidal" in ED endorsing vague SI with no plan/intent. Per hospital records pt had a tonic clonic seizure witnessed with hematoma after and brought to ED then sent to [facility] for neurologic services. Pt was d/c to rehab when last here but only stayed a week due to insurance not paying for longer. Per ED, pt seen by Dr. Higgins that felt she did not need to be admitted due to complaint yet pt intent on being admitted, becoming agitated and crying stating "I just want to be upstairs ([facility]). Pt was admitted in January due to similar complain and reason. She denied intent or plan for suicide in ED. Denied HI, hallucinations, delusions. CONSULTANTS INVOLVED: medicine s/p head injury treated and d/c on medical floor prior admission. Started on Deppra 250mg bid by Dr. Chew to prevent seizures. TREATMENT AND PROGRESS ON THE UNIT : Pt was admitted to [facility], seen for psychiatric assessment and restarted on outpatient abilify changed to 10mg qam and 5mg qhs, Suboxone 8-2mg bid, Effexor xr 225mg daily, and Gabapentin 800 mg QID. She was provided ambien 10mg qhs prn insomnia. Pt found her medications beneficial and tolerated them well. She attended groups daily during her stay. Her symptoms improved with treatment. On day of discharge she denied depression, anxiety, insomnia, SI/HI, hallucinations, delusions. She was discharged home after family with her father meeting with follow-up at Dr Woods. She felt safe for discharge. DISCHARGE ASSESSMENT: Pt seen today and states she feels good and is looking forward to going home today and working on her sobriety in outpatient substance abuse treatment. Is going to groups and being present in the milieu. States her meds are helpful and she's tolerating them well. Denies depression, anxiety, insomnia, SI/HI, hallucinations, delusions. Feels safe to be discharged home with her father. MENTAL STATUS EXAMINATION ON DISCHARGE: General Appearance: clean, appears stated age, own clothing Build: overweight Demeanor: pleasant and cooperative Eye Contact: good Activity: average Behavior: cooperative Speech: clear, reg/rate,rhythm,volume Mood: full, euthymic Mood "good" Affect: full, euthymic Thought Process: logical/linear, hopeful for the future and looking forward to going to rehab Thought Content (Delusions): none reported, denies SI, HI, AVH Thought Content (Other): none reported, appropriate Thought Content (Aggressive): none reported Perception (Hallucinations): none reported Perception (Other): none reported Cognition (Impairment of): none reported Cognition(Intelligence Est.): average Oriented: Awake, Alert, Oriented times three Insight: good Judgment: good Psychosis: Denies MEDICATIONS ON DISCHARGE: abilify 10mg daily and 5mg qhs Suboxone 8/2 mg twice a day. rx from Dr. Woods Gabapentin 800 mg by mouth 4 times a day Effexor XR 225 mg by mouth daily ambien 10mg qhs prn insomnia. rx from Dr. Woods keppra 250mg bid PLAN/FOLLOWUP ARRANGEMENTS: D/c home with her father with follow-up at Dr. Woods as she awaits rehab at [facility] bed available Wednesday02/13/19. The amount of time spent in the coordination of care for this patient was approximately 30 minutes. Vital Signs/I&Os Vital Signs Date Time Temp Pulse Resp B/P (MAP) Pulse Ox O2 Delivery O2 Flow Rate FiO2 03/28/19 06:38 67 113/64 (80) 73 110/64 (79) 87 100/62 (75) 03/28/19 06:37 97.6 18 Medications Scheduled Aripiprazole (Aripiprazole) Unknown Strength Tablet, 1 DOSE PO DAILY, (Reported) Buprenorphine HCl/Naloxone HCl (Suboxone 8 mg-2 mg Sl Film) 1 Mis Mis, 1 STRIP SL BID, (Reported) TAKES AT 0600/1500 Dextroamphetamine/Amphetamine (Dextroamp-Amphetamin 15 mg Tab) 15 Mg Tablet, 15 MG PO BID, (Reported) Estradiol (Estradiol) 1 Mg Tablet, 1 MG PO DAILY, (Reported) Gabapentin (Gabapentin) 800 Mg Tablet, 800 MG PO QID, (Reported) Levothyroxine Sodium (Levothyroxine Sodium) 75 Mcg Tab, 75 MCG PO DAILY, (Reported) Pantoprazole Sodium (Pantoprazole Sodium) 20 Mg Tablet.dr, 20 MG PO DAILY, (Reported) Venlafaxine HCl (Venlafaxine HCl ER) 75 Mg Tab.er.24, 225 MG PO DAILY, (Reported) Allergies Coded Allergies: mold (Verified Allergy, Unknown, 01/31/19) metoclopramide (Verified Adverse Reaction, Unknown, AKATHISIA, 01/31/19) prochlorperazine (Verified Adverse Reaction, Unknown, AKATHISIA, 01/31/19) quetiapine (Verified Adverse Reaction, Unknown, AGITATED, 03/19/19) trazodone (Verified Adverse Reaction, Unknown, AGITATION, SHAKINESS, 01/31/19) SHASHI GUPTA DO Mar 28, 2019 09:03
[2019-03-28] MEDS ORDERED: ABIL1TAB11 PO (09:07)
[2019-03-28] MEDS ORDERED: GABA800T4 PO (09:07)
[2019-03-28] MEDS ORDERED: VENL-115 PO (09:07)
[2019-03-28] MEDS ORDERED: ABIL10TA9 PO (09:07)
[2019-03-28] MEDS ORDERED: KEPP250T5 PO (09:07)
== END 2019-03-28 12:10 | disposition home or self-care (01) | DRG 754 ==
LOC: M ED 11:40 → M ED INP 16:07 → M PSY 17:20
PROVIDERS: ADMIT Psychiatry & Neurology Psychiatry; ATTEND Psychiatry & Neurology Psychiatry
DX: F32.9 Major depressive disorder, single episode, unspecified (principal); F11.11 Opioid abuse, in remission; F60.3 Borderline personality disorder; F15.10 Other stimulant abuse, uncomplicated; K21.9 Gastro-esophageal reflux disease without esophagitis; R56.9 Unspecified convulsions; F07.81 Postconcussional syndrome; F17.290 Nicotine dependence, other tobacco product, uncomplicated; F12.10 Cannabis abuse, uncomplicated; F14.10 Cocaine abuse, uncomplicated; E03.9 Hypothyroidism, unspecified; Y92.9 Unspecified place or not applicable; B19.20 Unspecified viral hepatitis C without hepatic coma; Z81.8 Family history of other mental and behavioral disorders; Z79.899 Other long term (current) drug therapy; Z88.8 Allergy status to other drugs, medicaments and biological substances; Z91.048 Other nonmedicinal substance allergy status; S02.0XXD Fracture of vault of skull, subsequent encounter for fracture with routine healing; X58.XXXD Exposure to other specified factors, subsequent encounter; Z91.5 Personal history of self-harm

== ENCOUNTER 2019-04-16 10:43 | Inpatient (IN) | payer MEDICAID, OTHER ==
[~2019-04-16] VITALS: Ht 157.5 cm; Wt 80.8 kg
[~2019-04-16 10:43] MED LIST changes: +ABIL10TA9 PO; +ABIL1TAB12 PO; +KEPP250T5 PO; -OMEP20CA3 PO; +OMEP20CA4 PO; +PANT20TA2 PO; +VENL-115 PO
[2019-04-16 11:15] LABS: HEMATOCRIT 44.4 % (36.0-47.0); HEMOGLOBIN 14.6 g/dl (12.0-15.5); MEAN CORPUSCULAR HEMOGLOBIN 30.2 pg (27.0-33.0); MEAN CORPUSCULAR HGB CONC 32.9 g/dl (32.0-36.5); MEAN CORPUSCULAR VOLUME 91.7 fl (80.0-96.0); PLATELET COUNT, AUTOMATED 309 10^3/uL (150-450); RED BLOOD COUNT 4.84 10^6/uL (4.00-5.40); WHITE BLOOD COUNT 3.9 10^3/uL (4.0-10.0)
[2019-04-16 11:46] LABS: HCG, SERUM QUALITATIVE NEGATIVE (NEGATIVE)
[2019-04-16 11:54] LABS: ACETAMINOPHEN LEVEL < 2.0 UG/ML (10.0-30.0); ALBUMIN 4.1 GM/DL (3.2-5.2); ALT/SGPT 31 U/L (12-78); BILIRUBIN,DIRECT 0.1 MG/DL (0.0-0.2); BILIRUBIN,TOTAL 0.4 MG/DL (0.2-1.0); BLOOD UREA NITROGEN 9 MG/DL (7-18); CALCIUM LEVEL 9.7 MG/DL (8.5-10.1); CARBON DIOXIDE LEVEL 28 MEQ/L (21-32); CHLORIDE LEVEL 106 MEQ/L (98-107); ETHYL ALCOHOL (ETHANOL) < 0.003 % (0.000-0.010); GLOMERULAR FILTRATION RATE > 60.0 (>58); GLUCOSE, FASTING 97 MG/DL (70-100); POTASSIUM SERUM 4.1 MEQ/L (3.5-5.1); SALICYLATE LEVEL < 1.7 MG/DL (5.0-30.0); SODIUM LEVEL 140 MEQ/L (136-145)
[2019-04-16 11:55] LABS: AMPHETAMINES LEVEL URINE NEGATIVE (NEGATIVE); BARBITURATES URINE NEGATIVE (NEGATIVE); BENZODIAZEPINES URINE NEGATIVE (NEGATIVE); CANNABINOIDS URINE NEGATIVE (NEGATIVE); COCAINE METABOLITE URINE POSITIVE (NEGATIVE); METHADONE URINE NEGATIVE (NEGATIVE); OPIATES URINE NEGATIVE (NEGATIVE); PHENCYCLIDINE URINE NEGATIVE (NEGATIVE)
[2019-04-16 12:11] LABS: CK-MB VALUE MASS 1.5 NG/ML (<3.6); CPK CREATINE PHOSPHOKINASE 126 U/L (26-192); MB/CK RELATIVE INDEX 1.19 (< OR =4); TROPONIN I < 0.02 NG/ML (< 0.10)
[2019-04-16] MEDS ORDERED: LEVE250T5 PO (13:40)
[2019-04-16] MEDS ORDERED: ARIP1TAB PO (13:40)
[2019-04-16] MEDS ORDERED: GABA800T4 PO (13:40)
[2019-04-16] MEDS ORDERED: VENL-115 PO (13:40)
[2019-04-16] MEDS ORDERED: ARIP1TAB6 PO (13:45)
[2019-04-16] MEDS ORDERED: MAALOX 30 ML SUSP *UDC PO PRN (14:00)
[2019-04-16] MEDS ORDERED: MOM 30ML SUSPENSION UDC PO PRN (14:00)
[2019-04-16] MEDS ORDERED: ACETAMINOPHEN TAB 650MG DOSE (2X325MG) PO PRN (14:00)
[2019-04-16 15:08] VITALS: BP 125/75
--- NOTE | 2019-04-16 15:47 | ECGEPIP ---
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
[2019-04-16] MEDS: BUPRENORPHINE/NALOXONE 8-2MG SUBLINGUAL TABLET(SUBOXONE) SL SCH (15:53)
[2019-04-16] MEDS: GABAPENTIN 400 MG CAP PO SCH ×2 (16:07→20:10)
[2019-04-16] MEDS: levETIRAcetam 250MG TABLET (KEPPRA) PO SCH (20:10)
[2019-04-16] MEDS: zolPIDEM TARTRATE 5 MG TAB PO SCH (20:10)
[2019-04-16] MEDS: VENLAFAXINE **XR** 75MG CAPSULE PO SCH (20:11)
[2019-04-16] MEDS ORDERED: VENLAFAXINE 37.5 MG TAB PO ONE (21:00)
[2019-04-16] MEDS ORDERED: BUPRENORPHINE/NALOXONE 8-2MG SUBLINGUAL TABLET(SUBOXONE) SL SCH (21:00)
[2019-04-17] MEDS: LEVOTHYROXINE 75MCG TABLET (0.075MG) PO SCH (05:42)
[2019-04-17] MEDS: BUPRENORPHINE/NALOXONE 8-2MG SUBLINGUAL TABLET(SUBOXONE) SL SCH ×2 (05:42→14:57)
[2019-04-17 06:00] VITALS: BP 97/59
--- NOTE | 2019-04-17 08:24 | HPEPDOC ---
General Date of Admission Apr 16, 2019 at 13:51 Date of Service: Apr 17, 2019 Attending Physician: ABDOULAYE SAAB MD Chief Complaint The patient is a 44-year-old female admitted with a reason for visit of Unspecified Depressive Disorder. History of Present Illness Patient is a 44-year-old female, primary medical history significant for seizure disorder on Keppra, hypothyroidism on Synthroid, bipolar disorder, polysubstance abuse, admitted on account of suicidal ideation after relapse with cocaine use. On assessment, patient states she used cocaine because it "was there". She denies any other symptoms of chest pain, shortness of breath, weakness. She denies nausea, vomiting, constipation, diarrhea. Home Medications Scheduled Aripiprazole (Aripiprazole) 10 Mg Tablet, 10 MG PO QAM, (Reported) Aripiprazole (Aripiprazole) 5 Mg Tablet, 5 MG PO QHS, (Reported) Buprenorphine HCl/Naloxone HCl (Suboxone 8 mg-2 mg Sl Film) 1 Mis Mis, 1 STRIP SL BID, (Reported) TAKES AT 0600/1500 Estradiol (Estradiol) 1 Mg Tablet, 1 MG PO DAILY, (Reported) Gabapentin (Gabapentin) 800 Mg Tablet, 800 MG PO QID, (Reported) Levetiracetam (Levetiracetam) 250 Mg Tablet, 250 MG PO BID, (Reported) Levothyroxine Sodium (Levothyroxine Sodium) 75 Mcg Tab, 75 MCG PO DAILY, (Reported) Venlafaxine HCl (Venlafaxine HCl ER) 75 Mg Tab.er.24, 225 MG PO QHS, (Reported) Allergies Coded Allergies: mold (Verified Allergy, Unknown, 01/31/19) metoclopramide (Verified Adverse Reaction, Unknown, AKATHISIA, 01/31/19) prochlorperazine (Verified Adverse Reaction, Unknown, AKATHISIA, 01/31/19) quetiapine (Verified Adverse Reaction, Unknown, AGITATED, 03/19/19) trazodone (Verified Adverse Reaction, Unknown, AGITATION, SHAKINESS, 01/31/19) Past Medical History Medical History Hyperlipidemia GERD Seizure disorder. Hypothyroidism Bipolar disorder Chronic low back pain. Polysubstance abuse Depression Nicotine dependence Surgical History Hysterectomy Appendectomy Family History Father: Diabetes mellitus Social History Admits to occasional tobacco intake, occasional alcohol use, polysubstance abuse with cocaine A-FIB/CHADSVASC A-FIB History Current/History of A-Fib/PAF?: No Current PO Anticoag Therapy: No Review of Systems Other systems Review of systems is limited due to patient's clinical state with acute depression Physical Examination Other physical findings GENERAL: NAD SKIN : Warm, dry intact HEENT: Atraumatic, normocephalic, PERRL, moist mucous membrane CARDIOVASCULAR: Regular rate and rhythm, S1S2, no JVD, no edema, distal pulses + and palpable RESP: CTAB, no accessory muscle use noted ABDOMEN: BS+ non distended non tender MS: no joint deformities NEURO: Alert and oriented x 3, CN2-12 grossly intact PSYCH: flat affect. Vital Signs Vital Signs Date Time Temp Pulse Resp B/P (MAP) Pulse Ox O2 Delivery O2 Flow Rate FiO2 04/17/19 06:00 98.1 62 18 97/59 (72) 04/16/19 15:08 99 04/16/19 14:01 Room Air Laboratory Data Labs 24H Laboratory Tests 2 04/16/19 11:02: Urine Amphetamines Screen NEGATIVE, Urine Benzodiazepines Screen NEGATIVE, Urine Opiates Screen NEGATIVE, Urine Methadone Screen NEGATIVE, Urine Barbiturates Screen NEGATIVE, Urine Phencyclidine Screen NEGATIVE, Urine Cocaine Metabolite Screen POSITIVEH, Urine Cannabinoids Screen NEGATIVE 04/16/19 11:05: Nucleated Red Blood Cells % (auto) 0.0, Anion Gap 6L, Glomerular Filtration Rate > 60.0, Calcium Level 9.7, Aspartate Amino Transf (AST/SGOT) 26, Alanine Aminotransferase (ALT/SGPT) 31, Alkaline Phosphatase 91, Total Bilirubin 0.4, Direct Bilirubin 0.1, Total Creatine Kinase 126, Creatine Kinase MB 1.5, Creatine Kinase MB Relative Index 1.19, Troponin I < 0.02, Total Protein 8.0, Albumin 4.1, Albumin/Globulin Ratio 1.05, Thyroid Stimulating Hormone (TSH) 2.590, Human Chorionic Gonadotropin, Qual NEGATIVE, Salicylates Level < 1.7L, Acetaminophen Level < 2.0L, Ethyl Alcohol Level < 0.003 CBC/BMP Laboratory Tests 04/16/19 11:05 Red Blood Count 4.84, Mean Corpuscular Volume 91.7, Mean Corpuscular Hemoglobin 30.2, Mean Corpuscular Hemoglobin Concent 32.9, Red Cell Distribution Width 13.6 Assessment/Plan Seizure disorder. -Continue Keppra -Seizure precautions Hyperlipidemia -Statin therapy Hypothyroidism -Continue Synthroid Low back pain -Muscle relaxer and NSAID as needed Bipolar disorder -Monitoring and management per primary team Polysubstance abuse/acute depression/cocaine relapse -Management by primary team Plan / VTE VTE Prophylaxis Ordered?: No VTE Exclusion Mechanical Proph: Low Risk for VTE YAZMIN BARAHONA [facility] Apr 17, 2019 08:24
[2019-04-17] MEDS: GABAPENTIN 400 MG CAP PO SCH ×4 (09:15→20:44)
[2019-04-17] MEDS: ARIPiprazole 10 MG TAB PO SCH (09:15)
[2019-04-17] MEDS: levETIRAcetam 250MG TABLET (KEPPRA) PO SCH ×2 (09:15→20:43)
[2019-04-17] MEDS: ESTRADIOL 1 MG TAB PO SCH (09:15)
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
[2019-04-17 18:00] VITALS: BP 106/58
[2019-04-17] MEDS: VENLAFAXINE **XR** 75MG CAPSULE PO SCH (20:44)
[2019-04-17] MEDS: zolPIDEM TARTRATE 5 MG TAB PO SCH (20:44)
[2019-04-18] MEDS: LEVOTHYROXINE 75MCG TABLET (0.075MG) PO SCH (05:33)
[2019-04-18] MEDS: BUPRENORPHINE/NALOXONE 8-2MG SUBLINGUAL TABLET(SUBOXONE) SL SCH ×2 (05:33→15:07)
[2019-04-18 06:43] VITALS: BP 102/59
[2019-04-18] MEDS: levETIRAcetam 250MG TABLET (KEPPRA) PO SCH ×2 (09:23→20:25)
[2019-04-18] MEDS: ESTRADIOL 1 MG TAB PO SCH (09:23)
[2019-04-18] MEDS: ARIPiprazole 10 MG TAB PO SCH (09:23)
[2019-04-18] MEDS: GABAPENTIN 400 MG CAP PO SCH ×4 (09:23→20:25)
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
[2019-04-18 18:00] VITALS: BP 106/55
[2019-04-18] MEDS: VENLAFAXINE **XR** 75MG CAPSULE PO SCH (20:25)
[2019-04-18] MEDS: zolPIDEM TARTRATE 5 MG TAB PO SCH (20:25)
[2019-04-19] MEDS: LEVOTHYROXINE 75MCG TABLET (0.075MG) PO SCH (05:53)
[2019-04-19] MEDS: BUPRENORPHINE/NALOXONE 8-2MG SUBLINGUAL TABLET(SUBOXONE) SL SCH ×2 (05:53→15:06)
[2019-04-19 06:48] VITALS: BP 104/64
[2019-04-19] MEDS: ARIPiprazole 10 MG TAB PO SCH (08:17)
[2019-04-19] MEDS: levETIRAcetam 250MG TABLET (KEPPRA) PO SCH ×2 (08:17→20:05)
[2019-04-19] MEDS: GABAPENTIN 400 MG CAP PO SCH ×4 (08:18→20:05)
[2019-04-19] MEDS: ESTRADIOL 1 MG TAB PO SCH (08:18)
--- NOTE | 2019-04-19 10:32 | MHIPNPDOC ---
[facility] Progress Note Progress Note DATE OF SERVICE: 04/19/19 HISTORY: Per Dr. Nick: "The patient is a 44-year-old woman with a history of multiple inpatient admissions presents after recent use of cocaine and subseq uent withdrawal. The patient has also relapsed on several other drugs that she uses regularly. She has been diagnosed in the past with borderline personality disorder and significant depression. She has been reporting significant suicidal ideation for the past week with a plan to kill herself with carbon monoxide. She had had a previous suicide attempt in 2013 by cutting her arm. She had endorsed on the presentation at the ER that she was fairly decompensated and that these behaviors were not normal for her despite her diagnosis of BPD. When the patient was met with, she was fairly tired and sedated. She reported that she had relapsed on cocaine recently and was suffering significant depression from that. She notes that this is common with her depressions and subsequently will resolve after she allows her body to adjust." VITAL SIGNS: See below. NEW TEST RESULTS:See below. CURRENT MEDICATIONS: See below. MENTAL STATUS EXAMINATION: General Appearance: unkempt, disheveled, appears stated age, hospital scrubs/clothing Build: overweight Demeanor: flat Eye Contact: fair Activity: slowed Behavior: cooperative Speech: clear, spontaneous, reg/rate,rhythm,volume Mood: constricted, flat, depressed Mood "alright" Affect: constricted, flat, depressed Thought Process: logical/linear Thought Content (Delusions): none reported, denies SI, HI, AVH Thought Content (Other): none reported, appropriate Thought Content (Aggressive): none reported Perception (Hallucinations): none reported Perception (Other): none reported Cognition (Impairment of): none reported Cognition(Intelligence Est.): average Oriented: Awake, Alert, Oriented times three Insight: poor Judgment: Poor Psychosis: Denies DIAGNOSES: Major depressive disorder. Borderline personality disorder. Stimulant use disorder Opioid use disorder ASSESSMENT:Pt seen and states she feels slightly better today although still depressed. Continues to worry about not being able to refill her suboxone (will have to see Dr. Woods upon d/c for RX) and who took her suboxone at 13 of April libertarian. Advised to problem just take the moment as a learning lesson to not carry around her suboxone Rx. Encourage to go to groups and socialize in milieu to improve mood. Medications are beneficial and tolerating well. Denies SI/HI, hallucinations, delusions. Feels safe here. MANAGEMENT PLAN: continue plan Medications abilify 10mg qam and 5mg qhs Suboxone 8/2 mg SL bid Gabapentin 800 mg by mouth 4 times a day Effexor XR 225 mg by mouth daily ambien 10mg qhs prn insomnia. Keppra 250mg bid TIME SPENT: 30 minutes. Vital Signs Vital Signs Date Time Temp Pulse Resp B/P (MAP) Pulse Ox O2 Delivery O2 Flow Rate FiO2 04/19/19 06:48 98.2 62 14 104/64 (77) 04/16/19 15:08 99 04/16/19 14:01 Room Air Current Medications Current Medications Acetaminophen (Tylenol Tab) 650 mg Q6HP PRN PO HEADACHE or DISCOMFORT; Start 04/16/19 at 14:00 Al Hydrox/Mg Hydrox/Simethicone (Mylanta) 30 ml Q4HP PRN PO HEARTBURN/INDIGESTION; Start 04/16/19 at 14:00 Aripiprazole (AbiLIFY) 5 mg QHS PO Last administered on 04/18/19at 20:25; Start 04/16/19 at 21:00 Aripiprazole (AbiLIFY) 10 mg QAM PO Last administered on 04/19/19at 08:17; Start 04/17/19 at 09:00 Buprenorphine/ Naloxone (Suboxone 8/2mg) 1 tab BID SL ; Start 04/16/19 at 21:00; Stop 04/16/19 at 21:00; Status DC Buprenorphine/ Naloxone (Suboxone 8/2mg) 1 tab BID@0600,1500 SL Last administered on 04/19/19at 05:53; Start 04/16/19 at 15:00 Estradiol (Estrace) 1 mg DAILY PO Last administered on 04/19/19at 08:18; Start 04/17/19 at 09:00 Gabapentin (Neurontin) 800 mg QID PO Last administered on 04/19/19at 08:18; Start 04/16/19 at 17:00 Home Med (Med Rec Complete!) ASDIRECTED XX ; Start 04/16/19 at 14:00; Stop 04/16/19 at 14:00; Status DC Levetiracetam (Keppra) 250 mg BID PO Last administered on 04/19/19at 08:17; Start 04/16/19 at 21:00 Levothyroxine Sodium (Synthroid) 75 mcg DAILY@0600 PO Last administered on 04/19/19at 05:53; Start 04/17/19 at 06:00 Magnesium Hydroxide (Milk Of Magnesia) 30 ml DAILYPRN PRN PO CONSTIPATION; Start 04/16/19 at 14:00 Venlafaxine HCl (Effexor Xr) 225 mg QHS PO Last administered on 04/18/19at 20:25; Start 04/16/19 at 21:00 Zolpidem Tartrate (Ambien) 10 mg QHS PO Last administered on 04/18/19at 20:25; Start 04/16/19 at 21:00 Allergies Coded Allergies: mold (Verified Allergy, Unknown, 01/31/19) metoclopramide (Verified Adverse Reaction, Unknown, AKATHISIA, 01/31/19) prochlorperazine (Verified Adverse Reaction, Unknown, AKATHISIA, 01/31/19) quetiapine (Verified Adverse Reaction, Unknown, AGITATED, 03/19/19) trazodone (Verified Adverse Reaction, Unknown, AGITATION, SHAKINESS, 01/31/19) SHASHI GUPTA DO Apr 19, 2019 10:32 am
[2019-04-19 18:00] VITALS: BP 117/75
[2019-04-19] MEDS: VENLAFAXINE **XR** 75MG CAPSULE PO SCH (20:05)
[2019-04-19] MEDS: zolPIDEM TARTRATE 5 MG TAB PO SCH (20:05)
[2019-04-20] MEDS: LEVOTHYROXINE 75MCG TABLET (0.075MG) PO SCH (06:05)
[2019-04-20] MEDS: BUPRENORPHINE/NALOXONE 8-2MG SUBLINGUAL TABLET(SUBOXONE) SL SCH ×2 (06:05→15:02)
[2019-04-20 06:48] VITALS: BP 116/63
[2019-04-20] MEDS: levETIRAcetam 250MG TABLET (KEPPRA) PO SCH ×2 (08:54→20:13)
[2019-04-20] MEDS: ESTRADIOL 1 MG TAB PO SCH (08:54)
[2019-04-20] MEDS: GABAPENTIN 400 MG CAP PO SCH ×4 (08:54→20:13)
[2019-04-20] MEDS: ARIPiprazole 10 MG TAB PO SCH (08:55)
[2019-04-20 18:00] VITALS: BP 100/62
[2019-04-20] MEDS: zolPIDEM TARTRATE 5 MG TAB PO SCH (20:13)
[2019-04-20] MEDS: VENLAFAXINE **XR** 75MG CAPSULE PO SCH (20:14)
[2019-04-21] MEDS: BUPRENORPHINE/NALOXONE 8-2MG SUBLINGUAL TABLET(SUBOXONE) SL SCH ×2 (05:36→14:49)
[2019-04-21] MEDS: LEVOTHYROXINE 75MCG TABLET (0.075MG) PO SCH (05:36)
[2019-04-21 07:01] VITALS: BP 110/69
--- NOTE | 2019-04-21 09:11 | MHIPNPDOC ---
[facility] Progress Note Progress Note DATE OF SERVICE: 04/21/19 HISTORY: Per Dr. Nick: "The patient is a 44-year-old woman with a history of multiple inpatient admissions presents after recent use of cocaine and subseq uent withdrawal. The patient has also relapsed on several other drugs that she uses regularly. She has been diagnosed in the past with borderline personality disorder and significant depression. She has been reporting significant suicidal ideation for the past week with a plan to kill herself with carbon monoxide. She had had a previous suicide attempt in 2013 by cutting her arm. She had endorsed on the presentation at the ER that she was fairly decompensated and that these behaviors were not normal for her despite her diagnosis of BPD. When the patient was met with, she was fairly tired and sedated. She reported that she had relapsed on cocaine recently and was suffering significant depression from that. She notes that this is common with her depressions and subsequently will resolve after she allows her body to adjust." VITAL SIGNS: See below. NEW TEST RESULTS:See below. CURRENT MEDICATIONS: See below. MENTAL STATUS EXAMINATION: General Appearance: unkempt, disheveled, appears stated age, hospital scrubs/clothing Build: overweight Demeanor: flat Eye Contact: fair Activity: slowed Behavior: cooperative Speech: clear, spontaneous, reg/rate,rhythm,volume Mood: less constricted, less depressed Mood "better" Affect: less constricted, less depressed Thought Process: logical/linear Thought Content (Delusions): none reported, denies SI, HI, AVH Thought Content (Other): none reported, appropriate Thought Content (Aggressive): none reported Perception (Hallucinations): none reported Perception (Other): none reported Cognition (Impairment of): none reported Cognition(Intelligence Est.): average Oriented: Awake, Alert, Oriented times three Insight: fair Judgment: fair Psychosis: Denies DIAGNOSES: Major depressive disorder. Borderline personality disorder. Stimulant use disorder Opioid use disorder ASSESSMENT:Pt seen and states she feels better today and less depressed, feeling more like herself with treatment. Continues to worry about not being able to refill her suboxone (will have to see Dr. Woods upon d/c for RX) and who took her suboxone at 13 of April libertarian and states Dr. Woods in his office Wednesday and would like to see him for refill right after d/c Wednesday. Encourage to go to groups and socialize in milieu to improve mood. Medications are beneficial and tolerating well. Denies SI/HI, hallucinations, delusions. Feels safe here. MANAGEMENT PLAN: continue plan Medications abilify 10mg qam and 5mg qhs Suboxone 8/2 mg SL bid Gabapentin 800 mg by mouth 4 times a day Effexor XR 225 mg by mouth daily ambien 10mg qhs prn insomnia. Keppra 250mg bid TIME SPENT: 30 minutes. Vital Signs Vital Signs Date Time Temp Pulse Resp B/P (MAP) Pulse Ox O2 Delivery O2 Flow Rate FiO2 04/21/19 07:01 98.6 76 14 110/69 (83) 04/16/19 15:08 99 04/16/19 14:01 Room Air Current Medications Current Medications Acetaminophen (Tylenol Tab) 650 mg Q6HP PRN PO HEADACHE or DISCOMFORT; Start 04/16/19 at 14:00 Al Hydrox/Mg Hydrox/Simethicone (Mylanta) 30 ml Q4HP PRN PO HEARTBURN/INDIGESTION; Start 04/16/19 at 14:00 Aripiprazole (AbiLIFY) 5 mg QHS PO Last administered on 04/20/19at 20:13; Start 04/16/19 at 21:00 Aripiprazole (AbiLIFY) 10 mg QAM PO Last administered on 04/20/19at 08:55; Start 04/17/19 at 09:00 Buprenorphine/ Naloxone (Suboxone 8/2mg) 1 tab BID SL ; Start 04/16/19 at 21:00; Stop 04/16/19 at 21:00; Status DC Buprenorphine/ Naloxone (Suboxone 8/2mg) 1 tab BID@0600,1500 SL Last administered on 04/21/19at 05:36; Start 04/16/19 at 15:00 Estradiol (Estrace) 1 mg DAILY PO Last administered on 04/20/19at 08:54; Start 04/17/19 at 09:00 Gabapentin (Neurontin) 800 mg QID PO Last administered on 04/20/19at 20:13; Start 04/16/19 at 17:00 Home Med (Med Rec Complete!) ASDIRECTED XX ; Start 04/16/19 at 14:00; Stop 04/16/19 at 14:00; Status DC Levetiracetam (Keppra) 250 mg BID PO Last administered on 04/20/19at 20:13; Start 04/16/19 at 21:00 Levothyroxine Sodium (Synthroid) 75 mcg DAILY@0600 PO Last administered on 04/21/19at 05:36; Start 04/17/19 at 06:00 Magnesium Hydroxide (Milk Of Magnesia) 30 ml DAILYPRN PRN PO CONSTIPATION; Start 04/16/19 at 14:00 Venlafaxine HCl (Effexor Xr) 225 mg QHS PO Last administered on 04/20/19at 20:14; Start 04/16/19 at 21:00 Zolpidem Tartrate (Ambien) 10 mg QHS PO Last administered on 04/20/19at 20:13; Start 04/16/19 at 21:00 Allergies Coded Allergies: mold (Verified Allergy, Unknown, 01/31/19) metoclopramide (Verified Adverse Reaction, Unknown, AKATHISIA, 01/31/19) prochlorperazine (Verified Adverse Reaction, Unknown, AKATHISIA, 01/31/19) quetiapine (Verified Adverse Reaction, Unknown, AGITATED, 03/19/19) trazodone (Verified Adverse Reaction, Unknown, AGITATION, SHAKINESS, 01/31/19) SHASHI GUPTA DO Apr 21, 2019 9:11 am
[2019-04-21] MEDS: ESTRADIOL 1 MG TAB PO SCH (09:21)
[2019-04-21] MEDS: GABAPENTIN 400 MG CAP PO SCH ×4 (09:21→20:00)
[2019-04-21] MEDS: levETIRAcetam 250MG TABLET (KEPPRA) PO SCH ×2 (09:21→20:00)
[2019-04-21] MEDS: ARIPiprazole 10 MG TAB PO SCH (09:21)
[2019-04-21 18:12] VITALS: BP 113/68
[2019-04-21] MEDS: zolPIDEM TARTRATE 5 MG TAB PO SCH (20:01)
[2019-04-21] MEDS: VENLAFAXINE **XR** 75MG CAPSULE PO SCH (20:01)
[2019-04-22] MEDS: LEVOTHYROXINE 75MCG TABLET (0.075MG) PO SCH (06:03)
[2019-04-22] MEDS: BUPRENORPHINE/NALOXONE 8-2MG SUBLINGUAL TABLET(SUBOXONE) SL SCH ×2 (06:03→15:32)
[2019-04-22 06:52] VITALS: BP 94/56
[2019-04-22] MEDS: ESTRADIOL 1 MG TAB PO SCH (08:05)
[2019-04-22] MEDS: ARIPiprazole 10 MG TAB PO SCH (08:05)
[2019-04-22] MEDS: levETIRAcetam 250MG TABLET (KEPPRA) PO SCH ×2 (08:05→20:06)
[2019-04-22] MEDS: GABAPENTIN 400 MG CAP PO SCH ×4 (08:05→20:06)
--- NOTE | 2019-04-22 13:32 | MHIPNPDOC ---
[facility] Progress Note Progress Note Inpatient Progress Note Caitlyn Christine Female Date of : N/A Date of Service: 04/22/2019 History of Present Illness The patient is a 44-year-old woman with a history of multiple inpatient admissions presents after recent use of cocaine and subsequent withdrawal. The patient has also relapsed on several other drugs that she uses regularly. She has been diagnosed in the past with borderline personality disorder and sign ificant depression. She has been reporting significant suicidal ideation for the past week with a plan to kill herself with carbon monoxide. She had had a previous suicide attempt in 2013 by cutting her arm. She had endorsed on the presentation at the ER that she was fairly decompensated and that these behaviors were not normal for her despite her diagnosis of BPD. Interval History The patient is met with today briefly. She reports that she is doing well on the current medications and that her mood is improving and is much better than how it had been when this provider had initially seen her on her admission. She does describe that she has noticed that her Keppra has caused her some mood variation and depression. She states that she was generally not compliant with this as an outpatient and had noticed that when she consistently took it that she became much more depressed. She has been engaging on the unit and improving her socialization with no behavioral problems overnight. Review Of Systems Denies any side effects from other medications. No tremors. No GI side effects at this time. Psychotherapy None on this visit. Vital Signs Reviewed. Mental Status Examination General: Fair hygiene Speech: Spontaneous and fluid Thought processes: Linear and logical MSK: Smooth and coordinated gait, no signs of tremors or involuntary orofacial movements Thought content: Future orientated Abstract reasoning, and computation: Intact Description of associations: Intact Description of abnormal or psychotic thoughts: Denies any suicidal or homicidal ideation. Denies any auditory or visual hallucinations. Does not appear to be responding to internal stimuli. Does not appear to be endorsing any bizarre or paranoid ideation. Judgment: fair Insight: fair Orientation: Alert and orientated 3 Cognition: Grossly normal Recent and remote memory: Intact Attention span and concentration: Intact Fund of knowledge: Adequate Mood: "okay" Affect: Mildly dysthymic with a constricted range Diagnoses Major depressive disorder: Improving. Borderline personality disorder: Improving. Stimulant use disorder: In controlled setting. Opioid use disorder: On replacement therapy. Assessment and Plan The patient is a 44-year-old woman with a history of significant substance abuse as well as early trauma and borderline personality disorder presents after relapsing on cocaine, experiencing subsequent severe depression. We will continue patient's Abilify at 5 mg nightly and 10 mg in the morning as well as gabapentin 800 mg four times daily, buprenorphine and venlafaxine 225 mg daily. The patient does report as above difficulties with mood variation when she is resumed on Keppra. A consultation with Neurology could be helpful to finding an alternative treatment for her seizure disorder. Disposition The patient will need a further inpatient stay in order to treat her significant depressed mood and general mood variation as well as chronic risk factors. Time Spent 15 minutes [id number] Wednesday Vital Signs Vital Signs Date Time Temp Pulse Resp B/P (MAP) Pulse Ox O2 Delivery O2 Flow Rate FiO2 04/22/19 06:52 98.2 62 14 94/56 (69) 04/16/19 15:08 99 04/16/19 14:01 Room Air Current Medications Current Medications Acetaminophen (Tylenol Tab) 650 mg Q6HP PRN PO HEADACHE or DISCOMFORT; Start 04/16/19 at 14:00 Al Hydrox/Mg Hydrox/Simethicone (Mylanta) 30 ml Q4HP PRN PO HEARTBURN/INDIGESTION; Start 04/16/19 at 14:00 Aripiprazole (AbiLIFY) 5 mg QHS PO Last administered on 04/21/19at 20:00; Start 04/16/19 at 21:00 Aripiprazole (AbiLIFY) 10 mg QAM PO Last administered on 04/22/19at 08:05; Start 04/17/19 at 09:00 Buprenorphine/ Naloxone (Suboxone 8/2mg) 1 tab BID SL ; Start 04/16/19 at 21:00; Stop 04/16/19 at 21:00; Status DC Buprenorphine/ Naloxone (Suboxone 8/2mg) 1 tab BID@0600,1500 SL Last administered on 04/22/19at 06:03; Start 04/16/19 at 15:00 Estradiol (Estrace) 1 mg DAILY PO Last administered on 04/22/19at 08:05; Start 04/17/19 at 09:00 Gabapentin (Neurontin) 800 mg QID PO Last administered on 04/22/19at 12:43; Start 04/16/19 at 17:00 Home Med (Med Rec Complete!) ASDIRECTED XX ; Start 04/16/19 at 14:00; Stop 04/16/19 at 14:00; Status DC Levetiracetam (Keppra) 250 mg BID PO Last administered on 04/22/19at 08:05; Start 04/16/19 at 21:00 Levothyroxine Sodium (Synthroid) 75 mcg DAILY@0600 PO Last administered on 04/22/19at 06:03; Start 04/17/19 at 06:00 Magnesium Hydroxide (Milk Of Magnesia) 30 ml DAILYPRN PRN PO CONSTIPATION; Start 04/16/19 at 14:00 Venlafaxine HCl (Effexor Xr) 225 mg QHS PO Last administered on 04/21/19at 20:01; Start 04/16/19 at 21:00 Zolpidem Tartrate (Ambien) 10 mg QHS PO Last administered on 04/21/19at 20:01; Start 04/16/19 at 21:00 Allergies Coded Allergies: mold (Verified Allergy, Unknown, 01/31/19) metoclopramide (Verified Adverse Reaction, Unknown, AKATHISIA, 01/31/19) prochlorperazine (Verified Adverse Reaction, Unknown, AKATHISIA, 01/31/19) quetiapine (Verified Adverse Reaction, Unknown, AGITATED, 03/19/19) trazodone (Verified Adverse Reaction, Unknown, AGITATION, SHAKINESS, 01/31/19) JULY RICHARDS DO Apr 22, 2019 13:32
[2019-04-22 18:00] VITALS: BP 122/66
[2019-04-22] MEDS: zolPIDEM TARTRATE 5 MG TAB PO SCH (20:06)
[2019-04-22] MEDS: VENLAFAXINE **XR** 75MG CAPSULE PO SCH (20:06)
[2019-04-23] MEDS: LEVOTHYROXINE 75MCG TABLET (0.075MG) PO SCH (05:46)
[2019-04-23] MEDS: BUPRENORPHINE/NALOXONE 8-2MG SUBLINGUAL TABLET(SUBOXONE) SL SCH ×2 (05:46→15:12)
[2019-04-23 06:59] VITALS: BP 110/59
[2019-04-23] MEDS: ESTRADIOL 1 MG TAB PO SCH (08:48)
[2019-04-23] MEDS: levETIRAcetam 250MG TABLET (KEPPRA) PO SCH (08:48)
[2019-04-23] MEDS: GABAPENTIN 400 MG CAP PO SCH ×4 (08:48→20:05)
[2019-04-23] MEDS: ARIPiprazole 10 MG TAB PO SCH (08:48)
--- NOTE | 2019-04-23 16:02 | IPNPDOC ---
Text Note Date of Service NOTE Consult from neurology, the patient's case was discussed with Dr. Layton, the on- call neurologist, relating to the reported depressogenic effects of keppra that the patient noted on her visit on 04/22, he recommended that keppra be d/c'ed and Trileptal started at 300mg BID with possible increase with 600mg BID if effective. He reports outpatient follow up with neurology would be ideal, reports that at this time verbal consult sufficient, call back if any issues notes, informed patient of the change. JULY RICHARDS DO Apr 23, 2019 16:02
[2019-04-23 18:00] VITALS: BP 113/74
[2019-04-23] MEDS: VENLAFAXINE **XR** 75MG CAPSULE PO SCH (20:06)
[2019-04-23] MEDS: zolPIDEM TARTRATE 5 MG TAB PO SCH (20:06)
[2019-04-23] MEDS: OXcarbazepine 300 MG TAB PO SCH (20:06)
[2019-04-24] MEDS: BUPRENORPHINE/NALOXONE 8-2MG SUBLINGUAL TABLET(SUBOXONE) SL SCH ×2 (06:13→14:48)
[2019-04-24] MEDS: LEVOTHYROXINE 75MCG TABLET (0.075MG) PO SCH (06:13)
[2019-04-24 07:01] VITALS: BP 109/58
[2019-04-24] MEDS: ESTRADIOL 1 MG TAB PO SCH (08:48)
[2019-04-24] MEDS: OXcarbazepine 300 MG TAB PO SCH ×2 (08:48→20:19)
[2019-04-24] MEDS: GABAPENTIN 400 MG CAP PO SCH ×4 (08:48→20:17)
[2019-04-24] MEDS: ARIPiprazole 10 MG TAB PO SCH (08:48)
--- NOTE | 2019-04-24 09:38 | MHDSPDOC ---
[facility] Discharge Summary Discharge Summary DATE OF ADMISSION: Apr 16, 2019 at 1:51 pm DATE OF DISCHARGE: April 25, 2019 DISCHARGE DIAGNOSES: Major depressive disorder. Borderline personality disorder. Stimulant use disorder Opioid use disorder REASON FOR ADMISSION: Per Dr. Nick: "The patient is a 44-year-old woman with a history of multiple inpatient admissions presents after recent use of cocaine and subsequent withdrawal. The patient has also relapsed on several other drugs that she uses regularly. She has been diagnosed in the past with borderline personality disorder and significant depression. She has been reporting significant suicidal ideation for the past week with a plan to kill herself with carbon monoxide. She had had a previous suicide attempt in 2013 by cutting her arm. She had endorsed on the presentation at the ER that she was fairly decompensated and that these behaviors were not normal for her despite her diagnosis of BPD. When the patient was met with, she was fairly tired and sedated. She reported that she had relapsed on cocaine recently and was suffering significant depression from that. She notes that this is common with her depressions and subsequently will resolve after she allows her body to adjust." CONSULTANTS INVOLVED: none TREATMENT AND PROGRESS ON THE UNIT : Pt was admitted to [facility], seen for psychiatric assessment and restarted on outpatient abilify changed to 10mg qam and 5mg qhs, Suboxone 8-2mg bid, Effexor xr 225mg daily, and Gabapentin 800 mg QID. She was provided ambien 10mg qhs prn insomnia. Pt found her medications beneficial and tolerated them well. She attended groups daily during her stay. Her symptoms improved with treatment. On day of discharge she denied depression, anxiety, insomnia, SI/HI, hallucinations, delusions. She was discharged home with follow-up at Dr Woods. She felt safe for discharge. DISCHARGE ASSESSMENT: Pt seen today and states she feels good and is looking forward to going home today and working on her sobriety in outpatient substance abuse treatment. Is going to groups and being present in the milieu. States her meds are helpful and she's tolerating them well. Denies depression, anxiety, insomnia, SI/HI, hallucinations, delusions. Feels safe to be discharged home with follow-up at Dr. Woods right after d/c to get her suboxone refilled. MENTAL STATUS EXAMINATION ON DISCHARGE: General Appearance: clean, appears stated age, own clothing Build: overweight Demeanor: pleasant and cooperative Eye Contact: good Activity: average Behavior: cooperative Speech: clear, reg/rate,rhythm,volume Mood: full, euthymic Mood "good" Affect: full, euthymic Thought Process: logical/linear Thought Content (Delusions): none reported, denies SI, HI, AVH Thought Content (Other): none reported, appropriate Thought Content (Aggressive): none reported Perception (Hallucinations): none reported Perception (Other): none reported Cognition (Impairment of): none reported Cognition(Intelligence Est.): average Oriented: Awake, Alert, Oriented times three Insight: good Judgment: good Psychosis: Denies MEDICATIONS ON DISCHARGE: abilify 10mg daily and 5mg qhs Suboxone 8/2 mg twice a day. rx from Dr. Woods Gabapentin 800 mg by mouth 4 times a day Effexor XR 225 mg by mouth daily ambien 10mg qhs prn insomnia. rx from Dr. Woods keppra 250mg bid PLAN/FOLLOWUP ARRANGEMENTS: D/c home with her father with follow-up at Dr. Woods and substance abuse treatment at [facility]. The amount of time spent in the coordination of care for this patient was approximately 30 minutes. Vital Signs/I&Os Vital Signs Date Time Temp Pulse Resp B/P (MAP) Pulse Ox O2 Delivery O2 Flow Rate FiO2 04/24/19 07:01 96.8 74 14 109/58 (75) Laboratory Data Microbiology Microbiology 04/17/19 MRSA Screen - Final, Complete Medications Scheduled Aripiprazole (Aripiprazole) 10 Mg Tablet, 10 MG PO QAM, (Reported) Aripiprazole (Aripiprazole) 5 Mg Tablet, 5 MG PO QHS, (Reported) Buprenorphine HCl/Naloxone HCl (Suboxone 8 mg-2 mg Sl Film) 1 Mis Mis, 1 STRIP SL BID, (Reported) TAKES AT 0600/1500 Estradiol (Estradiol) 1 Mg Tablet, 1 MG PO DAILY, (Reported) Gabapentin (Gabapentin) 800 Mg Tablet, 800 MG PO QID, (Reported) Levetiracetam (Levetiracetam) 250 Mg Tablet, 250 MG PO BID, (Reported) Levothyroxine Sodium (Levothyroxine Sodium) 75 Mcg Tab, 75 MCG PO DAILY, (Reported) Venlafaxine HCl (Venlafaxine HCl ER) 75 Mg Tab.er.24, 225 MG PO QHS, (Reported) Allergies Coded Allergies: mold (Verified Allergy, Unknown, 01/31/19) metoclopramide (Verified Adverse Reaction, Unknown, AKATHISIA, 01/31/19) prochlorperazine (Verified Adverse Reaction, Unknown, AKATHISIA, 01/31/19) quetiapine (Verified Adverse Reaction, Unknown, AGITATED, 03/19/19) trazodone (Verified Adverse Reaction, Unknown, AGITATION, SHAKINESS, 01/31/19) SHASHI GUPTA DO Apr 24, 2019 9:38 am
--- NOTE | 2019-04-24 11:13 | MHIPNPDOC ---
[facility] Progress Note Progress Note DATE OF SERVICE: 04/24/19 HISTORY: Per Dr. Nick: "The patient is a 44-year-old woman with a history of multiple inpatient admissions presents after recent use of cocaine and subseq uent withdrawal. The patient has also relapsed on several other drugs that she uses regularly. She has been diagnosed in the past with borderline personality disorder and significant depression. She has been reporting significant suicidal ideation for the past week with a plan to kill herself with carbon monoxide. She had had a previous suicide attempt in 2013 by cutting her arm. She had endorsed on the presentation at the ER that she was fairly decompensated and that these behaviors were not normal for her despite her diagnosis of BPD. When the patient was met with, she was fairly tired and sedated. She reported that she had relapsed on cocaine recently and was suffering significant depression from that. She notes that this is common with her depressions and subsequently will resolve after she allows her body to adjust." VITAL SIGNS: See below. NEW TEST RESULTS:See below. CURRENT MEDICATIONS: See below. MENTAL STATUS EXAMINATION: General Appearance: clean, appears stated age, hospital scrubs/clothing Build: overweight Demeanor: irritable due to noise on unit Eye Contact: good Activity: average Behavior: cooperative Speech: clear, spontaneous, reg/rate,rhythm,volume Mood: less constricted, less depressed Mood "I can't wait to leave" Affect: less constricted, less depressed Thought Process: logical/linear Thought Content (Delusions): none reported, denies SI, HI, AVH Thought Content (Other): none reported, appropriate Thought Content (Aggressive): none reported Perception (Hallucinations): none reported Perception (Other): none reported Cognition (Impairment of): none reported Cognition(Intelligence Est.): average Oriented: Awake, Alert, Oriented times three Insight: fair Judgment: fair Psychosis: Denies DIAGNOSES: Major depressive disorder. Borderline personality disorder. Stimulant use disorder Opioid use disorder ASSESSMENT:Pt seen and states she feels irritable and can't wait to leave tomorrow due to construction noise on the unit today. She's less depressed, feeling more like herself with treatment. Will see Dr. Woods in his office Wednesday (tomorrow) and for refill suboxone right after d/c. Encourage to go to groups and socialize in milieu to improve mood. Medications are beneficial and tolerating well. Denies SI/HI, hallucinations, delusions. Feels safe here. MANAGEMENT PLAN: continue plan Medications abilify 10mg qam and 5mg qhs Suboxone 8/2 mg SL bid Gabapentin 800 mg by mouth 4 times a day Effexor XR 225 mg by mouth daily ambien 10mg qhs prn insomnia. Keppra 250mg bid TIME SPENT: 30 minutes. Vital Signs Vital Signs Date Time Temp Pulse Resp B/P (MAP) Pulse Ox O2 Delivery O2 Flow Rate FiO2 04/24/19 07:01 96.8 74 14 109/58 (75) Current Medications Current Medications Acetaminophen (Tylenol Tab) 650 mg Q6HP PRN PO HEADACHE or DISCOMFORT; Start 04/16/19 at 14:00 Al Hydrox/Mg Hydrox/Simethicone (Mylanta) 30 ml Q4HP PRN PO HEARTBURN/IN DIGESTION; Start 04/16/19 at 14:00 Aripiprazole (AbiLIFY) 5 mg QHS PO Last administered on 04/23/19at 20:06; Start 04/16/19 at 21:00 Aripiprazole (AbiLIFY) 10 mg QAM PO Last administered on 04/24/19at 08:48; Start 04/17/19 at 09:00 Buprenorphine/ Naloxone (Suboxone 8/2mg) 1 tab BID SL ; Start 04/16/19 at 21:00; Stop 04/16/19 at 21:00; Status DC Buprenorphine/ Naloxone (Suboxone 8/2mg) 1 tab BID@0600,1500 SL Last administered on 04/24/19at 06:13; Start 04/16/19 at 15:00 Estradiol (Estrace) 1 mg DAILY PO Last administered on 04/24/19at 08:48; Start 04/17/19 at 09:00 Gabapentin (Neurontin) 800 mg QID PO Last administered on 04/24/19at 08:48; Start 04/16/19 at 17:00 Home Med (Med Rec Complete!) ASDIRECTED XX ; Start 04/16/19 at 14:00; Stop 04/16/19 at 14:00; Status DC Levetiracetam (Keppra) 250 mg BID PO Last administered on 04/22/19at 08:05; Start 04/16/19 at 21:00; Stop 04/23/19 at 15:59; Status DC Levothyroxine Sodium (Synthroid) 75 mcg DAILY@0600 PO Last administered on 04/24/19at 06:13; Start 04/17/19 at 06:00 Magnesium Hydroxide (Milk Of Magnesia) 30 ml DAILYPRN PRN PO CONSTIPATION; Start 04/16/19 at 14:00 Miscellaneous (Unresolved Clarification Entry) SEE LABEL COMMENTS DAILY XX ; Start 04/22/19 at 09:00; Stop 04/22/19 at 16:16; Status DC Oxcarbazepine (Trileptal) 300 mg BID PO Last administered on 04/24/19at 08:48; Start 04/23/19 at 21:00 Venlafaxine HCl (Effexor Xr) 225 mg QHS PO Last administered on 04/23/19at 20:06; Start 04/16/19 at 21:00 Zolpidem Tartrate (Ambien) 10 mg QHS PO Last administered on 04/23/19at 20:06; Start 04/16/19 at 21:00 Allergies Coded Allergies: mold (Verified Allergy, Unknown, 01/31/19) metoclopramide (Verified Adverse Reaction, Unknown, AKATHISIA, 01/31/19) prochlorperazine (Verified Adverse Reaction, Unknown, AKATHISIA, 01/31/19) quetiapine (Verified Adverse Reaction, Unknown, AGITATED, 03/19/19) trazodone (Verified Adverse Reaction, Unknown, AGITATION, SHAKINESS, 01/31/19) SHASHI GUPTA DO Apr 24, 2019 9:23 am
[2019-04-24] MEDS ORDERED: GABA-845 PO (11:44)
[2019-04-24] MEDS ORDERED: ABIL10TA9 PO (11:44)
[2019-04-24] MEDS ORDERED: ABIL1TAB11 PO (11:44)
[2019-04-24] MEDS ORDERED: VENL75CA47 PO (11:44)
[2019-04-24 18:15] VITALS: BP 128/62
[2019-04-24] MEDS: zolPIDEM TARTRATE 5 MG TAB PO SCH (20:18)
[2019-04-24] MEDS: VENLAFAXINE **XR** 75MG CAPSULE PO SCH (20:18)
[2019-04-25] MEDS: BUPRENORPHINE/NALOXONE 8-2MG SUBLINGUAL TABLET(SUBOXONE) SL SCH (06:29)
[2019-04-25] MEDS: LEVOTHYROXINE 75MCG TABLET (0.075MG) PO SCH (06:29)
[2019-04-25 06:51] VITALS: BP 110/64
[2019-04-25] MEDS: GABAPENTIN 400 MG CAP PO SCH (08:14)
[2019-04-25] MEDS: ARIPiprazole 10 MG TAB PO SCH (08:14)
[2019-04-25] MEDS: ESTRADIOL 1 MG TAB PO SCH (08:14)
[2019-04-25] MEDS: OXcarbazepine 300 MG TAB PO SCH (08:14)
== END 2019-04-25 09:20 | disposition home or self-care (01) | DRG 754 ==
LOC: M ED 11:25 → M ED INP 13:51 → M PSY 15:00
PROVIDERS: ADMIT Psychiatry & Neurology Psychiatry; ATTEND Psychiatry & Neurology Psychiatry
DX: F32.9 Major depressive disorder, single episode, unspecified (principal); G40.909 Epilepsy, unspecified, not intractable, without status epilepticus; R45.851 Suicidal ideations; F15.90 Other stimulant use, unspecified, uncomplicated; F11.90 Opioid use, unspecified, uncomplicated; F60.3 Borderline personality disorder; Z79.899 Other long term (current) drug therapy; Z88.8 Allergy status to other drugs, medicaments and biological substances; E78.5 Hyperlipidemia, unspecified; K21.9 Gastro-esophageal reflux disease without esophagitis; E03.9 Hypothyroidism, unspecified; F17.200 Nicotine dependence, unspecified, uncomplicated; M54.5 Low back pain

== ENCOUNTER 2019-06-22 09:47 | Emergency (ER) | payer MEDICAID, OTHER ==
[~2019-06-22] VITALS: Ht 157.5 cm; Wt 74.7 kg
[~2019-06-22 09:47] MED LIST changes: +ARIP1TAB PO; +LEVE250T5 PO; -OXYB5TAB PO; +OXYB5TAB2 PO
[2019-06-22] MEDS ORDERED: ARIP1TAB10 PO (10:00)
[2019-06-22] MEDS ORDERED: AMPH1TAB2 (10:00)
[2019-06-22 10:27] LABS: HEMATOCRIT 42.8 % (36.0-47.0); HEMOGLOBIN 13.8 g/dl (12.0-15.5); MEAN CORPUSCULAR HEMOGLOBIN 29.1 pg (27.0-33.0); MEAN CORPUSCULAR HGB CONC 32.2 g/dl (32.0-36.5); MEAN CORPUSCULAR VOLUME 90.3 fl (80.0-96.0); PLATELET COUNT, AUTOMATED 285 10^3/uL (150-450); RED BLOOD COUNT 4.74 10^6/uL (4.00-5.40); WHITE BLOOD COUNT 4.1 10^3/uL (4.0-10.0)
[2019-06-22 10:45] LABS: AMPHETAMINES LEVEL URINE NEGATIVE (NEGATIVE); BARBITURATES URINE NEGATIVE (NEGATIVE); BENZODIAZEPINES URINE NEGATIVE (NEGATIVE); CANNABINOIDS URINE POSITIVE (NEGATIVE); COCAINE METABOLITE URINE POSITIVE (NEGATIVE); METHADONE URINE NEGATIVE (NEGATIVE); OPIATES URINE NEGATIVE (NEGATIVE); PHENCYCLIDINE URINE NEGATIVE (NEGATIVE)
[2019-06-22 11:04] LABS: ACETAMINOPHEN LEVEL < 2.0 UG/ML (10.0-30.0); ALBUMIN 3.7 GM/DL (3.2-5.2); ALT/SGPT 20 U/L (12-78); BILIRUBIN,DIRECT 0.1 MG/DL (0.0-0.2); BILIRUBIN,TOTAL 0.4 MG/DL (0.2-1.0); BLOOD UREA NITROGEN 9 MG/DL (7-18); CALCIUM LEVEL 9.3 MG/DL (8.5-10.1); CARBON DIOXIDE LEVEL 30 MEQ/L (21-32); CHLORIDE LEVEL 105 MEQ/L (98-107); CPK CREATINE PHOSPHOKINASE 74 U/L (26-192); CREATININE FOR GFR 0.81 MG/DL (0.55-1.30); ETHYL ALCOHOL (ETHANOL) < 0.003 % (0.000-0.010); GLOMERULAR FILTRATION RATE > 60.0 (>58); GLUCOSE, FASTING 83 MG/DL (70-100); POTASSIUM SERUM 4.2 MEQ/L (3.5-5.1); SALICYLATE LEVEL 2.6 MG/DL (5.0-30.0); SODIUM LEVEL 141 MEQ/L (136-145); TOTAL PROTEIN 7.1 GM/DL (6.4-8.2)
[2019-06-22 15:00] VITALS: BP 114/75
--- NOTE | 2019-06-22 20:33 | ECGEPIP ---
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
== END 2019-06-22 15:05 ==
LOC: M ED 09:47
DX: R45.851 Suicidal ideations (principal); R00.1 Bradycardia, unspecified; I45.89 Other specified conduction disorders; F31.9 Bipolar disorder, unspecified; F17.200 Nicotine dependence, unspecified, uncomplicated; F14.10 Cocaine abuse, uncomplicated; R56.9 Unspecified convulsions; J30.89 Other allergic rhinitis; Z79.899 Other long term (current) drug therapy
CPT/HCPCS: 80048; 80076; 80307; 82550; 84443; 85027; 93005; 99284; G0480

== ENCOUNTER 2019-07-20 18:54 | Inpatient (IN) | payer MEDICAID, OTHER ==
[~2019-07-20] VITALS: Ht 157.5 cm; Wt 77.3 kg
[~2019-07-20 18:54] MED LIST changes: +AMPH1TAB2; -OMEP40CA2 PO; +OMEP40CA97 PO
[2019-07-20] MEDS ORDERED: NS 1,000 ML IV ONE (20:45)
[2019-07-20] MEDS ORDERED: levETIRAcetam INJection 1,000 MG in D5W 100 ML IV ONE (20:45)
[2019-07-20 21:30] LABS: EOS # 0.1 10^3/uL (0.0-0.5); EOS % 2.9 % (0.0-3.0); HEMATOCRIT 41.5 % (36.0-47.0); HEMOGLOBIN 13.7 g/dl (12.0-15.5); LYMPH # 1.3 10^3/uL (1.5-5.0); MEAN CORPUSCULAR HEMOGLOBIN 30.2 pg (27.0-33.0); MEAN CORPUSCULAR VOLUME 91.4 fl (80.0-96.0); MONO # 0.3 10^3/uL (0.0-0.8); MONO % 9.4 % (0.0-5.0); NEUTROPHILS # 1.4 10^3/uL (1.5-8.5); NEUTROPHILS % 45.4 % (36.0-66.0); PLATELET COUNT, AUTOMATED 294 10^3/uL (150-450); RED BLOOD COUNT 4.54 10^6/uL (4.00-5.40); WHITE BLOOD COUNT 3.1 10^3/uL (4.0-10.0)
[2019-07-20 22:01] LABS: ACETAMINOPHEN LEVEL < 2.0 UG/ML (10.0-30.0); ALBUMIN 3.6 GM/DL (3.2-5.2); ALT/SGPT 19 U/L (12-78); BILIRUBIN,DIRECT 0.1 MG/DL (0.0-0.2); BILIRUBIN,TOTAL 0.3 MG/DL (0.2-1.0); BLOOD UREA NITROGEN 7 MG/DL (7-18); CARBON DIOXIDE LEVEL 29 MEQ/L (21-32); CHLORIDE LEVEL 104 MEQ/L (98-107); CPK CREATINE PHOSPHOKINASE 77 U/L (26-192); CREATININE FOR GFR 0.87 MG/DL (0.55-1.30); ETHYL ALCOHOL (ETHANOL) < 0.003 % (0.000-0.010); GLOMERULAR FILTRATION RATE > 60.0 (>58); GLUCOSE, FASTING 87 MG/DL (70-100); SALICYLATE LEVEL 3.5 MG/DL (5.0-30.0); SODIUM LEVEL 141 MEQ/L (136-145); TOTAL PROTEIN 6.9 GM/DL (6.4-8.2)
[2019-07-21 02:14] LABS: AMPHETAMINES LEVEL URINE NEGATIVE (NEGATIVE); BARBITURATES URINE NEGATIVE (NEGATIVE); BENZODIAZEPINES URINE NEGATIVE (NEGATIVE); CANNABINOIDS URINE POSITIVE (NEGATIVE); COCAINE METABOLITE URINE POSITIVE (NEGATIVE); METHADONE URINE NEGATIVE (NEGATIVE); OPIATES URINE NEGATIVE (NEGATIVE); PHENCYCLIDINE URINE NEGATIVE (NEGATIVE)
[2019-07-21] MEDS ORDERED: traZODone 50 MG TAB PO PRN (04:30)
[2019-07-21] MEDS ORDERED: MOM 30ML SUSPENSION UDC PO PRN (04:30)
[2019-07-21] MEDS ORDERED: NICOTINE 21MG/24HR 1 EA TRANSDERMAL TD PRN (04:30)
[2019-07-21] MEDS ORDERED: ACETAMINOPHEN TAB 650MG DOSE (2X325MG) PO PRN (04:30)
[2019-07-21] MEDS ORDERED: MAALOX 30 ML SUSP *UDC PO PRN (04:30)
[2019-07-21] MEDS ORDERED: OLANZapine 10 MG TAB PO PRN (04:45)
[2019-07-21] MEDS ORDERED: GABA800T4 PO (04:46)
[2019-07-21] MEDS ORDERED: VENL75CA2 PO (04:46)
[2019-07-21] MEDS ORDERED: ABIL1TAB12 PO (04:50)
[2019-07-21] MEDS ORDERED: OXCA300T14 PO (04:50)
[2019-07-21 05:53] VITALS: BP 104/68
--- NOTE | 2019-07-21 07:44 | ECGEPIP ---
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
--- NOTE | 2019-07-21 09:53 | MHHPEPDOC ---
General Date Of Admission: Jul 20, 2019 Legal Status: 9.39 Chief Complaint "I took Maisha this morning and feel like I may have a seizure." History of Present Illness HISTORY OF THE PRESENT ILLNESS: Patient is a 43 -year-old , female, with a history of depression, substance abuse, borderline personality d/o, frequent admissions [facility] in past with last who presented to ED endorsing fear of having a seizure due to recent drug use (maisha and cocaine). Pt stated she felt depressed and worthless with passive thoughts of suicide due to "I just can't stop using drugs." Pt was admitted in April due to similar complaint and reason. She denied intent or plan for suicide in ED. Denied HI, hallucinations, delusions.. Pt refused to be seen this morning and history gathered from previous chart record. Psychiatric Review of Systems Depression (2 or more weeks): depressed mood, feelings of worthlesness (worthless), decreased energy, difficulty concentrating, suicidal thoughts Harini (4 or more days of): denies Psychosis: denies PTSD: denies Anxiety: situational anxiety, stressor related anxiety Anxiety/ 6 months or more of: restlessness, keyed up, difficulty concentrating, irritability, personality cluster A,BC (b) Past Psychiatric History Past Diagnoses: Major depressive disorder, paranoid personality disorder, opiate use disorder, stimulant use disorder, borderline personality disorder and bipolar disorder Hospitalizations: Numerous, most recent admission in was April 16, 2019 for SI SA/SIB: Reports one intentional overdose at age 16, and an episode of cutting in 2013 ( she was not trying to kill herself but because it brought her some relief) Outpatient Tx: Sees Debora and Dr. Woods for suboxone. She sees Toan Scott at [facility] for other psychiatric medications but she doesn't know who is going to be her therapist. Outpatient medications: Suboxone 8/2 mg twice a day, Gabapentin 800 mg by mouth 4 times a day, Lamotrigine 250 mg by mouth daily, Propranolol 10 mg by mouth 3 times a day when necessary anxiety, Topiramate 100 mg by mouth daily, Effexor XR 225 mg by mouth daily Past Medical History Medical Problems Hypothyroidism Hep C. Head Injury: Yes (hematoma s/p seizure 03/06) Seizures: Yes (03/06/19, tonic clonic seizure witness, cause unknown, possibly cocaine use) Hospitalizations: Yes Surgeries: Yes (hysterectomy) Family Medical/Psychiatric HX Medical Problems noncontributory Psychiatric Disorders: Yes (Mother with bipolar disorder and completed suicide, maternal aunt with depression and completed suicide) Addiction: No Suicide Attemps/Completions: Yes (mother, aunt) Addiction History nicotine, alcohol, cocaine (utox postive), opioids (history of abuse on suboxone now), methamphetamines (hisitory of IV use), heroin (hisitory of IV use), other (history cannabis. Patient reports being too numerous inpatient and outpatient substance use treatment programs) Social History Early Relations/development:. She grew up in [place], raised by biological parents, denies history of abuse. Education: GED, had completed 3 semesters of college, but she dropped out after her mother committed suicide. Occupational: Currently unemployed with disability. Legal:. Denies upcoming legal appointments. Marital: , adult daughter and son in [place] Sexual Orientation: Heterosexual Zoroastrian/Spirituality: None Supports: Her sisters Housing: lives with her father who is supportive to her Abuse/trauma: Denied Mental Status Examination General Appearance: unkempt, disheveled, appears stated age, hospital scubs/clothing Build: overweight Demeanor: withdrawn Eye Contact: other (refused to be seen) Activity: other (refused to be seen) Behavior: uncooperative, resistant, withdrawn Speech: other (refused to be seen) Mood: depressed, irritable Mood told nurse "I don't want to be seen." Affect: constricted, flat Thought Process: logical/linear, depressed, slow Thought Content (Delusions): denies SI, HI, AVH Thought Content (Other): unable to elaborate Thought Content (Aggressive): none reported Perception (Hallucinations): none reported Perception (Other): none reported Cognition (Impairment of): unable to assess Cognition(Intelligence Est.): average Oriented: Awake, Alert, Oriented times three Insight: poor Judgment: Poor Psychosis: Denies Diagnoses Major depressive disorder. Borderline personality disorder. Stimulant use disorder Opioid use disorder, in sustained remission. A-FIB/CHADSVASC A-FIB History Current/History of A-Fib/PAF?: No Assessment Pt refused to be seen this morning and history gathered from previous chart record. Will restart her outpatient meds except adderall that she doesn't need to take here. Denies SI/HI, hallucinations, delusions here and feels safe here. Initial Treatment Plan 1. Patient was admitted on a 9.39 status. 2. Complete history was obtained. 3. With patients permission, family will be contacted and database will be expanded. 4. Patients medication regimen will be reviewed and changed accordingly. 5. Patient will be provided with protected environment. 6. Patient will be treated with individual, group, and milieu therapies. 7. Patient will receive supportive psych-education. 8. Discharge planning will commence immediately. 9. Outpatient follow-up treatment will be strongly recommended. 10. The initial treatment plan will focus initially on: * Depression. * Risk for suicide. 11. restart outpatient meds. No adderall ESTIMATED LENGTH OF STAY: 3-5 DAYS. TIME SPENT COUNSELING AND COORDINATING INITIAL CARE: 60 minutes. Vital Signs Vital Signs Date Time Temp Pulse Resp B/P (MAP) Pulse Ox O2 Delivery O2 Flow Rate FiO2 07/21/19 05:53 97.9 54 22 104/68 (80) 95 07/20/19 18:55 Room Air Laboratory Data 24H Labs Laboratory Tests 2 07/20/19 21:00: Bedside Glucose (Misc Panel) 103 07/20/19 21:15: Urine Amphetamines Screen NEGATIVE, Urine Benzodiazepines Screen NEGATIVE, Urine Opiates Screen NEGATIVE, Urine Methadone Screen NEGATIVE, Urine Barbiturates Screen NEGATIVE, Urine Phencyclidine Screen NEGATIVE, Urine Cocaine Metabolite Screen POSITIVEH, Urine Cannabinoids Screen POSITIVEH 07/20/19 21:16: Anion Gap 8, Glomerular Filtration Rate > 60.0, Calcium Level 9.0, Aspartate Amino Transf (AST/SGOT) 11, Alanine Aminotransferase (ALT/SGPT) 19, Alkaline Phosphatase 91, Total Bilirubin 0.3, Direct Bilirubin 0.1, Total Creatine Kinase 77, Total Protein 6.9, Albumin 3.6, Albumin/Globulin Ratio 1.09, Thyroid Stimula ting Hormone (TSH) 1.020, Salicylates Level 3.5L, Acetaminophen Level < 2.0L, Ethyl Alcohol Level < 0.003 07/20/19 21:20: Immature Granulocyte % (Auto) 0.3, White Blood Count 3.1L, Red Blood Count 4.54, Hemoglobin 13.7, Hematocrit 41.5, Mean Corpuscular Volume 91.4, Mean Corpuscular Hemoglobin 30.2, Mean Corpuscular Hemoglobin Concent 33.0, Red Cell Distribution Width 13.6, Platelet Count 294, Neutrophils (%) (Auto) 45.4, Lymphocytes (%) (Auto) 41.0, Monocytes (%) (Auto) 9.4H, Eosinophils (%) (Auto) 2.9, Basophils (%) (Auto) 1.0, Neutrophils # (Auto) 1.4L, Lymphocytes # (Auto) 1.3L, Monocytes # (Auto) 0.3, Eosinophils # (Auto) 0.1, Basophils # (Auto) 0.0, Nucleated Red Blood Cells % (auto) 0.0 CBC/BMP Laboratory Tests 07/20/19 21:16 07/20/19 21:20 Red Blood Count 4.54, Mean Corpuscular Volume 91.4, Mean Corpuscular Hemoglobin 30.2, Mean Corpuscular Hemoglobin Concent 33.0, Red Cell Distribution Width 13.6, Neutrophils (%) (Auto) 45.4, Lymphocytes (%) (Auto) 41.0, Monocytes (%) (Auto) 9.4 H, Eosinophils (%) (Auto) 2.9, Basophils (%) (Auto) 1.0, Neutrophils # (Auto) 1.4 L, Lymphocytes # (Auto) 1.3 L, Monocytes # (Auto) 0.3, Eosinophils # (Auto) 0.1, Basophils # (Auto) 0.0 Medications Scheduled Aripiprazole (Abilify) 15 Mg Tablet, 15 MG PO DAILY, (Reported) Buprenorphine HCl/Naloxone HCl (Suboxone 8 mg-2 mg Sl Film) 1 Mis Mis, 1 STRIP SL BID, (Reported) TAKES AT 0600/1500 Estradiol (Estradiol) 1 Mg Tablet, 1 MG PO DAILY, (Reported) Gabapentin (Gabapentin) 800 Mg Tablet, 800 MG PO QID, (Reported) Levothyroxine Sodium (Levothyroxine Sodium) 75 Mcg Tab, 75 MCG PO DAILY, (Reported) Oxcarbazepine (Oxcarbazepine) 300 Mg Tablet, 300 MG PO DAILY, (Reported) Venlafaxine HCl (Venlafaxine HCl ER) 75 Mg Cap.er.24h, 225 MG PO QHS, (Reported) Allergies Coded Allergies: mold (Verified Allergy, Unknown, 07/20/19) metoclopramide (Verified Adverse Reaction, Intermediate, AKATHISIA, 07/20/19) prochlorperazine (Verified Adverse Reaction, Intermediate, AKATHISIA, 07/20/19) quetiapine (Verified Adverse Reaction, Mild, AGITATED, 07/20/19) trazodone (Verified Adverse Reaction, Mild, AGITATION, SHAKINESS, 07/20/19) SHASHI GUPTA DO Jul 21, 2019 09:53
[2019-07-21] MEDS: GABAPENTIN 400 MG CAP PO SCH ×4 (10:00→22:13)
[2019-07-21] MEDS: ESTRADIOL 1 MG TAB PO SCH (13:14)
[2019-07-21] MEDS: ARIPiprazole 15 MG TAB (AbiLIFY) PO SCH (13:15)
[2019-07-21] MEDS: OXcarbazepine 300 MG TAB PO SCH (13:15)
[2019-07-21] MEDS: LEVOTHYROXINE 75MCG TABLET (0.075MG) PO SCH (13:15)
[2019-07-21] MEDS: BUPRENORPHINE/NALOXONE 8-2MG SUBLINGUAL TABLET(SUBOXONE) SL SCH (15:00)
[2019-07-21 17:36] VITALS: BP 99/52
[2019-07-21] MEDS: VENLAFAXINE **XR** 75MG CAPSULE PO SCH (22:13)
[2019-07-22] MEDS: BUPRENORPHINE/NALOXONE 8-2MG SUBLINGUAL TABLET(SUBOXONE) SL SCH ×2 (05:56→15:06)
[2019-07-22] MEDS: LEVOTHYROXINE 75MCG TABLET (0.075MG) PO SCH (05:56)
[2019-07-22 06:47] VITALS: BP 97/58
[2019-07-22] MEDS ORDERED: INFLUENZA QUADRIVALENT PF VACCINE 0.5ML SYRINGE (90686) IM ONE (09:00)
--- NOTE | 2019-07-22 09:25 | MHIPNPDOC ---
[facility] Progress Note Progress Note DATE OF SERVICE: 07/22/19 HISTORY: Patient is a 43 -year-old , female, with a history of depression, substance abuse, borderline personality d/o, frequent admissions [facility] in past with last who presented to ED endorsing fear of having a seizure due to recent drug use (maisha and cocaine). Pt stated she felt depressed and worthless with passive thoughts of suicide due to "I just can't stop using drugs." Pt was admitted in April due to similar complaint and reason. She denied intent or plan for suicide in ED. Denied HI, hallucinations, delusions.. Pt refused to be seen this morning and history gathered from previous chart record. VITAL SIGNS: See below. NEW TEST RESULTS: See below. CURRENT MEDICATIONS: See below. MENTAL STATUS EXAMINATION: General Appearance: unkempt, disheveled, appears stated age, hospital scrubs/clothing, lay in bed Build: overweight Demeanor: withdrawn Eye Contact: poor Activity: slow Behavior: cooperative, withdrawn Speech: limited, low volume, non-spontaneous Mood: depressed, irritable Mood "the same Affect: constricted, flat, depressed Thought Process: logical/linear, depressed, slow Thought Content (Delusions): denies SI, HI, AVH Thought Content (Other): none reported Thought Content (Aggressive): none reported Perception (Hallucinations): none reported Perception (Other): none reported Cognition (Impairment of): none reported Cognition(Intelligence Est.): average Oriented: Awake, Alert, Oriented times three Insight: poor Judgment: Poor Psychosis: Denies DIAGNOSES: Major depressive disorder. Borderline personality disorder. Stimulant use disorder Opioid use disorder, in sustained remission. ASSESSMENT:Pt seen and states continues to feel depressed and have no energy. She appears depressed, anhedonic, avolatile. Pt is isolating in her room in bed mostly which is what she does during the beginning of her inpatient stay and the cocaine gets out of her system after using prior admission. Encouraged to attempt to attend some groups and socialize with peers during the day to aid her depression. States she slept well last night. Feels she is tolerating her medications and they're beneficial. She denies SI/HI, hallucinations, delusions. Pt feels safe here. MANAGEMENT PLAN: continue plan abilify 10mg qam and 5mg qhs Suboxone 8/2 mg SL bid Gabapentin 800 mg by mouth 4 times a day Effexor XR 225 mg by mouth daily ambien 10mg qhs prn insomnia. TIME SPENT: 30 minutes. Vital Signs Vital Signs Date Time Temp Pulse Resp B/P (MAP) Pulse Ox O2 Delivery O2 Flow Rate FiO2 07/22/19 06:47 97.5 50 14 97/58 (71) 07/21/19 13:04 Room Air 07/21/19 05:53 95 Current Medications Current Medications Medications (Trade) Dose Ordered Sig/Rosette Route PRN Reason Start Time Stop Time Status Last Admin Dose Admin Acetaminophen (Tylenol Tab) 650 mg Q6HP PRN PO HEADACHE or DISCOMFORT 07/21/19 04:30 Al Hydrox/Mg Hydrox/Simethicone (Mylanta) 30 ml Q4HP PRN PO HEARTBURN/INDIGESTION 07/21/19 04:30 Aripiprazole (AbiLIFY) 15 mg DAILY PO 07/21/19 11:00 07/21/19 13:15 Buprenorphine/ Naloxone (Suboxone 8/2mg) 1 tab BID@0600,1500 SL 07/21/19 15:00 07/22/19 05:56 Estradiol (Estrace) 1 mg DAILY PO 07/21/19 12:00 07/21/19 13:14 Gabapentin (Neurontin) 800 mg QID PO 07/21/19 10:00 07/21/19 22:13 Home Med (Med Rec Complete!) ASDIRECTED XX 07/21/19 05:00 07/21/19 04:48 DC Hydroxyzine HCl (Atarax) 50 mg Q4HP PRN PO ANXIETY/AGITATION 07/21/19 10:00 Levothyroxine Sodium (Synthroid) 75 mcg DAILY@0600 PO 07/21/19 10:00 07/22/19 05:56 Magnesium Hydroxide (Milk Of Magnesia) 30 ml DAILYPRN PRN PO CONSTIPATION 07/21/19 04:30 Nicotine (Nicoderm Cq 21mg) 1 patch DAILY PRN TD Nictine withdrawl 07/21/19 04:30 Olanzapine (ZyPREXA) 10 mg ONCE PRN PO ANXIETY/AGITATION 07/21/19 04:45 Oxcarbazepine (Trileptal) 300 mg DAILY PO 07/21/19 11:00 07/21/19 13:15 Trazodone HCl (Desyrel) 50 mg QHSP PRN PO INSOMNIA 07/21/19 04:30 Cancel Venlafaxine HCl (Effexor Xr) 225 mg QHS PO 07/21/19 21:00 07/21/19 22:13 Allergies Coded Allergies: mold (Verified Allergy, Unknown, 07/20/19) metoclopramide (Verified Adverse Reaction, Intermediate, AKATHISIA, 07/20/19) prochlorperazine (Verified Adverse Reaction, Intermediate, AKATHISIA, 07/20/19) quetiapine (Verified Adverse Reaction, Mild, AGITATED, 07/20/19) trazodone (Verified Adverse Reaction, Mild, AGITATION, SHAKINESS, 07/20/19) SHASHI GUPTA DO Jul 22, 2019 9:25 am
[2019-07-22] MEDS: ARIPiprazole 15 MG TAB (AbiLIFY) PO SCH (09:53)
[2019-07-22] MEDS: OXcarbazepine 300 MG TAB PO SCH (09:53)
[2019-07-22] MEDS: ESTRADIOL 1 MG TAB PO SCH (09:53)
[2019-07-22] MEDS: GABAPENTIN 400 MG CAP PO SCH ×4 (09:53→23:12)
[2019-07-22 16:02] VITALS: BP 108/58
[2019-07-22] MEDS: VENLAFAXINE **XR** 75MG CAPSULE PO SCH (23:12)
[2019-07-23] MEDS: BUPRENORPHINE/NALOXONE 8-2MG SUBLINGUAL TABLET(SUBOXONE) SL SCH ×2 (06:03→15:47)
[2019-07-23] MEDS: LEVOTHYROXINE 75MCG TABLET (0.075MG) PO SCH (06:03)
[2019-07-23 06:37] VITALS: BP 98/55
[2019-07-23] MEDS: ESTRADIOL 1 MG TAB PO SCH (08:38)
[2019-07-23] MEDS: OXcarbazepine 300 MG TAB PO SCH (08:38)
[2019-07-23] MEDS: GABAPENTIN 400 MG CAP PO SCH ×4 (08:38→22:06)
[2019-07-23] MEDS: ARIPiprazole 15 MG TAB (AbiLIFY) PO SCH (08:38)
--- NOTE | 2019-07-23 09:54 | MHIPNPDOC ---
[facility] Progress Note Progress Note DATE OF SERVICE: 07/23/19 HISTORY: Patient is a 43 -year-old , female, with a history of depression, substance abuse, borderline personality d/o, frequent admissions [facility] in past with last who presented to ED endorsing fear of having a seizure due to recent drug use (maisha and cocaine). Pt stated she felt depressed and worthless with passive thoughts of suicide due to "I just can't stop using drugs." Pt was admitted in April due to similar complaint and reason. She denied intent or plan for suicide in ED. Denied HI, hallucinations, delusions.. Pt refused to be seen this morning and history gathered from previous chart record. VITAL SIGNS: See below. NEW TEST RESULTS: See below. CURRENT MEDICATIONS: See below. MENTAL STATUS EXAMINATION: No change from yesterday General Appearance: unkempt, disheveled, appears stated age, hospital scrubs/clothing, lay in bed Build: overweight Demeanor: withdrawn Eye Contact: poor Activity: slow Behavior: cooperative, withdrawn Speech: limited, low volume, non-spontaneous Mood: depressed, irritable Mood "the same Affect: constricted, flat, depressed Thought Process: logical/linear, depressed, slow Thought Content (Delusions): denies SI, HI, AVH Thought Content (Other): none reported Thought Content (Aggressive): none reported Perception (Hallucinations): none reported Perception (Other): none reported Cognition (Impairment of): none reported Cognition(Intelligence Est.): average Oriented: Awake, Alert, Oriented times three Insight: poor Judgment: Poor Psychosis: Denies DIAGNOSES: Major depressive disorder. Borderline personality disorder. Stimulant use disorder Opioid use disorder, in sustained remission. ASSESSMENT:No change from yesterday. Pt seen and states continues to feel depressed and have no energy. She appears depressed, anhedonic, avolatile. Pt is isolating in her room in bed mostly which is what she does during the beginning of her inpatient stay and the cocaine gets out of her system after using prior admission. Encouraged to attempt to attend some groups and socialize with peers during the day to aid her depression. Encouraged to shower today. States she slept well last night. Feels she is tolerating her medications and they're beneficial. She denies SI/HI, hallucinations, delusions. Pt feels safe here. REquesting to be referred to inpatient rehab. MANAGEMENT PLAN: continue plan abilify 10mg qam and 5mg qhs Suboxone 8/2 mg SL bid Gabapentin 800 mg by mouth 4 times a day Effexor XR 225 mg by mouth daily ambien 10mg qhs prn insomnia. TIME SPENT: 30 minutes. Vital Signs Vital Signs Date Time Temp Pulse Resp B/P (MAP) Pulse Ox O2 Delivery O2 Flow Rate FiO2 07/23/19 06:37 98.4 63 14 98/55 (69) 07/21/19 13:04 Room Air 07/21/19 05:53 95 Current Medications Current Medications Medications (Trade) Dose Ordered Sig/Rosette Route PRN Reason Start Time Stop Time Status Last Admin Dose Admin Acetaminophen (Tylenol Tab) 650 mg Q6HP PRN PO HEADACHE or DISCOMFORT 07/21/19 04:30 07/23/19 06:49 Al Hydrox/Mg Hydrox/Simethicone (Mylanta) 30 ml Q4HP PRN PO HEARTBURN/INDIGESTION 07/21/19 04:30 Aripiprazole (AbiLIFY) 15 mg DAILY PO 07/21/19 11:00 07/23/19 08:38 Buprenorphine/ Naloxone (Suboxone 8/2mg) 1 tab BID@0600,1500 SL 07/21/19 15:00 07/23/19 06:03 Estradiol (Estrace) 1 mg DAILY PO 07/21/19 12:00 07/23/19 08:38 Gabapentin (Neurontin) 800 mg QID PO 07/21/19 10:00 07/23/19 08:38 Home Med (Med Rec Complete!) ASDIRECTED XX 07/21/19 05:00 07/21/19 04:48 DC Hydroxyzine HCl (Atarax) 50 mg Q4HP PRN PO ANXIETY/AGITATION 07/21/19 10:00 Levothyroxine Sodium (Synthroid) 75 mcg DAILY@0600 PO 07/21/19 10:00 07/23/19 06:03 Magnesium Hydroxide (Milk Of Magnesia) 30 ml DAILYPRN PRN PO CONSTIPATION 07/21/19 04:30 Nicotine (Nicoderm Cq 21mg) 1 patch DAILY PRN TD Nictine withdrawl 07/21/19 04:30 Olanzapine (ZyPREXA) 10 mg ONCE PRN PO ANXIETY/AGITATION 07/21/19 04:45 Oxcarbazepine (Trileptal) 300 mg DAILY PO 07/21/19 11:00 07/23/19 08:38 Trazodone HCl (Desyrel) 50 mg QHSP PRN PO INSOMNIA 07/21/19 04:30 Cancel Venlafaxine HCl (Effexor Xr) 225 mg QHS PO 07/21/19 21:00 07/22/19 23:12 Allergies Coded Allergies: mold (Verified Allergy, Unknown, 07/20/19) metoclopramide (Verified Adverse Reaction, Intermediate, AKATHISIA, 07/20/19) prochlorperazine (Verified Adverse Reaction, Intermediate, AKATHISIA, 07/20/19) quetiapine (Verified Adverse Reaction, Mild, AGITATED, 07/20/19) trazodone (Verified Adverse Reaction, Mild, AGITATION, SHAKINESS, 07/20/19) SHASHI GUPTA DO Jul 23, 2019 9:54 am
[2019-07-23 15:57] VITALS: BP 100/57
[2019-07-23] MEDS: VENLAFAXINE **XR** 75MG CAPSULE PO SCH (22:06)
[2019-07-23] MEDS: hydrOXYzine 50 MG TAB PO PRN (22:06)
[2019-07-24] MEDS: BUPRENORPHINE/NALOXONE 8-2MG SUBLINGUAL TABLET(SUBOXONE) SL SCH ×2 (06:10→15:38)
[2019-07-24] MEDS: LEVOTHYROXINE 75MCG TABLET (0.075MG) PO SCH (06:10)
[2019-07-24 06:26] VITALS: BP 105/58
[2019-07-24] MEDS: ARIPiprazole 15 MG TAB (AbiLIFY) PO SCH (09:13)
[2019-07-24] MEDS: ESTRADIOL 1 MG TAB PO SCH (09:13)
[2019-07-24] MEDS: GABAPENTIN 400 MG CAP PO SCH ×4 (09:13→20:14)
[2019-07-24] MEDS: OXcarbazepine 300 MG TAB PO SCH (09:13)
--- NOTE | 2019-07-24 09:19 | MHIPNPDOC ---
[facility] Progress Note Progress Note DATE OF SERVICE: 07/24/19 HISTORY: Patient is a 43 -year-old , female, with a history of depression, substance abuse, borderline personality d/o, frequent admissions [facility] in past with last who presented to ED endorsing fear of having a seizure due to recent drug use (maisha and cocaine). Pt stated she felt depressed and worthless with passive thoughts of suicide due to "I just can't stop using drugs." Pt was admitted in April due to similar complaint and reason. She denied intent or plan for suicide in ED. Denied HI, hallucinations, delusions.. Pt refused to be seen this morning and history gathered from previous chart record. VITAL SIGNS: See below. NEW TEST RESULTS: See below. CURRENT MEDICATIONS: See below. MENTAL STATUS EXAMINATION: No change from yesterday General Appearance: unkempt, disheveled, appears stated age, hospital scrubs/clothing, lay in bed Build: overweight Demeanor: withdrawn Eye Contact: poor Activity: slow Behavior: cooperative, withdrawn Speech: limited, low volume, non-spontaneous Mood: depressed, irritable Mood "the same" Affect: constricted, flat, depressed Thought Process: logical/linear, depressed, slow Thought Content (Delusions): denies SI, HI, AVH Thought Content (Other): none reported Thought Content (Aggressive): none reported Perception (Hallucinations): none reported Perception (Other): none reported Cognition (Impairment of): none reported Cognition(Intelligence Est.): average Oriented: Awake, Alert, Oriented times three Insight: poor Judgment: Poor Psychosis: Denies DIAGNOSES: Major depressive disorder. Borderline personality disorder. Stimulant use disorder Opioid use disorder, in sustained remission. ASSESSMENT: Patient states he mood is not changed from yesterday. She complained of constipation and was changed to dulcolax PRN. Pt seen and states continues to feel depressed and have no energy. She appears depressed, anhedonic, avolatile. Pt is isolating in her room in bed mostly which is what she does during the beginning of her inpatient stay and the cocaine gets out of her system after using prior admission. Encouraged to attempt to attend some groups and s ocialize with peers during the day to aid her depression. Encouraged to shower today. States she slept well last night. Feels she is tolerating her medications and they're beneficial. She denies SI/HI, hallucinations, delusions. Pt feels safe here. Requesting to be referred to inpatient rehab. MANAGEMENT PLAN: continue plan abilify 10mg qam and 5mg qhs Suboxone 8/2 mg SL bid Gabapentin 800 mg by mouth 4 times a day Effexor XR 225 mg by mouth daily ambien 10mg qhs prn insomnia. TIME SPENT: 30 minutes. Vital Signs Vital Signs Date Time Temp Pulse Resp B/P (MAP) Pulse Ox O2 Delivery O2 Flow Rate FiO2 07/24/19 06:26 98.8 61 12 105/58 (74) 07/21/19 13:04 Room Air 07/21/19 05:53 95 Current Medications Current Medications Medications (Trade) Dose Ordered Sig/Rosette Route PRN Reason Start Time Stop Time Status Last Admin Dose Admin Acetaminophen (Tylenol Tab) 650 mg Q6HP PRN PO HEADACHE or DISCOMFORT 07/21/19 04:30 07/23/19 06:49 Al Hydrox/Mg Hydrox/Simethicone (Mylanta) 30 ml Q4HP PRN PO HEARTBURN/INDIGESTION 07/21/19 04:30 Aripiprazole (AbiLIFY) 15 mg DAILY PO 07/21/19 11:00 07/23/19 08:38 Buprenorphine/ Naloxone (Suboxone 8/2mg) 1 tab BID@0600,1500 SL 07/21/19 15:00 07/24/19 06:10 Estradiol (Estrace) 1 mg DAILY PO 07/21/19 12:00 07/23/19 08:38 Gabapentin (Neurontin) 800 mg QID PO 07/21/19 10:00 07/23/19 22:06 Home Med (Med Rec Complete!) ASDIRECTED XX 07/21/19 05:00 07/21/19 04:48 DC Hydroxyzine HCl (Atarax) 50 mg Q4HP PRN PO ANXIETY/AGITATION 07/21/19 10:00 07/23/19 22:06 Levothyroxine Sodium (Synthroid) 75 mcg DAILY@0600 PO 07/21/19 10:00 07/24/19 06:10 Magnesium Hydroxide (Milk Of Magnesia) 30 ml DAILYPRN PRN PO CONSTIPATION 07/21/19 04:30 Nicotine (Nicoderm Cq 21mg) 1 patch DAILY PRN TD Nictine withdrawl 07/21/19 04:30 Olanzapine (ZyPREXA) 10 mg ONCE PRN PO ANXIETY/AGITATION 07/21/19 04:45 Oxcarbazepine (Trileptal) 300 mg DAILY PO 07/21/19 11:00 07/23/19 08:38 Trazodone HCl (Desyrel) 50 mg QHSP PRN PO INSOMNIA 07/21/19 04:30 Cancel Venlafaxine HCl (Effexor Xr) 225 mg QHS PO 07/21/19 21:00 07/23/19 22:06 Allergies Coded Allergies: mold (Verified Allergy, Unknown, 07/20/19) metoclopramide (Verified Adverse Reaction, Intermediate, AKATHISIA, 07/20/19) prochlorperazine (Verified Adverse Reaction, Intermediate, AKATHISIA, 07/20/19) quetiapine (Verified Adverse Reaction, Mild, AGITATED, 07/20/19) trazodone (Verified Adverse Reaction, Mild, AGITATION, SHAKINESS, 07/20/19) SHASHI GUPTA DO Jul 24, 2019 09:19
[2019-07-24] MEDS ORDERED: BISACODYL 5 MG TAB PO PRN (10:45)
[2019-07-24] MEDS: DOCUSATE SODIUM 100 MG CAP PO SCH ×2 (10:47→20:14)
--- NOTE | 2019-07-24 14:24 | HPE ---
DATE OF ADMISSION: 07/21/2019 HISTORY OF PRESENT ILLNESS: Please refer to the psychiatric history and evaluation for further details on this admission. This examination and history is intended for medical issues, which may need treatment, followup, or consultation on this 44-year-old female. PRIMARY CARE PROVIDER: None listed. SOCIAL HISTORY: She is . She occasionally drinks alcohol. Recreational drug use: Cocaine, marijuana, Akiko. PAST MEDICAL HISTORY: Taken from the chart as the patient refuses review of systems or a physical exam. History of methicillin-resistant Staphylococcus aureus (MRSA) of the left hand, hyperlipidemia, gastroesophageal reflux disease (GERD), seizure disorder, hypothyroidism. Thyroid-stimulating hormone (TSH) is therapeutic at 1.020. Bipolar disorder, chronic back pain, polysubstance abuse, depression. SURGICAL HISTORY: Hysterectomy, appendectomy. FAMILY HISTORY: Per the record, father has diabetes. ALLERGIES: Mold. METOCLOPRAMIDE, PHENERGAN, SEROQUEL, TRAZODONE. HOME MEDICATIONS: - Abilify 15 mg by mouth daily - Suboxone 8 mg/2 mg tongue strips sublingual twice a day - estradiol 1 mg by mouth daily - gabapentin 800 mg by mouth four times a day - levothyroxine 75 mcg by mouth daily - oxcarbazepine 300 mg by mouth daily - venlafaxine 225 mg by mouth nightly LABORATORY STUDIES: BMP was normal. White count was 3.1, hemoglobin 13.7, hematocrit 41.5, platelets 294. CMP was normal, Urine was positive for cocaine, positive for cannabinoids. EKG: Sinus rhythm, rate of 66, similar to 06/22/2019. Patient refused review of systems and refused and declined physical exam. IMPRESSION/PLAN: 1. Psychiatric. Plan per psychiatry. 2. Continue estradiol, gabapentin, levothyroxine, Tylenol as needed. Nicotine patch offered. [facility]
[2019-07-24 15:40] VITALS: BP 105/55
[2019-07-24] MEDS: NICOTINE POLACRILEX 2 MG GUM PO PRN (20:14)
[2019-07-24] MEDS: VENLAFAXINE **XR** 75MG CAPSULE PO SCH (20:14)
[2019-07-24] MEDS ORDERED: MIRTAZAPINE 15 MG TAB PO SCH (21:00)
[2019-07-25] MEDS: LEVOTHYROXINE 75MCG TABLET (0.075MG) PO SCH (06:30)
[2019-07-25] MEDS: BUPRENORPHINE/NALOXONE 8-2MG SUBLINGUAL TABLET(SUBOXONE) SL SCH ×2 (06:30→15:12)
[2019-07-25 07:00] VITALS: BP 107/66
[2019-07-25] MEDS: OXcarbazepine 300 MG TAB PO SCH ×2 (09:00→12:46)
[2019-07-25] MEDS: GABAPENTIN 400 MG CAP PO SCH ×4 (09:05→20:38)
[2019-07-25] MEDS: ARIPiprazole 15 MG TAB (AbiLIFY) PO SCH (09:05)
[2019-07-25] MEDS: DOCUSATE SODIUM 100 MG CAP PO SCH ×2 (09:05→20:38)
[2019-07-25] MEDS: ESTRADIOL 1 MG TAB PO SCH (09:05)
--- NOTE | 2019-07-25 09:18 | MHIPNPDOC ---
[facility] Progress Note Progress Note DATE OF SERVICE: 07/25/19 HISTORY: Patient is a 43 -year-old , female, with a history of depression, substance abuse, borderline personality d/o, frequent admissions [facility] in past with last who presented to ED endorsing fear of having a seizure due to recent drug use (maisha and cocaine). Pt stated she felt depressed and worthless with passive thoughts of suicide due to "I just can't stop using drugs." Pt was admitted in April due to similar complaint and reason. She denied intent or plan for suicide in ED. Denied HI, hallucinations, delusions.. Pt refused to be seen this morning and history gathered from previous chart record. VITAL SIGNS: See below. NEW TEST RESULTS: See below. CURRENT MEDICATIONS: See below. MENTAL STATUS EXAMINATION: No change from yesterday General Appearance: unkempt, disheveled, appears stated age, hospital scrubs/clothing, lay in bed Build: overweight Demeanor: withdrawn Eye Contact: poor Activity: slow Behavior: cooperative, withdrawn Speech: limited, low volume, non-spontaneous Mood: depressed, irritable Mood "the same" Affect: constricted, flat, depressed Thought Process: logical/linear, depressed, slow Thought Content (Delusions): denies SI, HI, AVH Thought Content (Other): none reported Thought Content (Aggressive): none reported Perception (Hallucinations): none reported Perception (Other): none reported Cognition (Impairment of): none reported Cognition(Intelligence Est.): average Oriented: Awake, Alert, Oriented times three Insight: poor Judgment: Poor Psychosis: Denies DIAGNOSES: Major depressive disorder. Borderline personality disorder. Stimulant use disorder Opioid use disorder, in sustained remission. ASSESSMENT: Patient states he mood is a bit better today and plans to make it to groups and shower today. Endorses insomnia last night most likely due to taking effexor xr nightly and agreeable to changing to day time use of effexor to improve insomnia. Asked to be taken off remeron due to fear of weight gain and is agreeable to taking doxepin 10mg qhs for sleep at night. Constipation is improved today. Pt seen and states continues to feel depressed and have no en ergy although less today. She appears less depressed, anhedonic, avolatile. Pt is isolating in her room in bed mostly which is what she does during the beginning of her inpatient stay and the cocaine gets out of her system after using prior admission but does plan to get up and be present in the milieu today. Encouraged to attend some groups and socialize with peers during the day to aid her depression. Encouraged to shower today. Feels she is tolerating her medications and they're beneficial. She denies SI/HI, hallucinations, delusions. Pt feels safe here. Requesting to be referred to inpatient rehab. MANAGEMENT PLAN: change effexor xr to daily, d/c remeron, start doxepin for insomnia abilify 10mg qam and 5mg qhs Suboxone 8/2 mg SL bid Gabapentin 800 mg by mouth 4 times a day Effexor XR 225 mg by mouth daily doxepin 10mg qhs TIME SPENT: 30 minutes. Vital Signs Vital Signs Date Time Temp Pulse Resp B/P (MAP) Pulse Ox O2 Delivery O2 Flow Rate FiO2 07/25/19 07:00 98.3 67 12 107/66 (80) 07/21/19 13:04 Room Air 07/21/19 05:53 95 Current Medications Current Medications Medications (Trade) Dose Ordered Sig/Rosette Route PRN Reason Start Time Stop Time Status Last Admin Dose Admin Acetaminophen (Tylenol Tab) 650 mg Q6HP PRN PO HEADACHE or DISCOMFORT 07/21/19 04:30 07/23/19 06:49 Al Hydrox/Mg Hydrox/Simethicone (Mylanta) 30 ml Q4HP PRN PO HEARTBURN/INDIGESTION 07/21/19 04:30 Aripiprazole (AbiLIFY) 15 mg DAILY PO 07/21/19 11:00 07/25/19 09:05 Bisacodyl (Dulcolax Tab) 5 mg BIDP PRN PO CONSTIPATION 07/24/19 10:45 Buprenorphine/ Naloxone (Suboxone 8/2mg) 1 tab BID@0600,1500 SL 07/21/19 15:00 07/25/19 06:30 Docusate Sodium (Colace) 100 mg BID PO 07/24/19 09:00 07/25/19 09:05 Estradiol (Estrace) 1 mg DAILY PO 07/21/19 12:00 07/25/19 09:05 Gabapentin (Neurontin) 800 mg QID PO 07/21/19 10:00 07/25/19 09:05 Home Med (Med Rec Complete!) ASDIRECTED XX 07/21/19 05:00 07/21/19 04:48 DC Hydroxyzine HCl (Atarax) 50 mg Q4HP PRN PO ANXIETY/AGITATION 07/21/19 10:00 07/23/19 22:06 Levothyroxine Sodium (Synthroid) 75 mcg DAILY@0600 PO 07/21/19 10:00 07/25/19 06:30 Magnesium Hydroxide (Milk Of Magnesia) 30 ml DAILYPRN PRN PO CONSTIPATION 07/21/19 04:30 Mirtazapine (Remeron) 15 mg QHS PO 07/24/19 21:00 07/24/19 20:14 Nicotine (Nicoderm Cq 21mg) 1 patch DAILY PRN TD Nictine withdrawl 07/21/19 04:30 07/24/19 19:30 DC Nicotine (Nicorette) 2 mg Q2HP PRN PO NICOTINE WITHDRAWAL 07/24/19 19:30 07/24/19 20:14 Olanzapine (ZyPREXA) 10 mg ONCE PRN PO ANXIETY/AGITATION 07/21/19 04:45 Oxcarbazepine (Trileptal) 300 mg DAILY PO 07/21/19 11:00 07/24/19 09:13 Trazodone HCl (Desyrel) 50 mg QHSP PRN PO INSOMNIA 07/21/19 04:30 Cancel Venlafaxine HCl (Effexor Xr) 225 mg QHS PO 07/21/19 21:00 07/24/19 20:14 Allergies Coded Allergies: mold (Verified Allergy, Unknown, 07/20/19) metoclopramide (Verified Adverse Reaction, Intermediate, AKATHISIA, 07/20/19) prochlorperazine (Verified Adverse Reaction, Intermediate, AKATHISIA, 07/20/19) quetiapine (Verified Adverse Reaction, Mild, AGITATED, 07/20/19) trazodone (Verified Adverse Reaction, Mild, AGITATION, SHAKINESS, 07/20/19) SHASHI GUPTA DO Jul 25, 2019 9:18 am
[2019-07-25] MEDS ORDERED: VENLAFAXINE **XR** 75MG CAPSULE PO ONE (13:00)
[2019-07-25 16:08] VITALS: BP 103/65
[2019-07-25] MEDS ORDERED: IBUPROFEN 400 MG TAB PO PRN (19:45)
[2019-07-25] MEDS: DOXEPIN 10 MG CAP PO SCH (20:38)
[2019-07-26] MEDS: BUPRENORPHINE/NALOXONE 8-2MG SUBLINGUAL TABLET(SUBOXONE) SL SCH ×2 (06:11→15:12)
[2019-07-26] MEDS: LEVOTHYROXINE 75MCG TABLET (0.075MG) PO SCH (06:11)
[2019-07-26 06:26] VITALS: BP 103/62
[2019-07-26] MEDS: DOCUSATE SODIUM 100 MG CAP PO SCH ×2 (08:47→20:16)
[2019-07-26] MEDS: ARIPiprazole 15 MG TAB (AbiLIFY) PO SCH (08:48)
[2019-07-26] MEDS: GABAPENTIN 400 MG CAP PO SCH ×4 (08:48→20:16)
[2019-07-26] MEDS: OXcarbazepine 300 MG TAB PO SCH (08:48)
[2019-07-26] MEDS: ESTRADIOL 1 MG TAB PO SCH (08:48)
[2019-07-26] MEDS: VENLAFAXINE **XR** 75MG CAPSULE PO SCH (08:48)
--- NOTE | 2019-07-26 09:58 | MHIPNPDOC ---
[facility] Progress Note Progress Note DATE OF SERVICE: 07/26/19 HISTORY: Patient is a 43 -year-old , female, with a history of depression, substance abuse, borderline personality d/o, frequent admissions [facility] in past with last who presented to ED endorsing fear of having a seizure due to recent drug use (maisha and cocaine). Pt stated she felt depressed and worthless with passive thoughts of suicide due to "I just can't stop using drugs." Pt was admitted in April due to similar complaint and reason. She denied intent or plan for suicide in ED. Denied HI, hallucinations, delusions.. Pt refused to be seen this morning and history gathered from previous chart record. VITAL SIGNS: See below. NEW TEST RESULTS: See below. CURRENT MEDICATIONS: See below. MENTAL STATUS EXAMINATION: General Appearance: clean, appears stated age, own clothing Build: overweight Demeanor: cooperative Eye Contact: fair Activity: average Behavior: cooperative, irritable Speech: reg volume, spontaneous Mood: less depressed, irritable Mood "I can't complete my assessments... I'm flustered" Affect: irritable, less depressed Thought Process: logical/linear, less depressed Thought Content (Delusions): denies SI, HI, AVH Thought Content (Other): none reported Thought Content (Aggressive): none reported Perception (Hallucinations): none reported Perception (Other): none reported Cognition (Impairment of): none reported Cognition(Intelligence Est.): average Oriented: Awake, Alert, Oriented times three Insight: improving Judgment: improving Psychosis: Denies DIAGNOSES: Major depressive disorder. Borderline personality disorder. Stimulant use disorder Opioid use disorder, in sustained remission. ASSESSMENT: Patient seen in office with d/c digital media planner and is very annoyed as she attempted to do a phone assessment with rehab facility over the phone but was unable to complete due to peer pts being disruptive in the milieu so that she couldn't complete the assessment. Advised pt that she can use my office in the afternoon with the D/c planning to complete rehab assessments which she liked and calmed down when told this. States her mood is better today and did shower and attend some groups yesterday that she found helpful. Denies insomnia last night with doxepin 10mg qhs for sleep at night. Denies constipation. Feels she is tolerating her medications and they're beneficial. She denies SI/HI, hallucinations, delusions. Pt feels safe here. Requesting to be referred to inpatient rehab, [facility] her preferred choice. MANAGEMENT PLAN: continue plan and rehab referral abilify 10mg qam and 5mg qhs Suboxone 8/2 mg SL bid Gabapentin 800 mg by mouth 4 times a day Effexor XR 225 mg by mouth daily doxepin 10mg qhs TIME SPENT: 30 minutes. Vital Signs Vital Signs Date Time Temp Pulse Resp B/P (MAP) Pulse Ox O2 Delivery O2 Flow Rate FiO2 07/26/19 06:26 97.7 67 16 103/62 (76) 07/21/19 13:04 Room Air 07/21/19 05:53 95 Current Medications Current Medications Medications (Trade) Dose Ordered Sig/Rosette Route PRN Reason Start Time Stop Time Status Last Admin Dose Admin Acetaminophen (Tylenol Tab) 650 mg Q6HP PRN PO HEADACHE or DISCOMFORT 07/21/19 04:30 07/25/19 19:48 DC 07/23/19 06:49 Al Hydrox/Mg Hydrox/Simethicone (Mylanta) 30 ml Q4HP PRN PO HEARTBURN/INDIGESTION 07/21/19 04:30 Aripiprazole (AbiLIFY) 15 mg DAILY PO 07/21/19 11:00 07/26/19 08:48 Bisacodyl (Dulcolax Tab) 5 mg BIDP PRN PO CONSTIPATION 07/24/19 10:45 Buprenorphine/ Naloxone (Suboxone 8/2mg) 1 tab BID@0600,1500 SL 07/21/19 15:00 07/26/19 06:11 Docusate Sodium (Colace) 100 mg BID PO 07/24/19 09:00 07/26/19 08:47 Doxepin HCl (SINEquan) 10 mg QHS PO 07/25/19 21:00 07/25/19 20:38 Estradiol (Estrace) 1 mg DAILY PO 07/21/19 12:00 07/26/19 08:48 Gabapentin (Neurontin) 800 mg QID PO 07/21/19 10:00 07/26/19 08:48 Home Med (Med Rec Complete!) ASDIRECTED XX 07/21/19 05:00 07/21/19 04:48 DC Hydroxyzine HCl (Atarax) 50 mg Q4HP PRN PO ANXIETY/AGITATION 07/21/19 10:00 07/23/19 22:06 Ibuprofen (Advil) 400 mg Q8HP PRN PO PAIN 07/25/19 19:45 07/25/19 20:40 Levothyroxine Sodium (Synthroid) 75 mcg DAILY@0600 PO 07/21/19 10:00 07/26/19 06:11 Magnesium Hydroxide (Milk Of Magnesia) 30 ml DAILYPRN PRN PO CONSTIPATION 07/21/19 04:30 Mirtazapine (Remeron) 15 mg QHS PO 07/24/19 21:00 07/25/19 09:12 DC 07/24/19 20:14 Nicotine (Nicoderm Cq 21mg) 1 patch DAILY PRN TD Nictine withdrawl 07/21/19 04:30 07/24/19 19:30 DC Nicotine (Nicorette) 2 mg Q2HP PRN PO NICOTINE WITHDRAWAL 07/24/19 19:30 07/24/19 20:14 Olanzapine (ZyPREXA) 10 mg ONCE PRN PO ANXIETY/AGITATION 07/21/19 04:45 Oxcarbazepine (Trileptal) 300 mg DAILY PO 07/21/19 11:00 07/26/19 08:48 Trazodone HCl (Desyrel) 50 mg QHSP PRN PO INSOMNIA 07/21/19 04:30 Cancel Venlafaxine HCl (Effexor Xr) 225 mg DAILY PO 07/26/19 09:00 07/26/19 08:48 Venlafaxine HCl (Effexor Xr) 225 mg QHS PO 07/21/19 21:00 07/25/19 09:12 DC 07/24/19 20:14 Allergies Coded Allergies: mold (Verified Allergy, Unknown, 07/20/19) metoclopramide (Verified Adverse Reaction, Intermediate, AKATHISIA, 07/20/19) prochlorperazine (Verified Adverse Reaction, Intermediate, AKATHISIA, 07/20/19) quetiapine (Verified Adverse Reaction, Mild, AGITATED, 07/20/19) trazodone (Verified Adverse Reaction, Mild, AGITATION, SHAKINESS, 07/20/19) SHASHI GUPTA DO Jul 26, 2019 9:58 am
[2019-07-26 16:08] VITALS: BP 104/57
[2019-07-26] MEDS: DOXEPIN 10 MG CAP PO SCH (20:16)
[2019-07-26] MEDS: hydrOXYzine 50 MG TAB PO PRN (20:16)
[2019-07-27] MEDS: BUPRENORPHINE/NALOXONE 8-2MG SUBLINGUAL TABLET(SUBOXONE) SL SCH ×2 (05:55→15:05)
[2019-07-27] MEDS: LEVOTHYROXINE 75MCG TABLET (0.075MG) PO SCH (05:55)
[2019-07-27 05:58] VITALS: BP 123/70
[2019-07-27] MEDS: ARIPiprazole 15 MG TAB (AbiLIFY) PO SCH (08:30)
[2019-07-27] MEDS: DOCUSATE SODIUM 100 MG CAP PO SCH ×2 (08:30→20:28)
[2019-07-27] MEDS: GABAPENTIN 400 MG CAP PO SCH ×4 (08:30→20:28)
[2019-07-27] MEDS: OXcarbazepine 300 MG TAB PO SCH (08:30)
[2019-07-27] MEDS: VENLAFAXINE **XR** 75MG CAPSULE PO SCH (08:31)
[2019-07-27] MEDS: ESTRADIOL 1 MG TAB PO SCH (08:31)
--- NOTE | 2019-07-27 09:12 | MHIPNPDOC ---
[facility] Progress Note Progress Note DATE OF SERVICE: 07/27/19 HISTORY: Patient is a 43 -year-old , female, with a history of depression, substance abuse, borderline personality d/o, frequent admissions [facility] in past with last who presented to ED endorsing fear of having a seizure due to recent drug use (maisha and cocaine). Pt stated she felt depressed and worthless with passive thoughts of suicide due to "I just can't stop using drugs." Pt was admitted in April due to similar complaint and reason. She denied intent or plan for suicide in ED. Denied HI, hallucinations, delusions.. Pt refused to be seen this morning and history gathered from previous chart record. VITAL SIGNS: See below. NEW TEST RESULTS: See below. CURRENT MEDICATIONS: See below. MENTAL STATUS EXAMINATION: General Appearance: clean, appears stated age, own clothing Build: overweight Demeanor: cooperative Eye Contact: good Activity: average Behavior: cooperative Speech: reg volume, spontaneous Mood: less depressed, more full range Mood "better" Affect: more full range, less depressed Thought Process: logical/linear, less depressed Thought Content (Delusions): denies SI, HI, AVH Thought Content (Other): none reported Thought Content (Aggressive): none reported Perception (Hallucinations): none reported Perception (Other): none reported Cognition (Impairment of): none reported Cognition(Intelligence Est.): average Oriented: Awake, Alert, Oriented times three Insight: improving Judgment: improving Psychosis: Denies DIAGNOSES: Major depressive disorder. Borderline personality disorder. Stimulant use disorder Opioid use disorder, in sustained remission. ASSESSMENT: Patient seen in [facility] drinking her coffee (this is a sign from past treatment that pt is feeling better and less depressed) and states she called rehab facilities for initial assessments yesterday in my office with d/c planner scheduler yesterday that went well and hopes to be accepted by one today. States she and d/c planner scheduler have some more to call today. States her mood is better today and she's feeling more like herself. She is showered and attending groups that she finds helpful. Denies insomnia last night with doxepin 10mg qhs for sleep at night. Denies constipation. Feels she is tolerating her medications and they're beneficial. She denies SI/HI, hallucinations, delusions. Pt feels safe here. Requesting to be referred to inpatient rehabAurelio her preferred choice. MANAGEMENT PLAN: continue plan and rehab referral abilify 10mg qam and 5mg qhs Suboxone 8/2 mg SL bid Gabapentin 800 mg by mouth 4 times a day Effexor XR 225 mg by mouth daily doxepin 10mg qhs TIME SPENT: 30 minutes. Vital Signs Vital Signs Date Time Temp Pulse Resp B/P (MAP) Pulse Ox O2 Delivery O2 Flow Rate FiO2 07/27/19 05:58 98.5 71 18 123/70 (87) 07/21/19 13:04 Room Air 07/21/19 05:53 95 Current Medications Current Medications Medications (Trade) Dose Ordered Sig/Rosette Route PRN Reason Start Time Stop Time Status Last Admin Dose Admin Acetaminophen (Tylenol Tab) 650 mg Q6HP PRN PO HEADACHE or DISCOMFORT 07/21/19 04:30 07/25/19 19:48 DC 07/23/19 06:49 Al Hydrox/Mg Hydrox/Simethicone (Mylanta) 30 ml Q4HP PRN PO HEARTBURN/INDIGESTION 07/21/19 04:30 Aripiprazole (AbiLIFY) 15 mg DAILY PO 07/21/19 11:00 07/27/19 08:30 Bisacodyl (Dulcolax Tab) 5 mg BIDP PRN PO CONSTIPATION 07/24/19 10:45 Buprenorphine/ Naloxone (Suboxone 8/2mg) 1 tab BID@0600,1500 SL 07/21/19 15:00 07/27/19 05:55 Docusate Sodium (Colace) 100 mg BID PO 07/24/19 09:00 07/27/19 08:30 Doxepin HCl (SINEquan) 10 mg QHS PO 07/25/19 21:00 07/26/19 20:16 Estradiol (Estrace) 1 mg DAILY PO 07/21/19 12:00 07/27/19 08:31 Gabapentin (Neurontin) 800 mg QID PO 07/21/19 10:00 07/27/19 08:30 Home Med (Med Rec Complete!) ASDIRECTED XX 07/21/19 05:00 07/21/19 04:48 DC Hydroxyzine HCl (Atarax) 50 mg Q4HP PRN PO ANXIETY/AGITATION 07/21/19 10:00 10/16/19 20:16 Ibuprofen (Advil) 400 mg Q8HP PRN PO PAIN 07/25/19 19:45 07/25/19 20:40 Levothyroxine Sodium (Synthroid) 75 mcg DAILY@0600 PO 07/21/19 10:00 07/27/19 05:55 Magnesium Hydroxide (Milk Of Magnesia) 30 ml DAILYPRN PRN PO CONSTIPATION 07/21/19 04:30 Mirtazapine (Remeron) 15 mg QHS PO 07/24/19 21:00 07/25/19 09:12 DC 07/24/19 20:14 Nicotine (Nicoderm Cq 21mg) 1 patch DAILY PRN TD Nictine withdrawl 07/21/19 04:30 07/24/19 19:30 DC Nicotine (Nicorette) 2 mg Q2HP PRN PO NICOTINE WITHDRAWAL 07/24/19 19:30 07/24/19 20:14 Olanzapine (ZyPREXA) 10 mg ONCE PRN PO ANXIETY/AGITATION 07/21/19 04:45 Oxcarbazepine (Trileptal) 300 mg DAILY PO 07/21/19 11:00 07/27/19 08:30 Trazodone HCl (Desyrel) 50 mg QHSP PRN PO INSOMNIA 07/21/19 04:30 Cancel Venlafaxine HCl (Effexor Xr) 225 mg DAILY PO 07/26/19 09:00 07/27/19 08:31 Venlafaxine HCl (Effexor Xr) 225 mg QHS PO 07/21/19 21:00 07/25/19 09:12 DC 07/24/19 20:14 Allergies Coded Allergies: mold (Verified Allergy, Unknown, 07/20/19) metoclopramide (Verified Adverse Reaction, Intermediate, AKATHISIA, 07/20/19) prochlorperazine (Verified Adverse Reaction, Intermediate, AKATHISIA, 07/20/19) quetiapine (Verified Adverse Reaction, Mild, AGITATED, 07/20/19) trazodone (Verified Adverse Reaction, Mild, AGITATION, SHAKINESS, 07/20/19) SHASHI GUPTA DO Jul 27, 2019 9:12 am
[2019-07-27 17:39] VITALS: BP 105/60
[2019-07-27] MEDS: hydrOXYzine 50 MG TAB PO PRN (20:28)
[2019-07-27] MEDS: DOXEPIN 10 MG CAP PO SCH (20:28)
[2019-07-27] MEDS: NICOTINE POLACRILEX 2 MG GUM PO PRN (20:30)
[2019-07-28] MEDS: BUPRENORPHINE/NALOXONE 8-2MG SUBLINGUAL TABLET(SUBOXONE) SL SCH ×2 (06:02→15:03)
[2019-07-28] MEDS: LEVOTHYROXINE 75MCG TABLET (0.075MG) PO SCH (06:02)
[2019-07-28 06:09] VITALS: BP 109/58
[2019-07-28] MEDS: GABAPENTIN 400 MG CAP PO SCH ×3 (08:34→16:13)
[2019-07-28] MEDS: OXcarbazepine 300 MG TAB PO SCH (08:35)
[2019-07-28] MEDS: ARIPiprazole 15 MG TAB (AbiLIFY) PO SCH (08:35)
[2019-07-28] MEDS: VENLAFAXINE **XR** 75MG CAPSULE PO SCH (08:35)
[2019-07-28] MEDS: ESTRADIOL 1 MG TAB PO SCH (08:35)
[2019-07-28] MEDS: DOCUSATE SODIUM 100 MG CAP PO SCH (08:36)
--- NOTE | 2019-07-28 10:07 | MHDSPDOC ---
[facility] Discharge Summary Discharge Summary DATE OF ADMISSION: Jul 21, 2019 at 4:19 am DATE OF DISCHARGE: Jul 28, 2019 DISCHARGE DIAGNOSES: Major depressive disorder. Borderline personality disorder. Stimulant use disorder Opioid use disorder, in sustained remission. REASON FOR ADMISSION: Patient is a 43 -year-old , female, with a history of depression, substance abuse, borderline personality d/o, frequent admissions [facility] in past with last who presented to ED endorsing fear of having a seizure due to recent drug use (maisha and cocaine). Pt stated she felt depressed and worthless with passive thoughts of suicide due to "I just can't stop using drugs." Pt was admitted in April due to similar complaint and reason. She denied intent or plan for suicide in ED. Denied HI, hallucinations, delusions.. Pt refused to be seen this morning and history gathered from previous chart record. CONSULTANTS INVOLVED: none TREATMENT AND PROGRESS ON THE UNIT : Pt was admitted to [facility], seen for psychiatric assessment and restarted on outpatient abilify changed to 10mg qam and 5mg qhs, Suboxone 8-2mg bid, Effexor xr 225mg daily, and Gabapentin 800 mg QID. She was provided [id number] qhs prn insomnia. Pt found her medications beneficial and tolerated them well. She attended groups daily during her stay. Her symptoms improved with treatment. On day of discharge she denied depress ion, anxiety, insomnia, SI/HI, hallucinations, delusions. She was discharged home with follow-up at [facility] and Dr. Woods.. She felt safe for discharge. DISCHARGE ASSESSMENT: Pt seen today and states she feels good and is looking forward to going home today. Her mood is euthymic and full range. Is going to groups and being present in the milieu. States her meds are helpful and she's tolerating them well. Denies depression, anxiety, insomnia, SI/HI, halluci nations, delusions. Feels safe to be discharged home today. MENTAL STATUS EXAMINATION ON DISCHARGE: General Appearance: clean, appears stated age, own clothing Build: overweight Demeanor: cooperative Eye Contact: good Activity: average Behavior: cooperative Speech: reg volume, spontaneous Mood: euthymic, full range Mood "ok" Affect: full range, congruent Thought Process: logical/linear Thought Content (Delusions): denies SI, HI, AVH Thought Content (Other): none reported Thought Content (Aggressive): none reported Perception (Hallucinations): none reported Perception (Other): none reported Cognition (Impairment of): none reported Cognition(Intelligence Est.): average Oriented: Awake, Alert, Oriented times three Insight: fair Judgment: fair Psychosis: Denies MEDICATIONS ON DISCHARGE: abilify 10mg qam and 5mg qhs Suboxone 8/2 mg SL bid Gabapentin 800 mg by mouth 4 times a day Effexor XR 225 mg by mouth daily doxepin 10mg qhs PLAN/FOLLOWUP ARRANGEMENTS: Discharged home with follow-up at [facility] and Dr. Woods. The amount of time spent in the coordination of care for this patient was approximately 30 minutes. Vital Signs/I&Os Vital Signs Date Time Temp Pulse Resp B/P (MAP) Pulse Ox O2 Delivery O2 Flow Rate FiO2 07/28/19 06:09 97.0 58 14 109/58 (75) Room Air Medications Scheduled Aripiprazole (Abilify) 15 Mg Tablet, 15 MG PO DAILY for bipolar d/o, #10 Buprenorphine HCl/Naloxone HCl (Suboxone 8 mg-2 mg Sl Film) 1 Mis Mis, 1 STRIP SL BID, (Reported) TAKES AT 0600/1500 Estradiol (Estradiol) 1 Mg Tablet, 1 MG PO DAILY, (Reported) Gabapentin (Gabapentin) 800 Mg Tablet, 800 MG PO QID for pain, #30 Levothyroxine Sodium (Levothyroxine Sodium) 75 Mcg Tab, 75 MCG PO DAILY, (Reported) Oxcarbazepine (Oxcarbazepine) 300 Mg Tablet, 300 MG PO DAILY for bipolar d/o, #10 Venlafaxine HCl (Venlafaxine HCl ER) 75 Mg Cap.er.24h, 225 MG PO QHS for mood, #30 Allergies Coded Allergies: mold (Verified Allergy, Unknown, 07/20/19) metoclopramide (Verified Adverse Reaction, Intermediate, AKATHISIA, 07/20/19) prochlorperazine (Verified Adverse Reaction, Intermediate, AKATHISIA, 07/20/19) quetiapine (Verified Adverse Reaction, Mild, AGITATED, 07/20/19) trazodone (Verified Adverse Reaction, Mild, AGITATION, SHAKINESS, 07/20/19) SHASHI GUPTA DO Jul 28, 2019 10:07
--- NOTE | 2019-07-28 12:18 | MHIPNPDOC ---
[facility] Progress Note Progress Note DATE OF SERVICE: 07/28/19 HISTORY: Patient is a 43 -year-old , female, with a history of depression, substance abuse, borderline personality d/o, frequent admissions [facility] in past with last who presented to ED endorsing fear of having a seizure due to recent drug use (maisha and cocaine). Pt stated she felt depressed and worthless with passive thoughts of suicide due to "I just can't stop using drugs." Pt was admitted in April due to similar complaint and reason. She denied intent or plan for suicide in ED. Denied HI, hallucinations, delusions.. Pt refused to be seen this morning and history gathered from previous chart record. VITAL SIGNS: See below. NEW TEST RESULTS: See below. CURRENT MEDICATIONS: See below. MENTAL STATUS EXAMINATION: General Appearance: clean, appears stated age, own clothing Build: overweight Demeanor: cooperative Eye Contact: good Activity: average Behavior: cooperative Speech: reg volume, spontaneous Mood: less depressed, more full range Mood "better" Affect: more full range, less depressed Thought Process: logical/linear, less depressed Thought Content (Delusions): denies SI, HI, AVH Thought Content (Other): none reported Thought Content (Aggressive): none reported Perception (Hallucinations): none reported Perception (Other): none reported Cognition (Impairment of): none reported Cognition(Intelligence Est.): average Oriented: Awake, Alert, Oriented times three Insight: improving Judgment: improving Psychosis: Denies DIAGNOSES: Major depressive disorder. Borderline personality disorder. Stimulant use disorder Opioid use disorder, in sustained remission. 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 She doesn't appear fully happy about going to [facility] but is otherwise euthymic and full range. Is going to groups and being present in the milieu. States her meds are helpful and she's tolerating them well. Denies depression, anxiety, insomnia, SI/HI, hallucinations, delusions. Feels safe here. MANAGEMENT PLAN: continue plan and rehab referral abilify 10mg qam and 5mg qhs Suboxone 8/2 mg SL bid Gabapentin 800 mg by mouth 4 times a day Effexor XR 225 mg by mouth daily doxepin 10mg qhs TIME SPENT: 30 minutes. Vital Signs Vital Signs Date Time Temp Pulse Resp B/P (MAP) Pulse Ox O2 Delivery O2 Flow Rate FiO2 07/28/19 06:09 97.0 58 14 109/58 (75) Room Air Current Medications Current Medications Medications (Trade) Dose Ordered Sig/Rosette Route PRN Reason Start Time Stop Time Status Last Admin Dose Admin Acetaminophen (Tylenol Tab) 650 mg Q6HP PRN PO HEADACHE or DISCOMFORT 07/21/19 04:30 07/25/19 19:48 DC 07/23/19 06:49 Al Hydrox/Mg Hydrox/Simethicone (Mylanta) 30 ml Q4HP PRN PO HEARTBURN/INDIGESTION 07/21/19 04:30 Aripiprazole (AbiLIFY) 15 mg DAILY PO 07/21/19 11:00 07/28/19 08:35 Bisacodyl (Dulcolax Tab) 5 mg BIDP PRN PO CONSTIPATION 07/24/19 10:45 Buprenorphine/ Naloxone (Suboxone 8/2mg) 1 tab BID@0600,1500 SL 07/21/19 15:00 07/28/19 06:02 Docusate Sodium (Colace) 100 mg BID PO 07/24/19 09:00 07/28/19 08:36 Doxepin HCl (SINEquan) 10 mg QHS PO 07/25/19 21:00 07/27/19 20:28 Estradiol (Estrace) 1 mg DAILY PO 07/21/19 12:00 07/28/19 08:35 Gabapentin (Neurontin) 800 mg QID PO 07/21/19 10:00 07/28/19 08:34 Home Med (Med Rec Complete!) ASDIRECTED XX 07/21/19 05:00 07/21/19 04:48 DC Hydroxyzine HCl (Atarax) 50 mg Q4HP PRN PO ANXIETY/AGITATION 07/21/19 10:00 07/27/19 20:28 Ibuprofen (Advil) 400 mg Q8HP PRN PO PAIN 07/25/19 19:45 07/25/19 20:40 Levothyroxine Sodium (Synthroid) 75 mcg DAILY@0600 PO 07/21/19 10:00 07/28/19 06:02 Magnesium Hydroxide (Milk Of Magnesia) 30 ml DAILYPRN PRN PO CONSTIPATION 07/21/19 04:30 Mirtazapine (Remeron) 15 mg QHS PO 07/24/19 21:00 07/25/19 09:12 DC 07/24/19 20:14 Miscellaneous (Unresolved Clarification Entry) SEE LABEL COMMENTS DAILY XX 07/27/19 09:00 07/27/19 17:04 DC Nicotine (Nicoderm Cq 21mg) 1 patch DAILY PRN TD Nictine withdrawl 07/21/19 04:30 07/24/19 19:30 DC Nicotine (Nicorette) 2 mg Q2HP PRN PO NICOTINE WITHDRAWAL 07/24/19 19:30 07/27/19 20:30 Olanzapine (ZyPREXA) 10 mg ONCE PRN PO ANXIETY/AGITATION 07/21/19 04:45 Oxcarbazepine (Trileptal) 300 mg DAILY PO 07/21/19 11:00 07/28/19 08:35 Trazodone HCl (Desyrel) 50 mg QHSP PRN PO INSOMNIA 07/21/19 04:30 Cancel Venlafaxine HCl (Effexor Xr) 225 mg DAILY PO 07/26/19 09:00 07/28/19 08:35 Venlafaxine HCl (Effexor Xr) 225 mg QHS PO 07/21/19 21:00 07/25/19 09:12 DC 07/24/19 20:14 Allergies Coded Allergies: mold (Verified Allergy, Unknown, 07/20/19) metoclopramide (Verified Adverse Reaction, Intermediate, AKATHISIA, 07/20/19) prochlorperazine (Verified Adverse Reaction, Intermediate, AKATHISIA, 07/20/19) quetiapine (Verified Adverse Reaction, Mild, AGITATED, 07/20/19) trazodone (Verified Adverse Reaction, Mild, AGITATION, SHAKINESS, 07/20/19) SHASHI GUPTA DO Jul 28, 2019 12:18 pm
[2019-07-28] MEDS ORDERED: GABA800T4 PO (15:28)
[2019-07-28] MEDS ORDERED: OXCA300T14 PO (15:28)
[2019-07-28] MEDS ORDERED: ABIL1TAB12 PO (15:28)
[2019-07-28] MEDS ORDERED: VENL75CA2 PO (15:28)
[2019-07-28] MEDS ORDERED: BUPR1SUB5 SL (16:03)
== END 2019-07-28 17:40 | disposition home or self-care (01) | DRG 754 ==
LOC: M ED 18:54 → M ED INP 07-21 04:19 → M PSY 07-21 05:23
PROVIDERS: ADMIT Psychiatry & Neurology Psychiatry; ATTEND Psychiatry & Neurology Psychiatry
DX: F32.9 Major depressive disorder, single episode, unspecified (principal); F60.3 Borderline personality disorder; F15.20 Other stimulant dependence, uncomplicated; F11.21 Opioid dependence, in remission; Z79.899 Other long term (current) drug therapy; Z91.048 Other nonmedicinal substance allergy status; Z88.8 Allergy status to other drugs, medicaments and biological substances; F60.0 Paranoid personality disorder; E03.9 Hypothyroidism, unspecified; B19.20 Unspecified viral hepatitis C without hepatic coma; Z81.8 Family history of other mental and behavioral disorders; Z86.14 Personal history of Methicillin resistant Staphylococcus aureus infection; E78.5 Hyperlipidemia, unspecified; K21.9 Gastro-esophageal reflux disease without esophagitis; G40.909 Epilepsy, unspecified, not intractable, without status epilepticus; M54.5 Low back pain; F17.210 Nicotine dependence, cigarettes, uncomplicated

== ENCOUNTER 2020-04-21 13:19 | Inpatient (IN) | payer MEDICAID, OTHER ==
[~2020-04-21] VITALS: Ht 157.5 cm; Wt 98.7 kg
[~2020-04-21 13:19] MED LIST changes: -ATOM40CA PO; +ATOM40CA16 PO; +BUPR1SUB5 SL; -LAMO100T PO; +LAMO100T3 PO; -LAMO200T2 PO; +LAMO200T3 PO; +OMEP1CAP73 PO; -OMEP20CA4 PO; +OXCA300T14 PO; +OXYB-54 PO; -OXYB5TAB2 PO; +VENL25TA14 PO; -VENL25TA2 PO
[2020-04-21] MEDS ORDERED: VENL150C43 PO (13:31)
[2020-04-21 13:59] LABS: HEMOGLOBIN 13.7 g/dl (12.0-15.5); MEAN CORPUSCULAR HEMOGLOBIN 29.1 pg (27.0-33.0); MEAN CORPUSCULAR HGB CONC 31.9 g/dl (32.0-36.5); MEAN CORPUSCULAR VOLUME 91.5 fl (80.0-96.0); PLATELET COUNT, AUTOMATED 256 10^3/uL (150-450); WHITE BLOOD COUNT 3.6 10^3/uL (4.0-10.0)
[2020-04-21 14:19] LABS: AMPHETAMINES LEVEL URINE NEGATIVE (NEGATIVE); BARBITURATES URINE NEGATIVE (NEGATIVE); BENZODIAZEPINES URINE NEGATIVE (NEGATIVE); CANNABINOIDS URINE NEGATIVE (NEGATIVE); COCAINE METABOLITE URINE POSITIVE (NEGATIVE); METHADONE URINE NEGATIVE (NEGATIVE); OPIATES URINE NEGATIVE (NEGATIVE); PHENCYCLIDINE URINE NEGATIVE (NEGATIVE)
[2020-04-21 14:35] LABS: ACETAMINOPHEN LEVEL < 2.0 UG/ML (10.0-30.0); ALBUMIN 3.7 GM/DL (3.2-5.2); ALT/SGPT 15 U/L (12-78); BILIRUBIN,DIRECT 0.1 MG/DL (0.0-0.2); BILIRUBIN,TOTAL 0.2 MG/DL (0.2-1.0); BLOOD UREA NITROGEN 9 MG/DL (7-18); CALCIUM LEVEL 8.8 MG/DL (8.5-10.1); CARBON DIOXIDE LEVEL 26 MEQ/L (21-32); CHLORIDE LEVEL 108 MEQ/L (98-107); CREATININE FOR GFR 0.67 MG/DL (0.55-1.30); ETHYL ALCOHOL (ETHANOL) < 0.003 % (0.000-0.010); GLOMERULAR FILTRATION RATE > 60.0 (>58); GLUCOSE, FASTING 121 MG/DL (70-100); POTASSIUM SERUM 4.2 MEQ/L (3.5-5.1); SALICYLATE LEVEL 2.2 MG/DL (5.0-30.0); SODIUM LEVEL 139 MEQ/L (136-145); TOTAL PROTEIN 7.1 GM/DL (6.4-8.2)
[2020-04-22] MEDS ORDERED: LEVOTHYROXINE 75MCG TABLET (0.075MG) PO SCH (06:00)
[2020-04-22] MEDS ORDERED: VENLAFAXINE **XR** 75MG CAPSULE PO ONE (07:45)
[2020-04-22] MEDS ORDERED: GABAPENTIN 400 MG CAP PO ONE (07:45)
[2020-04-22] MEDS ORDERED: BUPRENORPHINE/NALOXONE 8-2MG SUBLINGUAL TABLET(SUBOXONE) SL SCH ×2 (09:00→15:00)
[2020-04-22] MEDS ORDERED: SUBO8MIS SL (11:08)
[2020-04-22] MEDS ORDERED: IBUP200C27 PO (11:08)
[2020-04-22] MEDS ORDERED: HYDR50TA70 PO (11:08)
[2020-04-22] MEDS ORDERED: ACET-897 PO (11:08)
[2020-04-22] MEDS ORDERED: GABA800T4 PO (11:08)
[2020-04-22] MEDS ORDERED: MOM 30ML SUSPENSION UDC PO PRN (16:00)
[2020-04-22] MEDS ORDERED: MAALOX 30 ML SUSP *UDC PO PRN (16:00)
[2020-04-22] MEDS ORDERED: ACETAMINOPHEN TAB 650MG DOSE (2X325MG) PO PRN (16:00)
[2020-04-22 18:10] VITALS: BP 129/75
[2020-04-22] MEDS ORDERED: IBUPROFEN 800 MG TAB PO PRN (18:30)
[2020-04-22] MEDS: GABAPENTIN 400 MG CAP PO SCH (22:02)
[2020-04-22] MEDS: MIRTAZAPINE 15 MG TAB PO SCH (22:32)
[2020-04-23] MEDS: LEVOTHYROXINE 75MCG TABLET (0.075MG) PO SCH (06:14)
[2020-04-23] MEDS: BUPRENORPHINE/NALOXONE 8-2MG SUBLINGUAL TABLET(SUBOXONE) SL SCH ×2 (06:14→15:08)
[2020-04-23 06:45] VITALS: BP 126/66
--- NOTE | 2020-04-23 07:13 | HPEPDOC ---
[facility] Medical History & Physical Date of Admission Apr 23, 2020 Date of Service: Apr 23, 2020 Attending Physician: ROBLES HERNANDEZ MD History and Physical TIME OF SERVICE: 6:15 AM REASON FOR CONSULT: Medical management HISTORY OF PRESENT ILLNESS: This is a 45-year-old female that was admitted to [facility] for management of depression with suicidal ideation. Her only complaint is of back pain which she attributes to the bed. She denies having any headaches, nausea, vomiting, fever, chills, or any acute illness recently. REVIEW OF SYSTEMS: n/a PAST MEDICAL/ SURGICAL HISTORY: Hypothyroidism Appendectomy Hysterectomy SOCIAL HISTORY: She smokes She doesn't drink alcohol She uses cocaine FAMILY HISTORY: Diabetes ALLERGIES: Please see below. HOME MEDICATIONS: Please see below. PHYSICAL EXAMINATION: VITAL SIGNS: Please see below. GEN: well-nourished / well developed/ NAD CVS: RRR/NMRG LUNGS: clear to auscultation bilaterally on room air MSK/EXTREMITIES: range of motion intact in all 4 extremities NEURO: speech is not dysarthric PSYCH: alert and oriented to person place and time/ able to understand and follow all commands / ASSESSMENT: Ms. Alejandre is a 45-year-old female with a history of hypothyroidism and depression who was admitted for management of suicidal ideation; we were consulted for medical comanagement. PLAN: 1. Depression. Plan: Per primary team 2. Hypothyroidism Plan: Levothyroxine 3. Polysubstance abuse Plan: Follow-up drug screen / She declined nicotine patch / smoking cessation education 4. Back Pain Plan: tylenol PRN / diclofenac patch 5. Obesity BMI of 39.8, complicates care Plan: f/u A1C if not done in the last 3 yrs / the pt can f/u w his or her PCP for STOP BANG questionnaire, communications billing analyst consult DVT PROPHYLAXIS: Per primary team DISPOSITION: Per primary team. Thank you for consulting us. We will sign off. Vital Signs Vital Signs Date Time Temp Pulse Resp B/P (MAP) Pulse Ox O2 Delivery O2 Flow Rate FiO2 04/23/20 06:45 97.5 44 14 126/66 (86) 96 Room Air Home Medications Scheduled Buprenorphine HCl/Naloxone HCl (Suboxone 8 mg-2 mg Sl Film) 1 Each Film, 1 STRIP SL BID Gabapentin (Gabapentin) 800 Mg Tablet, 800 MG PO QID Levothyroxine Sodium (Levothyroxine Sodium) 75 Mcg Tab, 75 MCG PO DAILY Venlafaxine HCl (Venlafaxine HCl ER) 150 Mg Cap.er.24h, 300 MG PO DAILY Scheduled PRN Acetaminophen (Tylenol Extra Strength) 500 Mg Tablet, 1,000 MG PO TID PRN for PAIN Hydroxyzine HCl (Hydroxyzine HCl) 50 Mg Tablet, 50 MG PO TID PRN for ANXIETY Ibuprofen (Ibuprofen) 200 Mg Capsule, 800 MG PO QID PRN for PAIN Allergies Coded Allergies: mold (Verified Allergy, Unknown, 07/20/19) metoclopramide (Verified Adverse Reaction, Intermediate, AKATHISIA, 07/20/19) prochlorperazine (Verified Adverse Reaction, Intermediate, AKATHISIA, 07/20/19) quetiapine (Verified Adverse Reaction, Mild, AGITATED, 07/20/19) trazodone (Verified Adverse Reaction, Mild, AGITATION, SHAKINESS, 07/20/19) A-FIB/CHADSVASC A-FIB History Current/History of A-Fib/PAF?: No Current PO Anticoag Therapy: No ROBLES HERNANDEZ MD Apr 23, 2020 07:13
--- NOTE | 2020-04-23 08:21 | MHHPEPDOC ---
[facility] History & Physical History and Physical DATE OF ADMISSION: Apr 22, 2020 at 15:58 HPI: Caitlyn presents today for a follow up in the hospital. Caitlyn reports that she recently left rehab and no longer lives with her people which subsequently resulted in her depression. Caitlyn visits [facility] for both outpatient and substance abuse at this time. Generally focused on her low mood secondary to her recent cocaine use. No changes in previous negative screens for bipolar, psychotic and other disorders. MEDICATIONS: She is currently on Effexor 300 mg daily. MEDICAL HISTORY: She has a long history of being admitted to inpatient units for suicidal thoughts, especially after substances. FAMILY HISTORY: Caitlyn mentions her mother had depression. Objective Appearance: Fair hygiene. Behavior: The patient is met with, she gets up out of bed. Speech: Normal rate. Normal volume. Cognition: Alert, Attentive, and Oriented to person, place, time. Thought Content: No evidence of delusions. Associations intact. No signs of psychotic thought processes. No evidence of aggressive or homicidal ideation. Assessment F33.9 Major depressive disorder, recurrent, unspecified F15.94 Other stimulant use, unspecified with stimulant-induced mood disorder Plan Resume patients home medication, monitor for resolution likely substance induced are resolved without issue. Screens negative for psychotic disorders and bipolar disorders. Review previous charts from previous admissions and treatment of patient. Generally has behavior problems sometimes and will continue to monitor and treat appropriately. Treatment priorities: 1. Risk for suicide and 2. Substance use. Estimated length of stay is 2-3 days. Vital Signs Vital Signs Date Time Temp Pulse Resp B/P (MAP) Pulse Ox O2 Delivery O2 Flow Rate FiO2 04/23/20 06:45 97.5 44 14 126/66 (86) 96 Room Air Medications Scheduled Buprenorphine HCl/Naloxone HCl (Suboxone 8 mg-2 mg Sl Film) 1 Each Film, 1 STRIP SL BID, (Reported) Gabapentin (Gabapentin) 800 Mg Tablet, 800 MG PO QID, (Reported) Levothyroxine Sodium (Levothyroxine Sodium) 75 Mcg Tab, 75 MCG PO DAILY, (Reported) Venlafaxine HCl (Venlafaxine HCl ER) 150 Mg Cap.er.24h, 300 MG PO DAILY, (Reported) Scheduled PRN Acetaminophen (Tylenol Extra Strength) 500 Mg Tablet, 1,000 MG PO TID PRN for PAIN, (Reported) Hydroxyzine HCl (Hydroxyzine HCl) 50 Mg Tablet, 50 MG PO TID PRN for ANXIETY, (Reported) Ibuprofen (Ibuprofen) 200 Mg Capsule, 800 MG PO QID PRN for PAIN, (Reported) Allergies Coded Allergies: mold (Verified Allergy, Unknown, 07/20/19) metoclopramide (Verified Adverse Reaction, Intermediate, AKATHISIA, 07/20/19) prochlorperazine (Verified Adverse Reaction, Intermediate, AKATHISIA, 07/20/19) quetiapine (Verified Adverse Reaction, Mild, AGITATED, 07/20/19) trazodone (Verified Adverse Reaction, Mild, AGITATION, SHAKINESS, 07/20/19) JULY RICHARDS DO Apr 23, 2020 08:21
[2020-04-23] MEDS: GABAPENTIN 400 MG CAP PO SCH ×4 (09:12→21:00)
[2020-04-23] MEDS: DICLOFENAC EPOLAMINE 1.3 % PATCH TOP SCH ×2 (09:12→21:00)
[2020-04-23] MEDS: VENLAFAXINE **XR** 75MG CAPSULE PO SCH (09:13)
[2020-04-23 12:59] LABS: HEMOGLOBIN A1c 5.4 %
[2020-04-23] MEDS: NICOTINE POLACRILEX 2 MG GUM PO PRN (15:39)
[2020-04-23 17:25] VITALS: BP 105/36
[2020-04-23] MEDS: MIRTAZAPINE 15 MG TAB PO SCH (21:00)
[2020-04-24] MEDS: BUPRENORPHINE/NALOXONE 8-2MG SUBLINGUAL TABLET(SUBOXONE) SL SCH ×2 (05:56→14:53)
[2020-04-24] MEDS: LEVOTHYROXINE 75MCG TABLET (0.075MG) PO SCH (05:56)
[2020-04-24 06:37] VITALS: BP 102/57
[2020-04-24] MEDS: DICLOFENAC EPOLAMINE 1.3 % PATCH TOP SCH ×2 (09:06→20:27)
[2020-04-24] MEDS: VENLAFAXINE **XR** 75MG CAPSULE PO SCH (09:07)
[2020-04-24] MEDS: GABAPENTIN 400 MG CAP PO SCH ×4 (09:07→20:25)
[2020-04-24] MEDS: NICOTINE POLACRILEX 2 MG GUM PO PRN (09:08)
--- NOTE | 2020-04-24 10:29 | MHIPNPDOC ---
[facility] Progress Note Progress Note DATE OF SERVICE: 04/24/20 Caitlyn presents today for concerns regarding a follow up visit. She reports that she did not sleep at all last night and that she did not get her sleep medicine last night. Caitlyn states that she feels better than she did yesterday. She denies any suicidal and homicidal thoughts. She reports still feeling very depressed. MEDICATIONS: She notes that the medicine is doing okay. Caitlyn states that she is on Remeron, but she is going to stop taking it because it made her gain weight. She notes that she takes 10 mg of Ambien on the outside, and she only uses it when she absolutely needs to. Objective Appearance: Fair hygiene. Mood: Dysthemic. Speech: Soft. Thought Form: Linear and goal directed. Logical. Thought Content: Vague suicidal ideation. Perception: No signs of psychosis. Judgement: Poor. Insight: Poor. Assessment F33.9 Major depressive disorder, recurrent, unspecified F15.20 Other stimulant dependence, uncomplicated F11.90 Opioid use, unspecified, uncomplicated Plan Continue home medications at this time Patient resolving slowly from the likely withdrawal related depression Convert to voluntary today Ambien will be restarted at 5 mg QHS PRN Vital Signs Vital Signs Date Time Temp Pulse Resp B/P (MAP) Pulse Ox O2 Delivery O2 Flow Rate FiO2 04/24/20 06:37 96.3 48 14 102/57 (72) 97 Room Air Current Medications Current Medications Medications (Trade) Dose Ordered Sig/Rosette Route PRN Reason Start Time Stop Time Status Last Admin Dose Admin Acetaminophen (Tylenol Tab) 650 mg Q6HP PRN PO HEADACHE or DISCOMFORT 04/22/20 16:00 Al Hydrox/Mg Hydrox/Simethicone (Mylanta) 30 ml Q4HP PRN PO HEARTBURN/INDIGESTION 04/22/20 16:00 Buprenorphine/ Naloxone (Suboxone 8/2mg) 1 tab BID SL 04/22/20 09:00 04/22/20 16:18 DC 04/22/20 08:23 Buprenorphine/ Naloxone (Suboxone 8/2mg) 1 tab BID@0600,1500 SL 04/22/20 15:00 04/22/20 18:50 DC 04/22/20 16:34 Buprenorphine/ Naloxone (Suboxone 8/2mg) 1 tab BID@0600,1500 SL 04/23/20 06:00 04/24/20 05:56 Diclofenac Epolamine (Flector 1.3%) 1 patch Q12H TOP 04/23/20 09:00 04/24/20 09:06 Gabapentin (Neurontin) 800 mg QID PO 04/22/20 21:00 04/24/20 09:07 Home Med (Med Rec Complete!) ASDIRECTED XX 04/22/20 11:15 04/22/20 11:10 DC Ibuprofen (Advil) 800 mg Q8HP PRN PO MODERATE PAIN (PS 5-7) 04/22/20 18:30 04/22/20 22:06 Levothyroxine Sodium (Synthroid) 75 mcg DAILY@06 PO 04/22/20 06:00 04/22/20 18:50 DC 04/22/20 08:24 Levothyroxine Sodium (Synthroid) 75 mcg DAILY@06 PO 04/23/20 06:00 04/24/20 05:56 Magnesium Hydroxide (Milk Of Magnesia) 30 ml DAILYPRN PRN PO CONSTIPATION 04/22/20 16:00 Mirtazapine (Remeron) 15 mg QHS PO 04/22/20 21:00 04/22/20 22:32 Nicotine (Nicorette) 2 mg Q4HP PRN PO NICOTINE WITHDRAWAL 04/22/20 18:30 04/24/20 09:08 Venlafaxine HCl (Effexor Xr) 300 mg DAILY PO 04/23/20 09:00 04/24/20 09:07 Allergies Coded Allergies: mold (Verified Allergy, Unknown, 07/20/19) metoclopramide (Verified Adverse Reaction, Intermediate, AKATHISIA, 07/20/19) prochlorperazine (Verified Adverse Reaction, Intermediate, AKATHISIA, 07/20/19) quetiapine (Verified Adverse Reaction, Mild, AGITATED, 07/20/19) trazodone (Verified Adverse Reaction, Mild, AGITATION, SHAKINESS, 07/20/19) JULY RICHARDS DO Apr 24, 2020 10:28
[2020-04-24 17:21] VITALS: BP 131/69
[2020-04-24] MEDS: zolPIDEM TARTRATE 5 MG TAB PO PRN (20:25)
[2020-04-24] MEDS: MIRTAZAPINE 15 MG TAB PO SCH (20:25)
[2020-04-25] MEDS: BUPRENORPHINE/NALOXONE 8-2MG SUBLINGUAL TABLET(SUBOXONE) SL SCH ×2 (06:17→14:08)
[2020-04-25] MEDS: LEVOTHYROXINE 75MCG TABLET (0.075MG) PO SCH (06:17)
[2020-04-25 06:51] VITALS: BP 119/74
--- NOTE | 2020-04-25 07:43 | MHIPNPDOC ---
[facility] Progress Note Progress Note DATE OF SERVICE: 04/25/20 Caitlyn presents today for a follow-up visit. She reports she doesnt feel depressed anymore and denies having suicidal tendencies. MEDICATIONS: Caitlyn states the Ambien helped her go to sleep. Objective Appearance: Well nourished. Well groomed. Behavior: Engaged. Cooperative with good eye contact. Pleasant. Affect: Appropriate to context. Full range. Mood: Generally good. Euthymic. Appropriately reactive. Speech: Normal rate. Normal volume. Motor: No gross motor abnormalities. Cognition: Alert, Attentive, and Oriented to person, place, time. Memory: No gross abnormalities of short or intermediate memory noted during interview. No formal testing. Thought Form: Linear and goal directed. Thought Content: No evidence of delusions. No evidence of aggressive or homicidal ideation. No thoughts of self harm. No evidence of suicidal ideation. Perception: No perceptual abnormalities noted. Judgement: intact as evidenced by decision making in the recent past. Insight: good insight into symptoms and treatment options. Assessment F33.9 Major depressive disorder, recurrent, unspecified F15.20 Other stimulant dependence, uncomplicated Plan Observe overnight. Continue medications. Discharged tomorrow if continues to show improvement. Vital Signs Vital Signs Date Time Temp Pulse Resp B/P (MAP) Pulse Ox O2 Delivery O2 Flow Rate FiO2 04/25/20 06:51 96.7 59 14 119/74 (89) 98 Room Air Current Medications Current Medications Medications (Trade) Dose Ordered Sig/Rosette Route PRN Reason Start Time Stop Time Status Last Admin Dose Admin Acetaminophen (Tylenol Tab) 650 mg Q6HP PRN PO HEADACHE or DISCOMFORT 04/22/20 16:00 Al Hydrox/Mg Hydrox/Simethicone (Mylanta) 30 ml Q4HP PRN PO HEARTBURN/INDIGESTION 04/22/20 16:00 Buprenorphine/ Naloxone (Suboxone 8/2mg) 1 tab BID SL 04/22/20 09:00 04/22/20 16:18 DC 04/22/20 08:23 Buprenorphine/ Naloxone (Suboxone 8/2mg) 1 tab BID@0600,1500 SL 04/22/20 15:00 04/22/20 18:50 DC 04/22/20 16:34 Buprenorphine/ Naloxone (Suboxone 8/2mg) 1 tab BID@0600,1500 SL 04/23/20 06:00 04/25/20 06:17 Diclofenac Epolamine (Flector 1.3%) 1 patch Q12H TOP 04/23/20 09:00 04/24/20 09:06 Gabapentin (Neurontin) 800 mg QID PO 04/22/20 21:00 04/24/20 20:25 Home Med (Med Rec Complete!) ASDIRECTED XX 04/22/20 11:15 04/22/20 11:10 DC Ibuprofen (Advil) 800 mg Q8HP PRN PO MODERATE PAIN (PS 5-7) 04/22/20 18:30 04/22/20 22:06 Levothyroxine Sodium (Synthroid) 75 mcg DAILY@06 PO 04/22/20 06:00 04/22/20 18:50 DC 04/22/20 08:24 Levothyroxine Sodium (Synthroid) 75 mcg DAILY@06 PO 04/23/20 06:00 04/25/20 06:17 Magnesium Hydroxide (Milk Of Magnesia) 30 ml DAILYPRN PRN PO CONSTIPATION 04/22/20 16:00 Mirtazapine (Remeron) 15 mg QHS PO 04/22/20 21:00 04/24/20 20:25 Nicotine (Nicorette) 2 mg Q4HP PRN PO NICOTINE WITHDRAWAL 04/22/20 18:30 04/24/20 09:08 Venlafaxine HCl (Effexor Xr) 300 mg DAILY PO 04/23/20 09:00 04/24/20 09:07 Zolpidem Tartrate (Ambien) 5 mg QHSP PRN PO sleep 04/24/20 12:00 04/24/20 20:25 Allergies Coded Allergies: mold (Verified Allergy, Unknown, 07/20/19) metoclopramide (Verified Adverse Reaction, Intermediate, AKATHISIA, 07/20/19) prochlorperazine (Verified Adverse Reaction, Intermediate, AKATHISIA, 07/20/19) quetiapine (Verified Adverse Reaction, Mild, AGITATED, 07/20/19) trazodone (Verified Adverse Reaction, Mild, AGITATION, SHAKINESS, 07/20/19) JULY RICHARDS DO Apr 25, 2020 07:43
[2020-04-25] MEDS: DICLOFENAC EPOLAMINE 1.3 % PATCH TOP SCH ×2 (08:02→20:49)
[2020-04-25] MEDS: VENLAFAXINE **XR** 75MG CAPSULE PO SCH (08:02)
[2020-04-25] MEDS: GABAPENTIN 400 MG CAP PO SCH ×4 (08:02→20:05)
[2020-04-25] MEDS: NICOTINE POLACRILEX 2 MG GUM PO PRN (17:34)
[2020-04-25 18:29] VITALS: BP 151/82
[2020-04-25] MEDS: zolPIDEM TARTRATE 5 MG TAB PO PRN (20:05)
[2020-04-25] MEDS: MIRTAZAPINE 15 MG TAB PO SCH (20:05)
[2020-04-26] MEDS: LEVOTHYROXINE 75MCG TABLET (0.075MG) PO SCH (06:06)
[2020-04-26] MEDS: BUPRENORPHINE/NALOXONE 8-2MG SUBLINGUAL TABLET(SUBOXONE) SL SCH (06:06)
[2020-04-26 06:27] VITALS: BP 132/77
--- NOTE | 2020-04-26 07:31 | MHDSPDOC ---
[facility] Discharge Summary Discharge Summary DATE OF ADMISSION: Apr 22, 2020 at 15:58 DATE OF DISCHARGE: Apr 26, 2020 at 08:45 DISCHARGE DIAGNOSES: Unspecified depressive disorder cocaine use disorder REASON FOR ADMISSION: 45-year-old woman presents after using cocaine and becoming depressed reporting suicidal ideation CONSULTANTS INVOLVED:[ None (basic hospitalist screening)] TREATMENT AND PROGRESS ON THE UNIT : Medication changes: resumed on home medications without any alterations Behavior on unit: initially isolated but then became more amenable, as she improved Treatment attendance: attended more she improved Notable issues on presentation: none State on discharge: [improved] DISCHARGE ASSESSMENT: The patient a 45 year old woman, with likely cocaine related depression, presented to [facility], where they resumed on home meds and treated supportively. Legal status considerations: The patient at the time of discharge did not meet criteria for involuntary admission/extension due to having a [normal] mental status exam, [fair] insight into the situation, They are engaged in the discharge process, as well as being friendly and amenable in behavioral control and havent been engaging in any observed concerning behavior or ideation recently. They decline voluntary extension/admission at this time and must be discharged in good migue, as anushka briggs to make a case for holding the patient against their will. They may have historical risk factors of admissions and other interactions with psychiatry however, those are not modifiable from a clinical perspective. The patient will need to be discharged in good migue. MENTAL STATUS EXAMINATION ON DISCHARGE: [General: Well dressed with good hygiene Speech: Spontaneous and fluid Thought processes: Linear and logical Thought content: Future orientated Abstract reasoning, and computation: Intact Description of associations: Intact Description of abnormal or psychotic thoughts:Denies any suicidal or homicidal ideation. Denies any auditory or visual hallucinations. Does not appear to be responding to internal stimuli. Does not appear to be endorsing any bizarre or paranoid ideation. Judgment: fair Insight: fair Orientation: Alert and orientated 3 Recent and remote memory: Intact Attention span and concentration: Intact Fund of knowledge: Adequate Mood: "okay" Affect: Euthymic with a full range] PLAN/FOLLOWUP ARRANGEMENTS: Follow up appointments made (PCP and MH in 5 days of D/C date) and safety plan completed. Safety Planning aspects completed prior to discharge [Medication supplies limited to 7 days with 4 refills to prevent accumulation to OD] [RN reviewed crisis hotline information and other aspects to empower patient to access care in interim before next appointment.] The amount of time spent in the coordination of care for this patient was approximately 30 minutes. Vital Signs/I&Os Vital Signs Date Time Temp Pulse Resp B/P (MAP) Pulse Ox O2 Delivery O2 Flow Rate FiO2 04/26/20 06:27 98.9 72 16 132/77 (95) Room Air 04/25/20 06:51 98 Medications Scheduled Buprenorphine HCl/Naloxone HCl (Suboxone 8 mg-2 mg Sl Film) 1 Each Film, 1 STRIP SL BID for opioid for 7 Days, #7 Gabapentin (Gabapentin) 800 Mg Tablet, 800 MG PO QID, (Reported) Gabapentin (Gabapentin) 400 Mg Capsule, 800 MG PO QID for anxiety for 7 Days, #56 Levothyroxine Sodium (Levothyroxine Sodium) 75 Mcg Tab, 75 MCG PO DAILY, (Reported) Mirtazapine (Remeron) 15 Mg Tablet, 15 MG PO QHS for mood for 7 Days, #7 Venlafaxine HCl (Venlafaxine HCl ER) 150 Mg Cap.er.24h, 300 MG PO DAILY, (Reported) Venlafaxine HCl (Venlafaxine HCl ER) 75 Mg Cap.er.24h, 300 MG PO DAILY for mood for 7 Days, #28 Scheduled PRN Acetaminophen (Tylenol Extra Strength) 500 Mg Tablet, 1,000 MG PO TID PRN for PAIN, (Reported) Hydroxyzine HCl (Hydroxyzine HCl) 50 Mg Tablet, 50 MG PO TID PRN for ANXIETY, (Reported) Ibuprofen (Ibuprofen) 200 Mg Capsule, 800 MG PO QID PRN for PAIN, (Reported) Zolpidem Tartrate (Ambien) 5 Mg Tablet, 5 MG PO QHSP PRN for sleep for 7 Days, #7 Allergies Coded Allergies: mold (Verified Allergy, Unknown, 07/20/19) metoclopramide (Verified Adverse Reaction, Intermediate, AKATHISIA, 07/20/19) prochlorperazine (Verified Adverse Reaction, Intermediate, AKATHISIA, 07/20/19) quetiapine (Verified Adverse Reaction, Mild, AGITATED, 07/20/19) trazodone (Verified Adverse Reaction, Mild, AGITATION, SHAKINESS, 07/20/19) JULY RICHARDS DO Apr 26, 2020 07:31
[2020-04-26] MEDS ORDERED: SUBO8MIS SL (07:56)
[2020-04-26] MEDS: VENLAFAXINE **XR** 75MG CAPSULE PO SCH (08:05)
[2020-04-26] MEDS: GABAPENTIN 400 MG CAP PO SCH (08:05)
[2020-04-26] MEDS: DICLOFENAC EPOLAMINE 1.3 % PATCH TOP SCH (08:06)
[2020-04-26] MEDS ORDERED: VENL75CA47 PO (09:20)
[2020-04-26] MEDS ORDERED: AMBI5TAB PO (09:20)
[2020-04-26] MEDS ORDERED: REME15TA PO (09:20)
[2020-04-26] MEDS ORDERED: GABA-845 PO (09:20)
== END 2020-04-26 08:45 | disposition home or self-care (01) | DRG 754 ==
LOC: M ED 13:19 → M ED INP 04-22 15:58 → M PSY 04-22 17:33
PROVIDERS: ADMIT Psychiatry & Neurology Addiction Medicine; ATTEND Psychiatry & Neurology Addiction Medicine
DX: F32.9 Major depressive disorder, single episode, unspecified (principal); R45.851 Suicidal ideations; E03.9 Hypothyroidism, unspecified; F14.90 Cocaine use, unspecified, uncomplicated; M54.5 Low back pain; E66.9 Obesity, unspecified; Z68.39 Body mass index [BMI] 39.0-39.9, adult; Z79.899 Other long term (current) drug therapy; Z88.8 Allergy status to other drugs, medicaments and biological substances

== ENCOUNTER → 2020-06-10 | Outpatient (REF) | payer MEDICARE, MEDICAID ==
[~2020-06-10] MED LIST changes: +ACET-897 PO; +AMBI5TAB PO; +HYDR50TA70 PO; +IBUP200C27 PO; -PANT20TA2 PO; +PANT20TA6 PO; +REME15TA PO; +VENL150C43 PO
== END ==
LOC: M LAB REF 11:43
PROVIDERS: ATTEND Nurse Practitioner Family
DX: Z13.9 Encounter for screening, unspecified (principal)

== ENCOUNTER → 2021-03-29 | Outpatient (REF) | payer MEDICARE, MEDICAID ==
[~2021-03-29] MED LIST changes: -AMIT10TA PO; +AMIT10TA7 PO; +GABA-282 PO; +GABA-283 PO; -GABA-843 PO; -GABA-845 PO; +MIRT-62 PO; +OMEP40CA4 PO; -OMEP40CA97 PO; -REME15TA PO; -VENL25TA14 PO; +VENL25TA28 PO
[2021-03-29 21:17] LABS: APPEARANCE, URINE MANUAL CLOUDY (CLEAR); COLOR, URINE MANUAL ORANGE (YELLOW); GLUCOSE, URINE (UA) MANUAL NEGATIVE (NEGATIVE); KETONE, URINE MANUAL OBSCURED mg/dL (NEGATIVE); PROTEIN, URINE MANUAL OBSCURED mg/dL (NEGATIVE); SPECIFIC GRAVITY,URINE MANUAL 1.015 (1.002-1.035)
[2021-03-29 21:18] LABS: BILIRUBIN, URINE MANUAL OBSCURED (NEGATIVE); BLOOD URINE MANUAL NEGATIVE (NEGATIVE); LEUKOCYTE ESTERASE, URINE MAN OBSCURED (NEGATIVE); NITRITE, URINE MANUAL OBSCURED (NEGATIVE); RBC, URINE NONE SEEN /hpf (0-3); SQUAMOUS EPITHELIAL CELL URINE SMALL AMOUNT /hpf (SMALL AMT); UROBILINOGEN, URINE MANUAL OBSCURED mg/dl (NORMAL)
[2021-03-29 21:19] LABS: BACTERIA, URINE MOD AMOUNT; HYALINE CAST, URINE NONE SEEN /lpf (0-1)
== END ==
LOC: M LAB 19:33
PROVIDERS: ATTEND Physician Assistant Medical
DX: R30.0 Dysuria (principal)

== ENCOUNTER 2021-04-10 20:20 | Inpatient (IN) | payer MEDICARE, MEDICAID ==
[~2021-04-10] VITALS: Ht 157.5 cm; Wt 79.3 kg
[2021-04-10 21:38] LABS: HEMATOCRIT 40.5 % (36.0-47.0); HEMOGLOBIN 13.2 g/dl (12.0-15.5); MEAN CORPUSCULAR HEMOGLOBIN 28.8 pg (27.0-33.0); MEAN CORPUSCULAR HGB CONC 32.6 g/dl (32.0-36.5); MEAN CORPUSCULAR VOLUME 88.4 fl (80.0-96.0); PLATELET COUNT, AUTOMATED 311 10^3/uL (150-450); RED BLOOD COUNT 4.58 10^6/uL (4.00-5.40); WHITE BLOOD COUNT 4.5 10^3/uL (4.0-10.0)
[2021-04-10 22:04] LABS: AMPHETAMINES LEVEL URINE POSITIVE (NEGATIVE); BARBITURATES URINE NEGATIVE (NEGATIVE); BENZODIAZEPINES URINE NEGATIVE (NEGATIVE); CANNABINOIDS URINE POSITIVE (NEGATIVE); COCAINE METABOLITE URINE NEGATIVE (NEGATIVE); METHADONE URINE NEGATIVE (NEGATIVE); OPIATES URINE NEGATIVE (NEGATIVE); PHENCYCLIDINE URINE NEGATIVE (NEGATIVE)
[2021-04-10 22:11] LABS: ACETAMINOPHEN LEVEL < 2.0 UG/ML (10.0-30.0); ALBUMIN 3.8 GM/DL (3.2-5.2); ALT/SGPT 22 U/L (12-78); BILIRUBIN,DIRECT 0.2 MG/DL (0.0-0.2); BILIRUBIN,TOTAL 0.5 MG/DL (0.2-1.0); BLOOD UREA NITROGEN 8 MG/DL (7-18); CALCIUM LEVEL 9.2 MG/DL (8.5-10.1); CARBON DIOXIDE LEVEL 28 MEQ/L (21-32); CHLORIDE LEVEL 108 MEQ/L (98-107); CREATININE FOR GFR 0.53 MG/DL (0.55-1.30); ETHYL ALCOHOL (ETHANOL) < 0.003 % (0.000-0.010); GLOMERULAR FILTRATION RATE > 60.0 (>58); GLUCOSE, FASTING 92 MG/DL (70-100); SALICYLATE LEVEL < 1.7 MG/DL (5.0-30.0); SODIUM LEVEL 142 MEQ/L (136-145); THYROID STIMULATING HORMONE 0.475 uIU/ML (0.358-3.740); TOTAL PROTEIN 7.4 GM/DL (6.4-8.2)
[2021-04-10 23:08] LABS: HIV 1&2 SCREEN CENTAUR NEGATIVE (NEGATIVE)
[2021-04-10 23:28] LABS: HCG, SERUM QUALITATIVE NEGATIVE (NEGATIVE)
[2021-04-11] MEDS ORDERED: VENLAFAXINE **XR** 75MG CAPSULE PO ONE (10:30)
[2021-04-11] MEDS ORDERED: GABAPENTIN 400MG CAP PO ONE (10:30)
[2021-04-11] MEDS ORDERED: BUPRENORPHINE/NALOXONE 8-2MG SUBLINGUAL TABLET(SUBOXONE) SL ONE ×2 (10:30→21:00)
[2021-04-11] MEDS ORDERED: MOM 30ML SUSPENSION UDC PO PRN (10:50)
[2021-04-11] MEDS ORDERED: MAALOX 30 ML SUSP *UDC PO PRN (10:50)
[2021-04-11 11:01] LABS: RSV AMPLIFICATION NEGATIVE (NEGATIVE)
[2021-04-11] MEDS ORDERED: BUPR1SUB5 SL (12:15)
[2021-04-11 13:38] VITALS: BP 119/72
[2021-04-11] MEDS: GABAPENTIN 400MG CAP PO SCH ×2 (16:43→22:09)
[2021-04-11] MEDS: zolPIDEM TARTRATE 5 MG TAB PO PRN (22:09)
[2021-04-11] MEDS: ACETAMINOPHEN TAB 650MG DOSE (2X325MG) PO PRN (22:10)
[2021-04-12 06:00] VITALS: BP 124/77
[2021-04-12] MEDS ORDERED: LEVOTHYROXINE 75MCG TABLET (0.075MG) PO SCH (06:00)
[2021-04-12] MEDS: BUPRENORPHINE/NALOXONE 8-2MG SUBLINGUAL TABLET(SUBOXONE) SL SCH ×2 (06:43→15:23)
[2021-04-12] MEDS ORDERED: VENLAFAXINE 37.5 MG TAB PO ONE (09:00)
[2021-04-12] MEDS: GABAPENTIN 400MG CAP PO SCH ×4 (09:33→20:14)
[2021-04-12] MEDS: ACETAMINOPHEN TAB 650MG DOSE (2X325MG) PO PRN ×2 (09:34→20:13)
[2021-04-12] MEDS: VENLAFAXINE **XR** 75MG CAPSULE PO SCH (09:35)
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
--- NOTE | 2021-04-12 11:20 | HPE ---
HISTORY AND PHYSICAL (HOSPITALIST GENERATED) DATE OF ADMISSION: 04/11/2021 HISTORY OF PRESENT ILLNESS: She has no active current medical problems. PAST MEDICAL HISTORY: Hypothyroidism. PAST SURGICAL HISTORY: 1. Appendectomy. 2. Hysterectomy. SOCIAL HISTORY: Smokes. No alcohol. Has used cocaine. FAMILY HISTORY: Diabetes. ALLERGIES: See list. HOME MEDICATIONS: 1. Suboxone 8/2 sublingual b.i.d. 2. Gabapentin 800 mg q.i.d. 3. Venlafaxine ER 300 mg daily. MEDICAL REVIEW OF SYSTEMS: Negative. PHYSICAL EXAMINATION: VITAL SIGNS: As listed. GENERAL APPEARANCE: Alert and conversant in no distress. HEENT: Unremarkable. LUNGS: Clear. HEART: Regular rate and rhythm. ABDOMEN: Soft and nontender with no peripheral edema. LABORATORY DATA: Admission labs look unrevealing. IMPRESSION/PLAN: She is medically stable at this time. If any medical problems develop, please feel free to consult hospitalist.
[2021-04-12 16:53] VITALS: BP 100/59
[2021-04-12] MEDS: zolPIDEM TARTRATE 5 MG TAB PO PRN (20:14)
[2021-04-13] MEDS: hydrOXYzine 50 MG TAB PO PRN ×2 (01:59→20:26)
[2021-04-13] MEDS: ACETAMINOPHEN TAB 650MG DOSE (2X325MG) PO PRN ×2 (02:00→09:09)
[2021-04-13] MEDS: BUPRENORPHINE/NALOXONE 8-2MG SUBLINGUAL TABLET(SUBOXONE) SL SCH ×2 (06:06→15:02)
[2021-04-13 06:59] VITALS: BP 121/70
[2021-04-13 07:58] LABS: ALBUMIN 3.3 GM/DL (3.2-5.2); ALT/SGPT 18 U/L (12-78); BILIRUBIN,DIRECT < 0.1 MG/DL (0.0-0.2); BILIRUBIN,TOTAL 0.3 MG/DL (0.2-1.0); CHOLESTEROL LEVEL 200 MG/DL (<200); CHOLESTEROL RISK RATIO 3.636 (<5); HDL CHOLESTEROL 55 MG/DL (>40); LDL CHOLESTEROL 124 MG/DL (<100); NON-HDL-C 145 MG/DL; TOTAL PROTEIN 6.9 GM/DL (6.4-8.2); TRIGLYCERIDES LEVEL 105 MG/DL (<150)
[2021-04-13] MEDS: GABAPENTIN 400MG CAP PO SCH ×4 (09:07→20:26)
[2021-04-13] MEDS: VENLAFAXINE **XR** 75MG CAPSULE PO SCH (09:07)
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
[2021-04-13] MEDS ORDERED: NICOTINE POLACRILEX 2 MG GUM PO PRN (15:30)
[2021-04-13] MEDS: zolPIDEM TARTRATE 5 MG TAB PO PRN (20:27)
[2021-04-14] MEDS: BUPRENORPHINE/NALOXONE 8-2MG SUBLINGUAL TABLET(SUBOXONE) SL SCH ×2 (06:38→15:40)
[2021-04-14] MEDS: GABAPENTIN 400MG CAP PO SCH ×4 (09:26→20:16)
[2021-04-14] MEDS: VENLAFAXINE **XR** 75MG CAPSULE PO SCH (09:26)
--- NOTE | 2021-04-14 09:45 | MHIPNPDOC ---
[facility] Progress Note Progress Note DATE OF SERVICE: 04/14/21 The patient is fully cooperating with the medication and has no complaint of side effects. Patient strongly denies any ongoing use of the drugs, but admits that she has relapsed in the past few days, but didn't relapse with heroine use. Patient is still very anxious, depressed and frustrated primarily due to her current living situation. She is convinced that the place is infested with bed bugs and doesn't know how to get help to remove this and is feeling extremely anxious and fearful and unsafe. She remained markedly anxious and somewhat disheveled and reports that she is feeling unsafe and feeling hopeless and helpless. She has been without the medicine for quite a while, so it may help her to get back on her medicine, but is feeling very hopeless about her living situation will not get any better. HISTORY: . VITAL SIGNS: See below. NEW TEST RESULTS: . CURRENT MEDICATIONS: See below. MENTAL STATUS EXAMINATION: Patient is a 46-year old female, who is , very anxious and tearful. Speech: Is relevant, but not productive. Language skills are fair. Thought processes including: , Coherent, but not spontaneous. Thought content: Preoccupied with the hopeless, helpless feeling. Abstract reasoning, and computation: fair. Description of associations: Organized but not productive. Description of abnormal or psychotic thoughts: Denies any hallucination or paranoia. Judgment: fair. Insight: poor. Orientation: , Oriented. Recent and remote memory: Unimpaired . Attention span and concentration: fair. Language: . Fund of knowledge: . Mood: Anxious and depressed. Affect: , Anxious and preoccupied. DIAGNOSES: 1. . Major depression, recurrent 2. . Personality disorder, mixed 3. . History of polysubstance abuse ASSESSMENT: Remained markedly depressed, anxious, and feeling hopeless MANAGEMENT PLAN: , Stabilize with medication and look for some social support. TIME SPENT: 20 minutes. Vital Signs Vital Signs Date Time Temp Pulse Resp B/P (MAP) Pulse Ox O2 Delivery O2 Flow Rate FiO2 04/13/21 08:47 Room Air 04/13/21 06:59 98.0 64 18 121/70 (87) 96 Current Medications Current Medications Medications (Trade) Dose Ordered Sig/Rosette Route PRN Reason Start Time Stop Time Status Last Admin Dose Admin Acetaminophen (Tylenol Tab) 650 mg Q6HP PRN PO HEADACHE or MILD DISCOMFORT 04/11/21 10:50 04/13/21 09:09 Al Hydrox/Mg Hydrox/Simethicone (Mylanta) 30 ml Q4HP PRN PO HEARTBURN/INDIGESTION 04/11/21 10:50 Buprenorphine/ Naloxone (Suboxone 8/2mg) 1 tab BID@0600,1500 SL 04/12/21 06:00 04/14/21 06:38 Gabapentin (Neurontin) 800 mg QID PO 04/11/21 17:00 04/14/21 09:26 Home Med (Med Rec Complete!) ASDIRECTED XX 04/11/21 12:20 04/11/21 12:22 DC Hydroxyzine HCl (Atarax) 50 mg TID PRN PO anxiety/agitation 04/11/21 15:15 04/13/21 20:26 Ibuprofen (Advil) 600 mg Q6HP PRN PO MODERATE PAIN (PS 5-7) 04/13/21 15:20 Levothyroxine Sodium (Synthroid) 75 mcg DAILY@06 PO 04/12/21 06:00 04/11/21 15:35 DC Magnesium Hydroxide (Milk Of Magnesia) 30 ml DAILYPRN PRN PO CONSTIPATION 04/11/21 10:50 Nicotine (Nicorette) 2 mg Q2HP PRN PO SMOKING CESSATION 04/13/21 15:05 Nicotine (Nicorette) 2 mg Q4HP PRN PO NICOTINE WITHDRAWAL 04/13/21 15:30 UNV Venlafaxine HCl (Effexor Xr) 300 mg DAILY PO 04/12/21 09:00 04/14/21 09:26 Zolpidem Tartrate (Ambien) 5 mg QHSP PRN PO INSOMNIA 04/11/21 10:50 04/13/21 15:25 DC 04/12/21 20:14 Zolpidem Tartrate (Ambien) 10 mg QHSP PRN PO INSOMNIA 04/13/21 15:25 04/13/21 20:27 Allergies Coded Allergies: mold (Verified Allergy, Unknown, 07/20/19) metoclopramide (Verified Adverse Reaction, Intermediate, AKATHISIA, 07/20/19) prochlorperazine (Verified Adverse Reaction, Intermediate, AKATHISIA, 07/20/19) quetiapine (Verified Adverse Reaction, Mild, AGITATED, 07/20/19) trazodone (Verified Adverse Reaction, Mild, AGITATION, SHAKINESS, 07/20/19) BELINDA RAMON M.D. Apr 14, 2021 09:45
[2021-04-14] MEDS: NICOTINE POLACRILEX 2 MG GUM PO PRN (20:16)
[2021-04-14] MEDS: zolPIDEM TARTRATE 5 MG TAB PO PRN (20:17)
[2021-04-14] MEDS: IBUPROFEN 600MG TAB PO PRN (20:17)
[2021-04-15] MEDS: BUPRENORPHINE/NALOXONE 8-2MG SUBLINGUAL TABLET(SUBOXONE) SL SCH ×2 (05:52→15:13)
[2021-04-15 06:49] VITALS: BP 110/62
--- NOTE | 2021-04-15 09:05 | MHIPNPDOC ---
[facility] Progress Note Progress Note DATE OF SERVICE: 04/15/21 The patient is cooperating with all treatment and tolerating her medicines without any complaint of side effect. She appears a little less anxious or fearful and reported that she slept okay. She is again minimizing her drug use and blames her poor living situation as the cause for this episode. She claims that nobody is helping to change her situation and is feeling hopeless, helpless, and is afraid to go back to her place. She is denying any hallucination or paranoia and is denying any suicidal plan or intent. HISTORY: . VITAL SIGNS: See below. NEW TEST RESULTS: . CURRENT MEDICATIONS: See below. MENTAL STATUS EXAMINATION: Patient is a 46-year old female, who is in good control and in no acute distress. Speech: Is , coherent, but not productive. Language skills are fair. Thought processes including: Relevant. Thought content: . No gross delusional or paranoid ideas. Abstract reasoning, and computation: poor. Description of associations: , Organized. Description of abnormal or psychotic thoughts: Denies any. Judgment: poor. Insight: poor. Orientation: Oriented . Recent and remote memory: No gross impairment. Attention span and concentration: fair. Language: . Fund of knowledge: . Mood: , Moderately anxious. Affect: , Appropriate, labile, dramatic. DIAGNOSES: 1. . Depressive disorder, NOS 2. ., Polysubstance abuse 3. . Personality disorder, mixed ASSESSMENT:, Not as tearful or dramatic, but quite dependent MANAGEMENT PLAN: Continued to: Medicine and supportive therapy. TIME SPENT: 15 minutes. Vital Signs Vital Signs Date Time Temp Pulse Resp B/P (MAP) Pulse Ox O2 Delivery O2 Flow Rate FiO2 04/15/21 06:49 97.3 70 18 110/62 (78) 97 Room Air Current Medications Current Medications Medications (Trade) Dose Ordered Sig/Rosette Route PRN Reason Start Time Stop Time Status Last Admin Dose Admin Acetaminophen (Tylenol Tab) 650 mg Q6HP PRN PO HEADACHE or MILD DISCOMFORT 04/11/21 10:50 04/13/21 09:09 Al Hydrox/Mg Hydrox/Simethicone (Mylanta) 30 ml Q4HP PRN PO HEARTBURN/INDIGESTION 04/11/21 10:50 Buprenorphine/ Naloxone (Suboxone 8/2mg) 1 tab BID@0600,1500 SL 04/12/21 06:00 7/6/21 05:52 Gabapentin (Neurontin) 800 mg QID PO 04/11/21 17:00 04/14/21 20:16 Home Med (Med Rec Complete!) ASDIRECTED XX 04/11/21 12:20 04/11/21 12:22 DC Hydroxyzine HCl (Atarax) 50 mg TID PRN PO anxiety/agitation 04/11/21 15:15 04/13/21 20:26 Ibuprofen (Advil) 600 mg Q6HP PRN PO MODERATE PAIN (PS 5-7) 04/13/21 15:20 04/14/21 20:17 Levothyroxine Sodium (Synthroid) 75 mcg DAILY@06 PO 04/12/21 06:00 04/11/21 15:35 DC Magnesium Hydroxide (Milk Of Magnesia) 30 ml DAILYPRN PRN PO CONSTIPATION 04/11/21 10:50 Nicotine (Nicorette) 2 mg Q2HP PRN PO SMOKING CESSATION 04/13/21 15:05 04/14/21 20:16 Nicotine (Nicorette) 2 mg Q4HP PRN PO NICOTINE WITHDRAWAL 04/13/21 15:30 UNV Venlafaxine HCl (Effexor Xr) 300 mg DAILY PO 04/12/21 09:00 04/14/21 09:26 Zolpidem Tartrate (Ambien) 5 mg QHSP PRN PO INSOMNIA 04/11/21 10:50 04/13/21 15:25 DC 04/12/21 20:14 Zolpidem Tartrate (Ambien) 10 mg QHSP PRN PO INSOMNIA 04/13/21 15:25 04/14/21 20:17 Allergies Coded Allergies: mold (Verified Allergy, Unknown, 07/20/19) metoclopramide (Verified Adverse Reaction, Intermediate, AKATHISIA, 07/20/19) prochlorperazine (Verified Adverse Reaction, Intermediate, AKATHISIA, 07/20/19) quetiapine (Verified Adverse Reaction, Mild, AGITATED, 07/20/19) trazodone (Verified Adverse Reaction, Mild, AGITATION, SHAKINESS, 07/20/19) BELINDA RAMON M.D. Apr 15, 2021 09:05
[2021-04-15] MEDS: VENLAFAXINE **XR** 75MG CAPSULE PO SCH (09:21)
[2021-04-15] MEDS: GABAPENTIN 400MG CAP PO SCH ×4 (09:21→20:05)
[2021-04-15 18:29] VITALS: BP 130/68
[2021-04-15] MEDS: NICOTINE POLACRILEX 2 MG GUM PO PRN (19:53)
[2021-04-15] MEDS: zolPIDEM TARTRATE 5 MG TAB PO PRN (20:05)
[2021-04-15] MEDS: IBUPROFEN 600MG TAB PO PRN (20:05)
[2021-04-16] MEDS: BUPRENORPHINE/NALOXONE 8-2MG SUBLINGUAL TABLET(SUBOXONE) SL SCH ×2 (06:14→14:21)
[2021-04-16 06:28] VITALS: BP 90/52
[2021-04-16] MEDS: VENLAFAXINE **XR** 75MG CAPSULE PO SCH (08:59)
[2021-04-16] MEDS: GABAPENTIN 400MG CAP PO SCH ×4 (08:59→20:12)
[2021-04-16] MEDS: NICOTINE POLACRILEX 2 MG GUM PO PRN (09:01)
--- NOTE | 2021-04-16 16:46 | IPN ---
PROGRESS NOTE DATE: 04/16/2021 There is some question about whether Caitlyn is on thyroid replacement or not. She claims she has been taking Synthroid 75 mcg daily. According to the pharmacy, there is no record of her actually filled that recently. Her TSH was normal at 0.475. Because the dose she claims to be taking is not a full replacement dose, I think it safe to not renew this in the hospital, see how she does without taking any Synthroid, and have her get a TSH in about a month. If the TSH has risen or the free T4 is low, then would make sense to restart her levothyroxine 75 mcg daily. Pharmacy claims that it has not been filled in any of the local pharmacies.
[2021-04-16 19:15] VITALS: BP 116/72
[2021-04-16] MEDS: hydrOXYzine 50 MG TAB PO PRN (20:12)
[2021-04-16] MEDS: zolPIDEM TARTRATE 5 MG TAB PO PRN (20:13)
[2021-04-17] MEDS ORDERED: LEVOTHYROXINE 75MCG TABLET (0.075MG) PO SCH (06:00)
[2021-04-17] MEDS: BUPRENORPHINE/NALOXONE 8-2MG SUBLINGUAL TABLET(SUBOXONE) SL SCH (06:25)
[2021-04-17 06:44] VITALS: BP 108/68
[2021-04-17] MEDS: GABAPENTIN 400MG CAP PO SCH (08:59)
[2021-04-17] MEDS: VENLAFAXINE **XR** 75MG CAPSULE PO SCH (09:00)
[2021-04-17] MEDS ORDERED: GABA-283 PO (09:42)
[2021-04-17] MEDS ORDERED: VENL75CA47 PO (09:42)
--- NOTE | 2021-04-20 10:06 | MHDSPDOC ---
[facility] Discharge Summary Discharge Summary DATE OF ADMISSION: Apr 11, 2021 at 10:49 DATE OF DISCHARGE: Apr 17, 2021 at 11:38 DISCHARGE DIAGNOSES: 1.. Depressive disorder NOS 2.. Polysubstance abuse REASON FOR ADMISSION: 46-year-old female with a long history of polysubstance abuse and depression admitted due to complaint of increasing depression and suicidal thoughts. The patient was reporting Increasing anxiety and depression due to her poor living situation and mini mizing her substance use but apparently has not been attending her outpatient clinic and has been out of her medicine or so. CONSULTANTS INVOLVED: TREATMENT AND PROGRESS ON THE UNIT : Patient was continued on her Suboxone and restarted on her Effexor XR 300 mg daily and Neurontin 800 mg 3 times a day and was sent for daily supportive therapy. She was fully cooperative with this and maintained good control. Initially she was preoccupied with finding different residents but when faced that it is not readily available patient decided to return to her current residence and is requesting discharge.. HOSPITAL COURSE: She had uneventful house hospital stay. She remained in good control cooperated with the medicine and did not show any acting out behavior and denied any suicidal thoughts. She did not show any disorganized thinking and did not have any withdrawal symptoms and remained in no acute physical distress. She is willing to continue her medicine and accept outpatient follow- up treatment DISCHARGE ASSESSMENT: Improved stable and not suicidal MENTAL STATUS EXAMINATION ON DISCHARGE: Patient is a 46-year old female, who is cooperative. Speech is rational and coherent. Language skills are fair. Thought processes including: Relevant. Thought content: No suicidal thoughts. Abstract reasoning, and computation: Fair. Description of associations: Organized. Description of abnormal or psychotic thoughts: Denies any. Judgment: Fair. Insight: Fair. Orientation to oriented no gross impairment. Recent and remote memory:. Attention span and concentration:. Language:. Fund of knowledge:. Mood: Not as depressed mildly anxious. Affect: Appropriate. MEDICATIONS ON DISCHARGE: -For. Effexor XR 150 mg 2 tablets daily for 7 days with 3 refills -For. Neurontin 800 mg 3 times a day for 7 days with 3 refills -For. PLAN/FOLLOWUP ARRANGEMENTS: Arranged by urban and regional planner. The amount of time spent in the coordination of care for this patient was approximately 30 minutes. ETOH/Disorder Med Rx ETOH/DRUG DISORDER RX: N/A Vital Signs/I&Os Vital Signs Date Time Temp Pulse Resp B/P (MAP) Pulse Ox O2 Delivery O2 Flow Rate FiO2 04/17/21 06:44 97.3 61 16 108/68 (81) 98 Room Air Medications Scheduled Buprenorphine HCl/Naloxone HCl (Buprenorphin-Naloxon 8-2 mg Sl) 1 Each Tab.subl, 1 STRIP SL BID, (Reported) Gabapentin (Gabapentin) 800 Mg Tablet, 800 MG PO QID, (Reported) Gabapentin (Gabapentin) 400 Mg Capsule, 800 MG PO QID for mood for 7 Days, #56 Venlafaxine HCl (Venlafaxine HCl ER) 150 Mg Cap.er.24h, 300 MG PO DAILY, (Reported) Venlafaxine HCl (Venlafaxine HCl ER) 75 Mg Cap.er.24h, 300 MG PO DAILY for depression for 7 Days, #28 Scheduled PRN Ibuprofen (Ibuprofen) 200 Mg Capsule, 800 MG PO QID PRN for PAIN LEVEL 1-5, (Reported) Allergies Coded Allergies: mold (Verified Allergy, Unknown, 07/20/19) metoclopramide (Verified Adverse Reaction, Intermediate, AKATHISIA, 07/20/19) prochlorperazine (Verified Adverse Reaction, Intermediate, AKATHISIA, 07/20/19) quetiapine (Verified Adverse Reaction, Mild, AGITATED, 07/20/19) trazodone (Verified Adverse Reaction, Mild, AGITATION, SHAKINESS, 07/20/19) BELINDA RAMON M.D. Apr 20, 2021 10:06
== END 2021-04-17 11:38 | disposition home or self-care (01) | DRG 885 ==
LOC: M ED 20:20 → M ED INP 04-11 10:49 → M PSY 04-11 13:32
PROVIDERS: ADMIT Psychiatry & Neurology Psychiatry; ATTEND Psychiatry & Neurology Psychiatry
DX: F32.89 Other specified depressive episodes (principal); R45.851 Suicidal ideations; F60.3 Borderline personality disorder; E03.9 Hypothyroidism, unspecified; B19.20 Unspecified viral hepatitis C without hepatic coma; G40.909 Epilepsy, unspecified, not intractable, without status epilepticus; Z91.14 Patient's other noncompliance with medication regimen; F17.210 Nicotine dependence, cigarettes, uncomplicated; Z91.5 Personal history of self-harm; F10.10 Alcohol abuse, uncomplicated; F11.11 Opioid abuse, in remission; F12.10 Cannabis abuse, uncomplicated; F14.10 Cocaine abuse, uncomplicated; F15.11 Other stimulant abuse, in remission; F16.10 Hallucinogen abuse, uncomplicated; Z20.822 Contact with and (suspected) exposure to COVID-19; Z79.899 Other long term (current) drug therapy; Z88.1 Allergy status to other antibiotic agents; Z88.8 Allergy status to other drugs, medicaments and biological substances

== ENCOUNTER → 2021-04-28 | Outpatient (REF) | payer OTHER, MEDICAID ==
[2021-04-28 21:19] LABS: APPEARANCE, URINE MANUAL HAZY (CLEAR); COLOR, URINE MANUAL ORANGE (YELLOW)
[2021-04-28 21:20] LABS: BILIRUBIN, URINE MANUAL OBSCURED (NEGATIVE); BLOOD URINE MANUAL OBSCURED (NEGATIVE); GLUCOSE, URINE (UA) MANUAL OBSCURED mg/dL (NEGATIVE); KETONE, URINE MANUAL OBSCURED mg/dL (NEGATIVE); LEUKOCYTE ESTERASE, URINE MAN OBSCURED (NEGATIVE); NITRITE, URINE MANUAL OBSCURED (NEGATIVE); PH,URINE MAN OBSCURED UNITS (5.0 - 7.0); PROTEIN, URINE MANUAL OBSCURED mg/dL (NEGATIVE); SPECIFIC GRAVITY,URINE MANUAL 1.034 (1.002-1.035); UROBILINOGEN, URINE MANUAL OBSCURED mg/dl (NORMAL)
[2021-04-28 21:51] LABS: WBC, URINE TNTC /hpf (0-3)
[2021-04-28 21:53] LABS: BACTERIA, URINE LARGE AMOUNT; CALCIUM OXALATE CRYSTALS,URINE MOD AMOUNT /hpf; HYALINE CAST, URINE NONE SEEN /lpf (0-1); MUCUS, URINE LARGE AMOUNT (NEGATIVE); SQUAMOUS EPITHELIAL CELL URINE SMALL AMOUNT /hpf (SMALL AMT); TRANSITIONAL EPI CELLS, URINE MOD AMOUNT /hpf
== END ==
LOC: M LAB REF 21:04
PROVIDERS: ATTEND Physician Assistant Medical
DX: R30.0 Dysuria (principal)

== ENCOUNTER 2021-06-22 20:08 | Emergency (ER) | payer MEDICARE, MEDICAID ==
[~2021-06-22] VITALS: Ht 157.5 cm; Wt 72.7 kg
[~2021-06-22 20:08] MED LIST changes: -ESTR2TAB2 PO; +ESTR2TAB3 PO
[2021-06-22 21:34] VITALS: BP 123/80
[2021-06-22 22:20] LABS: HEMATOCRIT 41.9 % (36.0-47.0); HEMOGLOBIN 13.2 g/dl (12.0-15.5); MEAN CORPUSCULAR HEMOGLOBIN 28.6 pg (27.0-33.0); MEAN CORPUSCULAR HGB CONC 31.5 g/dl (32.0-36.5); MEAN CORPUSCULAR VOLUME 90.7 fl (80.0-96.0); PLATELET COUNT, AUTOMATED 230 10^3/uL (150-450); RED BLOOD COUNT 4.62 10^6/uL (4.00-5.40); WHITE BLOOD COUNT 3.9 10^3/uL (4.0-10.0)
[2021-06-22 22:39] LABS: AMPHETAMINES LEVEL URINE POSITIVE (NEGATIVE); BARBITURATES URINE NEGATIVE (NEGATIVE); BENZODIAZEPINES URINE NEGATIVE (NEGATIVE); CANNABINOIDS URINE POSITIVE (NEGATIVE); COCAINE METABOLITE URINE NEGATIVE (NEGATIVE); METHADONE URINE POSITIVE (NEGATIVE); OPIATES URINE NEGATIVE (NEGATIVE); PHENCYCLIDINE URINE NEGATIVE (NEGATIVE)
[2021-06-22 22:48] LABS: ACETAMINOPHEN LEVEL < 2.0 UG/ML (10.0-30.0); ALBUMIN 3.4 GM/DL (3.2-5.2); ALT/SGPT 16 U/L (12-78); BILIRUBIN,DIRECT < 0.1 MG/DL (0.0-0.2); BILIRUBIN,TOTAL 0.3 MG/DL (0.2-1.0); BLOOD UREA NITROGEN 12 MG/DL (7-18); CALCIUM LEVEL 8.9 MG/DL (8.5-10.1); CARBON DIOXIDE LEVEL 32 MEQ/L (21-32); CHLORIDE LEVEL 105 MEQ/L (98-107); CREATININE FOR GFR 0.71 MG/DL (0.55-1.30); ETHYL ALCOHOL (ETHANOL) < 0.003 % (0.000-0.010); GLOMERULAR FILTRATION RATE > 60.0 (>58); GLUCOSE, FASTING 84 MG/DL (70-100); POTASSIUM SERUM 4.4 MEQ/L (3.5-5.1); SALICYLATE LEVEL 1.8 MG/DL (5.0-30.0); SODIUM LEVEL 141 MEQ/L (136-145); TOTAL PROTEIN 6.8 GM/DL (6.4-8.2)
== END 2021-06-23 01:55 | disposition home or self-care (01) ==
LOC: M ED 20:08
DX: R45.851 Suicidal ideations (principal); F43.0 Acute stress reaction; F12.10 Cannabis abuse, uncomplicated; Z88.6 Allergy status to analgesic agent; Z88.8 Allergy status to other drugs, medicaments and biological substances; Z79.899 Other long term (current) drug therapy

== ENCOUNTER 2022-05-06 16:19 | Inpatient (IN) | payer MEDICAID, MEDICARE ==
[~2022-05-06] VITALS: Ht 157.5 cm; Wt 79.5 kg
[2022-05-06 17:45] LABS: HEMATOCRIT 40.8 % (36.0-47.0); HEMOGLOBIN 13.3 g/dl (12.0-15.5); MEAN CORPUSCULAR HEMOGLOBIN 28.3 pg (27.0-33.0); MEAN CORPUSCULAR HGB CONC 32.6 g/dl (32.0-36.5); MEAN CORPUSCULAR VOLUME 86.8 fl (80.0-96.0); PLATELET COUNT, AUTOMATED 232 10^3/uL (150-450); WHITE BLOOD COUNT 3.9 10^3/uL (4.0-10.0)
[2022-05-06 18:16] LABS: AMPHETAMINES LEVEL URINE NEGATIVE (NEGATIVE); BARBITURATES URINE NEGATIVE (NEGATIVE); BENZODIAZEPINES URINE NEGATIVE (NEGATIVE); CANNABINOIDS URINE POSITIVE (NEGATIVE); COCAINE METABOLITE URINE POSITIVE (NEGATIVE); METHADONE URINE NEGATIVE (NEGATIVE); OPIATES URINE NEGATIVE (NEGATIVE); PHENCYCLIDINE URINE NEGATIVE (NEGATIVE)
[2022-05-06 18:20] LABS: RSV AMPLIFICATION NEGATIVE (NEGATIVE)
[2022-05-06 18:27] LABS: ACETAMINOPHEN LEVEL < 2.0 UG/ML (10.0-30.0); ALBUMIN 3.7 GM/DL (3.2-5.2); ALT/SGPT 21 U/L (12-78); BILIRUBIN,DIRECT < 0.1 MG/DL (0.0-0.2); BILIRUBIN,TOTAL 0.4 MG/DL (0.2-1.0); BLOOD UREA NITROGEN 16 MG/DL (7-18); CALCIUM LEVEL 9.3 MG/DL (8.5-10.1); CARBON DIOXIDE LEVEL 28 MEQ/L (21-32); CHLORIDE LEVEL 108 MEQ/L (98-107); CREATININE FOR GFR 0.64 MG/DL (0.55-1.30); ETHYL ALCOHOL (ETHANOL) 0.003 % (0.000-0.010); GLOMERULAR FILTRATION RATE > 60.0 (>58); GLUCOSE, FASTING 90 MG/DL (70-100); POTASSIUM SERUM 4.1 MEQ/L (3.5-5.1); SALICYLATE LEVEL < 1.7 MG/DL (5.0-30.0); SODIUM LEVEL 140 MEQ/L (136-145)
[2022-05-06 18:45] LABS: HCG, SERUM QUALITATIVE NEGATIVE (NEGATIVE)
[2022-05-07] MEDS: VENLAFAXINE **XR** 75MG CAPSULE PO SCH (08:51)
[2022-05-07] MEDS: GABAPENTIN 400MG CAP PO SCH ×4 (08:51→22:40)
[2022-05-07] MEDS ORDERED: BUPRENORPHINE/NALOXONE 8-2MG SUBLINGUAL TABLET(SUBOXONE) SL SCH (09:00)
[2022-05-07] MEDS ORDERED: IBUPROFEN 400MG TAB PO ONE (11:55)
[2022-05-07] MEDS: BUPRENORPHINE/NALOXONE 8-2MG SUBLINGUAL TABLET(SUBOXONE) SL SCH (16:53)
[2022-05-07] MEDS ORDERED: NICOTINE POLACRILEX 2 MG GUM PO PRN (19:10)
[2022-05-08] MEDS ORDERED: BUPR1FIL35 SL (08:27)
[2022-05-08] MEDS ORDERED: MED REC COMMENT (08:27)
[2022-05-08] MEDS ORDERED: HOME MED LIST COMPLETE! XX SCH (08:30)
[2022-05-08] MEDS ORDERED: BUPRENORPHINE/NALOXONE 2-0.5MG SUBLINGUAL TABLET(SUBOXONE) SL SCH (09:00)
[2022-05-08] MEDS: GABAPENTIN 400MG CAP PO SCH ×4 (09:04→21:41)
[2022-05-08] MEDS: VENLAFAXINE **XR** 75MG CAPSULE PO SCH (09:05)
[2022-05-08] MEDS: BUPRENORPHINE/NALOXONE 8-2MG SUBLINGUAL TABLET(SUBOXONE) SL SCH (09:05)
[2022-05-08] MEDS ORDERED: VENLAFAXINE **XR** 75MG CAPSULE PO ONE (09:40)
[2022-05-09] MEDS ORDERED: VENLAFAXINE **XR** 75MG CAPSULE PO ONE (09:00)
[2022-05-09] MEDS ORDERED: BUPRENORPHINE/NALOXONE 2-0.5MG SUBLINGUAL TABLET(SUBOXONE) SL SCH (09:00)
[2022-05-09] MEDS: GABAPENTIN 400MG CAP PO SCH ×4 (09:39→22:37)
[2022-05-09] MEDS ORDERED: MAALOX 30 ML SUSP *UDC PO PRN (20:45)
[2022-05-09] MEDS ORDERED: MOM 30ML SUSPENSION UDC PO PRN (20:45)
[2022-05-09] MEDS ORDERED: NICOTINE POLACRILEX 2 MG GUM PO PRN (20:55)
[2022-05-09] MEDS ORDERED: GABAPENTIN 400MG CAP PO SCH (21:00)
[2022-05-09 21:19] VITALS: BP 102/63
[2022-05-09] MEDS: hydrOXYzine 50 MG TAB PO PRN (22:37)
[2022-05-10 06:28] VITALS: BP 114/64
[2022-05-10] MEDS ORDERED: BUPRENORPHINE/NALOXONE 2-0.5MG SUBLINGUAL TABLET(SUBOXONE) SL SCH (09:00)
[2022-05-10] MEDS ORDERED: VENLAFAXINE **XR** 75MG CAPSULE PO SCH (09:00)
[2022-05-10] MEDS: BUPRENORPHINE/NALOXONE 2-0.5MG SUBLINGUAL TABLET(SUBOXONE) SL SCH (10:43)
[2022-05-10] MEDS: GABAPENTIN 400MG CAP PO SCH ×4 (10:43→21:13)
[2022-05-10] MEDS: VENLAFAXINE **XR** 75MG CAPSULE PO SCH (10:43)
[2022-05-10] MEDS: ACETAMINOPHEN TAB 650MG DOSE (2X325MG) PO PRN (16:31)
[2022-05-10 18:00] VITALS: BP 126/77
[2022-05-10] MEDS: hydrOXYzine 50 MG TAB PO PRN (21:12)
[2022-05-11 06:55] VITALS: BP 106/64
[2022-05-11] MEDS: VENLAFAXINE **XR** 75MG CAPSULE PO SCH (08:56)
[2022-05-11] MEDS: BUPRENORPHINE/NALOXONE 2-0.5MG SUBLINGUAL TABLET(SUBOXONE) SL SCH (08:57)
[2022-05-11] MEDS: GABAPENTIN 400MG CAP PO SCH ×4 (08:57→21:24)
[2022-05-11 18:00] VITALS: BP 107/65
[2022-05-11] MEDS: hydrOXYzine 50 MG TAB PO PRN (21:27)
[2022-05-11] MEDS: MIRTAZAPINE 15 MG TAB PO SCH (21:47)
[2022-05-12 06:20] VITALS: BP 121/73
[2022-05-12] MEDS: BUPRENORPHINE/NALOXONE 2-0.5MG SUBLINGUAL TABLET(SUBOXONE) SL SCH (08:23)
[2022-05-12] MEDS: GABAPENTIN 400MG CAP PO SCH ×4 (08:23→20:04)
[2022-05-12] MEDS: VENLAFAXINE **XR** 75MG CAPSULE PO SCH (08:24)
[2022-05-12] MEDS: ACETAMINOPHEN TAB 650MG DOSE (2X325MG) PO PRN (08:24)
[2022-05-12 17:53] VITALS: BP 108/65
[2022-05-12] MEDS: MIRTAZAPINE 15 MG TAB PO SCH (20:04)
[2022-05-12] MEDS: hydrOXYzine 50 MG TAB PO PRN (20:04)
[2022-05-13 06:33] VITALS: BP 121/58
[2022-05-13] MEDS: BUPRENORPHINE/NALOXONE 2-0.5MG SUBLINGUAL TABLET(SUBOXONE) SL SCH (08:15)
[2022-05-13] MEDS: GABAPENTIN 400MG CAP PO SCH ×2 (08:15→13:06)
[2022-05-13] MEDS: VENLAFAXINE **XR** 75MG CAPSULE PO SCH (08:15)
[2022-05-13] MEDS ORDERED: GABA-283 PO (11:00)
[2022-05-13] MEDS ORDERED: MIRT-10 PO (11:00)
[2022-05-13] MEDS ORDERED: HYDR50TA70 PO (11:00)
[2022-05-13] MEDS ORDERED: VENL75CA47 PO (11:00)
== END 2022-05-13 14:57 | disposition home or self-care (01) | DRG 754 ==
LOC: M ED 16:19 → M PSY 05-09 20:43 → EEVIPCON 05-09 20:43 → M ED 05-09 21:22
PROVIDERS: ADMIT Psychiatry & Neurology Psychiatry; ATTEND Psychiatry & Neurology Psychiatry
DX: F32.A Depression, unspecified (principal); F60.3 Borderline personality disorder; F12.10 Cannabis abuse, uncomplicated; F14.10 Cocaine abuse, uncomplicated; Z91.14 Patient's other noncompliance with medication regimen; F11.10 Opioid abuse, uncomplicated; R45.851 Suicidal ideations; F41.9 Anxiety disorder, unspecified; Z59.9 Problem related to housing and economic circumstances, unspecified; Z88.8 Allergy status to other drugs, medicaments and biological substances; Z79.899 Other long term (current) drug therapy; G47.00 Insomnia, unspecified; E03.9 Hypothyroidism, unspecified; Z86.16 Personal history of COVID-19; M54.30 Sciatica, unspecified side; F17.210 Nicotine dependence, cigarettes, uncomplicated; S10.85XA Superficial foreign body of other specified part of neck, initial encounter; W45.8XXA Other foreign body or object entering through skin, initial encounter; Y92.009 Unspecified place in unspecified non-institutional (private) residence as the place of occurrence of the external cause

== ENCOUNTER 2022-05-18 23:06 | Emergency (ER) | payer MEDICARE, MEDICAID ==
[~2022-05-18] VITALS: Ht 157.5 cm; Wt 77.3 kg
[~2022-05-18 23:06] MED LIST changes: +BUPR1FIL35 SL; +MED REC COMMENT; +MIRT-10 PO
[2022-05-19 07:33] VITALS: BP 118/66
[2022-05-19] MEDS ORDERED: ACETAMINOPHEN 500 MG TAB PO ONE (08:25)
[2022-05-19] MEDS ORDERED: EFFE150C2 PO (08:45)
[2022-05-19] MEDS ORDERED: NEUR800T PO (08:45)
== END 2022-05-19 08:47 | disposition home or self-care (01) ==
LOC: M ED 23:06
DX: Z20.822 Contact with and (suspected) exposure to COVID-19 (principal); S10.95XA Superficial foreign body of unspecified part of neck, initial encounter; W45.8XXA Other foreign body or object entering through skin, initial encounter; Z76.0 Encounter for issue of repeat prescription; E78.5 Hyperlipidemia, unspecified; K21.9 Gastro-esophageal reflux disease without esophagitis; G40.909 Epilepsy, unspecified, not intractable, without status epilepticus; J30.89 Other allergic rhinitis; Z86.19 Personal history of other infectious and parasitic diseases; F19.10 Other psychoactive substance abuse, uncomplicated; F17.200 Nicotine dependence, unspecified, uncomplicated; Z79.899 Other long term (current) drug therapy; Z88.8 Allergy status to other drugs, medicaments and biological substances

== ENCOUNTER 2022-06-26 09:50 | Emergency (ER) | payer MEDICARE, MEDICAID ==
[~2022-06-26] VITALS: Ht 157.5 cm; Wt 82.7 kg
[2022-06-26 09:51] VITALS: BP 123/79
== END 2022-06-26 13:13 | disposition left against medical advice (07) ==
LOC: M ED 09:50
DX: Z53.21 Procedure and treatment not carried out due to patient leaving prior to being seen by health care provider (principal)

== ENCOUNTER 2022-07-07 11:14 | Emergency (ER) | payer MEDICAID, MEDICARE ==
[~2022-07-07] VITALS: Ht 160 cm; Wt 80.9 kg
[2022-07-07] MEDS ORDERED: ACETAMINOPHEN 325 MG TAB PO ONE (13:50)
[2022-07-07 14:57] LABS: HEMATOCRIT 39.4 % (36.0-47.0); HEMOGLOBIN 12.7 g/dl (12.0-15.5); MEAN CORPUSCULAR HEMOGLOBIN 28.3 pg (27.0-33.0); MEAN CORPUSCULAR HGB CONC 32.2 g/dl (32.0-36.5); MEAN CORPUSCULAR VOLUME 87.9 fl (80.0-96.0); PLATELET COUNT, AUTOMATED 293 10^3/uL (150-450); RED BLOOD COUNT 4.48 10^6/uL (4.00-5.40); WHITE BLOOD COUNT 4.3 10^3/uL (4.0-10.0)
[2022-07-07 15:28] LABS: RSV AMPLIFICATION NEGATIVE (NEGATIVE)
[2022-07-07 15:45] LABS: ACETAMINOPHEN LEVEL 6.3 UG/ML (10.0-30.0); ALBUMIN 3.4 GM/DL (3.2-5.2); ALT/SGPT 18 U/L (12-78); BILIRUBIN,DIRECT < 0.1 MG/DL (0.0-0.2); BILIRUBIN,TOTAL 0.4 MG/DL (0.2-1.0); BLOOD UREA NITROGEN 9 MG/DL (7-18); CALCIUM LEVEL 9.3 MG/DL (8.5-10.1); CARBON DIOXIDE LEVEL 29 MEQ/L (21-32); CHLORIDE LEVEL 108 MEQ/L (98-107); CREATININE FOR GFR 0.63 MG/DL (0.55-1.30); ETHYL ALCOHOL (ETHANOL) < 0.003 % (0.000-0.010); GLOMERULAR FILTRATION RATE > 60.0 (>58); GLUCOSE, FASTING 93 MG/DL (70-100); POTASSIUM SERUM 4.3 MEQ/L (3.5-5.1); SALICYLATE LEVEL 2.7 MG/DL (5.0-30.0); SODIUM LEVEL 141 MEQ/L (136-145); TOTAL PROTEIN 7.1 GM/DL (6.4-8.2)
[2022-07-07 16:49] LABS: AMPHETAMINES LEVEL URINE NEGATIVE (NEGATIVE); BARBITURATES URINE NEGATIVE (NEGATIVE); BENZODIAZEPINES URINE NEGATIVE (NEGATIVE); CANNABINOIDS URINE POSITIVE (NEGATIVE); COCAINE METABOLITE URINE NEGATIVE (NEGATIVE); METHADONE URINE NEGATIVE (NEGATIVE); OPIATES URINE NEGATIVE (NEGATIVE); PHENCYCLIDINE URINE NEGATIVE (NEGATIVE)
[2022-07-07] MEDS ORDERED: hydrOXYzine 50 MG TAB PO PRN (19:55)
[2022-07-07] MEDS ORDERED: ACETAMINOPHEN TAB 650MG DOSE (2X325MG) PO PRN (20:20)
[2022-07-07] MEDS: GABAPENTIN 400MG CAP PO SCH (20:39)
[2022-07-07] MEDS ORDERED: MIRTAZAPINE 15 MG TAB PO SCH (21:00)
[2022-07-07] MEDS ORDERED: VENL150C43 PO (21:05)
[2022-07-07] MEDS ORDERED: GABA800T4 PO (21:05)
[2022-07-07] MEDS ORDERED: VENL37.598 PO (21:05)
[2022-07-07] MEDS ORDERED: PT COMMENT (21:06)
[2022-07-07] MEDS ORDERED: ACET-897 PO (21:08)
[2022-07-07] MEDS ORDERED: OMEGCAP4 PO (21:08)
[2022-07-07] MEDS ORDERED: HOME MED LIST COMPLETE! XX SCH (21:10)
[2022-07-07 21:52] LABS: APPEARANCE, URINE MANUAL HAZY (CLEAR); COLOR, URINE MANUAL LT YELLOW (YELLOW)
[2022-07-07 21:53] LABS: PROTEIN, URINE MANUAL NEGATIVE (NEGATIVE)
[2022-07-07 21:54] LABS: BILIRUBIN, URINE MANUAL NEGATIVE (NEGATIVE); BLOOD URINE MANUAL NEGATIVE (NEGATIVE); GLUCOSE, URINE (UA) MANUAL NEGATIVE (NEGATIVE); KETONE, URINE MANUAL NEGATIVE (NEGATIVE); LEUKOCYTE ESTERASE, URINE MAN NEGATIVE (NEGATIVE); NITRITE, URINE MANUAL NEGATIVE (NEGATIVE); UROBILINOGEN, URINE MANUAL NORMAL (NORMAL)
[2022-07-07 22:16] LABS: RBC, URINE 0-1 /hpf (0-3); SQUAMOUS EPITHELIAL CELL URINE SMALL AMOUNT /hpf (SMALL AMT); WBC, URINE 0-1 /hpf (0-3)
[2022-07-07 22:17] LABS: AMORPHOUS SEDIMENT, URINE LARGE AMOUNT (NEGATIVE); BACTERIA, URINE NONE SEEN; HYALINE CAST, URINE NONE SEEN /lpf (0-1)
[2022-07-08] MEDS ORDERED: VENLAFAXINE **XR** 75MG CAPSULE PO SCH (09:00)
[2022-07-08] MEDS ORDERED: VENLAFAXINE 37.5 MG TAB PO SCH (09:00)
[2022-07-08] MEDS: GABAPENTIN 400MG CAP PO SCH ×2 (09:11→13:13)
[2022-07-08 10:30] VITALS: BP 101/52
[2022-07-08] MEDS ORDERED: HOME MED LIST COMPLETE! XX SCH (11:15)
[2022-07-08] MEDS ORDERED: SUBO12MI SL (13:11)
[2022-07-08] MEDS ORDERED: BUPRENORPHINE/NALOXONE 8-2MG SUBLINGUAL TABLET(SUBOXONE) SL SCH (15:00)
[2022-07-08] MEDS ORDERED: PILL CUTTER 1 EACH XX ONE (15:09)
== END 2022-07-08 15:35 ==
LOC: M ED 11:14
DX: R45.851 Suicidal ideations (principal); E78.5 Hyperlipidemia, unspecified; Z86.19 Personal history of other infectious and parasitic diseases; F17.200 Nicotine dependence, unspecified, uncomplicated; F19.10 Other psychoactive substance abuse, uncomplicated; J30.89 Other allergic rhinitis; Z79.899 Other long term (current) drug therapy; Z88.5 Allergy status to narcotic agent; Z88.8 Allergy status to other drugs, medicaments and biological substances

== ENCOUNTER 2022-12-09 11:42 | Inpatient (IN) | payer MEDICARE ==
[~2022-12-09] VITALS: Ht 157.5 cm; Wt 77.5 kg
[~2022-12-09 11:42] MED LIST changes: +OMEGCAP4 PO; +PT COMMENT; +SUBO12MI SL; +VENL37.598 PO
[2022-12-09] MEDS ORDERED: ASPIRIN 325 MG TAB PO ONE (13:10)
[2022-12-09 13:42] LABS: BASO % 0.3 % (0.0-1.0); EOS # 0.1 10^3/uL (0.0-0.5); EOS % 0.9 % (0.0-3.0); HEMATOCRIT 35.7 % (36.0-47.0); HEMOGLOBIN 11.3 g/dl (12.0-15.5); LYMPH # 1.3 10^3/uL (1.5-5.0); LYMPH % 17.4 % (24.0-44.0); MEAN CORPUSCULAR HEMOGLOBIN 26.4 pg (27.0-33.0); MEAN CORPUSCULAR HGB CONC 31.7 g/dl (32.0-36.5); MEAN CORPUSCULAR VOLUME 83.4 fl (80.0-96.0); MONO # 0.8 10^3/uL (0.0-0.8); MONO % 10.2 % (2.0-8.0); NEUTROPHILS # 5.3 10^3/uL (1.5-8.5); NEUTROPHILS % 70.3 % (36.0-66.0); PLATELET COUNT, AUTOMATED 548 10^3/uL (150-450); RED BLOOD COUNT 4.28 10^6/uL (4.00-5.40); WHITE BLOOD COUNT 7.5 10^3/uL (4.0-10.0)
[2022-12-09 13:56] LABS: THYROID STIMULATING HORMONE 4.117 uIU/ML (0.55-4.78)
[2022-12-09 13:57] LABS: FREE T4 1.18 NG/DL (0.89-1.76)
[2022-12-09 13:59] LABS: ALBUMIN 2.7 G/DL (3.2-5.2); ALKALINE PHOSPHATASE 104 U/L (46-116); ALT/SGPT 16 U/L (7.0-40); AST/SGOT 39 U/L (<34); BILIRUBIN,DIRECT 0.1 MG/DL (<0.4); BILIRUBIN,TOTAL 0.3 MG/DL (0.3-1.2); BLOOD UREA NITROGEN 7 MG/DL (9-23); CALCIUM LEVEL 8.5 MG/DL (8.5-10.1); CARBON DIOXIDE LEVEL 30 MMOL/L (20-31); CHLORIDE LEVEL 98 MMOL/L (98-107); CK-MB VALUE MASS < 1.0 NG/ML (<3.6); CPK CREATINE PHOSPHOKINASE 80 U/L (34-145); CREATININE FOR GFR 0.48 MG/DL (0.55-1.30); GLOMERULAR FILTRATION RATE > 60.0 (>58); GLUCOSE, FASTING 95 MG/DL (60-100); LIPASE 15 U/L (12-53); MB/CK RELATIVE INDEX 1.25 (< OR =4); POTASSIUM SERUM 5.2 MMOL/L (3.5-5.1); SODIUM LEVEL 136 MMOL/L (136-145)
[2022-12-09 14:01] LABS: INR 1.14; PROTHROMBIN TIME 14.8 SECONDS (12.5-14.5)
[2022-12-09 14:02] LABS: PARTIAL THROMBOPLASTIN TIME 38.1 SECONDS (24.8-34.2)
[2022-12-09 14:07] LABS: RSV AMPLIFICATION NEGATIVE (NEGATIVE)
[2022-12-09] MEDS ORDERED: ISOVUE-370 76% 100ML VIAL As Ordered ONE (14:20)
[2022-12-09 14:49] LABS: POTASSIUM SERUM 4.2 MMOL/L (3.5-5.1)
[2022-12-09 14:56] LABS: CK-MB VALUE MASS < 1.0 NG/ML (<3.6)
[2022-12-09 14:58] LABS: CPK CREATINE PHOSPHOKINASE 45 U/L (34-145); MB/CK RELATIVE INDEX 2.22 (< OR =4)
[2022-12-09] MEDS ORDERED: BUPR1FIL SL (16:50)
[2022-12-09] MEDS ORDERED: CIPR500T39 PO (16:50)
[2022-12-09] MEDS ORDERED: VENL75CA2 PO (16:50)
[2022-12-09] MEDS ORDERED: PREG150C PO (16:50)
[2022-12-09] MEDS ORDERED: SUBO2MIS SL (16:51)
[2022-12-09 17:15] VITALS: BP 101/59
[2022-12-09] MEDS: cefTRIAXone SOD 2 GM in D5W MINI-BAG PLUS 50 ML IV SCH (17:33)
[2022-12-09] MEDS ORDERED: NS 1,000 ML IV ONE (18:00)
[2022-12-09] MEDS ORDERED: ACETAMINOPHEN 500 MG TAB PO PRN (18:25)
[2022-12-09] MEDS ORDERED: ALPRAZolam 0.5 MG TAB PO ONE (18:25)
[2022-12-09] MEDS: DOXYCYCLINE HYCLATE 100 MG in D5W MINI-BAG PLUS 100 ML IV SCH (18:31)
[2022-12-09] MEDS ORDERED: MOM 30ML SUSPENSION UDC PO ONE (18:40)
[2022-12-09 19:57] LABS: ERYTHROCYTE SEDIMENTATION RATE 107 mm/hr (0-20)
[2022-12-09] MEDS: MIRALAX *UNIT DOSE* 17GM PACKET PO SCH (20:32)
[2022-12-09] MEDS: SENOKOT S TAB PO SCH (20:33)
[2022-12-09] MEDS: KETOROLAC 30 MG/ML 1ML VIAL IV SCH (20:33)
[2022-12-09] MEDS: NS 1,000 ML IV SCH (20:33)
[2022-12-09] MEDS: GABAPENTIN 400MG CAP PO SCH (20:34)
[2022-12-09 20:36] VITALS: BP 105/60
[2022-12-09 22:40] LABS: CK-MB VALUE MASS < 1.0 NG/ML (<3.6)
[2022-12-09 22:42] LABS: CPK CREATINE PHOSPHOKINASE 50 U/L (34-145)
[2022-12-10] MEDS: KETOROLAC 30 MG/ML 1ML VIAL IV SCH ×4 (02:29→20:33)
[2022-12-10] MEDS: NS 1,000 ML IV SCH ×3 (02:29→20:35)
[2022-12-10 06:21] VITALS: BP 106/55
[2022-12-10] MEDS: DOXYCYCLINE HYCLATE 100 MG in D5W MINI-BAG PLUS 100 ML IV SCH ×2 (06:26→18:03)
[2022-12-10 06:30] LABS: CK-MB VALUE MASS < 1.0 NG/ML (<3.6)
[2022-12-10 06:32] LABS: CPK CREATINE PHOSPHOKINASE 29 U/L (34-145); MB/CK RELATIVE INDEX 3.44 (< OR =4)
[2022-12-10] MEDS: BUPRENORPHINE/NALOXONE 2-0.5MG SUBLINGUAL TABLET(SUBOXONE) SL SCH (08:57)
[2022-12-10] MEDS: BUPRENORPHINE/NALOXONE 8-2MG SUBLINGUAL TABLET(SUBOXONE) SL SCH (08:57)
[2022-12-10] MEDS: VENLAFAXINE **XR** 75MG CAPSULE PO SCH (08:58)
[2022-12-10] MEDS: PREGABALIN 75 MG CAP(LYRICA) PO SCH (08:58)
[2022-12-10] MEDS: GABAPENTIN 400MG CAP PO SCH ×4 (08:59→20:34)
[2022-12-10] MEDS ORDERED: VENLAFAXINE **XR** 75MG CAPSULE PO SCH (09:00)
[2022-12-10] MEDS: ENOXAPARIN 40MG/0.4ML SYRINGE (J1650 PER 10MG) SC SCH (09:00)
[2022-12-10] MEDS: MIRALAX *UNIT DOSE* 17GM PACKET PO SCH ×2 (09:00→20:34)
[2022-12-10] MEDS: SENOKOT S TAB PO SCH ×2 (09:16→20:34)
[2022-12-10 10:46] LABS: BASO % 0.5 % (0.0-1.0); EOS # 0.1 10^3/uL (0.0-0.5); EOS % 1.5 % (0.0-3.0); HEMATOCRIT 31.4 % (36.0-47.0); LYMPH # 1.5 10^3/uL (1.5-5.0); LYMPH % 25.5 % (24.0-44.0); MEAN CORPUSCULAR HEMOGLOBIN 26.8 pg (27.0-33.0); MEAN CORPUSCULAR HGB CONC 31.8 g/dl (32.0-36.5); MEAN CORPUSCULAR VOLUME 84.2 fl (80.0-96.0); MONO # 0.7 10^3/uL (0.0-0.8); MONO % 11.5 % (2.0-8.0); NEUTROPHILS # 3.5 10^3/uL (1.5-8.5); NEUTROPHILS % 58.1 % (36.0-66.0); PLATELET COUNT, AUTOMATED 517 10^3/uL (150-450); RED BLOOD COUNT 3.73 10^6/uL (4.00-5.40); WHITE BLOOD COUNT 5.9 10^3/uL (4.0-10.0)
[2022-12-10 11:14] LABS: ALBUMIN 2.3 G/DL (3.2-5.2); ALKALINE PHOSPHATASE 88 U/L (46-116); ALT/SGPT 12 U/L (7.0-40); AST/SGOT 11 U/L (<34); BILIRUBIN,DIRECT 0.1 MG/DL (<0.4); BILIRUBIN,TOTAL 0.3 MG/DL (0.3-1.2); BLOOD UREA NITROGEN 6 MG/DL (9-23); CALCIUM LEVEL 8.4 MG/DL (8.5-10.1); CARBON DIOXIDE LEVEL 28 MMOL/L (20-31); CHLORIDE LEVEL 106 MMOL/L (98-107); CREATININE FOR GFR 0.49 MG/DL (0.55-1.30); GLOMERULAR FILTRATION RATE > 60.0 (>58); GLUCOSE, FASTING 103 MG/DL (60-100); MAGNESIUM LEVEL 1.9 MG/DL (1.8-2.4); POTASSIUM SERUM 4.4 MMOL/L (3.5-5.1); SODIUM LEVEL 139 MMOL/L (136-145)
[2022-12-10] MEDS ORDERED: LIDOCAINE 1% MDV 20ML VIAL As Ordered ONE (13:55)
[2022-12-10 15:00] VITALS: BP 114/66
[2022-12-10] MEDS: oxyCODONE 5MG TAB PO PRN ×2 (15:07→22:37)
[2022-12-10 15:15] VITALS: BP 118/78
[2022-12-10] MEDS ORDERED: SODIUM CHLORIDE 0.9% INJ 10 ML SYR IV PRN (15:15)
[2022-12-10 15:22] LABS: PH BODY FLUID 7.492 UNITS (NOT ESTABLISHED); SOURCE, BODY FLUID pH PLEURAL
[2022-12-10 15:23] LABS: SOURCE, BODY FLUID PLEURAL
[2022-12-10 15:24] LABS: APPEARANCE, BODY FLUID CLOUDY (CLEAR); PLEURAL FL COLOR AMBER (COLORLESS)
[2022-12-10 15:45] VITALS: BP 108/67
[2022-12-10 15:45] LABS: SOURCE, BODY FLUID ALBUMIN PLEURAL
[2022-12-10 15:50] LABS: SOURCE, BODY FLUID GLUCOSE PLEURAL
[2022-12-10 15:51] LABS: LDH, BODY FLUID 187 U/L (NOT ESTABLISHED); SOURCE, BODY FLUID LDH PLEURAL
[2022-12-10 15:52] LABS: AMYLASE, BODY FLUID < 20 U/L (NOT ESTABLISHED); CHOLESTEROL, BODY FLUID 70 MG/DL (NOT ESTABLISHED); SOURCE, BODY FLUID AMYLASE PLEURAL; SOURCE, BODY FLUID CHOL PLEURAL
[2022-12-10] MEDS: cefTRIAXone SOD 2 GM in D5W MINI-BAG PLUS 50 ML IV SCH (16:05)
[2022-12-10 16:15] VITALS: BP 100/56
[2022-12-10 16:40] LABS: SOURCE, BODY FLUID TRIG PLEURAL; TRIGLYCERIDE, BODY FLUID 44 MG/DL (NOT ESTABLISHED)
[2022-12-10 16:42] LABS: SOURCE, BODY FLUID TOT PROTEIN PLEURAL; TOTAL PROTEIN, BODY FLUID 4.6 G/DL (NOT ESTABLISHED)
[2022-12-10] MEDS: SODIUM CHLORIDE 0.9% INJ 10 ML SYR IV SCH (18:02)
[2022-12-10 19:58] LABS: LDH LACTATE DEHYDROGENASE 247 U/L (120-246)
[2022-12-10 21:20] VITALS: BP 117/76
[2022-12-10] MEDS ORDERED: diphenhydrAMINE 50MG CAP PO PRN (21:30)
[2022-12-11] MEDS: KETOROLAC 30 MG/ML 1ML VIAL IV SCH ×4 (03:14→20:00)
[2022-12-11 05:35] VITALS: BP 117/77
[2022-12-11] MEDS: DOXYCYCLINE HYCLATE 100 MG in D5W MINI-BAG PLUS 100 ML IV SCH ×2 (05:49→18:13)
[2022-12-11] MEDS: SODIUM CHLORIDE 0.9% INJ 10 ML SYR IV SCH ×2 (05:50→17:50)
[2022-12-11 06:11] LABS: BASO % 0.7 % (0.0-1.0); EOS # 0.1 10^3/uL (0.0-0.5); EOS % 2.4 % (0.0-3.0); HEMATOCRIT 31.2 % (36.0-47.0); HEMOGLOBIN 9.6 g/dl (12.0-15.5); LYMPH # 1.7 10^3/uL (1.5-5.0); LYMPH % 28.8 % (24.0-44.0); MEAN CORPUSCULAR HEMOGLOBIN 26.7 pg (27.0-33.0); MEAN CORPUSCULAR HGB CONC 30.8 g/dl (32.0-36.5); MEAN CORPUSCULAR VOLUME 86.9 fl (80.0-96.0); MONO # 0.5 10^3/uL (0.0-0.8); MONO % 8.2 % (2.0-8.0); NEUTROPHILS # 3.2 10^3/uL (1.5-8.5); NEUTROPHILS % 56.4 % (36.0-66.0); PLATELET COUNT, AUTOMATED 465 10^3/uL (150-450); RED BLOOD COUNT 3.59 10^6/uL (4.00-5.40); WHITE BLOOD COUNT 5.7 10^3/uL (4.0-10.0)
[2022-12-11 07:07] LABS: BLOOD UREA NITROGEN 6 MG/DL (9-23); CALCIUM LEVEL 8.2 MG/DL (8.5-10.1); CARBON DIOXIDE LEVEL 25 MMOL/L (20-31); CHLORIDE LEVEL 109 MMOL/L (98-107); GLOMERULAR FILTRATION RATE > 60.0 (>58); GLUCOSE, FASTING 89 MG/DL (60-100); POTASSIUM SERUM 4.7 MMOL/L (3.5-5.1); SODIUM LEVEL 139 MMOL/L (136-145)
[2022-12-11] MEDS: ENOXAPARIN 40MG/0.4ML SYRINGE (J1650 PER 10MG) SC SCH (08:08)
[2022-12-11] MEDS: GABAPENTIN 400MG CAP PO SCH ×4 (08:09→20:07)
[2022-12-11] MEDS: VENLAFAXINE **XR** 75MG CAPSULE PO SCH (08:09)
[2022-12-11] MEDS: SENOKOT S TAB PO SCH ×2 (08:09→20:08)
[2022-12-11] MEDS: BUPRENORPHINE/NALOXONE 8-2MG SUBLINGUAL TABLET(SUBOXONE) SL SCH (08:10)
[2022-12-11] MEDS: PREGABALIN 75 MG CAP(LYRICA) PO SCH (08:10)
[2022-12-11] MEDS: BUPRENORPHINE/NALOXONE 2-0.5MG SUBLINGUAL TABLET(SUBOXONE) SL SCH (08:10)
[2022-12-11] MEDS: MIRALAX *UNIT DOSE* 17GM PACKET PO SCH ×2 (08:11→20:08)
[2022-12-11] MEDS: NS 1,000 ML IV SCH ×2 (09:49→20:09)
[2022-12-11] MEDS ORDERED: ALPRAZolam 0.5 MG TAB PO ONE (10:30)
[2022-12-11] MEDS ORDERED: zolPIDEM TARTRATE 5 MG TAB PO PRN (10:30)
[2022-12-11 14:00] VITALS: BP 120/61
[2022-12-11] MEDS ORDERED: ALPRAZolam 0.5 MG TAB PO PRN (14:00)
[2022-12-11] MEDS: cefTRIAXone SOD 2 GM in D5W MINI-BAG PLUS 50 ML IV SCH (17:49)
[2022-12-11] MEDS: MOM 30ML SUSPENSION UDC PO PRN (18:13)
[2022-12-11 20:00] VITALS: BP 113/62
[2022-12-11] MEDS: oxyCODONE 5MG TAB PO PRN (20:17)
[2022-12-12] MEDS: KETOROLAC 30 MG/ML 1ML VIAL IV SCH ×2 (02:00→08:17)
[2022-12-12] MEDS: oxyCODONE 5MG TAB PO PRN (02:13)
[2022-12-12] MEDS: DOXYCYCLINE HYCLATE 100 MG in D5W MINI-BAG PLUS 100 ML IV SCH (05:33)
[2022-12-12] MEDS: NS 1,000 ML IV SCH (05:34)
[2022-12-12] MEDS: SODIUM CHLORIDE 0.9% INJ 10 ML SYR IV SCH (05:34)
[2022-12-12 06:00] VITALS: BP 126/80
[2022-12-12] MEDS: MOM 30ML SUSPENSION UDC PO PRN (08:16)
[2022-12-12] MEDS: BUPRENORPHINE/NALOXONE 8-2MG SUBLINGUAL TABLET(SUBOXONE) SL SCH (08:17)
[2022-12-12] MEDS: GABAPENTIN 400MG CAP PO SCH (08:17)
[2022-12-12] MEDS: MIRALAX *UNIT DOSE* 17GM PACKET PO SCH (08:18)
[2022-12-12] MEDS: PREGABALIN 75 MG CAP(LYRICA) PO SCH (08:18)
[2022-12-12] MEDS: SENOKOT S TAB PO SCH (08:18)
[2022-12-12] MEDS: ENOXAPARIN 40MG/0.4ML SYRINGE (J1650 PER 10MG) SC SCH (08:18)
[2022-12-12] MEDS: VENLAFAXINE **XR** 75MG CAPSULE PO SCH (08:18)
[2022-12-12] MEDS: BUPRENORPHINE/NALOXONE 2-0.5MG SUBLINGUAL TABLET(SUBOXONE) SL SCH (08:18)
[2022-12-12 08:19] LABS: BASO % 0.3 % (0.0-1.0); EOS # 0.1 10^3/uL (0.0-0.5); EOS % 2.3 % (0.0-3.0); HEMATOCRIT 32.2 % (36.0-47.0); HEMOGLOBIN 10.1 g/dl (12.0-15.5); LYMPH # 1.8 10^3/uL (1.5-5.0); LYMPH % 29.2 % (24.0-44.0); MEAN CORPUSCULAR HEMOGLOBIN 26.6 pg (27.0-33.0); MEAN CORPUSCULAR HGB CONC 31.4 g/dl (32.0-36.5); MONO # 0.5 10^3/uL (0.0-0.8); MONO % 8.7 % (2.0-8.0); NEUTROPHILS # 3.4 10^3/uL (1.5-8.5); NEUTROPHILS % 56.1 % (36.0-66.0); PLATELET COUNT, AUTOMATED 607 10^3/uL (150-450); RED BLOOD COUNT 3.79 10^6/uL (4.00-5.40); WHITE BLOOD COUNT 6.1 10^3/uL (4.0-10.0)
[2022-12-12 08:56] LABS: BLOOD UREA NITROGEN < 5 MG/DL (9-23); CALCIUM LEVEL 8.3 MG/DL (8.5-10.1); CARBON DIOXIDE LEVEL 26 MMOL/L (20-31); CHLORIDE LEVEL 104 MMOL/L (98-107); CREATININE FOR GFR 0.52 MG/DL (0.55-1.30); GLOMERULAR FILTRATION RATE > 60.0 (>58); GLUCOSE, FASTING 79 MG/DL (60-100); POTASSIUM SERUM 4.5 MMOL/L (3.5-5.1); SODIUM LEVEL 138 MMOL/L (136-145)
[2022-12-12] MEDS ORDERED: BACI1CAP PO ×2 (09:27→10:14)
[2022-12-12] MEDS ORDERED: DOXY-444 PO ×2 (09:27→10:14)
[2022-12-12] MEDS ORDERED: CEFD300CAP PO (09:27)
[2022-12-12] MEDS ORDERED: LYRI150C PO (10:14)
[2022-12-12] MEDS ORDERED: CEFD300C41 PO (10:14)
[2022-12-12] MEDS ORDERED: PRIL20TA2 PO (10:31)
[2022-12-14] MEDS ORDERED: BACT800T5 PO (11:55)
[2022-12-14 16:08] LABS: ANTINUCLEAR ANTIBODIES DIRECT Negative (Negative)
== END 2022-12-12 13:10 | disposition left against medical advice (07) | DRG 306 ==
LOC: M ED 11:42 → EDBD 11:42 → M ED INP 16:05 → ENRESERV 16:38 → M MSPAV 17:20
PROVIDERS: ADMIT General Practice; ATTEND General Practice
PROC: 02HV33Z Insertion of Infusion Device into Superior Vena Cava, Percutaneous Approach (ICD-10-PCS; 2022-12-10)
PROC: 0W9B3ZZ Drainage of Left Pleural Cavity, Percutaneous Approach (ICD-10-PCS; principal; 2022-12-10 10:00)
PROC: B246ZZZ Ultrasonography of Right and Left Heart (ICD-10-PCS; 2022-12-12)
DX: I38 Endocarditis, valve unspecified (principal); J18.9 Pneumonia, unspecified organism; I76 Septic arterial embolism; F17.210 Nicotine dependence, cigarettes, uncomplicated; F41.8 Other specified anxiety disorders; E78.00 Pure hypercholesterolemia, unspecified; E03.9 Hypothyroidism, unspecified; M54.9 Dorsalgia, unspecified; G89.29 Other chronic pain; Z86.16 Personal history of COVID-19; Z90.49 Acquired absence of other specified parts of digestive tract; Z90.79 Acquired absence of other genital organ(s); Z20.822 Contact with and (suspected) exposure to COVID-19; Z79.899 Other long term (current) drug therapy; Z88.8 Allergy status to other drugs, medicaments and biological substances; Z91.048 Other nonmedicinal substance allergy status; Z79.890 Hormone replacement therapy; K44.9 Diaphragmatic hernia without obstruction or gangrene; I72.8 Aneurysm of other specified arteries; K59.00 Constipation, unspecified; Z79.891 Long term (current) use of opiate analgesic; Z91.199 Patient's noncompliance with other medical treatment and regimen due to unspecified reason

== ENCOUNTER 2023-01-07 11:42 | Emergency (ER) | payer MEDICARE ==
[~2023-01-07] VITALS: Ht 165.1 cm; Wt 76.8 kg
[~2023-01-07 11:42] MED LIST changes: +BACI1CAP PO; +BACT800T5 PO; +BUPR1FIL SL; +CEFD300C41 PO; +CEFD300CAP PO; +CIPR500T39 PO; +DOXY-444 PO; +LYRI150C PO; +PREG150C PO; +PRIL20TA2 PO; +SUBO2MIS SL
[2023-01-07 12:39] LABS: BASO % 0.3 % (0.0-1.0); EOS # 0.1 10^3/uL (0.0-0.5); EOS % 1.3 % (0.0-3.0); HEMATOCRIT 40.4 % (36.0-47.0); HEMOGLOBIN 12.6 g/dl (12.0-15.5); LYMPH # 1.4 10^3/uL (1.5-5.0); LYMPH % 22.7 % (24.0-44.0); MEAN CORPUSCULAR HEMOGLOBIN 26.5 pg (27.0-33.0); MEAN CORPUSCULAR HGB CONC 31.2 g/dl (32.0-36.5); MEAN CORPUSCULAR VOLUME 84.9 fl (80.0-96.0); MONO # 0.4 10^3/uL (0.0-0.8); MONO % 6.4 % (2.0-8.0); NEUTROPHILS # 4.2 10^3/uL (1.5-8.5); PLATELET COUNT, AUTOMATED 404 10^3/uL (150-450); RED BLOOD COUNT 4.76 10^6/uL (4.00-5.40); WHITE BLOOD COUNT 6.1 10^3/uL (4.0-10.0)
[2023-01-07 12:47] LABS: INR 1.03; PROTHROMBIN TIME 13.7 SECONDS (12.5-14.5)
[2023-01-07 12:48] LABS: PARTIAL THROMBOPLASTIN TIME 35.5 SECONDS (24.8-34.2)
[2023-01-07 12:53] LABS: LIPASE 18 U/L (12-53)
[2023-01-07 12:55] LABS: ALBUMIN 3.5 G/DL (3.2-5.2); ALKALINE PHOSPHATASE 103 U/L (46-116); ALT/SGPT < 9 U/L (7.0-40); AST/SGOT 12 U/L (<34); BILIRUBIN,DIRECT < 0.1 MG/DL (<0.4); BILIRUBIN,TOTAL 0.3 MG/DL (0.3-1.2); BLOOD UREA NITROGEN 7 MG/DL (9-23); CALCIUM LEVEL 9.6 MG/DL (8.5-10.1); CARBON DIOXIDE LEVEL 30 MMOL/L (20-31); CHLORIDE LEVEL 102 MMOL/L (98-107); CK-MB VALUE MASS < 1.0 NG/ML (<3.6); CREATININE FOR GFR 0.51 MG/DL (0.55-1.30); GLOMERULAR FILTRATION RATE > 60.0 (>58); GLUCOSE, FASTING 112 MG/DL (60-100); POTASSIUM SERUM 3.7 MMOL/L (3.5-5.1); SODIUM LEVEL 138 MMOL/L (136-145)
[2023-01-07 12:57] LABS: HCG, SERUM QUALITATIVE NEGATIVE (NEGATIVE)
[2023-01-07 12:59] LABS: FREE T4 1.19 NG/DL (0.89-1.76)
[2023-01-07 13:00] LABS: THYROID STIMULATING HORMONE 3.393 uIU/ML (0.55-4.78)
[2023-01-07 13:04] LABS: CPK CREATINE PHOSPHOKINASE 54 U/L (34-145); MB/CK RELATIVE INDEX 1.85 (< OR =4)
[2023-01-07] MEDS ORDERED: ONDANSETRON 4MG ORAL DISINTEGRATING TAB PO ONE (13:15)
[2023-01-07 13:44] LABS: D-DIMER QUANT < 270 ng/ml (<500)
[2023-01-07 14:13] LABS: AMPHETAMINES LEVEL URINE NEGATIVE (NEGATIVE); BARBITURATES URINE NEGATIVE (NEGATIVE); BENZODIAZEPINES URINE NEGATIVE (NEGATIVE); METHADONE URINE NEGATIVE (NEGATIVE); OPIATES URINE NEGATIVE (NEGATIVE); PHENCYCLIDINE URINE NEGATIVE (NEGATIVE)
[2023-01-07 14:14] LABS: CANNABINOIDS URINE POSITIVE (NEGATIVE); COCAINE METABOLITE URINE POSITIVE (NEGATIVE)
[2023-01-07] MEDS ORDERED: ONDA4TAB6 PO (14:34)
[2023-01-07 14:57] VITALS: BP 129/93
== END 2023-01-07 14:59 | disposition home or self-care (01) ==
LOC: M ED 11:42
DX: R07.9 Chest pain, unspecified (principal); R11.0 Nausea; E78.5 Hyperlipidemia, unspecified; K21.9 Gastro-esophageal reflux disease without esophagitis; F41.9 Anxiety disorder, unspecified; F32.9 Major depressive disorder, single episode, unspecified; J30.89 Other allergic rhinitis; Z87.01 Personal history of pneumonia (recurrent); F17.200 Nicotine dependence, unspecified, uncomplicated; Z79.899 Other long term (current) drug therapy; Z88.8 Allergy status to other drugs, medicaments and biological substances

== ENCOUNTER 2023-01-10 15:13 | Inpatient (IN) | payer MEDICARE, MEDICAID ==
[~2023-01-10] VITALS: Ht 157.5 cm; Wt 75.8 kg
[~2023-01-10 15:13] MED LIST changes: +ONDA4TAB6 PO
[2023-01-10 16:21] LABS: HEMATOCRIT 37.9 % (36.0-47.0); HEMOGLOBIN 11.9 g/dl (12.0-15.5); MEAN CORPUSCULAR HGB CONC 31.4 g/dl (32.0-36.5); MEAN CORPUSCULAR VOLUME 85.9 fl (80.0-96.0); PLATELET COUNT, AUTOMATED 454 10^3/uL (150-450); RED BLOOD COUNT 4.41 10^6/uL (4.00-5.40); WHITE BLOOD COUNT 5.3 10^3/uL (4.0-10.0)
[2023-01-10 16:43] LABS: ETHYL ALCOHOL (ETHANOL) < 0.003 % (0.000-0.010)
[2023-01-10 16:45] LABS: ACETAMINOPHEN LEVEL < 2.0 UG/ML (10.0-20.0); SALICYLATE LEVEL < 3.0 MG/DL (<30)
[2023-01-10 16:49] LABS: ALBUMIN 3.6 G/DL (3.2-5.2); ALKALINE PHOSPHATASE 96 U/L (46-116); ALT/SGPT 9 U/L (7.0-40); AST/SGOT 12 U/L (<34); BILIRUBIN,DIRECT < 0.1 MG/DL (<0.4); BILIRUBIN,TOTAL 0.3 MG/DL (0.3-1.2); BLOOD UREA NITROGEN 11 MG/DL (9-23); CALCIUM LEVEL 9.4 MG/DL (8.5-10.1); CARBON DIOXIDE LEVEL 30 MMOL/L (20-31); CHLORIDE LEVEL 101 MMOL/L (98-107); GLOMERULAR FILTRATION RATE > 60.0 (>58); GLUCOSE, FASTING 77 MG/DL (60-100); SODIUM LEVEL 135 MMOL/L (136-145); TOTAL PROTEIN 7.9 G/DL (5.7-8.2)
[2023-01-10 16:54] LABS: AMPHETAMINES LEVEL URINE NEGATIVE (NEGATIVE); BARBITURATES URINE NEGATIVE (NEGATIVE); BENZODIAZEPINES URINE NEGATIVE (NEGATIVE); METHADONE URINE NEGATIVE (NEGATIVE); OPIATES URINE NEGATIVE (NEGATIVE); PHENCYCLIDINE URINE NEGATIVE (NEGATIVE)
[2023-01-10 16:56] LABS: CANNABINOIDS URINE POSITIVE (NEGATIVE); COCAINE METABOLITE URINE POSITIVE (NEGATIVE)
[2023-01-10] MEDS ORDERED: HOME MED LIST COMPLETE! XX SCH (19:20)
[2023-01-10] MEDS ORDERED: LYRI150C PO (19:20)
[2023-01-11] MEDS ORDERED: PREGABALIN 75 MG CAP(LYRICA) PO SCH ×2 (09:00→16:00)
[2023-01-11] MEDS ORDERED: GABAPENTIN 400MG CAP PO SCH (09:00)
[2023-01-11] MEDS ORDERED: VENLAFAXINE 37.5 MG TAB PO SCH ×2 (09:00)
[2023-01-11] MEDS: NICOTINE 21MG/24HR 1 EA TRANSDERMAL TD SCH (09:00)
[2023-01-11] MEDS ORDERED: VENLAFAXINE **XR** 75MG CAPSULE PO SCH ×2 (09:00)
[2023-01-11] MEDS ORDERED: ACETAMINOPHEN TAB 650MG DOSE (2X325MG) PO PRN (11:35)
[2023-01-11] MEDS ORDERED: ONDANSETRON 4MG ORAL DISINTEGRATING TAB PO PRN (11:35)
[2023-01-11] MEDS ORDERED: MAALOX 30 ML SUSP *UDC PO PRN (11:35)
[2023-01-11] MEDS ORDERED: OLANZapine ORAL DISINTEGRATING TAB 5MG PO PRN (11:35)
[2023-01-11] MEDS ORDERED: IBUPROFEN 400MG TAB PO PRN (11:35)
[2023-01-11] MEDS ORDERED: MOM 30ML SUSPENSION UDC PO PRN (11:35)
[2023-01-11] MEDS: GABAPENTIN 400MG CAP PO SCH ×3 (13:34→20:19)
[2023-01-11] MEDS: BUPRENORPHINE/NALOXONE 2-0.5MG SUBLINGUAL TABLET(SUBOXONE) PO SCH (13:35)
[2023-01-11] MEDS: BUPRENORPHINE/NALOXONE 8-2MG SUBLINGUAL TABLET(SUBOXONE) PO SCH (13:35)
[2023-01-11 15:47] VITALS: BP 100/58
[2023-01-12 06:22] VITALS: BP 109/60
[2023-01-12] MEDS: VENLAFAXINE **XR** 75MG CAPSULE PO SCH (08:51)
[2023-01-12] MEDS: GABAPENTIN 400MG CAP PO SCH ×4 (08:51→21:00)
[2023-01-12] MEDS: BUPRENORPHINE/NALOXONE 8-2MG SUBLINGUAL TABLET(SUBOXONE) PO SCH (08:52)
[2023-01-12] MEDS: BUPRENORPHINE/NALOXONE 2-0.5MG SUBLINGUAL TABLET(SUBOXONE) PO SCH (08:52)
[2023-01-12] MEDS: NICOTINE 21MG/24HR 1 EA TRANSDERMAL TD SCH (08:54)
[2023-01-12] MEDS ORDERED: INFLUENZA QUADRIVALENT PF VACCINE 0.5ML SYRINGE IM.IMMUN ONE (09:00)
[2023-01-12] MEDS ORDERED: VENLAFAXINE **XR** 75MG CAPSULE PO SCH (09:00)
[2023-01-12 17:44] VITALS: BP 116/69
[2023-01-12] MEDS: ARIPiprazole 2 MG TAB PO SCH (21:00)
[2023-01-13 06:28] VITALS: BP 117/80
[2023-01-13 07:59] LABS: CHOLESTEROL RISK RATIO 4.31 (<5); HDL CHOLESTEROL 43.6 MG/DL (>40); LDL CHOLESTEROL 116.4 MG/DL (<100); NON-HDL-C 144.4 MG/DL
[2023-01-13] MEDS: GABAPENTIN 400MG CAP PO SCH ×4 (10:27→21:47)
[2023-01-13] MEDS: BUPRENORPHINE/NALOXONE 8-2MG SUBLINGUAL TABLET(SUBOXONE) PO SCH (10:28)
[2023-01-13] MEDS: VENLAFAXINE **XR** 75MG CAPSULE PO SCH (10:28)
[2023-01-13] MEDS: BUPRENORPHINE/NALOXONE 2-0.5MG SUBLINGUAL TABLET(SUBOXONE) PO SCH (10:28)
[2023-01-13] MEDS: NICOTINE 21MG/24HR 1 EA TRANSDERMAL TD SCH (10:32)
[2023-01-13] MEDS: LIDOCAINE 5% (LIDODERM) PATCH TD SCH (10:32)
[2023-01-13 18:00] VITALS: BP 119/83
[2023-01-13] MEDS ORDERED: RAMELTEON 8 MG TAB (ROZEREM) PO SCH (21:00)
[2023-01-13] MEDS: ARIPiprazole 2 MG TAB PO SCH (21:47)
[2023-01-14 06:43] VITALS: BP 114/61
[2023-01-14] MEDS: LIDOCAINE 5% (LIDODERM) PATCH TD SCH (08:56)
[2023-01-14] MEDS: BUPRENORPHINE/NALOXONE 8-2MG SUBLINGUAL TABLET(SUBOXONE) PO SCH (08:57)
[2023-01-14] MEDS: GABAPENTIN 400MG CAP PO SCH ×2 (08:57→12:34)
[2023-01-14] MEDS: VENLAFAXINE **XR** 75MG CAPSULE PO SCH (08:57)
[2023-01-14] MEDS: BUPRENORPHINE/NALOXONE 2-0.5MG SUBLINGUAL TABLET(SUBOXONE) PO SCH (08:57)
[2023-01-14] MEDS: NICOTINE 21MG/24HR 1 EA TRANSDERMAL TD SCH (09:00)
[2023-01-14] MEDS ORDERED: VITAMIN D 1,000 INTERNATIONAL UNITS TABLET PO SCH (09:00)
[2023-01-14] MEDS ORDERED: ABIL1TAB13 PO (11:04)
[2023-01-14] MEDS ORDERED: VENL75CA2 PO (11:04)
[2023-01-14] MEDS ORDERED: VENL150C43 PO (11:04)
[2023-01-14] MEDS ORDERED: LIDO5TD TD (11:04)
[2023-01-14] MEDS ORDERED: RAME8TAB2 PO (11:04)
[2023-01-14] MEDS ORDERED: NICO21PAT TD (11:04)
[2023-01-14] MEDS ORDERED: VITAD1000T PO (11:04)
[2023-01-14] MEDS ORDERED: GABA-283 PO ×3 (12:54→13:15)
== END 2023-01-14 13:14 | disposition home or self-care (01) | DRG 885 ==
LOC: M ED 15:13 → M ED INP 01-11 11:33 → M PSY 01-11 15:45
PROVIDERS: ADMIT Student in an Organized Health Care Education/Training Program; ATTEND Student in an Organized Health Care Education/Training Program
DX: F33.1 Major depressive disorder, recurrent, moderate (principal); R45.851 Suicidal ideations; F43.10 Post-traumatic stress disorder, unspecified; F14.10 Cocaine abuse, uncomplicated; F12.10 Cannabis abuse, uncomplicated; Z63.4 Disappearance and death of family member; F60.3 Borderline personality disorder; Z91.51 Personal history of suicidal behavior; E03.9 Hypothyroidism, unspecified; Z20.822 Contact with and (suspected) exposure to COVID-19; Z79.899 Other long term (current) drug therapy; Z88.8 Allergy status to other drugs, medicaments and biological substances; Z91.048 Other nonmedicinal substance allergy status; Z90.49 Acquired absence of other specified parts of digestive tract; Z90.79 Acquired absence of other genital organ(s)

== ENCOUNTER 2023-05-09 16:37 | Inpatient (IN) | payer MEDICARE, MEDICAID ==
[~2023-05-09] VITALS: Ht 157.5 cm; Wt 80.5 kg
[~2023-05-09 16:37] MED LIST changes: +ABIL1TAB13 PO; -GABA-283 PO; +GABA-284 PO; +RAME8TAB2 PO; +VITAD1000T PO
[2023-05-09 19:29] LABS: HEMATOCRIT 37.9 % (36.0-47.0); HEMOGLOBIN 11.9 g/dl (12.0-15.5); MEAN CORPUSCULAR HEMOGLOBIN 27.5 pg (27.0-33.0); MEAN CORPUSCULAR HGB CONC 31.4 g/dl (32.0-36.5); MEAN CORPUSCULAR VOLUME 87.5 fl (80.0-96.0); PLATELET COUNT, AUTOMATED 215 10^3/uL (150-450); RED BLOOD COUNT 4.33 10^6/uL (4.00-5.40); WHITE BLOOD COUNT 4.5 10^3/uL (4.0-10.0)
[2023-05-09 19:31] LABS: ETHYL ALCOHOL (ETHANOL) < 0.003 % (0.000-0.010)
[2023-05-09 19:33] LABS: ACETAMINOPHEN LEVEL < 2.0 UG/ML (10.0-20.0); ALBUMIN 3.3 G/DL (3.2-5.2); ALKALINE PHOSPHATASE 104 U/L (46-116); ALT/SGPT 10 U/L (7.0-40); AST/SGOT < 8 U/L (<34); BILIRUBIN,DIRECT < 0.1 MG/DL (<0.4); BILIRUBIN,TOTAL 0.2 MG/DL (0.3-1.2); BLOOD UREA NITROGEN 11 MG/DL (9-23); CALCIUM LEVEL 8.7 MG/DL (8.5-10.1); CARBON DIOXIDE LEVEL 30 MMOL/L (20-31); CHLORIDE LEVEL 106 MMOL/L (98-107); CREATININE FOR GFR 0.67 MG/DL (0.55-1.30); GLOMERULAR FILTRATION RATE > 60.0 (>58); GLUCOSE, FASTING 96 MG/DL (60-100); POTASSIUM SERUM 3.6 MMOL/L (3.5-5.1); SALICYLATE LEVEL < 3.0 MG/DL (<30); SODIUM LEVEL 144 MMOL/L (136-145); TOTAL PROTEIN 6.5 G/DL (5.7-8.2)
[2023-05-09 19:36] LABS: THYROID STIMULATING HORMONE 2.129 uIU/ML (0.55-4.78)
[2023-05-09 19:48] LABS: BARBITURATES URINE NEGATIVE (NEGATIVE); BENZODIAZEPINES URINE NEGATIVE (NEGATIVE); COCAINE METABOLITE URINE NEGATIVE (NEGATIVE); METHADONE URINE NEGATIVE (NEGATIVE)
[2023-05-09 19:49] LABS: OPIATES URINE NEGATIVE (NEGATIVE); PHENCYCLIDINE URINE NEGATIVE (NEGATIVE)
[2023-05-09 19:52] LABS: AMPHETAMINES LEVEL URINE POSITIVE (NEGATIVE); CANNABINOIDS URINE POSITIVE (NEGATIVE)
[2023-05-09] MEDS ORDERED: HOME MED LIST COMPLETE! XX SCH (20:10)
[2023-05-10] MEDS ORDERED: BUPRENORPHINE/NALOXONE 2-0.5MG SUBLINGUAL TABLET(SUBOXONE) SL SCH (09:00)
[2023-05-10] MEDS ORDERED: BUPRENORPHINE/NALOXONE 8-2MG SUBLINGUAL TABLET(SUBOXONE) SL SCH (09:00)
[2023-05-10] MEDS ORDERED: BUPR1SUB5 SL (10:25)
[2023-05-10] MEDS ORDERED: BUPR1SUB4 SL (10:25)
[2023-05-10] MEDS ORDERED: HOME MED LIST COMPLETE! XX SCH (10:25)
[2023-05-10] MEDS ORDERED: VENL150C43 PO (10:25)
[2023-05-10] MEDS ORDERED: VENL75CA2 PO (10:25)
[2023-05-10 11:07] LABS: HCG, SERUM QUALITATIVE NEGATIVE (NEGATIVE)
[2023-05-10] MEDS ORDERED: diphenhydrAMINE 25MG CAP PO PRN (12:10)
[2023-05-10] MEDS ORDERED: ACETAMINOPHEN TAB 650MG DOSE (2X325MG) PO PRN (12:10)
[2023-05-10] MEDS ORDERED: MAALOX 30 ML SUSP *UDC PO PRN (12:10)
[2023-05-10] MEDS ORDERED: MOM 30ML SUSPENSION UDC PO PRN (12:10)
[2023-05-10 16:58] VITALS: BP 121/84; TEMP 97.9; O2SAT 97
[2023-05-11 07:02] VITALS: BP 117/68; TEMP 91; O2SAT 99
[2023-05-11] MEDS ORDERED: BUPRENORPHINE/NALOXONE 8-2MG SUBLINGUAL TABLET(SUBOXONE) SL SCH (09:00)
[2023-05-11] MEDS: IBUPROFEN 400MG TAB PO PRN (10:18)
[2023-05-11] MEDS: OLANZapine ORAL DISINTEGRATING TAB 5MG PO PRN (10:18)
[2023-05-11] MEDS ORDERED: VENLAFAXINE **XR** 75MG CAPSULE PO SCH (10:45)
[2023-05-11] MEDS: BUPRENORPHINE/NALOXONE 2-0.5MG SUBLINGUAL TABLET(SUBOXONE) SL SCH (10:52)
[2023-05-11] MEDS: VENLAFAXINE **XR** 75MG CAPSULE PO SCH (10:52)
[2023-05-11] MEDS: BUPRENORPHINE/NALOXONE 8-2MG SUBLINGUAL TABLET(SUBOXONE) SL SCH (10:52)
[2023-05-11] MEDS: GABAPENTIN 300 MG CAP PO SCH ×3 (11:32→21:04)
[2023-05-11 16:29] VITALS: BP 106/62; TEMP 97.8; O2SAT 100
[2023-05-12 06:46] VITALS: BP 122/72; TEMP 96.1; O2SAT 98
[2023-05-12] MEDS: BUPRENORPHINE/NALOXONE 8-2MG SUBLINGUAL TABLET(SUBOXONE) SL SCH (08:03)
[2023-05-12] MEDS: VENLAFAXINE **XR** 75MG CAPSULE PO SCH (08:03)
[2023-05-12] MEDS: GABAPENTIN 300 MG CAP PO SCH ×3 (08:03→21:02)
[2023-05-12] MEDS: BUPRENORPHINE/NALOXONE 2-0.5MG SUBLINGUAL TABLET(SUBOXONE) SL SCH (08:03)
[2023-05-12 16:43] VITALS: BP 100/64; TEMP 97.4; O2SAT 96
[2023-05-12] MEDS: OLANZapine ORAL DISINTEGRATING TAB 5MG PO PRN (21:02)
[2023-05-13 06:12] VITALS: BP 118/72; TEMP 97.1; O2SAT 97
[2023-05-13] MEDS: BUPRENORPHINE/NALOXONE 8-2MG SUBLINGUAL TABLET(SUBOXONE) SL SCH (08:24)
[2023-05-13] MEDS: VENLAFAXINE **XR** 75MG CAPSULE PO SCH (08:24)
[2023-05-13] MEDS: BUPRENORPHINE/NALOXONE 2-0.5MG SUBLINGUAL TABLET(SUBOXONE) SL SCH (08:24)
[2023-05-13] MEDS: GABAPENTIN 300 MG CAP PO SCH ×3 (08:24→20:01)
[2023-05-13 17:41] VITALS: BP 107/62; TEMP 96.8; O2SAT 95
[2023-05-13 19:11] LABS: APPEARANCE, URINE HAZY (CLEAR); BACTERIA, URINE AUTO 1+ (NEGATIVE); BILIRUBIN, URINE AUTO NEGATIVE (NEGATIVE); BLOOD, URINE BLOOD NEGATIVE (NEGATIVE); COLOR, URINE YELLOW (YELLOW); GLUCOSE, URINE (UA) AUTO NEGATIVE (NEGATIVE); KETONE, URINE AUTO NEGATIVE (NEGATIVE); LEUKOCYTE ESTERASE, URINE AUTO 3+ (NEGATIVE); MUCUS, URINE SMALL (NEGATIVE); NITRITE, URINE AUTO NEGATIVE (NEGATIVE); PROTEIN, URINE AUTO NEGATIVE (NEGATIVE); RBC, URINE AUTO 2 /HPF (0-3); SPECIFIC GRAVITY URINE AUTO 1.021 (1.002-1.035); SQUAMOUS EPITHELIAL CELL UR AU 2 /HPF (0-6); WBC, URINE AUTO 58 /HPF (0-3)
[2023-05-13] MEDS: IBUPROFEN 400MG TAB PO PRN (20:02)
[2023-05-13] MEDS: RAMELTEON 8 MG TAB (ROZEREM) PO PRN (20:30)
[2023-05-14 06:32] VITALS: BP 113/65; TEMP 97.2; O2SAT 97
[2023-05-14] MEDS: GABAPENTIN 300 MG CAP PO SCH ×3 (08:04→20:03)
[2023-05-14] MEDS: VENLAFAXINE **XR** 75MG CAPSULE PO SCH (08:04)
[2023-05-14] MEDS: BUPRENORPHINE/NALOXONE 8-2MG SUBLINGUAL TABLET(SUBOXONE) SL SCH (08:04)
[2023-05-14] MEDS: BUPRENORPHINE/NALOXONE 2-0.5MG SUBLINGUAL TABLET(SUBOXONE) SL SCH (08:04)
[2023-05-14 16:39] VITALS: BP 106/62; TEMP 97.1; O2SAT 100
[2023-05-14] MEDS: OLANZapine ORAL DISINTEGRATING TAB 5MG PO PRN (20:03)
[2023-05-14] MEDS: RAMELTEON 8 MG TAB (ROZEREM) PO PRN (20:03)
[2023-05-15 06:54] VITALS: BP 113/78; TEMP 97.1; O2SAT 97
[2023-05-15] MEDS: GABAPENTIN 300 MG CAP PO SCH ×3 (07:57→20:02)
[2023-05-15] MEDS: VENLAFAXINE **XR** 75MG CAPSULE PO SCH (07:57)
[2023-05-15] MEDS: BUPRENORPHINE/NALOXONE 8-2MG SUBLINGUAL TABLET(SUBOXONE) SL SCH (07:58)
[2023-05-15] MEDS: BUPRENORPHINE/NALOXONE 2-0.5MG SUBLINGUAL TABLET(SUBOXONE) SL SCH (07:58)
[2023-05-15 16:22] VITALS: BP 118/67; TEMP 97.3; O2SAT 99
[2023-05-15] MEDS: OLANZapine ORAL DISINTEGRATING TAB 5MG PO PRN (20:02)
[2023-05-15] MEDS: RAMELTEON 8 MG TAB (ROZEREM) PO PRN (20:02)
[2023-05-16 06:32] VITALS: BP 106/63; TEMP 97.3; O2SAT 99
[2023-05-16] MEDS: GABAPENTIN 300 MG CAP PO SCH ×3 (08:02→20:04)
[2023-05-16] MEDS: BUPRENORPHINE/NALOXONE 2-0.5MG SUBLINGUAL TABLET(SUBOXONE) SL SCH (08:02)
[2023-05-16] MEDS: BUPRENORPHINE/NALOXONE 8-2MG SUBLINGUAL TABLET(SUBOXONE) SL SCH (08:02)
[2023-05-16] MEDS: VENLAFAXINE **XR** 75MG CAPSULE PO SCH (08:02)
[2023-05-16 16:23] VITALS: TEMP 97.8; O2SAT 97
[2023-05-16] MEDS: OLANZapine ORAL DISINTEGRATING TAB 5MG PO PRN (19:52)
[2023-05-16] MEDS: RAMELTEON 8 MG TAB (ROZEREM) PO PRN (20:04)
[2023-05-17 06:21] VITALS: BP 132/78; TEMP 97.3; O2SAT 99
[2023-05-17] MEDS ORDERED: RAME8TAB2 PO (07:16)
[2023-05-17] MEDS ORDERED: GABA-282 PO (07:16)
[2023-05-17] MEDS ORDERED: VENL150C43 PO (07:16)
[2023-05-17] MEDS ORDERED: VENL75CA2 PO (07:16)
[2023-05-17] MEDS: GABAPENTIN 300 MG CAP PO SCH (08:07)
[2023-05-17] MEDS: VENLAFAXINE **XR** 75MG CAPSULE PO SCH (08:07)
[2023-05-17] MEDS: BUPRENORPHINE/NALOXONE 8-2MG SUBLINGUAL TABLET(SUBOXONE) SL SCH (08:08)
[2023-05-17] MEDS: BUPRENORPHINE/NALOXONE 2-0.5MG SUBLINGUAL TABLET(SUBOXONE) SL SCH (08:08)
== END 2023-05-17 11:00 | disposition home or self-care (01) | DRG 881 ==
LOC: M ED 16:37 → M ED INP 05-10 12:10 → M PSY 05-10 16:39
PROVIDERS: ADMIT Student in an Organized Health Care Education/Training Program; ATTEND Student in an Organized Health Care Education/Training Program
DX: F32.A Depression, unspecified (principal); F60.89 Other specific personality disorders; F15.90 Other stimulant use, unspecified, uncomplicated; F41.9 Anxiety disorder, unspecified; F60.3 Borderline personality disorder; F90.9 Attention-deficit hyperactivity disorder, unspecified type; Z88.8 Allergy status to other drugs, medicaments and biological substances; Z79.899 Other long term (current) drug therapy; E03.9 Hypothyroidism, unspecified; M54.50 Low back pain, unspecified; I27.20 Pulmonary hypertension, unspecified; I08.1 Rheumatic disorders of both mitral and tricuspid valves; F17.200 Nicotine dependence, unspecified, uncomplicated; F12.90 Cannabis use, unspecified, uncomplicated; F14.90 Cocaine use, unspecified, uncomplicated

== ENCOUNTER → 2023-05-28 | Outpatient (CLI) | payer MEDICARE, MEDICAID ==
[~2023-05-28] MED LIST changes: +BUPR1SUB4 SL
== END ==
LOC: M RAD 12:47
PROVIDERS: ATTEND Physician Assistant
DX: M19.071 Primary osteoarthritis, right ankle and foot (principal); N39.0 Urinary tract infection, site not specified; R30.0 Dysuria

== ENCOUNTER → 2023-05-28 | Outpatient (REF) | payer MEDICARE, MEDICAID ==
[2023-05-28 13:00] LABS: APPEARANCE, URINE CLOUDY (CLEAR); BACTERIA, URINE AUTO 1+ (NEGATIVE); BILIRUBIN, URINE AUTO 1+ (NEGATIVE); BLOOD, URINE BLOOD 2+ (NEGATIVE); CALCIUM OXALATE CRYSTALS SMALL; COLOR, URINE AMBER (YELLOW); GLUCOSE, URINE (UA) AUTO NEGATIVE (NEGATIVE); KETONE, URINE AUTO NEGATIVE (NEGATIVE); LEUKOCYTE ESTERASE, URINE AUTO 3+ (NEGATIVE); MUCUS, URINE SMALL (NEGATIVE); NITRITE, URINE AUTO POSITIVE (NEGATIVE); PROTEIN, URINE AUTO 3+ mg/dL (NEGATIVE); RBC, URINE AUTO 107 /HPF (0-3); SPECIFIC GRAVITY URINE AUTO 1.031 (1.002-1.035); SQUAMOUS EPITHELIAL CELL UR AU 1 /HPF (0-6); WBC, URINE AUTO 132 /HPF (0-3)
[2023-05-28 14:24] LABS: GC DNA AMPLIFICATION NEGATIVE (NEGATIVE)
== END ==
LOC: M LAB REF 11:59
PROVIDERS: ATTEND Physician Assistant
DX: N39.0 Urinary tract infection, site not specified (principal); R30.0 Dysuria

== ENCOUNTER 2023-10-29 14:31 | Inpatient (IN) | payer MEDICAID, MEDICARE, OTHER ==
[~2023-10-29] VITALS: Ht 157.5 cm; Wt 75.3 kg
[~2023-10-29 14:31] MED LIST changes: +CEFD1CAP9 PO; -CEFD300C41 PO; -EFFE150C2 PO; +EFFE150C3 PO; -MIRT-62 PO; +MIRT-88 PO; -PREG150C PO; +PREG150C2 PO
[2023-10-29 16:54] LABS: HEMATOCRIT 47.2 % (36.0-47.0); HEMOGLOBIN 15.4 g/dl (12.0-15.5); MEAN CORPUSCULAR HEMOGLOBIN 28.6 pg (27.0-33.0); MEAN CORPUSCULAR HGB CONC 32.6 g/dl (32.0-36.5); MEAN CORPUSCULAR VOLUME 87.6 fl (80.0-96.0); PLATELET COUNT, AUTOMATED 204 10^3/uL (150-450); RED BLOOD COUNT 5.39 10^6/uL (4.00-5.40); WHITE BLOOD COUNT 2.8 10^3/uL (4.0-10.0)
[2023-10-29 16:57] LABS: AMPHETAMINES LEVEL URINE NEGATIVE (NEGATIVE); BARBITURATES URINE NEGATIVE (NEGATIVE); METHADONE URINE NEGATIVE (NEGATIVE); OPIATES URINE NEGATIVE (NEGATIVE); PHENCYCLIDINE URINE NEGATIVE (NEGATIVE)
[2023-10-29 17:00] LABS: BENZODIAZEPINES URINE POSITIVE (NEGATIVE); CANNABINOIDS URINE POSITIVE (NEGATIVE); COCAINE METABOLITE URINE POSITIVE (NEGATIVE)
[2023-10-29 17:11] LABS: ETHYL ALCOHOL (ETHANOL) < 0.003 % (0.000-0.010)
[2023-10-29 17:13] LABS: ALKALINE PHOSPHATASE 99 U/L (46-116); ALT/SGPT 9 U/L (7.0-40); AST/SGOT 11 U/L (<34); BILIRUBIN,DIRECT 0.1 MG/DL (<0.4); BILIRUBIN,TOTAL 0.4 MG/DL (0.3-1.2); BLOOD UREA NITROGEN 13 MG/DL (9-23); CARBON DIOXIDE LEVEL 25 MMOL/L (20-31); CHLORIDE LEVEL 102 MMOL/L (98-107); CREATININE FOR GFR 0.63 MG/DL (0.55-1.30); GLOMERULAR FILTRATION RATE > 60.0 (>58); GLUCOSE, FASTING 103 MG/DL (60-100); POTASSIUM SERUM 4.1 MMOL/L (3.5-5.1); SALICYLATE LEVEL < 3.0 MG/DL (<30); SODIUM LEVEL 134 MMOL/L (136-145); TOTAL PROTEIN 7.6 G/DL (5.7-8.2)
[2023-10-29 17:16] LABS: THYROID STIMULATING HORMONE 3.138 uIU/ML (0.55-4.78)
[2023-10-29] MEDS ORDERED: traZODone 50 MG TAB PO PRN (18:20)
[2023-10-29] MEDS ORDERED: MAALOX 30 ML SUSP *UDC PO PRN (18:20)
[2023-10-29] MEDS ORDERED: MOM 30ML SUSPENSION UDC PO PRN (18:20)
[2023-10-29] MEDS ORDERED: ACETAMINOPHEN TAB 650MG DOSE (2X325MG) PO PRN (18:20)
[2023-10-29] MEDS: GABAPENTIN 300 MG CAP PO SCH (20:04)
[2023-10-29] MEDS ORDERED: GABA800T4 PO (20:12)
[2023-10-29] MEDS ORDERED: VENL150C43 PO (20:12)
[2023-10-29] MEDS ORDERED: HOME MED LIST COMPLETE! XX SCH (20:15)
[2023-10-30] MEDS ORDERED: LORazepam 2 MG TAB PO ONE (00:05)
[2023-10-30] MEDS: GABAPENTIN 300 MG CAP PO SCH ×3 (06:56→21:03)
[2023-10-30] MEDS ORDERED: GABAPENTIN 400MG CAP PO SCH ×2 (09:00→09:40)
[2023-10-30] MEDS ORDERED: VENLAFAXINE **XR** 75MG CAPSULE PO SCH (09:00)
[2023-10-30] MEDS ORDERED: BUPRENORPHINE/NALOXONE 8-2MG SUBLINGUAL TABLET(SUBOXONE) SL SCH (09:00)
[2023-10-30] MEDS: diphenhydrAMINE 25MG CAP PO PRN (16:29)
[2023-10-30] MEDS ORDERED: diphenhydrAMINE 25MG CAP PO ONE (20:40)
[2023-10-30] MEDS: MIRTAZAPINE 15 MG TAB PO SCH (21:18)
[2023-10-31] MEDS: GABAPENTIN 300 MG CAP PO SCH ×4 (05:35→20:51)
[2023-10-31 06:55] VITALS: BP 113/82; TEMP 97; O2SAT 97
[2023-10-31] MEDS: diphenhydrAMINE 25MG CAP PO PRN ×2 (09:04→20:51)
[2023-10-31] MEDS ORDERED: OLANZapine INTRAMUSCULAR 10MG VIAL IM ONE (09:10)
[2023-10-31] MEDS ORDERED: OLANZapine 10 MG TAB PO ONE (09:15)
[2023-10-31] MEDS: IBUPROFEN 400MG TAB PO PRN ×2 (09:29→20:52)
[2023-10-31] MEDS: VENLAFAXINE **XR** 75MG CAPSULE PO SCH (10:17)
[2023-10-31] MEDS: BUPRENORPHINE/NALOXONE 2-0.5MG SUBLINGUAL TABLET(SUBOXONE) SL SCH (10:18)
[2023-10-31] MEDS: BUPRENORPHINE/NALOXONE 8-2MG SUBLINGUAL TABLET(SUBOXONE) SL SCH (10:18)
[2023-10-31 16:27] VITALS: BP 100/57; TEMP 97.6; O2SAT 95
[2023-10-31] MEDS: MIRTAZAPINE 15 MG TAB PO SCH (20:52)
[2023-11-01 06:47] VITALS: BP 125/74; TEMP 97.3; O2SAT 95
[2023-11-01] MEDS: IBUPROFEN 400MG TAB PO PRN (07:48)
[2023-11-01] MEDS: VENLAFAXINE **XR** 75MG CAPSULE PO SCH (08:02)
[2023-11-01] MEDS: BUPRENORPHINE/NALOXONE 8-2MG SUBLINGUAL TABLET(SUBOXONE) SL SCH (08:02)
[2023-11-01] MEDS: GABAPENTIN 300 MG CAP PO SCH ×4 (08:02→20:01)
[2023-11-01] MEDS: BUPRENORPHINE/NALOXONE 2-0.5MG SUBLINGUAL TABLET(SUBOXONE) SL SCH (08:03)
[2023-11-01] MEDS: NICOTINE 21MG/24HR 1 EA TRANSDERMAL TD SCH (12:02)
[2023-11-01 18:55] VITALS: BP 124/84; TEMP 97.7
[2023-11-01] MEDS: RAMELTEON 8 MG TAB (ROZEREM) PO SCH (20:01)
[2023-11-01] MEDS: CEFDINIR 300 MG CAP (OMNICEF) PO SCH (20:01)
[2023-11-02 06:19] VITALS: BP 121/69; TEMP 97.4; O2SAT 100
[2023-11-02] MEDS: GABAPENTIN 300 MG CAP PO SCH ×4 (08:05→20:00)
[2023-11-02] MEDS: MULTIVITAMINS/MINERALS THERAP 1 TAB PO SCH (08:05)
[2023-11-02] MEDS: NICOTINE 21MG/24HR 1 EA TRANSDERMAL TD SCH (08:06)
[2023-11-02] MEDS: VENLAFAXINE **XR** 75MG CAPSULE PO SCH (08:06)
[2023-11-02] MEDS: CEFDINIR 300 MG CAP (OMNICEF) PO SCH ×2 (08:06→20:00)
[2023-11-02] MEDS: BUPRENORPHINE/NALOXONE 2-0.5MG SUBLINGUAL TABLET(SUBOXONE) SL SCH (08:06)
[2023-11-02] MEDS: BUPRENORPHINE/NALOXONE 8-2MG SUBLINGUAL TABLET(SUBOXONE) SL SCH (08:06)
[2023-11-02] MEDS: IBUPROFEN 400MG TAB PO PRN ×2 (11:03→18:48)
[2023-11-02 17:33] LABS: BASO % 0.3 % (0.0-1.0); EOS # 0.1 10^3/uL (0.0-0.5); EOS % 3.7 % (0.0-3.0); HEMOGLOBIN 14.2 g/dl (12.0-15.5); LYMPH # 1.7 10^3/uL (1.5-5.0); LYMPH % 56.9 % (24.0-44.0); MEAN CORPUSCULAR HEMOGLOBIN 27.9 pg (27.0-33.0); MEAN CORPUSCULAR HGB CONC 32.3 g/dl (32.0-36.5); MEAN CORPUSCULAR VOLUME 86.4 fl (80.0-96.0); MONO # 0.3 10^3/uL (0.0-0.8); NEUTROPHILS % 29.1 % (36.0-66.0); PLATELET COUNT, AUTOMATED 254 10^3/uL (150-450); RED BLOOD COUNT 5.09 10^6/uL (4.00-5.40)
[2023-11-02 17:52] LABS: BLOOD UREA NITROGEN 18 MG/DL (9-23); CALCIUM LEVEL 8.8 MG/DL (8.5-10.1); CARBON DIOXIDE LEVEL 29 MMOL/L (20-31); CHLORIDE LEVEL 104 MMOL/L (98-107); CREATININE FOR GFR 0.69 MG/DL (0.55-1.30); GLOMERULAR FILTRATION RATE > 60.0 (>58); GLUCOSE, FASTING 86 MG/DL (60-100); POTASSIUM SERUM 3.9 MMOL/L (3.5-5.1); SODIUM LEVEL 138 MMOL/L (136-145)
[2023-11-02 18:37] LABS: NEUTROPHILS # 0.9 10^3/uL (1.5-8.5)
[2023-11-02 18:59] VITALS: BP 119/75; TEMP 96.7; O2SAT 98
[2023-11-02] MEDS ORDERED: KETOROLAC TROMETHAMINE 10 MG TAB PO ONE (19:50)
[2023-11-02] MEDS: RAMELTEON 8 MG TAB (ROZEREM) PO SCH (20:00)
[2023-11-02] MEDS ORDERED: MORPHINE 2 MG/ML 1ML VIAL IV ONE (21:40)
[2023-11-02 21:44] VITALS: BP 113/72; TEMP 97.2; O2SAT 99
[2023-11-02] MEDS ORDERED: PILL CUTTER 1 EACH XX PRN (21:55)
[2023-11-02] MEDS ORDERED: HYDROmorphone 2 MG TAB PO ONE (22:30)
[2023-11-03 06:04] VITALS: BP 127/74; TEMP 97; O2SAT 99
[2023-11-03] MEDS: CEFDINIR 300 MG CAP (OMNICEF) PO SCH (08:03)
[2023-11-03] MEDS: GABAPENTIN 300 MG CAP PO SCH ×2 (08:04→12:16)
[2023-11-03] MEDS: MULTIVITAMINS/MINERALS THERAP 1 TAB PO SCH (08:04)
[2023-11-03] MEDS: VENLAFAXINE **XR** 75MG CAPSULE PO SCH (08:05)
[2023-11-03] MEDS: BUPRENORPHINE/NALOXONE 8-2MG SUBLINGUAL TABLET(SUBOXONE) SL SCH (08:05)
[2023-11-03] MEDS: BUPRENORPHINE/NALOXONE 2-0.5MG SUBLINGUAL TABLET(SUBOXONE) SL SCH (08:05)
[2023-11-03] MEDS: NICOTINE 21MG/24HR 1 EA TRANSDERMAL TD SCH (08:07)
[2023-11-03] MEDS ORDERED: RAME8TAB2 PO (12:42)
[2023-11-03] MEDS ORDERED: GABA-282 PO (12:42)
[2023-11-03] MEDS ORDERED: Multivitamins PO (12:42)
[2023-11-03] MEDS ORDERED: CEFD300CAP PO (12:42)
[2023-11-03] MEDS ORDERED: VENL75CA47 PO (12:42)
== END 2023-11-03 13:03 | disposition home or self-care (01) | DRG 881 ==
LOC: M ED 14:31 → M ED INP 18:20 → M PSY 10-30 15:27
PROVIDERS: ADMIT Student in an Organized Health Care Education/Training Program; ATTEND Student in an Organized Health Care Education/Training Program
DX: F32.A Depression, unspecified (principal); R45.851 Suicidal ideations; F11.20 Opioid dependence, uncomplicated; F41.9 Anxiety disorder, unspecified; F12.90 Cannabis use, unspecified, uncomplicated; F17.200 Nicotine dependence, unspecified, uncomplicated; F15.90 Other stimulant use, unspecified, uncomplicated; F14.90 Cocaine use, unspecified, uncomplicated; F60.3 Borderline personality disorder; Z91.119 Patient's noncompliance with dietary regimen due to unspecified reason; Z91.148 Patient's other noncompliance with medication regimen for other reason; Z88.8 Allergy status to other drugs, medicaments and biological substances; Z79.899 Other long term (current) drug therapy; G47.00 Insomnia, unspecified; F31.9 Bipolar disorder, unspecified; G62.9 Polyneuropathy, unspecified; G89.29 Other chronic pain; N20.0 Calculus of kidney

== ENCOUNTER → 2023-12-24 | Outpatient (CLI) | payer MEDICARE ==
[~2023-12-24] MED LIST changes: +Multivitamins PO
[2023-12-24 19:14] LABS: HEMATOCRIT 39.1 % (36.0-47.0); HEMOGLOBIN 12.8 g/dl (12.0-15.5); MEAN CORPUSCULAR HEMOGLOBIN 29.2 pg (27.0-33.0); MEAN CORPUSCULAR HGB CONC 32.7 g/dl (32.0-36.5); MEAN CORPUSCULAR VOLUME 89.3 fl (80.0-96.0); PLATELET COUNT, AUTOMATED 270 10^3/uL (150-450); RED BLOOD COUNT 4.38 10^6/uL (4.00-5.40); WHITE BLOOD COUNT 4.6 10^3/uL (4.0-10.0)
[2023-12-24 19:46] LABS: ALBUMIN 3.9 G/DL (3.2-5.2); ALKALINE PHOSPHATASE 89 U/L (46-116); ALT/SGPT < 9 U/L (7.0-40); AST/SGOT 9 U/L (<34); BILIRUBIN,TOTAL 0.3 MG/DL (0.3-1.2); BLOOD UREA NITROGEN 12 MG/DL (9-23); CALCIUM LEVEL 9.2 MG/DL (8.5-10.1); CARBON DIOXIDE LEVEL 26 MMOL/L (20-31); CHLORIDE LEVEL 106 MMOL/L (98-107); CREATININE FOR GFR 0.69 MG/DL (0.55-1.30); GLOMERULAR FILTRATION RATE > 60.0 (>58); GLUCOSE, FASTING 98 MG/DL (60-100); POTASSIUM SERUM 4.1 MMOL/L (3.5-5.1); SODIUM LEVEL 138 MMOL/L (136-145); TOTAL PROTEIN 6.9 G/DL (5.7-8.2)
== END ==
LOC: M LAB 18:21
PROVIDERS: ATTEND Urology
DX: N20.0 Calculus of kidney (principal)

== ENCOUNTER 2023-12-30 08:32 | Day surgery (SDC) | payer MEDICAID, MEDICARE ==
[~2023-12-30] VITALS: Ht 157.5 cm; Wt 75.2 kg
[2023-12-30] MEDS ORDERED: dexmedeTOMIDine (4MCG/ML)200MCG/50ML BTL (PRECEDEX) As Ordered ONE (09:04)
[2023-12-30] MEDS ORDERED: ONDANSETRON 4MG 2ML VIAL As Ordered ONE (09:04)
[2023-12-30] MEDS ORDERED: MIDAZOLAM INJ 2MG/2ML VIAL As Ordered ONE (09:04)
[2023-12-30] MEDS ORDERED: LIDOCAINE 2% 100MG/5ML SDV (FOR ANES.) As Ordered ONE (09:04)
[2023-12-30] MEDS ORDERED: fentaNYL 100 MCG/2 ML INJECTION As Ordered ONE (09:04)
[2023-12-30] MEDS: LR 1,000 ML IV SCH (09:42)
[2023-12-30] MEDS: ceFAZolin SOD 2 GM in IV 1 EA IV ONE (10:22)
[2023-12-30] MEDS ORDERED: ACETAMINOPHEN 1000MG 100ML IV BAG As Ordered ONE (10:32)
[2023-12-30] MEDS ORDERED: ePHEDrine SULFATE 25 MG/5 ML(5MG/ML) SYRINGE As Ordered ONE (10:34)
[2023-12-30] MEDS ORDERED: HYDR-3713 PO (10:43)
[2023-12-30 11:06] VITALS: BP 102/62; TEMP 98; O2SAT 96
[2023-12-31] MEDS ORDERED: FLOM0.4C39 PO (05:27)
== END 2023-12-30 12:01 | disposition home or self-care (01) ==
LOC: M SDC 08:32
PROVIDERS: ATTEND Urology
DX: N20.0 Calculus of kidney (principal); N28.1 Cyst of kidney, acquired; R56.9 Unspecified convulsions; E03.9 Hypothyroidism, unspecified; F17.290 Nicotine dependence, other tobacco product, uncomplicated; B19.20 Unspecified viral hepatitis C without hepatic coma; Z79.899 Other long term (current) drug therapy; Z90.49 Acquired absence of other specified parts of digestive tract; Z90.710 Acquired absence of both cervix and uterus; Z88.8 Allergy status to other drugs, medicaments and biological substances

== ENCOUNTER 2023-12-30 21:23 | Emergency (ER) | payer MEDICAID, MEDICARE ==
[~2023-12-30] VITALS: Ht 157.5 cm; Wt 81.8 kg
[~2023-12-30 21:23] MED LIST changes: +HYDR-3713 PO
[2023-12-30] MEDS: NS 1,000 ML IV ONE (22:17)
[2023-12-30] MEDS: ONDANSETRON 4MG 2ML VIAL IV ONE (22:17)
[2023-12-30] MEDS: KETOROLAC 30 MG/ML 1ML VIAL IV ONE (22:17)
[2023-12-30] MEDS: MORPHINE 4 MG/ML 1ML VIAL IV PRN (22:18)
[2023-12-30 22:25] LABS: BASO % 0.5 % (0.0-1.0); EOS # 0.4 10^3/uL (0.0-0.5); EOS % 5.6 % (0.0-3.0); HEMATOCRIT 43.9 % (36.0-47.0); HEMOGLOBIN 14.1 g/dl (12.0-15.5); LYMPH # 2.2 10^3/uL (1.5-5.0); LYMPH % 35.7 % (24.0-44.0); MEAN CORPUSCULAR HEMOGLOBIN 28.9 pg (27.0-33.0); MEAN CORPUSCULAR HGB CONC 32.1 g/dl (32.0-36.5); MONO # 0.5 10^3/uL (0.0-0.8); MONO % 8.3 % (2.0-8.0); NEUTROPHILS # 3.1 10^3/uL (1.5-8.5); NEUTROPHILS % 49.7 % (36.0-66.0); PLATELET COUNT, AUTOMATED 200 10^3/uL (150-450); RED BLOOD COUNT 4.88 10^6/uL (4.00-5.40); WHITE BLOOD COUNT 6.2 10^3/uL (4.0-10.0)
[2023-12-30 22:42] LABS: LIPASE 29 U/L (12-53)
[2023-12-30 22:44] LABS: ALBUMIN 4.3 G/DL (3.2-5.2); ALKALINE PHOSPHATASE 104 U/L (46-116); ALT/SGPT 21 U/L (7.0-40); AST/SGOT 35 U/L (<34); BILIRUBIN,DIRECT 0.1 MG/DL (<0.4); BILIRUBIN,TOTAL 0.4 MG/DL (0.3-1.2); BLOOD UREA NITROGEN 15 MG/DL (9-23); CALCIUM LEVEL 9.4 MG/DL (8.5-10.1); CARBON DIOXIDE LEVEL 24 MMOL/L (20-31); CHLORIDE LEVEL 108 MMOL/L (98-107); CREATININE FOR GFR 0.83 MG/DL (0.55-1.30); GLOMERULAR FILTRATION RATE > 60.0 (>58); GLUCOSE, FASTING 90 MG/DL (60-100); POTASSIUM SERUM 4.4 MMOL/L (3.5-5.1); SODIUM LEVEL 140 MMOL/L (136-145); TOTAL PROTEIN 7.4 G/DL (5.7-8.2)
[2023-12-30] MEDS ORDERED: ISOVUE-370 76% 100ML VIAL As Ordered ONE (23:03)
[2023-12-31 00:48] LABS: RSV AMPLIFICATION NEGATIVE (NEGATIVE)
[2023-12-31 01:40] LABS: AMPHETAMINES LEVEL URINE NEGATIVE (NEGATIVE); BARBITURATES URINE NEGATIVE (NEGATIVE); METHADONE URINE NEGATIVE (NEGATIVE); PHENCYCLIDINE URINE NEGATIVE (NEGATIVE)
[2023-12-31 01:52] LABS: BENZODIAZEPINES URINE POSITIVE (NEGATIVE); CANNABINOIDS URINE POSITIVE (NEGATIVE); COCAINE METABOLITE URINE POSITIVE (NEGATIVE); OPIATES URINE POSITIVE (NEGATIVE)
[2023-12-31] MEDS ORDERED: FLOM0.4C39 PO (05:27)
[2023-12-31] MEDS: TAMSULOSIN 0.4 MG CAP PO ONE (05:47)
[2023-12-31 06:01] VITALS: BP 112/78; TEMP 98.5; O2SAT 98
== END 2023-12-31 06:03 | disposition home or self-care (01) ==
LOC: M ED 21:23
DX: N20.2 Calculus of kidney with calculus of ureter (principal); E03.9 Hypothyroidism, unspecified; F32.A Depression, unspecified; N80.9 Endometriosis, unspecified; F31.9 Bipolar disorder, unspecified; F19.10 Other psychoactive substance abuse, uncomplicated; Z88.8 Allergy status to other drugs, medicaments and biological substances; Z79.899 Other long term (current) drug therapy
CPT/HCPCS: 50590; 74177; 80048; 80076; 80307; 83605; 83690; 85025; 87086; 87631; 93041; 96365; 96366; 96375; 99285; J0131; J0690; J1885; J2250; J2405; J3010; Q9967

== ENCOUNTER 2024-04-27 09:30 | Inpatient (IN) | payer MEDICAID, MEDICARE ==
[~2024-04-27] VITALS: Ht 154.9 cm; Wt 61.4 kg
[~2024-04-27 09:30] MED LIST changes: +DOXY-440 PO; -DOXY-444 PO; +FLOM0.4C39 PO; +ONDA-282 PO; -ONDA4TAB6 PO; +VENL25TA20 PO; -VENL25TA28 PO
[2024-04-27 10:44] LABS: HEMATOCRIT 48.5 % (36.0-47.0); HEMOGLOBIN 15.6 g/dl (12.0-15.5); MEAN CORPUSCULAR HEMOGLOBIN 29.7 pg (27.0-33.0); MEAN CORPUSCULAR HGB CONC 32.2 g/dl (32.0-36.5); MEAN CORPUSCULAR VOLUME 92.4 fl (80.0-96.0); PLATELET COUNT, AUTOMATED 234 10^3/uL (150-450); RED BLOOD COUNT 5.25 10^6/uL (4.00-5.40); WHITE BLOOD COUNT 3.7 10^3/uL (4.0-10.0)
[2024-04-27] MEDS: VENLAFAXINE **XR** 75MG CAPSULE PO ONE (11:00)
[2024-04-27] MEDS: GABAPENTIN 300 MG CAP PO ONE (11:00)
[2024-04-27 12:07] LABS: ETHYL ALCOHOL (ETHANOL) < 0.003 % (0.000-0.010)
[2024-04-27 12:09] LABS: ALKALINE PHOSPHATASE 90 U/L (46-116); ALT/SGPT 10 U/L (7.0-40); AST/SGOT < 8 U/L (<34); BILIRUBIN,DIRECT 0.2 MG/DL (<0.4); BILIRUBIN,TOTAL 0.6 MG/DL (0.3-1.2); BLOOD UREA NITROGEN 14 MG/DL (9-23); CALCIUM LEVEL 9.6 MG/DL (8.5-10.1); CARBON DIOXIDE LEVEL 26 MMOL/L (20-31); CHLORIDE LEVEL 109 MMOL/L (98-107); CREATININE FOR GFR 0.69 MG/DL (0.55-1.30); GLOMERULAR FILTRATION RATE > 60.0 (>58); GLUCOSE, FASTING 87 MG/DL (60-100); MAGNESIUM LEVEL 2.2 MG/DL (1.8-2.4); POTASSIUM SERUM 4.2 MMOL/L (3.5-5.1); SALICYLATE LEVEL < 3.0 MG/DL (<30); SODIUM LEVEL 141 MMOL/L (136-145); TOTAL PROTEIN 7.2 G/DL (5.7-8.2)
[2024-04-27 12:16] LABS: AMPHETAMINES LEVEL URINE NEGATIVE (NEGATIVE); BARBITURATES URINE NEGATIVE (NEGATIVE); BENZODIAZEPINES URINE NEGATIVE (NEGATIVE); CANNABINOIDS URINE POSITIVE (NEGATIVE); COCAINE METABOLITE URINE POSITIVE (NEGATIVE); METHADONE URINE NEGATIVE (NEGATIVE); OPIATES URINE NEGATIVE (NEGATIVE); PHENCYCLIDINE URINE NEGATIVE (NEGATIVE)
[2024-04-27] MEDS ORDERED: NEUR300C PO (14:59)
[2024-04-27] MEDS ORDERED: ROZE8TAB16 PO (14:59)
[2024-04-27] MEDS ORDERED: HOME MED LIST COMPLETE! XX SCH (15:05)
[2024-04-27] MEDS ORDERED: MOM 30ML SUSPENSION UDC PO PRN (17:35)
[2024-04-27] MEDS ORDERED: IBUPROFEN 400MG TAB PO PRN (17:35)
[2024-04-27] MEDS ORDERED: MAALOX 30 ML SUSP *UDC PO PRN (17:35)
[2024-04-27] MEDS ORDERED: ACETAMINOPHEN TAB 650MG DOSE (2X325MG) PO PRN (17:35)
[2024-04-27] MEDS: BUPRENORPHINE/NALOXONE 8-2MG SUBLINGUAL TABLET(SUBOXONE) SL SCH (19:21)
[2024-04-27] MEDS: GABAPENTIN 300 MG CAP PO SCH (21:12)
[2024-04-27] MEDS: RAMELTEON 8 MG TAB (ROZEREM) PO SCH (21:12)
[2024-04-28 09:50] VITALS: BP 150/90; TEMP 97.9; O2SAT 99
[2024-04-28] MEDS: VENLAFAXINE **XR** 75MG CAPSULE PO SCH (12:50)
[2024-04-28] MEDS ORDERED: ONDANSETRON 4MG ORAL DISINTEGRATING TAB SL PRN (13:50)
[2024-04-28 17:18] VITALS: BP 109/71; TEMP 97.4; O2SAT 100
[2024-04-28] MEDS: diphenhydrAMINE 25MG CAP PO PRN (21:28)
[2024-04-29 06:21] VITALS: BP 127/78; TEMP 97.3; O2SAT 98
[2024-04-29] MEDS: LIDOCAINE 5% (LIDODERM) PATCH TD ONE (09:59)
[2024-04-29] MEDS: NICOTINE POLACRILEX 2 MG GUM PO PRN (10:24)
[2024-04-29 16:56] VITALS: BP 115/61; TEMP 97.1; O2SAT 100
[2024-04-30 06:28] VITALS: BP 109/62; TEMP 97.6; O2SAT 98
[2024-04-30 11:15] LABS: BASO % 0.8 % (0.0-1.0); EOS # 0.2 10^3/uL (0.0-0.5); EOS % 4.7 % (0.0-3.0); HEMATOCRIT 51.6 % (36.0-47.0); HEMOGLOBIN 16.2 g/dl (12.0-15.5); LYMPH # 1.9 10^3/uL (1.5-5.0); LYMPH % 52.1 % (24.0-44.0); MEAN CORPUSCULAR HEMOGLOBIN 30.3 pg (27.0-33.0); MEAN CORPUSCULAR HGB CONC 31.4 g/dl (32.0-36.5); MEAN CORPUSCULAR VOLUME 96.4 fl (80.0-96.0); MONO # 0.3 10^3/uL (0.0-0.8); MONO % 9.2 % (2.0-8.0); NEUTROPHILS # 1.2 10^3/uL (1.5-8.5); NEUTROPHILS % 32.9 % (36.0-66.0); PLATELET COUNT, AUTOMATED 210 10^3/uL (150-450); RED BLOOD COUNT 5.35 10^6/uL (4.00-5.40); WHITE BLOOD COUNT 3.6 10^3/uL (4.0-10.0)
[2024-04-30 18:00] VITALS: BP 101/62; TEMP 97.6; O2SAT 97
[2024-04-30] MEDS: QUEtiapine FUMARATE 25 MG TAB PO SCH (20:03)
[2024-04-30] MEDS: CLOTRIMAZOLE 1% VAG CR 45 GM PV SCH (20:05)
[2024-05-01 06:12] VITALS: BP 93/59; TEMP 98.3; O2SAT 99
[2024-05-01] MEDS ORDERED: NICO2GUM PO (13:35)
[2024-05-01] MEDS ORDERED: ROZE8TAB16 PO (13:35)
[2024-05-01] MEDS ORDERED: NEUR300C PO (13:35)
[2024-05-01] MEDS ORDERED: CLOT7CR PV (13:35)
[2024-05-01] MEDS ORDERED: QUET1TAB17 PO (13:35)
[2024-05-01 18:03] VITALS: BP 104/61; TEMP 96.4
[2024-05-02 06:33] VITALS: BP 97/56; TEMP 96.3; O2SAT 97
== END 2024-05-02 11:33 | disposition home or self-care (01) | DRG 754 ==
LOC: EDBD 09:30 → M ED 09:30 → M ED INP 17:33 → M PSY 04-28 12:34
PROVIDERS: ADMIT Student in an Organized Health Care Education/Training Program; ATTEND Student in an Organized Health Care Education/Training Program
DX: F32.A Depression, unspecified (principal); F60.3 Borderline personality disorder; F15.90 Other stimulant use, unspecified, uncomplicated; F17.200 Nicotine dependence, unspecified, uncomplicated; F11.20 Opioid dependence, uncomplicated; F12.90 Cannabis use, unspecified, uncomplicated; F14.90 Cocaine use, unspecified, uncomplicated; F41.9 Anxiety disorder, unspecified; M54.50 Low back pain, unspecified; G89.29 Other chronic pain; Z56.0 Unemployment, unspecified; Z91.51 Personal history of suicidal behavior; Z90.49 Acquired absence of other specified parts of digestive tract; Z90.79 Acquired absence of other genital organ(s); Z79.899 Other long term (current) drug therapy; Z88.8 Allergy status to other drugs, medicaments and biological substances; Z91.048 Other nonmedicinal substance allergy status; Z81.8 Family history of other mental and behavioral disorders

== ENCOUNTER → 2024-07-16 | Outpatient (REF) | payer MEDICAID ==
[~2024-07-16] MED LIST changes: +CLOT7CR PV; +GABA-1172 PO; +GABA-1490 PO; +GABA-1635 PO; -GABA-282 PO; -GABA600T4 PO; -GABA800T4 PO; +NICO2GUM PO; +QUET1TAB17 PO
[2024-07-16 20:01] LABS: Trichomonas vaginalis (AMP) NOT DETECTED (NEGATIVE)
[2024-07-16 20:29] LABS: GC DNA AMPLIFICATION NEGATIVE (NEGATIVE)
== END ==
LOC: M LAB REF 18:20
PROVIDERS: ATTEND Physician Assistant Medical
DX: Z20.2 Contact with and (suspected) exposure to infections with a predominantly sexual mode of transmission (principal)

== ENCOUNTER 2024-11-28 03:37 | Emergency (ER) | payer MEDICARE, MEDICAID ==
[~2024-11-28] VITALS: Ht 157.5 cm; Wt 72.7 kg
[2024-11-28 04:19] LABS: BASO % 0.6 % (0.0-1.0); EOS # 0.5 10^3/uL (0.0-0.5); EOS % 10.2 % (0.0-3.0); HEMATOCRIT 47.2 % (36.0-47.0); HEMOGLOBIN 15.3 g/dl (12.0-15.5); LYMPH % 39.8 % (24.0-44.0); MEAN CORPUSCULAR HEMOGLOBIN 29.8 pg (27.0-33.0); MEAN CORPUSCULAR HGB CONC 32.4 g/dl (32.0-36.5); MEAN CORPUSCULAR VOLUME 91.8 fl (80.0-96.0); MONO # 0.4 10^3/uL (0.0-0.8); MONO % 7.2 % (2.0-8.0); NEUTROPHILS # 2.1 10^3/uL (1.5-8.5); NEUTROPHILS % 41.8 % (36.0-66.0); RED BLOOD COUNT 5.14 10^6/uL (4.00-5.40)
[2024-11-28 07:07] LABS: KETONE, URINE AUTO RFX NEGATIVE (NEGATIVE); LEUKOCYTE ESTERASE UR AUTO RFX TRACE (NEGATIVE); MUCUS, URINE RFX LARGE (NEGATIVE); NITRITE, URINE AUTO RFX NEGATIVE (NEGATIVE); RBC, URINE AUTO RFX TNTC /HPF (0-3); SQUAM EPITHELIAL CELL UR AURFX 1 /HPF (0-6); WBC, URINE AUTO RFX 16 /HPF (0-3)
[2024-11-28] MEDS ORDERED: DOXE50CA PO (07:10)
[2024-11-28] MEDS ORDERED: LEVO50TA5 PO (07:10)
[2024-11-28 07:29] LABS: LIPASE 21 U/L (12-53)
[2024-11-28 07:32] LABS: ALBUMIN 3.9 G/DL (3.2-5.2); ALKALINE PHOSPHATASE 84 U/L (35-104); ALT/SGPT 15 U/L (7.0-40); AST/SGOT 11 U/L (<34); BILIRUBIN,DIRECT < 0.1 MG/DL (<0.4); BILIRUBIN,TOTAL 0.3 MG/DL (0.3-1.2); BLOOD UREA NITROGEN 18 MG/DL (9-23); CALCIUM LEVEL 9.2 MG/DL (8.5-10.1); CARBON DIOXIDE LEVEL 26 MMOL/L (20-31); CHLORIDE LEVEL 105 MMOL/L (98-107); CREATININE FOR GFR 0.88 MG/DL (0.55-1.30); GLOMERULAR FILTRATION RATE > 60.0 (>58); GLUCOSE, FASTING 95 MG/DL (60-100); POTASSIUM SERUM 4.3 MMOL/L (3.5-5.1); SODIUM LEVEL 140 MMOL/L (136-145); TOTAL PROTEIN 7.4 G/DL (5.7-8.2)
[2024-11-28 07:35] LABS: HCG, SERUM QUALITATIVE NEGATIVE (NEGATIVE)
[2024-11-28 08:22] VITALS: BP 104/68; TEMP 97.1; O2SAT 97
== END 2024-11-28 08:26 | disposition left against medical advice (07) ==
LOC: M ED 03:37 → EDBD 03:37 → M ED 08:26
DX: R31.9 Hematuria, unspecified (principal); N20.1 Calculus of ureter; Z53.9 Procedure and treatment not carried out, unspecified reason; F17.290 Nicotine dependence, other tobacco product, uncomplicated; F12.10 Cannabis abuse, uncomplicated; Z79.899 Other long term (current) drug therapy; Z88.8 Allergy status to other drugs, medicaments and biological substances

== ENCOUNTER 2024-12-11 12:57 | Day surgery (SDC) | payer MEDICARE ==
[~2024-12-11] VITALS: Ht 157.5 cm; Wt 77.7 kg
[~2024-12-11 12:57] MED LIST changes: +DOXE50CA PO; +ERGO500029 PO; +INDOCYANINE GREEN 25MG VIAL (IC-GREEN) IV ONE; +LEVO50TA5 PO
[2024-12-11] MEDS ORDERED: LR 1,000 ML IV SCH ×2 (13:40→16:25)
[2024-12-11] MEDS ORDERED: propofoL 200 MG/20 ML VIAL As Ordered ONE (14:21)
[2024-12-11] MEDS ORDERED: LIDOCAINE 2% 100MG/5ML SDV (FOR ANES.) As Ordered ONE (14:21)
[2024-12-11] MEDS ORDERED: ROCURONIUM BROMIDE 50MG/5ML VIAL As Ordered ONE (14:21)
[2024-12-11] MEDS ORDERED: SUGAMMADEX SODIUM 500 MG/5 ML VIAL (BRIDION) As Ordered ONE (14:21)
[2024-12-11] MEDS ORDERED: MIDAZOLAM INJ 2MG/2ML VIAL As Ordered ONE (14:22)
[2024-12-11] MEDS ORDERED: fentaNYL 100 MCG/2 ML INJECTION As Ordered ONE (14:23)
[2024-12-11] MEDS: ceFAZolin SOD 2 GM in IV 1 EA IV ONE (15:10)
[2024-12-11] MEDS ORDERED: ACETAMINOPHEN 1000MG/100ML IV BAG As Ordered ONE (15:18)
[2024-12-11] MEDS: INDOCYANINE GREEN 25MG VIAL (IC-GREEN) As Ordered ONE (15:21)
[2024-12-11] MEDS ORDERED: KETOROLAC 60MG 2ML VIAL As Ordered ONE (15:24)
[2024-12-11] MEDS ORDERED: ONDANSETRON 4MG 2ML VIAL As Ordered ONE (15:27)
[2024-12-11] MEDS: HEPARIN SOD (PORCINE) 5000UNITS/ML 1ML VIAL/SYRINGE SQ ONE (15:35)
[2024-12-11] MEDS ORDERED: hydrALAZINE 20MG/ML 1ML VIAL As Ordered ONE (15:54)
[2024-12-11] MEDS ORDERED: ESMOLOL INJ 100MG/10ML VIAL As Ordered ONE (16:02)
[2024-12-11] MEDS ORDERED: HYDR-3713 PO (16:41)
[2024-12-11] MEDS: oxyCODONE 5MG TAB PO PRN (16:41)
[2024-12-11] MEDS: HYDROMORPHONE HCL 0.5 MG/ 0.5 ML SYRINGE IV PRN (16:41)
[2024-12-11] MEDS: ONDANSETRON 4MG 2ML VIAL IV PRN (16:41)
[2024-12-11] MEDS: fentaNYL 100 MCG/2 ML INJECTION IV PRN (16:53)
[2024-12-11] MEDS ORDERED: REFLB XX ONE (17:12)
[2024-12-11] MEDS: LORazepam 2 MG/ML 1ML VIAL IV STA (17:15)
[2024-12-11] MEDS ORDERED: METHOCARBAMOL 1,000 MG/10 ML VIAL As Ordered ONE (17:23)
[2024-12-11] MEDS: METHOCARBAMOL 1,000 MG/10 ML VIAL IV ONE (17:24)
[2024-12-11 20:07] VITALS: BP 126/72; TEMP 97.7; O2SAT 97
== END 2024-12-11 20:13 | disposition home or self-care (01) ==
LOC: M SDC 12:57
PROVIDERS: ATTEND Surgery
DX: K80.20 Calculus of gallbladder without cholecystitis without obstruction (principal); E03.9 Hypothyroidism, unspecified; F41.9 Anxiety disorder, unspecified; F32.A Depression, unspecified; Z79.899 Other long term (current) drug therapy; Z79.891 Long term (current) use of opiate analgesic; F12.10 Cannabis abuse, uncomplicated; F17.200 Nicotine dependence, unspecified, uncomplicated; Z88.8 Allergy status to other drugs, medicaments and biological substances
CPT/HCPCS: 47562; 88304; J0131; J0360; J0665; J0690; J1100; J1171; J1805; J1885; J2060; J2250; J2405; J2800; J3010; Q9968; S2900

== ENCOUNTER 2024-12-16 07:00 | Inpatient (IN) | payer MEDICARE ==
[~2024-12-16] VITALS: Ht 157.5 cm; Wt 77.8 kg
[2024-12-16] MEDS: LEVOTHYROXINE 50MCG TABLET (0.05MG) PO SCH (06:00)
[~2024-12-16 07:00] MED LIST changes: -INDOCYANINE GREEN 25MG VIAL (IC-GREEN) IV ONE
[2024-12-16] MEDS: NS (Normal Saline) 0.9% 1,000 ML IV ONE (08:10)
[2024-12-16 08:16] LABS: CK-MB VALUE MASS < 1.0 NG/ML (<3.6)
[2024-12-16 08:17] LABS: LIPASE 18 U/L (12-53)
[2024-12-16 08:19] LABS: ALKALINE PHOSPHATASE 92 U/L (35-104); ALT/SGPT 20 U/L (7.0-40); AST/SGOT 25 U/L (<34); BILIRUBIN,DIRECT < 0.1 MG/DL (<0.4); BILIRUBIN,TOTAL 0.3 MG/DL (0.3-1.2); BLOOD UREA NITROGEN 12 MG/DL (9-23); CALCIUM LEVEL 9.4 MG/DL (8.5-10.1); CARBON DIOXIDE LEVEL 27 MMOL/L (20-31); CHLORIDE LEVEL 104 MMOL/L (98-107); CREATININE FOR GFR 0.71 MG/DL (0.55-1.30); GLOMERULAR FILTRATION RATE > 60.0 (>58); GLUCOSE, FASTING 102 MG/DL (60-100); POTASSIUM SERUM 4.6 MMOL/L (3.5-5.1); SODIUM LEVEL 141 MMOL/L (136-145); TOTAL PROTEIN 7.7 G/DL (5.7-8.2)
[2024-12-16 08:20] LABS: HEMATOCRIT 41.9 % (36.0-47.0); HEMOGLOBIN 13.5 g/dl (12.0-15.5); MEAN CORPUSCULAR HEMOGLOBIN 29.7 pg (27.0-33.0); MEAN CORPUSCULAR HGB CONC 32.2 g/dl (32.0-36.5); MEAN CORPUSCULAR VOLUME 92.1 fl (80.0-96.0); PLATELET COUNT, AUTOMATED 340 10^3/uL (150-450); RED BLOOD COUNT 4.55 10^6/uL (4.00-5.40); WHITE BLOOD COUNT 5.9 10^3/uL (4.0-10.0)
[2024-12-16 08:20] LABS: KETONE, URINE AUTO RFX NEGATIVE (NEGATIVE); LEUKOCYTE ESTERASE UR AUTO RFX NEGATIVE (NEGATIVE); NITRITE, URINE AUTO RFX NEGATIVE (NEGATIVE); RBC, URINE AUTO RFX 3 /HPF (0-3); SQUAM EPITHELIAL CELL UR AURFX 1 /HPF (0-6); WBC, URINE AUTO RFX 7 /HPF (0-3)
[2024-12-16 08:22] LABS: CPK CREATINE PHOSPHOKINASE 55 U/L (34-145); MB/CK RELATIVE INDEX 1.81 (< OR =4)
[2024-12-16 08:33] LABS: AMPHETAMINES LEVEL URINE NEGATIVE (NEGATIVE); BARBITURATES URINE NEGATIVE (NEGATIVE); BENZODIAZEPINES URINE NEGATIVE (NEGATIVE); COCAINE METABOLITE URINE NEGATIVE (NEGATIVE); METHADONE URINE NEGATIVE (NEGATIVE); OPIATES URINE NEGATIVE (NEGATIVE); PHENCYCLIDINE URINE NEGATIVE (NEGATIVE)
[2024-12-16 08:34] LABS: ETHYL ALCOHOL (ETHANOL) < 0.003 % (0.000-0.010)
[2024-12-16 08:36] LABS: SALICYLATE LEVEL < 3.0 MG/DL (<30)
[2024-12-16 08:38] LABS: THYROID STIMULATING HORMONE 4.431 uIU/ML (0.55-4.78)
[2024-12-16 08:38] LABS: CANNABINOIDS URINE POSITIVE (NEGATIVE)
[2024-12-16] MEDS ORDERED: ISOVUE-370 76% 100ML VIAL As Ordered ONE (08:39)
[2024-12-16 08:55] LABS: ATYPICAL LYMPH 11 % (0-5); EOSINOPHILS 29 % (0-3); LYMPHOCYTES 16 % (16-44); MONOCYTES 6 % (0-5); NEUTROPHILS 37 % (28-66)
[2024-12-16 08:57] LABS: PLATELET ESTIMATE NORMAL (NORMAL)
[2024-12-16] MEDS: NICOTINE 14 MG/24 HR TRANSDERMAL TD SCH (09:00)
[2024-12-16] MEDS ORDERED: D 1010002 PO (09:19)
[2024-12-16] MEDS ORDERED: VITA200031 PO (09:27)
[2024-12-16] MEDS: BUPRENORPHINE/NALOXONE 8-2MG SUBLINGUAL TABLET(SUBOXONE) SL STA (09:28)
[2024-12-16] MEDS ORDERED: ONDA-83 PO (09:34)
[2024-12-16 09:49] LABS: RSV AMPLIFICATION NEGATIVE (NEGATIVE)
[2024-12-16] MEDS ORDERED: HOME MED LIST COMPLETE! XX SCH (09:50)
[2024-12-16 10:24] LABS: MONO REFLEX EBV COMP NEGATIVE (NEGATIVE)
[2024-12-16] MEDS ORDERED: OLANZapine 5 MG TAB PO PRN (11:50)
[2024-12-16] MEDS ORDERED: LORazepam 1 MG TAB PO PRN (11:50)
[2024-12-16] MEDS ORDERED: MOM 30ML SUSPENSION UDC PO PRN (11:50)
[2024-12-16] MEDS ORDERED: MAALOX 30 ML SUSP *UDC PO PRN (11:50)
[2024-12-16 13:27] VITALS: BP 114/62; TEMP 97; O2SAT 96
[2024-12-16 15:34] VITALS: BP 132/96; TEMP 97.9; O2SAT 97
[2024-12-16] MEDS: GABAPENTIN 300 MG CAP PO SCH (16:00)
[2024-12-16] MEDS: diphenhydrAMINE 25MG CAP PO PRN (19:59)
[2024-12-16] MEDS: zolPIDEM TARTRATE 5 MG TAB PO PRN (19:59)
[2024-12-17 06:35] VITALS: BP 106/52; TEMP 97.8; O2SAT 95
[2024-12-17] MEDS: BUPRENORPHINE/NALOXONE 8-2MG SUBLINGUAL TABLET(SUBOXONE) SL SCH (08:02)
[2024-12-17] MEDS: ACETAMINOPHEN 325 MG TAB PO PRN (14:54)
[2024-12-17] MEDS: NICOTINE POLACRILEX 2 MG GUM PO PRN (14:55)
[2024-12-17] MEDS: VENLAFAXINE **XR** 75MG CAPSULE PO SCH (14:59)
[2024-12-18] MEDS: IBUPROFEN 400MG TAB PO PRN (05:59)
[2024-12-18 06:25] VITALS: BP 107/59; TEMP 98.3; O2SAT 97
[2024-12-18] MEDS: VITAMIN D 1,000 INTERNATIONAL UNITS TABLET PO SCH (08:04)
[2024-12-18 15:21] VITALS: BP 123/73; TEMP 97.5; O2SAT 97
[2024-12-18] MEDS: ONDANSETRON 4MG TAB PO PRN (18:41)
[2024-12-19 06:19] VITALS: BP 128/61; TEMP 96.9; O2SAT 95
[2024-12-19] MEDS ORDERED: VENL75CA47 PO (11:27)
[2024-12-19] MEDS ORDERED: AMBI5TAB PO (11:27)
[2024-12-19] MEDS ORDERED: NEUR600T PO (13:12)
[2024-12-19 16:16] LABS: EBV AB TO NUCLEAR ANTIGEN > 600.00 U/mL (<18.00); EBV VIRAL CAPSID AG IGM < 36.00 U/mL (<36.00)
== END 2024-12-19 14:19 | disposition home or self-care (01) | DRG 885 ==
LOC: M ED 07:00 → M ED INP 11:50 → M PSY 13:56
PROVIDERS: ADMIT Internal Medicine; ATTEND Internal Medicine
DX: F33.1 Major depressive disorder, recurrent, moderate (principal); R45.851 Suicidal ideations; F11.20 Opioid dependence, uncomplicated; F41.1 Generalized anxiety disorder; F60.3 Borderline personality disorder; Z88.8 Allergy status to other drugs, medicaments and biological substances; Z79.899 Other long term (current) drug therapy; E03.9 Hypothyroidism, unspecified; G62.9 Polyneuropathy, unspecified; E55.9 Vitamin D deficiency, unspecified; Z79.890 Hormone replacement therapy; Z81.8 Family history of other mental and behavioral disorders

== ENCOUNTER 2024-12-23 02:15 | Emergency (ER) | payer MEDICARE, OTHER ==
[~2024-12-23] VITALS: Ht 157.5 cm; Wt 75.0 kg
[~2024-12-23 02:15] MED LIST changes: +D 1010002 PO; +ONDA-83 PO; +VITA200031 PO
[2024-12-23 03:04] LABS: KETONE, URINE AUTO RFX NEGATIVE (NEGATIVE); MUCUS, URINE RFX SMALL (NEGATIVE); NITRITE, URINE AUTO RFX NEGATIVE (NEGATIVE); RBC, URINE AUTO RFX 2 /HPF (0-3); SQUAM EPITHELIAL CELL UR AURFX 3 /HPF (0-6)
[2024-12-23 03:06] LABS: BASO % 0.1 % (0.0-1.0); EOS % 15.5 % (0.0-3.0); HEMATOCRIT 38.1 % (36.0-47.0); HEMOGLOBIN 12.9 g/dl (12.0-15.5); LYMPH # 1.3 10^3/uL (1.5-5.0); LYMPH % 18.6 % (24.0-44.0); MEAN CORPUSCULAR HEMOGLOBIN 29.9 pg (27.0-33.0); MEAN CORPUSCULAR HGB CONC 33.9 g/dl (32.0-36.5); MEAN CORPUSCULAR VOLUME 88.4 fl (80.0-96.0); MONO # 0.6 10^3/uL (0.0-0.8); MONO % 8.9 % (2.0-8.0); NEUTROPHILS # 3.8 10^3/uL (1.5-8.5); NEUTROPHILS % 56.6 % (36.0-66.0); PLATELET COUNT, AUTOMATED 325 10^3/uL (150-450); RED BLOOD COUNT 4.31 10^6/uL (4.00-5.40); WHITE BLOOD COUNT 6.7 10^3/uL (4.0-10.0)
[2024-12-23 03:13] LABS: LEUKOCYTE ESTERASE UR AUTO RFX 3+ (NEGATIVE); WBC, URINE AUTO RFX 24 /HPF (0-3)
[2024-12-23 03:30] LABS: ALBUMIN 3.9 G/DL (3.2-5.2); BILIRUBIN,DIRECT 0.2 MG/DL (<0.4); BILIRUBIN,TOTAL 0.5 MG/DL (0.3-1.2); CALCIUM LEVEL 9.1 MG/DL (8.5-10.1); CREATININE FOR GFR 1.2 MG/DL (0.55-1.30); POTASSIUM SERUM 3.9 MMOL/L (3.5-5.1); TOTAL PROTEIN 7.2 G/DL (5.7-8.2)
[2024-12-23] MEDS: ONDANSETRON 4MG 2ML VIAL IV ONE (03:32)
[2024-12-23] MEDS: NS (Normal Saline) 0.9% 1,000 ML IV ONE (03:33)
[2024-12-23] MEDS: KETOROLAC 30 MG/ML 1ML VIAL IV ONE ×2 (03:33→07:52)
[2024-12-23] MEDS: NS (Normal Saline) 0.9% 1,000 ML IV SCH (05:16)
[2024-12-23] MEDS: ACETAMINOPHEN *IV* 1,000 MG in IV 1 EA IV ONE (07:55)
[2024-12-23] MEDS ORDERED: ONDA-282 PO (08:27)
[2024-12-23] MEDS ORDERED: IBUP-1022 PO (08:27)
[2024-12-23] MEDS ORDERED: SULF1TAB23 PO (08:28)
[2024-12-23 08:30] VITALS: BP 124/76; TEMP 97.8; O2SAT 95
[2024-12-23] MEDS: BACTRIM 160MG/800MG DS TAB PO ONE (08:30)
== END 2024-12-23 08:52 | disposition home or self-care (01) ==
LOC: M ED 02:15
DX: R91.1 Solitary pulmonary nodule (principal); N23 Unspecified renal colic; N13.30 Unspecified hydronephrosis; F11.10 Opioid abuse, uncomplicated; F17.200 Nicotine dependence, unspecified, uncomplicated; F12.10 Cannabis abuse, uncomplicated; Z88.8 Allergy status to other drugs, medicaments and biological substances; Z87.442 Personal history of urinary calculi; Z90.89 Acquired absence of other organs; Z79.1 Long term (current) use of non-steroidal anti-inflammatories (NSAID); Z79.83 Long term (current) use of bisphosphonates; Z79.899 Other long term (current) drug therapy
CPT/HCPCS: 74176; 80048; 80076; 81001; 83605; 83690; 85025; 87086; 93041; 96361; 96365; 96375; 99285; J0131; J1885; J2405

== ENCOUNTER → 2025-01-25 | Outpatient (CLI) | payer MEDICARE, MEDICAID ==
[~2025-01-25] MED LIST changes: +IBUP-1022 PO; +SULF1TAB23 PO
[2025-01-25 11:46] LABS: HEMATOCRIT 42.5 % (36.0-47.0); HEMOGLOBIN 13.9 g/dl (12.0-15.5); MEAN CORPUSCULAR HGB CONC 32.7 g/dl (32.0-36.5); MEAN CORPUSCULAR VOLUME 91.8 fl (80.0-96.0); PLATELET COUNT, AUTOMATED 313 10^3/uL (150-450); RED BLOOD COUNT 4.63 10^6/uL (4.00-5.40); WHITE BLOOD COUNT 4.4 10^3/uL (4.0-10.0)
[2025-01-25 12:50] LABS: ALBUMIN 3.9 G/DL (3.2-5.2); ALKALINE PHOSPHATASE 95 U/L (35-104); ALT/SGPT 13 U/L (7.0-40); AST/SGOT 14 U/L (<34); BILIRUBIN,TOTAL 0.2 MG/DL (0.3-1.2); BLOOD UREA NITROGEN 10 MG/DL (9-23); CALCIUM LEVEL 9.6 MG/DL (8.5-10.1); CARBON DIOXIDE LEVEL 28 MMOL/L (20-31); CHLORIDE LEVEL 104 MMOL/L (98-107); CREATININE FOR GFR 0.73 MG/DL (0.55-1.30); GLOMERULAR FILTRATION RATE > 90.0 (>58); GLUCOSE, FASTING 96 MG/DL (60-100); POTASSIUM SERUM 4.6 MMOL/L (3.5-5.1); SODIUM LEVEL 139 MMOL/L (136-145); TOTAL PROTEIN 7.1 G/DL (5.7-8.2)
[2025-01-25 14:08] LABS: HEPATITIS B SURFACE ANTIGEN NEGATIVE (NEGATIVE); HIV 1&2 SCREEN NEGATIVE (NEGATIVE)
[2025-01-25 14:18] LABS: HEPATITIS C VIRUS ABY INDEX > 11.00 INDEX (<0.8)
[2025-01-25 14:54] LABS: HCG, SERUM QUALITATIVE NEGATIVE (NEGATIVE)
[2025-01-26 13:57] LABS: HCV RNA QUANTITATION <15 NOT DETECTED IU/mL (NOT DETECTED); HCV RNA log10 <1.18 NOT DETECTED Log IU/mL (NOT DETECTED)
== END ==
LOC: M PLALAB 08:27
PROVIDERS: ATTEND Family Medicine
DX: F11.20 Opioid dependence, uncomplicated (principal)

== ENCOUNTER → 2025-08-21 | Outpatient (CLI) | payer MEDICARE, MEDICAID ==
[~2025-08-21] MED LIST changes: -AMBI10TA PO; -AMBI5TAB PO; +AMIT10TA11 PO; -AMIT10TA7 PO; +CEFU50TA PO; -FLOM0.4C39 PO; -IBUP-1022 PO; +IBUP600T42 PO; +LAMO-18 PO; -LAMO25TA4 PO; +PRAV10TA PO; -PRAV10TA4 PO; -PRAV40TA2 PO; +PRAV40TA85 PO; -PROZ20CA11 PO; +PROZ20CA12 PO; +TAMS-18 PO; +TOPI-257 PO; -TOPI100T9 PO; +ZOLP-532 PO; +ZOLP-533 PO; +ZOLP10TA11 PO; -ZOLP10TA2 PO
[2025-08-21 12:49] LABS: PLATELET COUNT, AUTOMATED 300 10^3/uL (150-450)
[2025-08-21 13:34] LABS: FREE T4 0.87 NG/DL (0.89-1.76)
[2025-08-21 13:37] LABS: TOTAL 25(OH) VITAMIN D 26.4 NG/ML (20.0-100.0)
[2025-08-21 13:40] LABS: ALT/SGPT < 9 U/L (7.0-40); AST/SGOT 15 U/L (<34); CALCIUM LEVEL 10.1 MG/DL (8.5-10.1); CARBON DIOXIDE LEVEL 30 MMOL/L (20-31); CHLORIDE LEVEL 106 MMOL/L (98-107); CHOLESTEROL LEVEL 265 MG/DL (<200); CHOLESTEROL RISK RATIO 4.11 (<5); CREATININE FOR GFR 0.80 MG/DL (0.55-1.30); GLOMERULAR FILTRATION RATE > 90.0 (>58); LDL CHOLESTEROL 177.4 MG/DL (<100); NON-HDL-C 200.6 MG/DL; POTASSIUM SERUM 4.4 MMOL/L (3.5-5.1); SODIUM LEVEL 143 MMOL/L (136-145); TRIGLYCERIDES LEVEL 116 MG/DL (<150)
[2025-08-21 14:03] LABS: ESTIMATED AVERAGE GLUCOSE 105.0 MG/DL (60-110)
== END ==
LOC: M WUC 08:26
PROVIDERS: ATTEND Registered Nurse Psychiatric/Mental Health
DX: Z79.899 Other long term (current) drug therapy (principal)